=== PATIENT | female | born 1985 | race African-American/Black ===

== ENCOUNTER 2016-05-25 08:52 | Inpatient (IN) ==
[2016-05-21 12:58] LABS: Basophils % 0.5 % (0.0-0.8); Eosinophils # 0.3 10*3/uL (0.0-0.87); Eosinophils % 3.4 % (0.00-10.9); Hematocrit 39.1 VOL% (35.7-47.0); Hemoglobin 13.1 GM/DL (12.0-16.0); Immature Granulocytes % 0.3 %; Immature Granulocytes Absolute 0.02 #; Lymphocytes # 2.7 10*3/uL (1.4-4.0); Lymphocytes % 36.1 % (21.3-54.2); Mean Corpuscular HGB Conc 33.5 GM/DL (32-36); Mean Corpuscular Hemoglobin 32 PG (27-34); Mean Corpuscular Volume 96.3 FL (87-102); Mean Platelet Volume 11.5 FL (9.6-12.0); Monocytes # 0.6 10*3/uL (0.11-0.8); Monocytes % 7.6 % (1.7-12.7); Neutrophils % 52.1 % (38.7-73.9); Platelet Count 169 T/CUMM (130-400); Red Blood Count 4.06 MC/CUMM (3.8-5.5); Red Cell Distribution Width 17.3 % (9.3-17.3); White Blood Count 7.6 T/CUMM (4-12)
[2016-05-21 13:29] LABS: Calcium 8.6 MG/DL (8.5-10.1); Osmolality,Calculated 287.4 MOS/KG (273-304); Potassium 5.2 MMOL/L (3.5-5.1)
[2016-05-25 09:18] LABS: Hemoglobin 12.1 GM/DL (12.0-16.0)
[2016-05-25] MEDS ORDERED: ceFAZolin 1,000 MG VIAL ONE (09:36)
[2016-05-25] MEDS ORDERED: SODIUM CHLORIDE 0.9% 100 ML IV ONE ×2 (09:37→15:07)
[2016-05-25] MEDS ORDERED: BUPIVACAINE MPF 0.25% /EPI 30 ML VIAL ONE (10:34)
[2016-05-25] MEDS ORDERED: LORazepam 1 MG TABLET PO ONE (11:01)
[2016-05-25] MEDS ORDERED: FAMOTIDINE 20 MG TABLET PO ONE (11:26)
[2016-05-25] MEDS ORDERED: LORazepam 1 MG TABLET ONE (11:29)
[2016-05-25] MEDS ORDERED: FAMOTIDINE 20 MG TABLET ONE (11:29)
[2016-05-25] MEDS ORDERED: SODIUM CHLORIDE 0.9% 1,000 ML IV SCH (11:30)
--- NOTE | 2016-05-25 11:45 | History and Physical Update ---
History and Physical Update - History and Physical H&P was reviewed, the patient examined and there: are no changes in the patients condition since last H&P was completed.
[2016-05-25] MEDS: SODIUM CHLORIDE 0.9% 250 ML IV SCH (11:57)
[2016-05-25] MEDS ORDERED: TISSUE ADHESIVE 1 EACH APPLICATOR TOP ONE (14:24)
[2016-05-25] MEDS ORDERED: ACETAMINOPHEN 325 MG TABLET PO PRN (14:35)
[2016-05-25] MEDS ORDERED: ONDANSETRON 4 MG/2 ML VIAL IV PRN (14:35)
--- NOTE | 2016-05-25 14:55 | Operative Note ---
Date of procedure: 05/25/16 Pre-op diagnosis: hyper parathyroidism Post-op diagnosis: same Procedure: Procedure performed: 3-04/20 gland parathyroidectomy with autotransplantation of half of the fourth gland into the left sternocleidomastoid Procedure in detail: After informed consent was obtained, the patient was taken to the operating suite and laid supine on the operating table. After general anesthesia was induced the neck was extended and supported and then prepped and draped in usual sterile fashion. After procedural pause an incision was made transversely across the neck in a skin line and dissection carried down through the skin and soft tissue. The platysma was divided and superior and inferior flaps were created just below the platysma muscle. The midline was opened and the strap muscles retracted laterally. I then identified the thyroid and using blunt and sharp dissection freed it from the sternocleidomastoid. As it was rotated medially and the inferior location I could identify some bulging tissue and dissected bluntly in this area and identified the left inferior parathyroid gland. It appeared normal in color and mildly enlarged. I bluntly dissected it free from its tissue there was a small vascular pedicle that was clipped and the gland was removed and divided. Pathology confirmed that this was parathyroid tissue. I then checked in the right inferior location and approximately the same area on the right and identified the right inferior and bluntly dissected it away from the fatty adipose tissue. It too appeared normal color and minimally enlarged. It vascular pedicle was clipped and the gland removed divided and confirmed to be parathyroid tissue. I then mobilized the right thyroid gland medially and divided the middle meatal vein. Just behind the thyroid identified the superior parathyroid gland close to the thyroid. It was bluntly dissected down to its vascular pedicle and I dissected close to the wall of the parathyroid gland. Vascular pedicle was clipped next to the parathyroid gland and away from the recurrent laryngeal nerve. This gland removed and sent to pathology and confirmed to be parathyroid tissue. Next the left superior parathyroid gland identified and approximately the same location on the left after mobilizing the thyroid medially. Again dissection carried out along the parathyroid gland staying close to the parathyroid gland and freeing it from the surrounding tissue. It was then held bowel its vascular pedicle which was clipped high along the parathyroid gland and again away from the area of the recurrent laryngeal nerve. It was removed and divided. As with all the other glands it appeared normal in color and only minimally enlarged. Half was sent to pathology and confirmed as parathyroid tissue the other half was dissected into small pieces and placed within the cyst left sternocleidomastoid muscle. The pocket was closed and oversewed with a 5-0 Prolene suture and the tail left long for further identification if needed. The wound was irrigated and suction there was excellent hemostasis. I did not see any other parathyroid tissue or any nodular areas needing further dissection. There was excellent hemostasis and a 7 Mj drain was placed in the wound bed and the strap muscles were reapproximated using 3-0 Vicryl. Platysma was closed with 3-0 Vicryl. 4-0 Monocryl used to close the incision. Drain secured with 2-0 nylon. Sterile dressings applied and the patient was extubated and taken recovery room in stable condition. All lap and needle counts were correct at the end of the case. Anesthesia: EDINSON Surgeon / Physician: Estevan Land Auto Body Detailer: Nik Bravo Estimated blood loss: other (25 mL) Specimens: other (parathyroid glands) Condition: stable Disposition: PACU Results - Labs CBC & BMP: 05/25/16 09:08 05/25/16 09:08 Discharge Plan - Discharge Medications No Action Insulin Glargine [Lantus] 30 unit SUBCUT BEDTIME Lisinopril 40 mg PO BID Insulin Aspart Prot/Asp 70/30 [NovoLOG Mix 70/30] See Protocol SUBCUT DIRECTED PRN PRN Reason: Glucose Management Ondansetron Tab [Zofran Tab] 4 mg PO BID Calcium Acetate 667 mg PO TID W/MEALS Pregabalin [Lyrica] 100 mg PO DAILY Hydralazine HCl 100 mg PO TID diphenhydrAMINE CAP [Benadryl Cap] 25 mg PO Q6H PRN PRN Reason: Sleep Promethazine Tab [Phenergan Tab] 25 mg PO Q8H #20 tablet - Follow Up or Referral - Forms/Instructions
[2016-05-25] MEDS ORDERED: PROPOFOL 200 MG/20 ML VIAL IV ONE (15:05)
[2016-05-25] MEDS ORDERED: MIDAZOLAM 2 MG/2 ML VIAL ONE (15:06)
[2016-05-25] MEDS ORDERED: MINERAL OIL/PETROLATUM OPH OINT 3.5 GM TUBE ONE (15:06)
[2016-05-25] MEDS ORDERED: PHENYLEPHRINE DRIP 20 MG/250 ML PREMIX IV ONE (15:06)
[2016-05-25] MEDS ORDERED: NEOSTIGMINE 10 MG/10 ML VIAL ONE (15:07)
[2016-05-25] MEDS ORDERED: ROCURONIUM 100 MG/10 ML VIAL IV ONE (15:07)
[2016-05-25] MEDS ORDERED: GLYCOPYRROLATE 0.4 MG/2 ML VIAL ONE (15:07)
[2016-05-25] MEDS ORDERED: ONDANSETRON 4 MG/2 ML VIAL ONE ×2 (15:07→15:10)
[2016-05-25] MEDS ORDERED: SODIUM CHLORIDE 0.9% 250 ML IV ONE (15:07)
[2016-05-25] MEDS: HYDROmorphone 2 MG/1 ML VIAL IV PRN ×2 (15:12→15:25)
--- NOTE | 2016-05-25 15:24 | Anesthesia ---
Anesthesia Post OP - Post Ansesthetic Evaluation Patient seen in post op: Yes Resp: within normal limits CV: within normal limits Mental: within normal limits Temp: within normal limits [id number]: within normal limits Nausea and Vomiting: within normal limits Pain: within normal limits
[2016-05-25] MEDS ORDERED: SEVOFLURANE 1 UNIT/15 MINUTE INH ONE (15:34)
--- NOTE | 2016-05-25 15:46 | Nephrology Consult Note ---
History of Present Illness Chief complaint: ESRD, Parathyroidectom History of present illness: Ms. Alfonso is a 31 year old female with end-stage renal disease and secondary hyperparathyroidism. She underwent a 3-1/2 gland parathyroidectomy today. Preop calcium was 8.6. She is seen in the recovery room and is still sedate following her uneventful operation. Her chest is clear and her heart without rub or gallop, no peripheral edema is noted. She [place] sign is negative Impression end-stage renal disease on hemodialysis. 2 status post parathyroidectomy for secondary hyperparathyroidism Plan hemodialysis tomorrow #2 when necessary calcium gluconate IV. Home Medications Medication Instructions Recorded Confirmed Type Insulin Glargine [Lantus] 30 unit SUBCUT BEDTIME 01/07/15 05/25/16 History Insulin Aspart Prot/Asp 70/30 See Protocol SUBCUT DIRECTED PRN 05/04/1505/25 History [NovoLOG Mix 70/30] Lisinopril 40 mg PO BID 05/04/15 05/25/16 History Calcium Acetate 667 mg PO TID W/MEALS 07/16/15 05/25/16 History Ondansetron Tab [Zofran Tab] 4 mg PO BID 07/16/15 05/25/16 History Hydralazine HCl 100 mg PO TID 05/15/16 05/25/16 History Pregabalin [Lyrica] 100 mg PO DAILY 05/15/16 05/25/16 History Promethazine Tab [Phenergan Tab] 25 mg PO Q8H #20 tablet 05/15/16 05/25/16 Rx diphenhydrAMINE CAP [Benadryl Cap] 25 mg PO Q6H PRN 05/15/16 05/25/16 History Allergies Allergy/AdvReac Type Severity Reaction Status Date / Time No Known Allergies Allergy Verified 05/25/16 09:06 Medical,Surgical,& Family Hx - Medical History Cardio: History of: CHF, Hypertension Psychological: History of: Depression Neurology: History of: Peripheral Neuropathy No history of: Seizures HEENT: History of: Eye Problem (GLASSES) Endocrine: History of: Diabetes Mellitus (IDDM), Dyslipidemia, Thyroid Disorder Respiratory: History of: Bronchitis, Respiratory Problems (FLU VAC- YES; PNEU VAC- YES) Renal: History of: Dialysis, Renal Failure Genitourinary: History of: Recurring Urinary Tract Infections (LAST WEDNESDAY) Gastrointestinal: History of: GERD Musculoskeletal: History of: Amputation Hematology: History of: Anemia, Clotting Problems (LOWER EXT, AND ARM 2012) Other: History of: MRSA - Surgical History Cardiac Surgeries: Sugical HX of: Cardiac Surgery Patient Denies: Cardiac Catheterization Abdominal Surgeries: Surgical HX of: Cholecystectomy Reproductive Surgeries: Surgical HX of;: Breast Surgery (R BREAST FOR LUMP), Section (X1), Hysterectomy Orthopedic Surgeries: Surgical HX of;: Orthopedic Surgery (AMPUTEE R LOWER LEG) - Family History Family History: Reports;: Family Hypertension (MOTHER, FATHER) - Social History Smoking Status: Current every day smoker Frequency of Alcohol Use: None Type of Drug Use: None Review of Systems 12 point system: reviewed and no additional remarkable complaints except as stated Exam - Vital Signs Vital signs: Period Temp Pulse Resp BP Sys/Pineda Pulse Ox Last 24 Hr 97.0 F-97.5 F 82-92 16-20 121-164/80-103 97-100 - General Appearance General appearance: well-developed, well-nourished, appears started age EENT: ATNC Neck: no JVD, no thyromegaly, no carotid bruit, supple Respiratory: no kyphosis, no scoliosis Cardiology: no murmurs, no rub, no gallops, no edema, regular rate, regular rhythm, normal S1, normal S2 Gastrointestinal: normoactive bowel sounds, no tenderness Integumentary: no rash, warm and dry Neurologic: no focal deficit, no asterixis, alert and oriented x3, reflexes 2+ and symmetric, gait normal, strength 5/5 Musculoskeletal: no deformities, no erythema, no cyanosis, no clubbing Psychiatric: mood/affect appropriate, cooperative Results - Labs CBC & BMP: 05/25/16 09:08 05/25/16 09:08 Assessment and Plan (1) End stage renal disease on dialysis Status: Chronic Assessment and plan: Dialysis tomorrow and q TTS Current Visit: No (2) Status post subtotal parathyroidectomy Status: Acute Assessment and plan: Ffollow Calcium and supplement as needed Current Visit: Yes Specialty Discharge - Follow Up or Referrals - Speciality Discharge Instructions Nephrology Instructions: Hemodialysis tomorrow.
[2016-05-25] MEDS ORDERED: CALCIUM CARBONATE CHEW 500 MG TABLET PO SCH (21:00)
[2016-05-25] MEDS ORDERED: CALCIUM GLUCONATE 1,000 MG in SODIUM CHLORIDE 0.9% 100 ML IV ONE (21:36)
[2016-05-26] MEDS: SODIUM CHLORIDE 0.9% 250 ML IV SCH (00:21)
[2016-05-26] MEDS: CALCITRIOL 0.5 MCG CAPSULE PO SCH (08:17)
[2016-05-26] MEDS: CALCIUM CARBONATE CHEW 500 MG TABLET PO SCH ×5 (08:18→21:54)
[2016-05-26] MEDS: PANTOPRAZOLE 40 MG TABLET PO SCH (08:19)
[2016-05-26 08:59] LABS: Osmolality,Calculated 291.7 MOS/KG (273-304); Potassium 5.6 MMOL/L (3.5-5.1)
[2016-05-26] MEDS ORDERED: CALCITRIOL 0.5 MCG CAPSULE PO SCH (09:00)
[2016-05-26 09:01] LABS: Calcium 5.7 MG/DL (8.5-10.1)
[2016-05-26] MEDS ORDERED: diphenhydrAMINE CAP 25 MG CAPSULE PO PRN (10:09)
[2016-05-26] MEDS ORDERED: PROMETHAZINE 25 MG TABLET PO SCH (10:30)
[2016-05-26] MEDS ORDERED: ONDANSETRON 4 MG TABLET PO SCH (10:30)
--- NOTE | 2016-05-26 10:47 | Event Note ---
31AAF w history of DM and ESRD on HD admitted by dr lyons w secondary hyperparathyroidism. she underwent 3-1/2 gland parathyroidectomy w autotransplantation of half of the 4th gland into the left sternocleidomastoid on 05/25/[address] Lyons[address] dr ho is following for renal and calcium. Patient with productive cough. Seen in HD. Pain controlled. Afebrile. AVSS. Neck ok. No signs of infection. No edema. SUGEY with 25mL serosanginous output last shift. Calcium down to 5.7 A/P: Dr. Ho managing calcium. Add I/S and Duonebs for cough. Home when calcium stable. Discuss with Dr. Lyons
[2016-05-26] MEDS ORDERED: ALBUTEROL/IPRATROPIUM 3 ML NEB RESP TX PRN (10:50)
[2016-05-26] MEDS: ALBUTEROL/IPRATROPIUM 3 ML NEB RESP TX SCH ×3 (11:19→19:49)
--- NOTE | 2016-05-26 11:47 | Pathology Report from [facility] ---
ACCESSION # : [id number] PATIENT NAME : Bernardo Alfonso ORDERING DR : Estevan Land MD CLINICAL HX: Hyperparathyroidism POST-OP DX: Same SPECIMEN INFO: #1 Parathyroid #2 Parathyroid #3 Parathyroid #4 Parathyroid ? LT superior #5 LT inferior parathyroid #6 RT inferior parathyroid GROSS DESCRIPTION: "#1 BERNARDO ALFONSO" received fresh is a 0.8 x 0.7 cm 100 mg red flores tissue fragment bisected and submitted in cassette #1."#2 RT INFERIOR BERNARDO ALFONSO" received fresh is a 0.6 x 0.5 cm <100 mg red flores tissue submitted in cassette #2."#3 RT UPPER BERNARDO ALFONSO" received fresh is a 1.5 x 0.7 cm 500 mg flores soft tissue fragment submitted in cassette #3."#4 BERNARDO ALFONSO" received fresh is a 1 x 0.2 cm 300 mg flores red tissue fragmentsubmitted entirely in cassette #4."#5 LT INFERIOR BERNARDO ALFONSO" received in formalin is a 0.8 x 0.6 cm fragment of red flores tissue submitted in cassette #5."#6 RT INFERIOR BERNARDO ALFONSO" received in formalin is a 0.5 x 0.5 cm 150 mg fragment of red flores tissue submitted in cassette #6. DIAGNOSIS FOR BERNARDO ALFONSO: #1 LEFT INFERIOR PARATHYROID GLAND, BIOPSY: Hypercellular parathyroid tissue.#2 RIGHT INFERIOR PARATHYROID GLAND, BIOPSY: Hypercellular parathyroid tissue.#3 RIGHT SUPERIOR PARATHYROID GLAND, PARATHYROIDECTOMY: Hypercellular parathyroid tissue.#4 LEFT SUPERIOR PARATHYROID GLAND, PARTIAL PARATHYROIDECTOMY: Hypercellular parathyroid tissue.# 5 LEFT INFERIOR PARATHYROID GLAND, PARATHYROIDECTOMY: Hypercellular parathyroid tissue.#6 RIGHT INFERIOR PARATHYROID GLAND, PARATHYROIDECTOMY: Hypercellular parathyroid tissue. SERVICE DATE: 05/26/2016 REPORT DATE: 05/26/2016 PATHOLOGIST: Agustín Le M.D. [facility]
--- NOTE | 2016-05-26 12:01 | Dialysis Note ---
Dialysis Note - Dialysis Note Patient seen on hemodialysis, she is tolerating this well we'll continue her treatment unchanged.
[2016-05-26] MEDS: CALCIUM ACETATE 667 MG CAPSULE PO SCH ×2 (13:21→17:10)
[2016-05-26] MEDS: PREGABALIN 50 MG CAPSULE PO SCH (13:22)
[2016-05-26] MEDS: FAMOTIDINE 20 MG TABLET PO SCH ×2 (13:22→21:54)
[2016-05-26] MEDS: LISINOPRIL 20 MG TABLET PO SCH ×2 (13:22→21:55)
[2016-05-26] MEDS: CALCIUM GLUCONATE IV SCH (16:33)
[2016-05-26] MEDS: SODIUM CHLORIDE 0.45% IV SCH (16:33)
--- NOTE | 2016-05-26 16:43 | Nephrology Progress Note ---
Nephrology - PN: Subj Interval history: Ms. clements is seen 1 day post parathyroidectomy and she had dialysis earlier today with a high calcium bath. She is sleepy but that's from Phenergan I think. She is able answer questions and seems appropriate. We'll try to decrease some of her sedating medicines. A calcium infusion has been ordered and will follow calcium daily. She is also getting a good bit of oral calcium along with vitamin D as Rocaltrol. We'll continue dialysis with the high calcium bath Exam (PN)-Nephrology - Vital Signs Vital signs: Period Temp Pulse Resp BP Sys/Pineda Pulse Ox Last 24 Hr 96.9 F-97.8 F 90-104 16-20 132-187/66-105 94-100 - Lab 05/25/16 09:08 05/26/16 07:57 Most recent lab results Calcium 5.7 MG/DL (8.5-10.1) L* 05/26/16 07:57 Phosphorus 5.3 MG/DL (2.5-4.9) H 05/26/16 05:41 Assessment and Plan (1) End stage renal disease on dialysis Status: Chronic Assessment and plan: Dialysis tomorrow and q TTS Current Visit: No (2) Status post subtotal parathyroidectomy Status: Acute Assessment and plan: Ffollow Calcium and supplement as needed Current Visit: Yes
[2016-05-26] MEDS ORDERED: PROMETHAZINE 25 MG TABLET PO PRN (16:45)
[2016-05-26] MEDS ORDERED: ONDANSETRON 4 MG TABLET PO PRN (16:46)
[2016-05-26] MEDS: INSULIN ASPART PROTAMINE/ASPART 70/30 100 UNIT/ML SUBCUT PRN (18:03)
[2016-05-26] MEDS: INSULIN GLARGINE 100 UNIT/ML SUBCUT SCH (21:55)
[2016-05-26] MEDS: MORPHINE 2 MG/1 ML SYRINGE IV PRN (22:04)
[2016-05-27] MEDS: ALBUTEROL/IPRATROPIUM 3 ML NEB RESP TX SCH ×7 (00:10→23:43)
[2016-05-27] MEDS: MORPHINE 2 MG/1 ML SYRINGE IV PRN ×3 (04:07→21:47)
[2016-05-27] MEDS: PREGABALIN 50 MG CAPSULE PO SCH (09:11)
[2016-05-27] MEDS: LISINOPRIL 20 MG TABLET PO SCH ×2 (09:12→21:00)
[2016-05-27] MEDS: FAMOTIDINE 20 MG TABLET PO SCH ×2 (09:12→21:00)
[2016-05-27] MEDS: CALCITRIOL 0.5 MCG CAPSULE PO SCH (09:13)
[2016-05-27] MEDS: PANTOPRAZOLE 40 MG TABLET PO SCH (09:13)
[2016-05-27] MEDS: CALCIUM CARBONATE CHEW 500 MG TABLET PO SCH ×4 (09:14→21:00)
[2016-05-27] MEDS: CALCIUM ACETATE 667 MG CAPSULE PO SCH ×3 (09:15→16:26)
--- NOTE | 2016-05-27 09:52 | Event Note ---
31AAF w history of DM and ESRD on HD admitted by dr lyons w secondary hyperparathyroidism. she underwent 3-1/2 gland parathyroidectomy w autotransplantation of half of the 4th gland into the left sternocleidomastoid on 05/25/[address] Lyons[address] ho is following for renal and calcium. pt lying in bed sleeping. easily arousable and appropriate. no complaints of cough today. still some soreness and voice a little hoarse. getting continuous infusion of IV calcium Afebrile. AVSS. Neck ok. No signs of infection. No edema. SUGEY with 10mL serosanginous output last shift. Calcium up to 7.2. AP--cont calcium supplementation per dr georgia mitchell jp when goes home discussed w dr lyons
[2016-05-27] MEDS: CHLORHEXIDINE 4% TOP SCH ×2 (10:00→19:36)
[2016-05-27] MEDS: [UNRECOGNIZED DRUG - OTHER] TOP SCH ×2 (10:00→19:36)
--- NOTE | 2016-05-27 15:26 | Nephrology Progress Note ---
Nephrology - PN: Subj Interval history: Ms. clements is seen in follow-up of her end-stage renal disease and post parathyroidectomy state. This morning was 7.2 and she is having no symptomatic hypocalcemia. We'll check calcium again morning and continue with IV and by mouth supplements along with by mouth Rocaltrol. Overall she is doing well post surgery and has no more than the expected amount of soreness. Dialysis is planned for tomorrow with a high calcium bath. Exam (PN)-Nephrology - Vital Signs Vital signs: Period Temp Pulse Resp BP Sys/Pineda Pulse Ox Last 24 Hr 97.1 F-98.8 F 83-114 16-20 122-139/58-79 94-100 - Lab 05/25/16 09:08 05/26/16 07:57 Most recent lab results Calcium 7.2 MG/DL (8.5-10.1) L 05/27/16 04:56 Phosphorus 5.3 MG/DL (2.5-4.9) H 05/26/16 05:41 Assessment and Plan (1) End stage renal disease on dialysis Status: Chronic Assessment and plan: Dialysis tomorrow and q TTS Current Visit: No (2) Status post subtotal parathyroidectomy Status: Acute Assessment and plan: Ffollow Calcium and supplement as needed Current Visit: Yes
[2016-05-27] MEDS: CALCIUM GLUCONATE IV SCH ×2 (16:24→19:35)
[2016-05-27] MEDS: SODIUM CHLORIDE 0.45% IV SCH ×2 (16:24→19:35)
[2016-05-27] MEDS: INSULIN ASPART PROTAMINE/ASPART 70/30 100 UNIT/ML SUBCUT PRN (17:54)
[2016-05-27] MEDS: INSULIN GLARGINE 100 UNIT/ML SUBCUT SCH (21:45)
[2016-05-28] MEDS: MORPHINE 2 MG/1 ML SYRINGE IV PRN ×4 (02:45→21:19)
[2016-05-28] MEDS: ALBUTEROL/IPRATROPIUM 3 ML NEB RESP TX SCH ×6 (03:39→23:36)
[2016-05-28] MEDS: CHLORHEXIDINE 4% TOP SCH (09:00)
[2016-05-28] MEDS: [UNRECOGNIZED DRUG - OTHER] TOP SCH (09:00)
[2016-05-28] MEDS: LISINOPRIL 20 MG TABLET PO SCH ×2 (09:00→21:19)
--- NOTE | 2016-05-28 09:54 | Dialysis Note ---
Dialysis Note - Dialysis Note Ms. clements is seen during her hemodialysis. She is tolerating dialysis well with a high calcium bath. 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 Overall she's doing well and is recovering from her parathyroidectomy nicely. The hungry bone syndrome is expected.
--- NOTE | 2016-05-28 11:01 | Event Note ---
31AAF w history of DM and ESRD on HD admitted by dr lyons w secondary hyperparathyroidism. she underwent 3-1/2 gland parathyroidectomy w autotransplantation of half of the 4th gland into the left sternocleidomastoid on 05/25/[address] ho is following for renal and calcium. POD3. pt doing ok. still some soreness in neck requiring pain pills. eating and drinking fine. Afebrile. AVSS. Neck ok. No signs of infection. No edema. LOIS with 7mL serosanginous output last shift. Calcium down to 6.6. AP--cont calcium supplementation per dr georgia mitchell lois when goes home home when ok w dr ho discussed w dr hurt covering for dr lyons
[2016-05-28] MEDS: CALCIUM GLUCONATE IV SCH (14:41)
[2016-05-28] MEDS: SODIUM CHLORIDE 0.45% IV SCH (14:41)
[2016-05-28] MEDS: CALCITRIOL 0.5 MCG CAPSULE PO SCH (14:46)
[2016-05-28] MEDS: PANTOPRAZOLE 40 MG TABLET PO SCH (14:46)
[2016-05-28] MEDS: PREGABALIN 50 MG CAPSULE PO SCH (14:46)
[2016-05-28] MEDS: CALCIUM CARBONATE CHEW 500 MG TABLET PO SCH ×4 (14:51→21:18)
[2016-05-28] MEDS: CALCIUM ACETATE 667 MG CAPSULE PO SCH ×3 (16:31→17:26)
[2016-05-28] MEDS: FAMOTIDINE 20 MG TABLET PO SCH ×2 (16:34→21:19)
[2016-05-28] MEDS: INSULIN GLARGINE 100 UNIT/ML SUBCUT SCH (21:19)
[2016-05-29] MEDS: ALBUTEROL/IPRATROPIUM 3 ML NEB RESP TX SCH ×2 (03:30→07:31)
[2016-05-29] MEDS: MORPHINE 2 MG/1 ML SYRINGE IV PRN ×2 (03:44→09:15)
[2016-05-29] MEDS: SODIUM CHLORIDE 0.45% IV SCH (06:10)
[2016-05-29] MEDS: CALCIUM GLUCONATE IV SCH (06:10)
--- NOTE | 2016-05-29 08:25 | Discharge Summary ---
Hospital Course - Hospital Course Hospital Course: This patient was admitted after parathyroidectomy. Her calcium levels normalized and she was cleared for discharge by nephrology. Her SUGEY drain had minimal output and was removed prior to discharge. She was scheduled for follow -up with Dr. Land is an outpatient and sent home on a calcium regimen and pain medications. Discharge Plan - Discharge Data Disposition: Disch To Home/Self Care Discharge Diet: advance to your usual diet Activity: resume usual activities as tolerated Hygiene: may shower Weight Bearing at Discharge: full weight bearing Driving: not until seen by doctor Contact your physician if you experience:: fever over 101, Redness or swelling, Nausea/Vomiting, Shortness of breath, Bleeding, pain uncontrolled by pain medications - Discharge Medications New Calcium Acetate [Phoslo] 667 mg PO TID W/MEALS #90 capsule Calcitriol [Rocaltrol] 1 mcg PO DAILY #30 capsule Calcium Carbonate Chew [Tums] 4 tablet PO QID #120 tablet HYDROcodone/ACETAMIN 7.5-325 [[place] 7.5-325] 1 tablet PO Q4H PRN #45 tablet PRN Reason: Pain Moderate (4-7) Continue Insulin Glargine [Lantus] 35 unit SUBCUT BEDTIME Lisinopril 40 mg PO BID Insulin Aspart Prot/Asp 70/30 [NovoLOG Mix 70/30] See Protocol SUBCUT DIRECTED PRN PRN Reason: Glucose Management Ondansetron Tab [Zofran Tab] 4 mg PO BID Pregabalin [Lyrica] 50 mg PO DAILY Hydralazine HCl 100 mg PO BID Ranitidine Tab [Zantac Tab] 150 mg PO BID diphenhydrAMINE CAP [Benadryl Cap] 25 mg PO Q6H PRN PRN Reason: Sleep Promethazine Tab [Phenergan Tab] 25 mg PO Q8H #20 tablet Discontinued Calcium Acetate 667 mg PO TID W/MEALS - Follow Up or Referral Follow Up: Estevan Land MD [Physician] - 1 Week - Forms/Instructions Exam - Constitutional Vitals: Period Temp Pulse Resp BP Sys/Pineda Pulse Ox Last 24 Hr 96.4 F-97.3 F 101-113 18-20 116-139/57-78 97-100 General appearance: no acute distress, over weight - Head Head exam: Present: normal inspection, normocephalic - Eye Eye exam: Present: EOMI Pupils: Present: GARIMA - ENT ENT exam: Present: normal exam - Neck Neck exam: Present: normal inspection, other (incision is healing well with no hematoma. SUGEY drain is serosanguineous with minimal output.) - Respiratory Respiratory exam: Present: clear to auscultation bilaterally. Absent: accessory muscle use, chest wall tenderness - Cardiovascular Cardiovascular exam: Present: regular rate and rhythm. Absent: systolic murmur , tachycardia - GI/Abdominal GI/Abdominal exam: Present: normal bowel sounds, soft. Absent: tenderness, rebound - Extremities Exam Extremities exam: Present: normal inspection, normal capillary refill - Back Exam Back exam: Present: normal inspection - Neurological Exam Neurological exam: Present: alert, oriented X3 - Psychiatric Psychiatric exam: Present: normal affect, normal mood - Skin Skin exam: Present: normal color, warm Discharge Results Procedures and tests throughout hospitalization: Pending Orders 05/30/16 04:00 Calcium IN AM 05/31/16 04:00 Calcium IN AM Labs on day of discharge: Labs from last 24 hours 05/29/16 05/29/16 05/28/16 08:15 04:02 19:07 POC Glucose 70 L 244 H Calcium 7.8 L 05/28/16 15:59 POC Glucose 90 Calcium DS: Provider Date of admission: 05/25/16 14:35 Primary care physician: Virginia Tobias Attending physician on admission: Estevan Land MD Consults: 05/25/16 14:38 Consult to Physician [CONS] Routine Comment: Consulting Provider: Gary Stratton Consulting Provider Notified: Yes When should Consulting Provider be notified: Now Consult to Specialist Group: Nephrology When should Consulting Provider be notified: Now Person Notified: OFFICE NOTIFIED Date Notified: 05/25/16 Time Notified: 16:04 05/25/16 16:25 Consult to Pastoral Services [CONS] Routine Comment: Pastoral Screen: Request Stem Crusher Visit Pastoral Screen Source of Request: Patient Discharging clinician: Maurice Nazario MD Expected date of discharge: 05/29/16
--- NOTE | 2016-05-29 08:35 | Nephrology Progress Note ---
Nephrology - PN: Subj Interval history: Ms. clements is seen in follow-up for end-stage renal disease and post parathyroidectomy state. Her calcium is up today to 7.8. She is going to go home. We've discussed to discharge with Dr. Nazario and we will keep her on her vitamin D and calcium. This with Ms. clements so she will go home on a higher calcium bath higher dose of oral calcium that is 3 pounds extra strength tablets 4 times a day and Rocaltrol 1 g daily. She'll follow for dialysis tomorrow at the outpatient dialysis unit. Exam (PN)-Nephrology - Vital Signs Vital signs: Period Temp Pulse Resp BP Sys/Pineda Pulse Ox Last 24 Hr 96.4 F-97.3 F 101-113 18-20 116-139/57-78 97-100 - Lab 05/25/16 09:08 05/26/16 07:57 Most recent lab results Calcium 7.8 MG/DL (8.5-10.1) L 05/29/16 04:02 Phosphorus 5.3 MG/DL (2.5-4.9) H 05/26/16 05:41 Assessment and Plan (1) End stage renal disease on dialysis Status: Chronic Assessment and plan: Dialysis tomorrow and q TTS Current Visit: No (2) Status post subtotal parathyroidectomy Status: Acute Assessment and plan: Ffollow Calcium and supplement as needed Current Visit: Yes Specialty Discharge - Follow Up or Referrals Follow up with: Estevan Land MD [Physician] - 1 Week
[2016-05-29] MEDS: CALCITRIOL 0.5 MCG CAPSULE PO SCH (09:11)
[2016-05-29] MEDS: LISINOPRIL 20 MG TABLET PO SCH (09:11)
[2016-05-29] MEDS: CALCIUM ACETATE 667 MG CAPSULE PO SCH (09:12)
[2016-05-29] MEDS: PANTOPRAZOLE 40 MG TABLET PO SCH (09:12)
[2016-05-29] MEDS: FAMOTIDINE 20 MG TABLET PO SCH (09:12)
[2016-05-29] MEDS: PREGABALIN 50 MG CAPSULE PO SCH (09:12)
[2016-05-29] MEDS: CALCIUM CARBONATE CHEW 500 MG TABLET PO SCH (09:13)
[2016-05-29 13:10] VITALS: BP 121/60
== END 2016-05-29 12:25 | disposition home or self-care (01) | DRG 674 ==
LOC: N.OR 08:52 → N.SDSINP 08:53 → N.4E 15:56
PROVIDERS: ADMIT Surgery; ATTEND Surgery

== ENCOUNTER 2016-08-12 18:31 | Inpatient (IN) ==
[2016-08-12] MEDS ORDERED: NITROGLYCERIN 2% OINT 1 INCH/GM PACK TOP STA (20:21)
[2016-08-12] MEDS ORDERED: ASPIRIN 325 MG TABLET PO STA (20:21)
[2016-08-12] MEDS ORDERED: MORPHINE 2 MG/1 ML SYRINGE IV STA (20:21)
[2016-08-12] MEDS ORDERED: METOPROLOL TARTRATE 25 MG TABLET PO STA (20:21)
[2016-08-12] MEDS ORDERED: ONDANSETRON 4 MG/2 ML VIAL IV STA (20:21)
[2016-08-12] MEDS ORDERED: PANTOPRAZOLE 40 MG VIAL IV STA (20:21)
[2016-08-12] MEDS ORDERED: ALUM/MAG/SIMETH/LIDO VISC 1:1 30 ML BOTTLE PO STA (20:21)
--- NOTE | 2016-08-12 20:25 | EKG Report ---
Stationary ECG Study [facility] ER Test Date: 08/12/2016 6:56:50 PM Pat Name: JANES DAMON Department: Room: Gender: F Spanish Medical Interpreter: : 1985 Requested by: Raghu العلي Order Number: [id number] Steve MD: MAULIK BERRIOS Intervals [place] Rate: 105 P: 999 WV: 0 QRS: 81 QRSD: 111 T: 58 QT: 371 QTc: 432 Interpretive Statements SINUS TACHYCARDIA Electronically Signed On 08-16-16 17:28:38 CDT by MAULIK BERRIOS [email or web address]
[2016-08-12] MEDS ORDERED: METOPROLOL TARTRATE 25 MG TABLET ONE (20:33)
[2016-08-12] MEDS ORDERED: PANTOPRAZOLE 40 MG VIAL IV ONE (20:33)
[2016-08-12] MEDS ORDERED: NITROGLYCERIN 2% OINT 1 INCH/GM PACK TOP ONE (20:33)
[2016-08-12] MEDS ORDERED: ASPIRIN 325 MG TABLET ONE (20:34)
[2016-08-12] MEDS ORDERED: ALUM/MAG/SIMETH/LIDO VISC 1:1 30 ML BOTTLE PO ONE (20:34)
[2016-08-12] MEDS ORDERED: ONDANSETRON 4 MG/2 ML VIAL ONE (20:34)
[2016-08-12] MEDS ORDERED: MORPHINE 2 MG/1 ML SYRINGE ONE (20:34)
[2016-08-12 20:38] LABS: Basophils # 0.1 10*3/uL (0.0-0.2); Basophils % 0.2 % (0.0-0.8); Hematocrit 33.7 VOL% (35.7-47.0); Hemoglobin 11.3 GM/DL (12.0-16.0); Immature Granulocytes % 0.8 %; Immature Granulocytes Absolute 0.18 #; Lymphocytes # 2.7 10*3/uL (1.4-4.0); Lymphocytes % 12.5 % (21.3-54.2); Mean Corpuscular HGB Conc 33.5 GM/DL (32-36); Mean Corpuscular Hemoglobin 34 PG (27-34); Mean Corpuscular Volume 101.5 FL (87-102); Mean Platelet Volume 13.3 FL (9.6-12.0); Monocytes # 2.6 10*3/uL (0.11-0.8); Monocytes % 12.1 % (1.7-12.7); NRBC # 0.02 10*3/uL; Neutrophils # 15.7 10*3/uL (1.4-7.4); Neutrophils % 74.4 % (38.7-73.9); Platelet Count 124 T/CUMM (130-400); Red Blood Count 3.32 MC/CUMM (3.8-5.5); Red Cell Distribution Width 18.7 % (9.3-17.3); White Blood Count 21.2 T/CUMM (4-12)
[2016-08-12 20:43] LABS: INR 1.1; PT Patient Result 12.1 SECS
[2016-08-12 20:59] LABS: Albumin 3.1 G/DL (3.4-5.0); Calcium 6.1 MG/DL (8.5-10.1); Magnesium 2.1 MG/DL (1.8-2.4); Osmolality,Calculated 285.6 MOS/KG (273-304); Potassium 5.8 MMOL/L (3.5-5.1); Total Protein 8.2 G/DL (6.4-8.3)
--- NOTE | 2016-08-12 21:00 | XRay Report ---
History: Chest pain Date: 08/12/2016 Study: Chest x-ray PA lateral Comparison exam: June 09, 2016 chest x-ray The cardiac silhouette is upper normal in size. The mediastinal contours are stable. The pulmonary vasculature is not engorged. There is no pleural effusion. There is a focal patchy parenchymal consolidation in the right upper lung which was not present on the comparison chest x-ray. The osseous structures are unchanged. Impression: Focal right upper lung infiltrate compatible with pneumonia. Radiographic follow-up to resolution is recommended PROCEDURE INTERPRETED AT [facility] DEPARTMENT OF RADIOLOGY Final Report Signed by: Dr. Sherie Matos
--- NOTE | 2016-08-12 21:05 | XRay Report ---
History: Epigastric pain Date: 08/12/2016 Study: Flat and erect abdomen Comparison exam: Abdominal x-ray June 10, 2016 There is no evidence of pneumoperitoneum. The bowel gas pattern is nonobstructive without gross mass lesion. There is an infrarenal level IVC filter at the approximate L3 location as before. The osseous structures are unchanged. Surgical clips overlie the right upper abdomen from previous cholecystectomy. Impression: No acute process. IVC filter as before PROCEDURE INTERPRETED AT [facility] DEPARTMENT OF RADIOLOGY Final Report Signed by: Dr. Sherie Matos
[2016-08-12 21:15] LABS: Band Neutrophils 4 % (0-10); Lymphocytes 14 % (20-55); Platelet Estimate Adequate; Segmented Neutrophils 77 % (50-85); Total Cells Counted 100
--- NOTE | 2016-08-12 21:20 | Emergency Department Note ---
Josemanuel Lee Manpreet, am scribing for, and in the presence of, Raghu Mejia MD 20:40. Roberto Lee Charles R, MD, personally performed the services described in this documentation, ascribed by Matthew Abernathy in my presence, and it is both accurate and complete . Arrival - Arrival Chief Complaint: Chest Pain Stated Complaint: chest pain/throwing up blood/body aching all over ED Nursing Triage Note: patient to triage with c/o CP and throwing up blood. patient states her "whole body hurts" CP is right sided and hurts more with deep breaths. radiates to her left arm and back. Mode of Arrival: Wheelchair Limitations: No Limitations Source: Patient, Old Records Reviewed, RN Notes Reviewed Time Seen by Provider: 08/12/16 19:40 - History of Present Illness HPI Narrative: Pt is a 31 y/o female with Hx of CHF, HTN, IDDM, NIDDM, Renal failure, and FMHx of HTN, who present to the ED with CC of epigastric and central CP accompanied by body aches since earlier today. Pt is SOB, and reports hematemesis with dark red coloration, and diarrhea. Pt states she has hemodialysis on Tuesdays, , and Saturdays, but missed her appointment because she did not feel well. No other complaints/pains reported to ED. Consistency: constant Severity: moderate Severity scale (1-10): 3 Date of Last Menstrual Period: hyst Allergies/Adverse Reactions: Allergies Allergy/AdvReac Type Severity Reaction Status Date / Time No Known Allergies Allergy Verified 08/12/16 18:53 Home Medications: Home Medications Medication Instructions Recorded Confirmed Type Insulin Glargine [Lantus] 30 unit SUBCUT BEDTIME 01/07/15 08/12/16 History Lisinopril 40 mg PO BID 05/04/15 08/12/16 History Pregabalin [Lyrica] 50 mg PO DAILY 05/15/16 08/12/16 History Ranitidine Tab [Zantac Tab] 150 mg PO TID 05/25/16 08/12/16 History Calcitriol [Rocaltrol] 1 mcg PO DAILY #30 capsule 05/29/16 08/12/16 Rx Calcium Acetate [Phoslo] 667 mg PO TID W/MEALS #90 capsule 05/29/16 08/12/16 Rx Cinacalcet [Sensipar] 30 mg PO DAILY 06/09/16 08/12/16 History Fluoxetine HCl 40 mg PO DAILY 06/09/16 08/12/16 History Montelukast Sodium 10 mg PO BEDTIME 06/09/16 08/12/16 History Pantoprazole Tab [Protonix Tab] 40 mg PO BID #40 tablet 06/10/16 08/12/16 Rx Calcium Acetate [Phoslo] 667 mg PO BID 08/12/16 08/12/16 History Cyproheptadine Tab [Periactin Tab] 4 mg PO BID 08/12/16 08/12/16 History HYDROcodone/ACETAMIN 10-325 [[place] 1 tablet PO Q4H PRN 08/12/16 08/12/16 History 10-325] Insulin Aspart [NovoLOG] See Protocol SUBCUT DAILY PRN 08/12/16 08/12/16 History Mupirocin 2% Oint [Bactroban 2% 1 applic TOP BID 08/12/16 08/12/16 History Oint] Promethazine Tab [Phenergan Tab] 25 mg PO Q6H PRN 08/12/16 08/12/16 History cephALEXin [Cephalexin] 500 mg PO BID 08/12/16 08/12/16 History Review of System - Review of System 12 point system: reviewed and no additional remarkable complaints except as stated - Review of System Constitutional: Present: weakness (Body aches). Absent: chills, fever Respiratory: Present: respiratory distress Cardiovascular: Present: chest pain Gastrointestinal: Present: abdominal pain, diarrhea, hematemesis. Absent: melena Musculoskeletal: Absent: arm pain, back pain, lower back pain, leg pain, neck pain Neurological: Absent: headache Medical,Surgical,& Family Hx - Medical History Cardio: History of: CHF, Hypertension Psychological: History of: Depression Neurology: History of: Peripheral Neuropathy No history of: Seizures Endocrine: History of: Diabetes Mellitus (IDDM), Diabetes Mellitus (NIDDM), Thyroid Disorder, Endocrine Problems (parathyroidectomy) Renal: History of: Dialysis (, , Wed), Renal Failure Gastrointestinal: History of: Gastrointestinal Bleed Musculoskeletal: History of: Amputation (right BKA), Musculoskeletal Problems ( right BKA) Hematology: History of: Anemia Other: History of: MRSA - Surgical History Cardiac Surgeries: Patient Denies: Cardiac Catheterization, Cardiac Surgery Abdominal Surgeries: Surgical HX of: Abdominal Surgery Reproductive Surgeries: Surgical HX of;: Breast Surgery (R BREAST FOR LUMP), Section (X1), Hysterectomy Orthopedic Surgeries: Surgical HX of;: Orthopedic Surgery (AMPUTEE R LOWER LEG) - Family History Family History: Reports;: Family Hypertension (MOTHER, FATHER) - Social History Smoking Status: Current some day smoker Frequency of Alcohol Use: None Type of Drug Use: None Exam Vital Signs: Vital Signs Temperature 98.6 F 08/12/16 18:48 Pulse Rate 105 H 08/12/16 18:48 Respiratory Rate 22 08/12/16 18:48 Blood Pressure 112/76 08/12/16 18:48 O2 Sat by Pulse Oximetry 100 08/12/16 18:48 - General General appearance: alert, in no apparent distress - Head Head exam: Present: atraumatic, normocephalic, normal inspection - Eye Eye exam: Present: normal appearance, PERRL, EOMI - ENT ENT exam: Present: normal exam, normal oropharynx, mucous membranes moist, TM's normal bilaterally - Neck Neck exam: Present: normal inspection, full ROM, trachea midline. Absent: tenderness - Chest Chest inspection: Present: normal inspection, symmetric chest wall rise - Respiratory Respiratory exam: Present: rales (Bilateral rales). Absent: normal lung sounds bilaterally - Cardiovascular Cardiovascular exam: Present: normal rhythm, tachycardia, normal heart sounds - Abdominal Exam Abdominal exam: Present: soft, diminished bowel sounds, other (Bloated stomach.) . Absent: tenderness - Rectal Exam Rectal exam: Present: deferred, heme (+) stool - Extremities Exam Extremities exam: Present: full ROM, other (Amputation of RLE below the knee.). Absent: normal inspection - Back Exam Back exam: Present: normal inspection, full ROM. Absent: tenderness - Neurological Exam Neurological exam: Present: alert, oriented X3, CN II-XII intact, normal gait, reflexes normal - Psychiatric Psychiatric exam: Present: normal affect - Skin Skin exam: Present: warm, dry, intact, normal color. Absent: pallor Course - Consultations Consultation #1: Hospitalist will admit patient Time: 21:29 Results - Labs CBC & BMP: 08/12/16 19:47 08/12/16 19:47 Lab Results: I have reviewed the patients labs Labs: Laboratory Tests Laboratory Tests 08/12/16 08/12/16 19:47 19:47 WBC 21.2 H RBC 3.32 L Hgb 11.3 L Hct 33.7 L MCV 101.5 MCH 34 MCHC 33.5 RDW 18.7 H Plt Count 124 L MPV 13.3 H Neut % (Auto) 74.4 H Lymph % (Auto) 12.5 L [place] % (Auto) 12.1 Eos % (Auto) 0.0 Baso % (Auto) 0.2 Neut # (Auto) 15.7 H Lymph # (Auto) 2.7 [place] # (Auto) 2.6 H Eos # (Auto) 0.0 Baso # (Auto) 0.1 Immature Gran % 0.8 Nucleated RBC % 0.1 Immature Gran # 0.18 Nucleated RBCs # 0.02 INR 1.1 PT Patient/Control Mix 12.1 Laboratory Tests 08/12/16 19:47 Sodium 124 L Potassium 5.8 H Chloride 85 L Carbon Dioxide 23 Anion Gap 21.8 H BUN 71 H Creatinine 14.70 H GFR Calculation 4 BUN/Creatinine Ratio 4.00 L Glucose 380 H Calculated Osmolality 285.6 Calcium 6.1 L Magnesium 2.1 AST 78 H Alkaline Phosphatase 237 H Albumin 3.1 L Globulin 5.1 H Albumin/Globulin Ratio 0.6 L - Diagnostic Findings Procedure: Chest x-ray: report reviewed by me (Chest XR PA Lateral: Focal right upper lung infiltrate compatible with pneumonia. Radiographic follow-up to resoluton is recommended.), CT Abdomen and Pelvis: report reviewed by me (CT Abd : No acute process. IVC filter as before.) Critical Care Time Critical Care Time: Yes Total Critical Care Time: 60 Disposition Clinical Impression: Chest pain, Atypical chest pain, Gastroenteritis, Leukocytosis, Coffee ground emesis, End stage renal disease on dialysis, Right upper lobe pneumonia, GI bleed, Hyponatremia, Hyperkalemia Case discussed with: patient, patient's family Disposition: Still a Patient Condition: Guarded Time of Disposition: 21:29
[2016-08-12] MEDS ORDERED: cefTRIAXone 1,000 MG in SODIUM CHLORIDE 0.9% 100 ML IV STA (21:21)
[2016-08-12] MEDS ORDERED: cefTRIAXone 1,000 MG VIAL ONE (21:29)
[2016-08-12] MEDS ORDERED: ALBUTEROL/IPRATROPIUM 3 ML NEB RESP TX STA (21:35)
--- NOTE | 2016-08-12 22:02 | Hospitalist History & Physical ---
Assessment and Plan (1) Atypical chest pain Status: Acute Current Visit: Yes (2) GI bleed Status: Acute Current Visit: Yes (3) Gastroenteritis Status: Acute Current Visit: Yes (4) Hyperkalemia Status: Acute Current Visit: Yes (5) Hyponatremia Status: Acute Current Visit: Yes (6) Leukocytosis Status: Acute Current Visit: Yes (7) Right upper lobe pneumonia Status: Acute Current Visit: Yes (8) Hypertension Status: Acute Current Visit: No (9) Intractable nausea and vomiting Status: Acute Current Visit: No (10) Ulcerative esophagitis Status: Acute Current Visit: No (11) End stage renal disease on dialysis Status: Chronic Assessment and plan: Our plan for this patient. Patient at this time seems to be in ICU admission. She needs to be admitted and placed on IV antibiotics for her pneumonia. We will need to watch her hemoglobin and hematocrit while she is here to see if it did not drop significantly. Currently she is 11.3 and 33.7. We will need to consult GI for her hematocrit emesis. This might be her erosive esophagitis acting up. Need to make sure that she is on PPI twice daily. Will consult renal for her dialysis. Draw serial troponins. Due to the lack of ICU beds patient might need have to be kept in the emergency room overnight. If she stable after overnight she might be able to be a floor patient Current Visit: No History of Present Illness Chief complaint: Multiple complaints History of present illness: Ms. Alfonso is a 31 year old female with past medical history significant for end- stage renal disease diabetes hypertension and erosive esophagitis who is her normal state of health till yesterday. Patient reports that time she had nausea and vomiting. She reports that she was too sick to go to hemodialysis and she stayed at home. She has been throwing up blood. She reports to me that she has a hiatal hernia. Looked at last EGD that she had and she was noted as having erosive esophagitis. She is also having a cough and feels short of breath. She also is complaining about chest pain that starts in the center of her chest radiates to the right side of her chest and around her back and down her left arm. I was consulted to admit the patient to the emergency room. Home Medications Medication Instructions Recorded Confirmed Type Insulin Glargine [Lantus] 30 unit SUBCUT BEDTIME 01/07/15 08/12/16 History Lisinopril 40 mg PO BID 05/04/15 08/12/16 History Pregabalin [Lyrica] 50 mg PO DAILY 05/15/16 08/12/16 History Ranitidine Tab [Zantac Tab] 150 mg PO TID 05/25/16 08/12/16 History Calcitriol [Rocaltrol] 1 mcg PO DAILY #30 capsule 05/29/16 08/12/16 Rx Calcium Acetate [Phoslo] 667 mg PO TID W/MEALS #90 capsule 05/29/16 08/12/16 Rx Cinacalcet [Sensipar] 30 mg PO DAILY 06/09/16 08/12/16 History Fluoxetine HCl 40 mg PO DAILY 06/09/16 08/12/16 History Montelukast Sodium 10 mg PO BEDTIME 06/09/16 08/12/16 History Pantoprazole Tab [Protonix Tab] 40 mg PO BID #40 tablet 06/10/16 08/12/16 Rx Calcium Acetate [Phoslo] 667 mg PO BID 08/12/16 08/12/16 History Cyproheptadine Tab [Periactin Tab] 4 mg PO BID 08/12/16 08/12/16 History HYDROcodone/ACETAMIN 10-325 [[place] 1 tablet PO Q4H PRN 08/12/16 08/12/16 History 10-325] Insulin Aspart [NovoLOG] See Protocol SUBCUT DAILY PRN 08/12/16 08/12/16 History Mupirocin 2% Oint [Bactroban 2% 1 applic TOP BID 08/12/16 08/12/16 History Oint] Promethazine Tab [Phenergan Tab] 25 mg PO Q6H PRN 08/12/16 08/12/16 History cephALEXin [Cephalexin] 500 mg PO BID 08/12/16 08/12/16 History Allergies Allergy/AdvReac Type Severity Reaction Status Date / Time No Known Allergies Allergy Verified 08/12/16 18:53 Medical,Surgical,& Family Hx - Medical History Cardio: History of: CHF, Hypertension Psychological: History of: Depression Neurology: History of: Peripheral Neuropathy No history of: Seizures Endocrine: History of: Diabetes Mellitus (IDDM), Diabetes Mellitus (NIDDM), Thyroid Disorder, Endocrine Problems (parathyroidectomy) Renal: History of: Dialysis (, , Wed), Renal Failure Gastrointestinal: History of: Gastrointestinal Bleed Musculoskeletal: History of: Amputation (right BKA), Musculoskeletal Problems ( right BKA) Hematology: History of: Anemia Other: History of: MRSA - Surgical History Cardiac Surgeries: Patient Denies: Cardiac Catheterization, Cardiac Surgery Abdominal Surgeries: Surgical HX of: Abdominal Surgery Reproductive Surgeries: Surgical HX of;: Breast Surgery (R BREAST FOR LUMP), Section (X1), Hysterectomy Orthopedic Surgeries: Surgical HX of;: Orthopedic Surgery (AMPUTEE R LOWER LEG) - Family History Family History: Reports;: Family Hypertension (MOTHER, FATHER) - Social History Smoking Status: Current some day smoker Frequency of Alcohol Use: None Type of Drug Use: None 12 point system: reviewed and no additional remarkable complaints except as stated Exam - Constitutional Vitals: Period Temp Pulse Resp BP Sys/Pineda Pulse Ox Last 24 Hr 98.6 F-98.6 F 101-105 22-22 112-112/76-76 95-100 General appearance: over weight - Head Head exam: Present: normal inspection - Eye Eye exam: Present: EOMI Pupils: Present: GARIMA - ENT ENT exam: Present: normal exam - Neck Neck exam: Present: normal inspection - Respiratory Respiratory exam: Present: rales - Cardiovascular Cardiovascular exam: Present: tachycardia - GI/Abdominal GI/Abdominal exam: Present: normal bowel sounds - Extremities Exam Extremities exam: Present: other (Patient has a right BKA secondary to osteo-) - Back Exam Back exam: Present: normal inspection - Neurological Exam Neurological exam: Present: alert - Psychiatric Psychiatric exam: Present: normal affect - Skin Skin exam: Present: normal color Results - Labs CBC & BMP: 08/12/16 19:47 08/12/16 19:47
[2016-08-12] MEDS ORDERED: DEXTROSE 50% 25 GM/50 ML VIAL IV PRN (22:05)
[2016-08-12] MEDS ORDERED: GLUCAGON 1 MG VIAL IM PRN (22:05)
[2016-08-12] MEDS ORDERED: ALBUTEROL 2.5 MG/3 ML NEB RESP TX PRN ×2 (22:05→22:10)
[2016-08-12] MEDS ORDERED: AZITHROMYCIN 500 MG VIAL IV ONE (22:50)
[2016-08-12] MEDS: AZITHROMYCIN INJ 500 MG in SODIUM CHLORIDE 0.9% 250 ML IV SCH (23:52)
[2016-08-13] MEDS ORDERED: INSULIN REGULAR 100 UNIT/ML ONE ×2 (00:15→12:22)
[2016-08-13] MEDS: INSULIN REGULAR 100 UNIT/ML SUBCUT SCH ×5 (00:23→21:01)
--- NOTE | 2016-08-13 00:39 | EKG Report ---
Stationary ECG Study [facility] ER Test Date: 08/13/2016 12:38:17 AM Pat Name: JANES DAMON Department: Room: Gender: F Vp Of Product: : 1985 Requested by: Raghu العلي Order Number: [id number] Steve MD: MAULIK BERRIOS Intervals [place] Rate: 92 P: 58 MN: 163 QRS: 112 QRSD: 106 T: 44 QT: 387 QTc: 437 Interpretive Statements SINUS RHYTHM Electronically Signed On 08-16-16 17:30:51 CDT by MAULIK BERRIOS [email or web address]
[2016-08-13] MEDS: ALBUTEROL/IPRATROPIUM 3 ML NEB RESP TX SCH ×4 (01:03→20:13)
[2016-08-13 04:41] LABS: Basophils % 0.1 % (0.0-0.8); Eosinophils % 0.1 % (0.00-10.9); Hematocrit 31.8 VOL% (35.7-47.0); Hemoglobin 10.8 GM/DL (12.0-16.0); Immature Granulocytes % 0.5 %; Immature Granulocytes Absolute 0.11 #; Lymphocytes % 9.9 % (21.3-54.2); Mean Corpuscular Hemoglobin 34 PG (27-34); Mean Platelet Volume 12.6 FL (9.6-12.0); Monocytes # 2.7 10*3/uL (0.11-0.8); NRBC # 0.02 10*3/uL; Neutrophils # 15.7 10*3/uL (1.4-7.4); Neutrophils % 76.4 % (38.7-73.9); Platelet Count 105 T/CUMM (130-400); Red Blood Count 3.15 MC/CUMM (3.8-5.5); Red Cell Distribution Width 18.9 % (9.3-17.3); White Blood Count 20.5 T/CUMM (4-12)
[2016-08-13 05:08] LABS: Lymphocytes 18 % (20-55); Segmented Neutrophils 73 % (50-85); Total Cells Counted 100
[2016-08-13 05:10] LABS: Platelet Estimate Normal; Tear Drop Cells Few
[2016-08-13 06:03] LABS: Osmolality,Calculated 286.8 MOS/KG (273-304); Potassium 5.4 MMOL/L (3.5-5.1)
[2016-08-13 06:06] LABS: Calcium 5.4 MG/DL (8.5-10.1)
--- NOTE | 2016-08-13 06:35 | EKG Report ---
Stationary ECG Study [facility] ER Test Date: 08/13/2016 3:23:01 AM Pat Name: JANES DAMON Department: Room: Gender: F Cook Pressure: : 1985 Requested by: Raghu العلي Order Number: [id number] Steve MD: MAULIK BERRIOS Intervals [place] Rate: 105 P: 41 NJ: 224 QRS: 95 QRSD: 110 T: 32 QT: 362 QTc: 423 Interpretive Statements SINUS TACHYCARDIA Electronically Signed On 08-16-16 17:31:32 CDT by MAULIK BERRIOS [email or web address]
[2016-08-13] MEDS ORDERED: ONDANSETRON 4 MG/2 ML VIAL ONE (08:30)
[2016-08-13] MEDS ORDERED: FAMOTIDINE 20 MG TABLET PO SCH (09:00)
[2016-08-13] MEDS: PANTOPRAZOLE 40 MG VIAL IV SCH ×2 (09:31→21:00)
[2016-08-13] MEDS ORDERED: PANTOPRAZOLE 40 MG VIAL IV ONE (09:31)
[2016-08-13] MEDS ORDERED: MUPIROCIN 2% OINT 22 GM TUBE TOP ONE (09:31)
[2016-08-13] MEDS ORDERED: FAMOTIDINE 20 MG TABLET ONE (09:31)
[2016-08-13] MEDS: FAMOTIDINE 20 MG TABLET PO SCH (09:33)
[2016-08-13] MEDS: MUPIROCIN 2% OINT 22 GM TUBE TOP SCH ×2 (09:33→21:01)
[2016-08-13] MEDS: CALCIUM ACETATE 667 MG CAPSULE PO SCH ×5 (09:34→21:00)
[2016-08-13] MEDS: CYPROHEPTADINE 4 MG TABLET PO SCH ×2 (09:35→20:59)
[2016-08-13] MEDS: FLUoxetine 20 MG CAPSULE PO SCH (09:35)
[2016-08-13] MEDS: CINACALCET 30 MG TABLET PO SCH (09:36)
[2016-08-13] MEDS: CALCITRIOL 0.5 MCG CAPSULE PO SCH (09:36)
[2016-08-13] MEDS: PREGABALIN 50 MG CAPSULE PO SCH (10:19)
--- NOTE | 2016-08-13 10:19 | CT Report ---
CT chest PE study Indication: Right-sided chest pain. Comparison: None. Technique: CT of the chest was performed following the administration of intravenous contrast. In addition to multiple contiguous axial source images obtained from the thoracic inlet through the upper abdomen, coronal and sagittal MPR series were performed as were thin slab MIP reconstructions in the coronal and sagittal plane. The CT examination was performed using one or more of the following dose reduction techniques: Automatic exposure control, adjustment of the mA and kV according to patient size, or iterative reconstruction techniques. Findings: Nongated study was performed. There appears to be mild to moderate cardiomegaly. There is an ill-defined round hypoattenuating lesion in the region of the right atrial wall which measures 2.4 x 2.1 cm. This lies adjacent the tricuspid valve. Further evaluation is limited secondary to motion. Peripherally located confluent air space attenuation located within the right upper lobe has surrounding more centrally located groundglass attenuation and borderline to minimally enlarged subcarinal and right peritracheal lymph nodes demonstrated. Prevascular lymph nodes are enlarged measuring up to 10 mm short axis dimension. The lung parenchyma otherwise demonstrates significant blurring secondary to motion. This motion additionally blurs the branches of the pulmonary artery which cannot be completely evaluated for presence of pulmonary artery embolus. The central pulmonary arteries as well as lobar pulmonary arteries appear normal. No pleural effusions are present. No endobronchial lesions present. Surgical absence of the gallbladder is demonstrated. Bony structures demonstrate no significant abnormalities. Soft tissues and muscular structure of the body wall demonstrate no significant abnormalities. Multiple breast calcifications are noted throughout the right breast. Impression: 1. Confluent airspace opacities within the right upper lobe most likely due to infection. Follow-up is recommended to ensure complete resolution. 2. No distinct pulmonary artery embolus is demonstrated within the central or lobar pulmonary arteries. Significant motion artifact is present which blurs the smaller vessels and segmental as well as subsegmental pulmonary arteries particularly within the lower lobes cannot be completely evaluated. 3. Right atrial mass measuring 2.4 x 2.1 cm is suggested. Motion precludes further evaluation and correlation with echocardiogram is recommended. Differential considerations, if substantiated, include thrombus, myxoma, melanoma, lymphoma. 4. Adenopathy within the mediastinum as detailed. 08/13/2016 9:23 AM PROCEDURE INTERPRETED AT [facility] DEPARTMENT OF RADIOLOGY Final Report Signed by: Dr. Jermaine Hoffmann
--- NOTE | 2016-08-13 10:47 | Hospitalist Progress Note ---
Assessment and Plan (1) Chest pain Status: Acute Assessment and plan: Evaluations demonstrated no evidence of myocardial infarction or pulmonary emboli. Her chest pain is most probably due to her previously demonstrated ulcerative esophagitis. Current Visit: Yes (2) Gastroenteritis Status: Acute Assessment and plan: Her nausea and vomiting appears to have subsided. She has been treated as necessary with intravenous Zofran. Current Visit: Yes (3) Hyperkalemia Status: Acute Current Visit: Yes (4) Right upper lobe pneumonia Status: Acute Assessment and plan: She is bed presently being treated with intravenous azithromycin and ceftriaxone. Current Visit: Yes Qualifiers: Pneumonia type: due to unspecified organism Qualified Code(s): J18.1 - Lobar pneumonia, unspecified organism (5) End stage renal disease on dialysis Status: Chronic Assessment and plan: She will continue her regularly scheduled hemodialysis. Current Visit: Yes (6) Ulcerative esophagitis Status: Acute Assessment and plan: She has been begun on intravenous pantoprazole. Gastroenterology has been consulted. Current Visit: No Hospitalist: Subjective Interval history: is a 31-year-old -[place] female with end-stage renal disease on hemodialysis, peripheral vascular disease status post below-knee amputation, type 1 diabetes mellitus, essential hypertension, congestive heart failure, and parathyroidectomy. She was hospitalized here yesterday with nausea and vomiting , chest pain, and hematemesis. CT angiogram of her chest did not demonstrate pulmonary emboli, but did demonstrate a right upper lobe infiltrate compatible with pneumonia. Cardiac enzymes have not demonstrated evidence of a myocardial infarction. At the present time she is more comfortable. Her nausea and vomiting has stopped. Her chest pain has resolved. Exam - Constitutional Vitals: Period Temp Pulse Resp BP Sys/Pineda Pulse Ox Last 24 Hr 98.6 F-98.9 F 94-118 16-25 80-181/52-118 91-100 General appearance: no acute distress - Head Head exam: Present: normal inspection, normocephalic - Eye Eye exam: Present: EOMI, conjunctival injection Pupils: Present: GARIMA - ENT ENT exam: Present: normal exam - Neck Neck exam: Present: normal inspection - Respiratory Respiratory exam: Present: clear to auscultation bilaterally - Cardiovascular Cardiovascular exam: Present: regular rate and rhythm - GI/Abdominal GI/Abdominal exam: Present: normal bowel sounds, soft, other (Nontender with no palpable masses or hepatosplenomegaly.) - Extremities Exam Extremities exam: Present: other (Left below-knee amputation.) - Neurological Exam Neurological exam: Present: alert, oriented X3 - Psychiatric Psychiatric exam: Present: normal affect, normal mood - Skin Skin exam: Present: normal color, warm, dry Results - Labs CBC & BMP: 08/13/16 03:16 08/13/16 03:16 Quality Measures - VTE Contraindication to Pharmacological VTE Prophylaxis: Active Bleeding
[2016-08-13 12:01] LABS: Basophils % 0.2 % (0.0-0.8); Eosinophils % 0.1 % (0.00-10.9); Hematocrit 30.3 VOL% (35.7-47.0); Hemoglobin 10.1 GM/DL (12.0-16.0); Immature Granulocytes % 0.8 %; Immature Granulocytes Absolute 0.14 #; Lymphocytes # 1.8 10*3/uL (1.4-4.0); Lymphocytes % 9.7 % (21.3-54.2); Mean Corpuscular HGB Conc 33.3 GM/DL (32-36); Mean Corpuscular Hemoglobin 34 PG (27-34); Mean Platelet Volume 12.5 FL (9.6-12.0); Monocytes # 2.5 10*3/uL (0.11-0.8); Monocytes % 13.6 % (1.7-12.7); NRBC # 0.03 10*3/uL; Neutrophils % 75.6 % (38.7-73.9); Platelet Count 100 T/CUMM (130-400); Red Blood Count 2.97 MC/CUMM (3.8-5.5); Red Cell Distribution Width 18.7 % (9.3-17.3); White Blood Count 18.5 T/CUMM (4-12)
[2016-08-13 12:20] LABS: Band Neutrophils 4 % (0-10); Lymphocytes 10 % (20-55); Macrocytosis 1+; Platelet Estimate Decreased; Segmented Neutrophils 79 % (50-85); Total Cells Counted 100
[2016-08-13 12:26] LABS: Osmolality,Calculated 283.4 MOS/KG (273-304)
[2016-08-13 12:29] LABS: Calcium 5.5 MG/DL (8.5-10.1); Potassium 6.3 MMOL/L (3.5-5.1)
--- NOTE | 2016-08-13 12:52 | Gastrointestinal Consult Note ---
Assessment and Plan (1) Hematemesis Status: Acute Assessment and plan: 08/13-sudden onset of hematemesis with epigastric pain. Prior history of erosive esophagits in May of this year. History of end-stage renal disease on dialysis. Hemoglobin stable at 10.1 down slightly from admission at 11.3. Monitor serial H&H, check stool for occult blood. Will consider upper endoscopy once electrolytes have normalized. Plan an addendum to followed by Dr. Matos. Current Visit: Yes History of Present Illness Chief complaint: Hemetemesis History of present illness: Ms. Alfonso is a 31 year old female who presented to the hospital with onset of hematemesis and epigastric pain. Patient is a poor historian at this time due to she is very somnolent during our visit. Information is obtained from chart review at present time. Patient has a prior history of end-stage renal disease , diabetes, hypertension, and erosive esophagitis in the past. She has hemodialyzed 3 days a week however on yesterday she was not feeling very well and stayed home from her dialysis treatment. She states that she has some epigastric pain shortly after that she began throwing up when she reports to be bright red blood per she does not recall seeing any melena or hematochezia however she also states that she does not check this when she has a bowel movement. She states the pain seemed of started suddenly and did not seem to be precipitated by meals or other factors. The pain initially started in her chest area and radiated to her right upper quadrant around to her back. She takes Protonix twice a day and denies taking any NSAIDs her last EGD was done in May of this year with findings at that time of erosive esophagitis. Her discharge hemoglobin during that time was 11.6. She has a history of parathyroidectomy in the past several months as well. She had a chest CT done this morning for complaints of right-sided chest pain with mild to moderate cardiomegaly an ill-defined lesion to the right atrial wall, no findings of PE. Abdominal x-ray shows no acute processes. Noted to have positive blood cultures for gram-positive cocci with final report pending. Potassium 6.3, sodium 126. Home Medications Medication Instructions Recorded Confirmed Type Insulin Glargine [Lantus] 30 unit SUBCUT BEDTIME 01/07/15 08/12/16 History Lisinopril 40 mg PO BID 05/04/15 08/12/16 History Pregabalin [Lyrica] 50 mg PO DAILY 05/15/16 08/12/16 History Ranitidine Tab [Zantac Tab] 150 mg PO TID 05/25/16 08/12/16 History Calcitriol [Rocaltrol] 1 mcg PO DAILY #30 capsule 05/29/16 08/12/16 Rx Calcium Acetate [Phoslo] 667 mg PO TID W/MEALS #90 capsule 05/29/16 08/12/16 Rx Cinacalcet [Sensipar] 30 mg PO DAILY 06/09/16 08/12/16 History Fluoxetine HCl 40 mg PO DAILY 06/09/16 08/12/16 History Montelukast Sodium 10 mg PO BEDTIME 06/09/16 08/12/16 History Pantoprazole Tab [Protonix Tab] 40 mg PO BID #40 tablet 06/10/16 08/12/16 Rx Calcium Acetate [Phoslo] 667 mg PO BID 08/12/16 08/12/16 History Cyproheptadine Tab [Periactin Tab] 4 mg PO BID 08/12/16 08/12/16 History HYDROcodone/ACETAMIN 10-325 [[place] 1 tablet PO Q4H PRN 08/12/16 08/12/16 History 10-325] Insulin Aspart [NovoLOG] See Protocol SUBCUT DAILY PRN 08/12/16 08/12/16 History Mupirocin 2% Oint [Bactroban 2% 1 applic TOP BID 08/12/16 08/12/16 History Oint] Promethazine Tab [Phenergan Tab] 25 mg PO Q6H PRN 08/12/16 08/12/16 History cephALEXin [Cephalexin] 500 mg PO BID 08/12/16 08/12/16 History Allergies Allergy/AdvReac Type Severity Reaction Status Date / Time No Known Allergies Allergy Verified 08/12/16 18:53 Medical,Surgical,& Family Hx - Medical History Cardio: History of: CHF, Hypertension Psychological: History of: Depression Neurology: History of: Peripheral Neuropathy No history of: Seizures Endocrine: History of: Diabetes Mellitus (IDDM), Diabetes Mellitus (NIDDM), Thyroid Disorder, Endocrine Problems (parathyroidectomy) Renal: History of: Dialysis (, , Wed), Renal Failure Gastrointestinal: History of: Gastrointestinal Bleed Musculoskeletal: History of: Amputation (right BKA), Musculoskeletal Problems ( right BKA) Hematology: History of: Anemia Other: History of: MRSA - Surgical History Cardiac Surgeries: Patient Denies: Cardiac Catheterization, Cardiac Surgery Abdominal Surgeries: Surgical HX of: Abdominal Surgery Reproductive Surgeries: Surgical HX of;: Breast Surgery (R BREAST FOR LUMP), Section (X1), Hysterectomy Orthopedic Surgeries: Surgical HX of;: Orthopedic Surgery (AMPUTEE R LOWER LEG) - Family History Family History: Reports;: Family Hypertension (MOTHER, FATHER) - Social History Smoking Status: Current some day smoker Frequency of Alcohol Use: None Type of Drug Use: None 12 point system: reviewed and no additional remarkable complaints except as stated - Constitutional Constitutional: Present: as per HPI - EENT Eyes: Present: as per HPI Ears: Present: as per HPI Nose, mouth and throat: Present: as per HPI - Cardiovascular Cardiovascular: Present: as per HPI - Respiratory Respiratory: Present: as per HPI - Gastrointestinal Gastrointestinal: Present: as per HPI, abdominal pain, hematemesis, nausea, vomiting - Genitourinary Genitourinary: Present: as per HPI - Musculoskeletal Musculoskeletal: Present: as per HPI - Neurological Neurological: Present: as per HPI - Psychiatric Psychiatric: Present: as per HPI - Endocrine Endocrine: Present: as per HPI - Hematologic/Lymphatic Hematologic/Lymphatic: Present: as per HPI Exam - Constitutional Vitals: Period Temp Pulse Resp BP Sys/Pineda Pulse Ox Last 24 Hr 98.6 F-98.9 F 94-118 16-25 80-181/52-118 91-100 General appearance: normal weight, no acute distress - Head Head exam: Present: normal inspection, normocephalic - Eye Eye exam: Present: other (lids and conjunctiva unremarkable). Absent: scleral icterus - ENT ENT exam: Present: normal exam, normal oropharynx - Neck Neck exam: Present: normal inspection - Respiratory Respiratory exam: Present: clear to auscultation bilaterally. Absent: rales, rhonchi, wheezes - Cardiovascular Cardiovascular exam: Present: regular rate and rhythm. Absent: diastolic murmur , JVD, systolic murmur - GI/Abdominal GI/Abdominal exam: Present: normal bowel sounds, soft. Absent: ascites, distended, mass, organomegaly, tenderness - Extremities Exam Extremities exam: Present: normal inspection, full ROM - Back Exam Back exam: Present: normal inspection - Neurological Exam Neurological exam: Present: alert, oriented X3 - Psychiatric Psychiatric exam: Present: other (somnolent) - Skin Skin exam: Present: normal color, warm, dry Results - Labs CBC & BMP: 08/13/16 11:45 08/13/16 03:16 Lab Results: I have reviewed the past 24 hour labs Quality Measures - VTE Contraindication to Pharmacological VTE Prophylaxis: Active Bleeding
[2016-08-13] MEDS ORDERED: SODIUM CHLORIDE 0.9% 500 ML IV ONE (16:49)
[2016-08-13] MEDS: PHENYLEPHRINE DRIP 40 MG/250 ML PREMIX IV SCH (18:00)
--- NOTE | 2016-08-13 18:38 | Nephrology Consult Note ---
History of Present Illness Chief complaint: ESRD History of present illness: Ms. Alfonso is a 31 year old female with history of ESRD, DM, h/o erosive esophagitis was in her normal state of health until yesterday when she presented with hypotension and hemetemesis. The patient dialyzes at the [facility] on TTS schedule. She was not able to go to dialysis due to fatigue and throwing up blood. Blood cultures were positive for gram positive cocci. She has received 2 grams of vancomycin. Serum potassium was noted to be 6.3. She is undergoing dialysis. Home Medications Medication Instructions Recorded Confirmed Type Insulin Glargine [Lantus] 30 unit SUBCUT BEDTIME 01/07/15 08/13/16 History Lisinopril 40 mg PO BID 05/04/15 08/13/16 History Pregabalin [Lyrica] 50 mg PO DAILY 05/15/16 08/13/16 History Ranitidine Tab [Zantac Tab] 150 mg PO TID 05/25/16 08/13/16 History Calcitriol [Rocaltrol] 1 mcg PO DAILY #30 capsule 05/29/16 08/13/16 Rx Calcium Acetate [Phoslo] 667 mg PO TID W/MEALS #90 capsule 05/29/16 08/13/16 Rx Cinacalcet [Sensipar] 30 mg PO DAILY 06/09/16 08/13/16 History Fluoxetine HCl 40 mg PO DAILY 06/09/16 08/13/16 History Montelukast Sodium 10 mg PO BEDTIME 06/09/16 08/13/16 History Calcium Acetate [Phoslo] 667 mg PO WITH SNACKS 08/12/16 08/13/16 History Cyproheptadine Tab [Periactin Tab] 4 mg PO BID W/MEALS 08/12/16 08/13/16 History HYDROcodone/ACETAMIN 10-325 [[place] 1 tablet PO BID 08/12/16 08/13/16 History 10-325] Insulin Aspart [NovoLOG] See Protocol SUBCUT DAILY PRN 08/12/16 08/13/16 History Mupirocin 2% Oint [Bactroban 2% 1 applic TOP BID 08/12/16 08/13/16 History Oint] Promethazine Tab [Phenergan Tab] 25 mg PO Q6H PRN 08/12/16 08/13/16 History cephALEXin [Cephalexin] 500 mg PO BID 08/12/16 08/13/16 History Pantoprazole Tab [Protonix Tab] 40 mg PO DAILY 08/13/16 08/13/16 History Allergies Allergy/AdvReac Type Severity Reaction Status Date / Time No Known Allergies Allergy Verified 08/12/16 18:53 Medical,Surgical,& Family Hx - Medical History Cardio: History of: CHF, Hypertension Psychological: History of: Depression Neurology: History of: Peripheral Neuropathy No history of: Seizures Endocrine: History of: Diabetes Mellitus (IDDM), Diabetes Mellitus (NIDDM), Dyslipidemia, Thyroid Disorder, Endocrine Problems (parathyroidectomy) Respiratory: History of: Asthma, Bronchitis, Pneumonia Renal: History of: Dialysis (, , Wed), Renal Failure Gastrointestinal: History of: GERD, Gastrointestinal Bleed Musculoskeletal: History of: Amputation (right BKA), Musculoskeletal Problems ( right BKA) Hematology: History of: Anemia Other: History of: MRSA - Surgical History Cardiac Surgeries: Patient Denies: Cardiac Catheterization, Cardiac Surgery Abdominal Surgeries: Surgical HX of: Abdominal Surgery, Cholecystectomy Reproductive Surgeries: Surgical HX of;: Breast Surgery (R BREAST FOR LUMP), Section (X1), Hysterectomy Orthopedic Surgeries: Surgical HX of;: Orthopedic Surgery (AMPUTEE R LOWER LEG) - Family History Family History: Reports;: Family Hypertension (MOTHER, FATHER) - Social History Smoking Status: Current some day smoker Frequency of Alcohol Use: None Type of Drug Use: None Review of Systems ROS unobtainable: due to mental status Exam - Vital Signs Vital signs: Period Temp Pulse Resp BP Sys/Pineda Pulse Ox Last 24 Hr 98.9 F 64-130 12-25 80-130/34-103 95-100 - General Appearance General appearance: well-developed, well-nourished EENT: ATNC Neck: supple Cardiology: regular rate, regular rhythm Gastrointestinal: normoactive bowel sounds, no tenderness Integumentary: no rash Musculoskeletal: no clubbing Results - Labs CBC & BMP: 08/13/16 11:45 08/13/16 11:45 Assessment and Plan (1) End stage renal disease on dialysis Status: Chronic Current Visit: No (2) Diabetes 1.5, managed as type 2 Status: Chronic Current Visit: No (3) Insulin dependent diabetes mellitus Status: Chronic Current Visit: No (4) Coffee ground emesis Status: Acute Current Visit: Yes (5) Hyponatremia Status: Acute Current Visit: Yes (6) Hyperkalemia Status: Acute Assessment and plan: Undergoing hemodialysis. Current Visit: Yes
--- NOTE | 2016-08-13 18:45 | Dialysis Note ---
Dialysis Note - Dialysis Note The patient is seen on dialysis. She is tolerating the procedure.BP 110/60.
[2016-08-13] MEDS: MONTELUKAST 10 MG TABLET PO SCH (21:00)
[2016-08-13] MEDS: cefTRIAXone 1,000 MG in SODIUM CHLORIDE 0.9% 100 ML IV SCH (21:00)
[2016-08-13] MEDS ORDERED: VANCOMYCIN INJ 2,000 MG in SODIUM CHLORIDE 0.9% 500 ML IV ONE (22:00)
[2016-08-13] MEDS: MORPHINE 2 MG/1 ML SYRINGE IV PRN (22:38)
[2016-08-14] MEDS: ALBUTEROL/IPRATROPIUM 3 ML NEB RESP TX SCH ×4 (00:17→19:10)
[2016-08-14] MEDS: AZITHROMYCIN INJ 500 MG in SODIUM CHLORIDE 0.9% 250 ML IV SCH (01:08)
[2016-08-14 05:01] LABS: Basophils % 0.1 % (0.0-0.8); Eosinophils # 0.1 10*3/uL (0.0-0.87); Eosinophils % 0.5 % (0.00-10.9); Hematocrit 29.4 VOL% (35.7-47.0); Hemoglobin 9.9 GM/DL (12.0-16.0); Immature Granulocytes % 3.5 %; Immature Granulocytes Absolute 0.48 #; Lymphocytes # 0.8 10*3/uL (1.4-4.0); Lymphocytes % 5.5 % (21.3-54.2); Mean Corpuscular HGB Conc 33.7 GM/DL (32-36); Mean Corpuscular Hemoglobin 34 PG (27-34); Mean Corpuscular Volume 100.7 FL (87-102); Mean Platelet Volume 13.4 FL (9.6-12.0); Monocytes # 1.9 10*3/uL (0.11-0.8); Monocytes % 14.2 % (1.7-12.7); NRBC # 0.05 10*3/uL; Neutrophils # 10.4 10*3/uL (1.4-7.4); Neutrophils % 76.2 % (38.7-73.9); Platelet Count 101 T/CUMM (130-400); Red Blood Count 2.92 MC/CUMM (3.8-5.5); Red Cell Distribution Width 18.8 % (9.3-17.3); White Blood Count 13.6 T/CUMM (4-12)
[2016-08-14 05:31] LABS: Band Neutrophils 4 % (0-10); Eosinophils 1 % (0-10); Hypochromasia 1+; Lymphocytes 3 % (20-55); Nucleated Red Blood Cells 1 (0-5); Segmented Neutrophils 81 % (50-85); Total Cells Counted 100
[2016-08-14 05:32] LABS: Anisocytosis 1+; Macrocytosis 1+; Platelet Estimate Decreased
[2016-08-14 05:59] LABS: Calcium 6.6 MG/DL (8.5-10.1); Osmolality,Calculated 275.8 MOS/KG (273-304)
[2016-08-14] MEDS: INSULIN REGULAR 100 UNIT/ML SUBCUT SCH ×4 (07:55→20:47)
[2016-08-14] MEDS ORDERED: PHENYLEPHRINE DRIP 40 MG/250 ML PREMIX IV ONE (08:02)
[2016-08-14] MEDS: PHENYLEPHRINE DRIP 40 MG/250 ML PREMIX IV SCH (08:05)
--- NOTE | 2016-08-14 08:44 | Physician Query Form ---
CLICK EDIT DOCUMENT TO SELECT QUERY ANSWER --> OK --> SIGN Sandra Hoffmann RN, CCDS Certified Clinical [employer] W) [phone] (f) [phone] [email or web address]: Make your selection(s) from the choices in EACH section by typing an "x" and enter comments in the comment section. Please use your independent medical judgment in providing your response. This request does not imply that any particular answer is desired or expected. CLINICAL INDICATORS: (Providers should not edit this section) The medical record indicates that the patient was admitted with pneumonia, Pulse 105, RR of 22#, 2 positive Blood Cultures, body aches, WBC of 21.2# and the patient is on Azithromycin/ Ceftriaxone. Please clarify which, if any, of the following is the etiology of the above symptoms and treatment rendered: ( x) Septic Shock (severe sepsis with hypotension) ( ) Severe Sepsis (sepsis with acute organ failure) - Please specify type acute organ failure: ( ) Sepsis due to a localized infection, please specify site: ( ) Sepsis due to a device, implant or graft, please specify: ( ) Localized infection only, without systemic illness, please specify site: ( ) Bacteremia (abnormal lab finding only, does not indicate systemic illness) ( ) Other condition, please specify: ( ) Clinically unable to determine Criteria for Sepsis (SIRS due to an infection) should be based on 2 or more of the following being present: Temperature > 101F or < 96.8F WBC > 12,000 or < 4,000, or > 10% bands Tachycardia HR > 90 beats/minute Tachypnea RR > 20 breaths/minute or PaCO2 > 32mmHg Lactate level > 2.0 mmol/L (>4 is equivalent to severe sepsis) Altered Mental Status Mottling of skin or prolonged capillary refill Non-diabetic hyperglycemia (blood sugar >120 mg/dl) Other evidence of acute organ failure associated with sepsis ( severe sepsis) COMMENTS: Use of terms such as suspected, likely, or probable (associated with a specific diagnosis that is being evaluated, monitored, or treated as if it exists) are acceptable and can be restated in the discharge summary if not ruled out. MTDD
[2016-08-14] MEDS: CINACALCET 30 MG TABLET PO SCH (09:46)
[2016-08-14] MEDS: FLUoxetine 20 MG CAPSULE PO SCH (09:47)
[2016-08-14] MEDS: CALCITRIOL 0.5 MCG CAPSULE PO SCH (09:47)
[2016-08-14] MEDS: CYPROHEPTADINE 4 MG TABLET PO SCH ×2 (09:47→20:06)
[2016-08-14] MEDS: CALCIUM ACETATE 667 MG CAPSULE PO SCH ×5 (09:47→20:06)
[2016-08-14] MEDS: FAMOTIDINE 20 MG TABLET PO SCH (09:48)
[2016-08-14] MEDS: PREGABALIN 50 MG CAPSULE PO SCH (09:48)
[2016-08-14] MEDS: PANTOPRAZOLE 40 MG VIAL IV SCH ×2 (09:48→20:06)
[2016-08-14] MEDS: MUPIROCIN 2% OINT 22 GM TUBE TOP SCH ×2 (09:48→20:06)
--- NOTE | 2016-08-14 09:49 | Gastrointestinal Progress Note ---
Assessment and Plan (1) Hematemesis Status: Acute Assessment and plan: 08/14-No further reports of hematemesis. Hgb holding at 9.9. Noted positive blood cultures for MRSA. Plan and addendum to follow by Dr Matos. 08/13-sudden onset of hematemesis with epigastric pain. Prior history of erosive esophagits in May of this year. History of end-stage renal disease on dialysis. Hemoglobin stable at 10.1 down slightly from admission at 11.3. Monitor serial H&H, check stool for occult blood. Will consider upper endoscopy once electrolytes have normalized. Plan an addendum to followed by Dr. Matos. Current Visit: Yes Gastroenterology - PN: Subj Interval history: CC: Hematemesis Pt is seen, in ICU, somewhat somnolent this morning. She states she isnt feeling well at present time. Is having some generalized abdominal discomfort/ pain. Denies any nausea or vomiting at present and has had no further hemetemesis that is reported. She is noted to be on pressor support at present time. Abdomen is soft, mild tenderness with palpation. Hgb is holding at 9.9. She is also noted to have blood cultures positive for MRSA. WBC are trending down at 13. Potassium is improved at 5.0. ROS: Denies SOB or chest pain Exam (Progress Note) - Constitutional Vitals: Period Temp Pulse Resp BP Sys/Pineda Pulse Ox Last 24 Hr 97.6 F-100.3 F 98-135 12-29 77-132/34-103 90-100 General appearance: normal weight, no acute distress - Head Head exam: Present: normal inspection, normocephalic - Eye Eye exam: Present: other (lids and conjunctiva unremarkable). Absent: scleral icterus - ENT ENT exam: Present: normal exam, normal oropharynx - Neck Neck exam: Present: normal inspection - Respiratory Respiratory exam: Present: clear to auscultation bilaterally. Absent: rales, rhonchi, wheezes - Cardiovascular Cardiovascular exam: Present: regular rate and rhythm. Absent: diastolic murmur , JVD, systolic murmur - GI/Abdominal GI/Abdominal exam: Present: normal bowel sounds, soft. Absent: ascites, distended, mass, organomegaly, tenderness - Extremities Exam Extremities exam: Present: normal inspection, full ROM - Back Exam Back exam: Present: normal inspection - Neurological Exam Neurological exam: Present: alert, oriented X3 - Psychiatric Psychiatric exam: Present: normal affect, normal mood - Skin Skin exam: Present: normal color, warm, dry Results - Labs CBC & BMP: 08/14/16 04:45 08/14/16 04:45 Lab Results: I have reviewed the past 24 hour labs
[2016-08-14] MEDS: ONDANSETRON 4 MG/2 ML VIAL IV PRN (10:28)
--- NOTE | 2016-08-14 11:01 | Hospitalist Progress Note ---
Assessment and Plan (1) Chest pain Status: Acute Assessment and plan: Evaluations demonstrated no evidence of myocardial infarction or pulmonary emboli. Her chest pain is most probably due to her previously demonstrated ulcerative esophagitis. Current Visit: Yes (2) Gastroenteritis Status: Acute Assessment and plan: Her nausea and vomiting appears to have subsided. She has been treated as necessary with intravenous Zofran. Current Visit: Yes (3) Hyperkalemia Status: Acute Current Visit: Yes (4) Right upper lobe pneumonia Status: Acute Assessment and plan: She is bed presently being treated with intravenous azithromycin and ceftriaxone. Current Visit: Yes Qualifiers: Pneumonia type: due to unspecified organism Qualified Code(s): J18.1 - Lobar pneumonia, unspecified organism (5) End stage renal disease on dialysis Status: Chronic Assessment and plan: She will continue her regularly scheduled hemodialysis. Current Visit: Yes (6) Ulcerative esophagitis Status: Acute Assessment and plan: She has been begun on intravenous pantoprazole. Gastroenterology is following. Current Visit: No (7) Bacteremia due to Gram-positive bacteria Status: Acute Assessment and plan: She is being treated with intravenous vancomycin, ceftriaxone, and azithromycin. Current Visit: Yes (8) Hypotension Status: Acute Assessment and plan: She is being treated with intravenous normal saline and Eliezer-Synephrine. Current Visit: Yes Qualifiers: Hypotension type: unspecified hypotension type Qualified Code(s): I95.9 - Hypotension, unspecified Hospitalist: Subjective Interval history: Ms. clements was hospitalized here yesterday with nausea vomiting and hematemesis. She has a previous history of End-stage renal disease on hemodialysis, type 1 diabetes mellitus, hypertension, and erosive esophagitis. Chest x-ray on admission demonstrated evidence of pneumonia. Subsequent blood cultures demonstrated gram-positive cocci. She has been seen in consultation by gastroenterology and nephrology. Her main problem today is been hypotension for which she is required boluses of intravenous normal saline and Eliezer- Synephrine. She is on intravenous azithromycin, vancomycin and ceftriaxone. Exam - Constitutional Vitals: Period Temp Pulse Resp BP Sys/Pineda Pulse Ox Last 24 Hr 97.6 F-100.3 F 98-135 12-29 77-132/34-103 90-100 General appearance: no acute distress, other (Obese) - Head Head exam: Present: normal inspection, normocephalic - Eye Eye exam: Present: EOMI Pupils: Present: GARIMA - Neck Neck exam: Present: normal inspection - Respiratory Respiratory exam: Present: rhonchi - Cardiovascular Cardiovascular exam: Present: regular rate and rhythm - GI/Abdominal GI/Abdominal exam: Present: normal bowel sounds, soft, other (Nontender with no palpable masses or hepatosplenomegaly.) - Extremities Exam Extremities exam: Present: normal inspection - Neurological Exam Neurological exam: Present: alert, oriented X3 - Psychiatric Psychiatric exam: Present: normal affect, normal mood - Skin Skin exam: Present: normal color, warm, dry Results - Labs CBC & BMP: 08/14/16 04:45 08/14/16 04:45 Quality Measures - VTE Contraindication to Pharmacological VTE Prophylaxis: Active Bleeding
[2016-08-14] MEDS ORDERED: SODIUM CHLORIDE 0.9% 500 ML IV ONE (11:06)
--- NOTE | 2016-08-14 13:22 | Nephrology Progress Note ---
Nephrology - PN: Subj Interval history: The patient mentions that she cannot hear as well today. Her serum potassium is better today at 5. She still requires pressor medications. Exam (PN)-Nephrology - Vital Signs Vital signs: Period Temp Pulse Resp BP Sys/Pineda Pulse Ox Last 24 Hr 97.6 F-100.3 F 98-135 12-29 77-132/34-103 90-100 - General Appearance General appearance: well-developed, well-nourished EENT: ATNC Neck: supple Respiratory: clear Cardiology: regular rate, regular rhythm Gastrointestinal: normoactive bowel sounds Neurologic: no asterixis Musculoskeletal: no deformities Psychiatric: mood/affect appropriate - Lab 08/14/16 04:45 08/14/16 04:45 Most recent lab results Calcium 6.6 MG/DL (8.5-10.1) L 08/14/16 04:45 Magnesium 2.1 MG/DL (1.8-2.4) 08/12/16 19:47 Assessment and Plan (1) End stage renal disease on dialysis Status: Chronic Assessment and plan: Schedule for hemodialysis on Wednesday Current Visit: No (2) Diabetes 1.5, managed as type 2 Status: Chronic Current Visit: No (3) Insulin dependent diabetes mellitus Status: Chronic Current Visit: No (4) Coffee ground emesis Status: Acute Current Visit: Yes (5) Hyponatremia Status: Resolved Current Visit: Yes (6) Hyperkalemia Status: Resolved Assessment and plan: Undergoing hemodialysis. Current Visit: Yes
[2016-08-14] MEDS: SODIUM CHLORIDE 0.9% 1,000 ML IV SCH ×2 (13:30→18:35)
[2016-08-14] MEDS: cefTRIAXone 1,000 MG in SODIUM CHLORIDE 0.9% 100 ML IV SCH (20:05)
[2016-08-14] MEDS: AZITHROMYCIN 250 MG TABLET PO SCH (20:06)
[2016-08-14] MEDS: MONTELUKAST 10 MG TABLET PO SCH (20:06)
[2016-08-15] MEDS: MORPHINE 2 MG/1 ML SYRINGE IV PRN ×2 (00:10→07:20)
[2016-08-15] MEDS: ALBUTEROL/IPRATROPIUM 3 ML NEB RESP TX SCH ×4 (01:25→19:36)
[2016-08-15] MEDS: SODIUM CHLORIDE 0.9% 1,000 ML IV SCH ×3 (02:57→22:31)
[2016-08-15 04:43] LABS: Basophils % 0.1 % (0.0-0.8); Eosinophils # 0.5 10*3/uL (0.0-0.87); Eosinophils % 2.9 % (0.00-10.9); Hematocrit 26.2 VOL% (35.7-47.0); Hemoglobin 8.4 GM/DL (12.0-16.0); Immature Granulocytes % 4.1 %; Immature Granulocytes Absolute 0.68 #; Lymphocytes # 1.4 10*3/uL (1.4-4.0); Lymphocytes % 8.5 % (21.3-54.2); Mean Corpuscular HGB Conc 32.1 GM/DL (32-36); Mean Corpuscular Hemoglobin 33 PG (27-34); Mean Corpuscular Volume 102.7 FL (87-102); Mean Platelet Volume 13.2 FL (9.6-12.0); Monocytes # 2.5 10*3/uL (0.11-0.8); Monocytes % 15.3 % (1.7-12.7); Neutrophils # 11.3 10*3/uL (1.4-7.4); Neutrophils % 69.1 % (38.7-73.9); Platelet Count 117 T/CUMM (130-400); Red Blood Count 2.55 MC/CUMM (3.8-5.5); Red Cell Distribution Width 18.8 % (9.3-17.3); White Blood Count 16.4 T/CUMM (4-12)
[2016-08-15 05:10] LABS: Osmolality,Calculated 280.4 MOS/KG (273-304); Potassium 4.7 MMOL/L (3.5-5.1)
[2016-08-15 05:36] LABS: Eosinophils 7 % (0-10); Hypochromasia 1+; Lymphocytes 4 % (20-55); Macrocytosis Slight; Platelet Estimate Decreased; Segmented Neutrophils 76 % (50-85); Total Cells Counted 100
[2016-08-15] MEDS: PANTOPRAZOLE 40 MG VIAL IV SCH ×2 (08:23→20:36)
[2016-08-15] MEDS: CYPROHEPTADINE 4 MG TABLET PO SCH ×2 (08:23→20:36)
[2016-08-15] MEDS: INSULIN REGULAR 100 UNIT/ML SUBCUT SCH ×4 (08:23→20:37)
[2016-08-15] MEDS: CALCITRIOL 0.5 MCG CAPSULE PO SCH (08:24)
[2016-08-15] MEDS: PREGABALIN 50 MG CAPSULE PO SCH (08:24)
[2016-08-15] MEDS: FLUoxetine 20 MG CAPSULE PO SCH (08:24)
[2016-08-15] MEDS: FAMOTIDINE 20 MG TABLET PO SCH (08:24)
[2016-08-15] MEDS: CALCIUM ACETATE 667 MG CAPSULE PO SCH ×5 (08:24→20:37)
[2016-08-15] MEDS: CINACALCET 30 MG TABLET PO SCH (08:24)
[2016-08-15] MEDS: MUPIROCIN 2% OINT 22 GM TUBE TOP SCH ×2 (08:25→20:39)
[2016-08-15] MEDS: ONDANSETRON 4 MG/2 ML VIAL IV PRN (09:30)
--- NOTE | 2016-08-15 11:30 | Hospitalist Progress Note ---
Assessment and Plan (1) Chest pain Status: Acute Assessment and plan: Evaluations demonstrated no evidence of myocardial infarction or pulmonary emboli. Her chest pain is most probably due to her previously demonstrated ulcerative esophagitis or is musculoskeletal. Current Visit: Yes (2) Gastroenteritis Status: Acute Assessment and plan: Her nausea and vomiting appears to have subsided. She has been treated as necessary with intravenous Zofran. Current Visit: Yes (3) Hyperkalemia Status: Resolved Current Visit: Yes (4) Right upper lobe pneumonia Status: Acute Assessment and plan: She is bed presently being treated with intravenous azithromycin and ceftriaxone. Current Visit: Yes Qualifiers: Pneumonia type: due to unspecified organism Qualified Code(s): J18.1 - Lobar pneumonia, unspecified organism (5) End stage renal disease on dialysis Status: Chronic Assessment and plan: She will continue her regularly scheduled hemodialysis. Current Visit: Yes (6) Ulcerative esophagitis Status: Acute Assessment and plan: She has been begun on intravenous pantoprazole. Gastroenterology is following. Current Visit: No (7) Bacteremia due to Gram-positive bacteria Status: Acute Assessment and plan: She is being treated with intravenous vancomycin, ceftriaxone, and azithromycin. Current Visit: Yes (8) Hypotension Status: Acute Assessment and plan: She is being treated with intravenous normal saline and Eliezer-Synephrine. Current Visit: Yes Qualifiers: Hypotension type: unspecified hypotension type Qualified Code(s): I95.9 - Hypotension, unspecified Hospitalist: Subjective Interval history: Ms. Alfonso was hospitalized here 2 days ago with nausea, vomiting, and hematemesis. She has a previous history of end-stage renal disease on hemodialysis, type 1 diabetes mellitus, hypertension, and erosive esophagitis. Chest x-ray to admission demonstrated evidence of pneumonia. Subsequent blood cultures demonstrated gram-positive cocci she has been treated with intravenous azithromycin, vancomycin, and ceftriaxone. She has been persistently hypotensive in the ICU requiring intravenous Eliezer-Synephrine. She has been seen in consultation by nephrology and gastroenterology. Exam - Constitutional Vitals: Period Temp Pulse Resp BP Sys/Pineda Pulse Ox Last 24 Hr 97.2 F-100.3 F 96-134 12-33 62-144/28-87 81-100 General appearance: no acute distress - Head Head exam: Present: normal inspection, normocephalic - Neck Neck exam: Present: normal inspection - Respiratory Respiratory exam: Present: clear to auscultation bilaterally - Cardiovascular Cardiovascular exam: Present: regular rate and rhythm - GI/Abdominal GI/Abdominal exam: Present: normal bowel sounds, soft - Extremities Exam Extremities exam: Present: normal inspection - Skin Skin exam: Present: normal color, warm, dry Results - Labs CBC & BMP: 08/15/16 04:02 08/15/16 04:02 Quality Measures - VTE Contraindication to Pharmacological VTE Prophylaxis: Active Bleeding
--- NOTE | 2016-08-15 13:52 | Dialysis Note ---
Dialysis Note - Dialysis Note S: Pt seen on dialysis. No c/o. O: VSS A: ESRD on CHD. Tolerating well without complications. P: Continue routine CHD as prescribed.
[2016-08-15] MEDS: CYCLOBENZAPRINE 10 MG TABLET PO SCH ×2 (16:07→20:37)
[2016-08-15] MEDS: PHENYLEPHRINE DRIP 40 MG/250 ML PREMIX IV SCH (17:07)
[2016-08-15] MEDS ORDERED: ACETAMINOPHEN 325 MG TABLET PO PRN (17:14)
--- NOTE | 2016-08-15 17:32 | Gastrointestinal Progress Note ---
Assessment and Plan (1) Coffee ground emesis Status: Acute Assessment and plan: Appears stable with no sign of active bleeding. Continue PPI therapy. Follow hemoglobin for now. Do not plan EGD unless she has evident recurrent bleeding. Current Visit: Yes Gastroenterology - PN: Subj Interval history: No gross GI bleeding noted but hemoglobin has trended down to 8.5. She has not had a bowel movement in over 48 hours. She denies abdominal pain. Still having some nausea. Exam (Progress Note) - Constitutional Vitals: Period Temp Pulse Resp BP Sys/Pineda Pulse Ox Last 24 Hr 98.1 F-101.6 F 100-134 12-33 82-144/39-91 81-100 General appearance: no acute distress - Head Head exam: Present: normocephalic, atraumatic - Eye Eye exam: Absent: scleral icterus - Respiratory Respiratory exam: Present: rhonchi (Right lung). Absent: wheezes - Cardiovascular Cardiovascular exam: Present: tachycardia. Absent: gallop - GI/Abdominal GI/Abdominal exam: Present: normal bowel sounds, soft. Absent: distended, tenderness - Extremities Exam Extremities exam: Absent: calf tenderness, edema - Neurological Exam Neurological exam: Present: alert, oriented X3, CN II-XII intact - Skin Skin exam: Present: warm, dry Results - Labs CBC & BMP: 08/15/16 04:02 08/15/16 04:02 Lab Results: I have reviewed the past 24 hour labs
[2016-08-15] MEDS ORDERED: VANCOMYCIN INJ 750 MG in SODIUM CHLORIDE 0.9% 250 ML IV ONE (18:00)
--- NOTE | 2016-08-15 19:05 | ECHO Report ---
Bernardo Alfonso Exam Date: 08/15/2016 11:04 Referring Physician: Technologist: Donna Ramsey Age: 31 Ht (in): 63 Wt (lb): 218 Gender: F Exam Location: [facility] Echo Indications: hypotension, end stage renal disease, chest pain, hyperkalelemia BP: / HR: 100 Rhythm: sinus tachycardia Technical Quality: Good IMPRESSIONS Right atrial mass, 2.26 x 2.78 cm--it does not appear to be obstructing the TV [ddx is thrombus, myxoma or other tumor] . Moderate concentric left ventricular hypertrophy with diastolic dysfunction. Left ventricular ejection fraction is estimated at >65 %. Normal right atrial size. Mild mitral valve sclerosis. Mild mitral valve regurgitation. Mild aortic valve sclerosis. Moderate tricuspid valve regurgitation. Tricuspid regurgitation velocities suggest a PAP of 28.3 mmHg + RAP. MEASUREMENTS (Male / Female) Normal Values 2D ECHO LV Diastolic Diameter PLAX 4.3 cm 4.2 - 5.9 / 3.9 - 5.3 cm LV Systolic Diameter PLAX 2.7 cm LV Fractional Shortening PLAX 36.5 % IVS Diastolic Thickness 1.3 cm 0.6 - 1.0 / 0.6 - 0.9 cm LVPW Diastolic Thickness 1.2 cm 0.6 - 1.0 / 0.6 - 0.9 cm RV Internal Dim ED PLAX 2.7 cm Aortic Root Diameter 2.5 cm LA Systolic Diameter LX 2.9 cm 3.0 - 4.0 / 2.7 - 3.8 cm DOPPLER TR Peak Velocity 266.0 cm/s TR Peak Gradient 28.3 mmHg FINDINGS Left Ventricle Moderately increased septal wall thickness. Mildly increased posterior wall thickness. Moderate concentric left ventricular hypertrophy with diastolic dysfunction. Left ventricular ejection fraction is estimated at >65 %. Right Ventricle Normal right ventricular size. Right Atrium Normal right atrial size. Right atrial mass, 2.26 x 2.78 cm . Left Atrium Normal left atrial size. Mitral Valve Mild mitral valve sclerosis. Mild mitral valve regurgitation. Aortic Valve Mild aortic valve sclerosis. Tricuspid Valve Morphologically normal tricuspid valve.moderate tricuspid valve regurgitation. Tricuspid regurgitation velocities suggest a PAP of 28.3 mmHg + RAP. Pulmonic Valve Morphologically normal pulmonic valve. Pericardium No pericardial effusion. Aorta Normal size aortic root and proximal ascending aorta. Ramon Vasquez MD (Electronically Signed) Final Date: 15 August 2016 19:03
[2016-08-15] MEDS: cefTRIAXone 1,000 MG in SODIUM CHLORIDE 0.9% 100 ML IV SCH (20:36)
[2016-08-15] MEDS: MONTELUKAST 10 MG TABLET PO SCH (20:36)
[2016-08-15] MEDS: AZITHROMYCIN 250 MG TABLET PO SCH (20:36)
[2016-08-15] MEDS ORDERED: VANCOMYCIN INJ 750 MG in SODIUM CHLORIDE 0.9% 250 ML IV PRN (22:00)
[2016-08-16] MEDS: ALBUTEROL/IPRATROPIUM 3 ML NEB RESP TX SCH ×4 (01:41→19:27)
[2016-08-16 06:24] LABS: Basophils % 0.1 % (0.0-0.8); Eosinophils # 0.5 10*3/uL (0.0-0.87); Eosinophils % 2.8 % (0.00-10.9); Hematocrit 23.6 VOL% (35.7-47.0); Hemoglobin 7.6 GM/DL (12.0-16.0); Immature Granulocytes % 1.1 %; Immature Granulocytes Absolute 0.19 #; Lymphocytes # 1.6 10*3/uL (1.4-4.0); Lymphocytes % 8.8 % (21.3-54.2); Mean Corpuscular HGB Conc 32.2 GM/DL (32-36); Mean Corpuscular Hemoglobin 33 PG (27-34); Mean Corpuscular Volume 102.2 FL (87-102); Mean Platelet Volume 12.9 FL (9.6-12.0); Monocytes % 11.2 % (1.7-12.7); Neutrophils # 13.5 10*3/uL (1.4-7.4); Platelet Count 120 T/CUMM (130-400); Red Blood Count 2.31 MC/CUMM (3.8-5.5); Red Cell Distribution Width 19.1 % (9.3-17.3); White Blood Count 17.8 T/CUMM (4-12)
[2016-08-16 07:07] LABS: Calcium 6.7 MG/DL (8.5-10.1); Potassium 4.4 MMOL/L (3.5-5.1)
[2016-08-16 07:22] LABS: Band Neutrophils 4 % (0-10); Eosinophils 4 % (0-10); Hypochromasia 1+; Lymphocytes 7 % (20-55); Nucleated Red Blood Cells 1 (0-5); Ovalocytes Slight; Platelet Estimate Normal; Segmented Neutrophils 80 % (50-85); Total Cells Counted 100
[2016-08-16] MEDS: SODIUM CHLORIDE 0.9% 1,000 ML IV SCH ×3 (07:30→16:31)
[2016-08-16] MEDS: CALCIUM ACETATE 667 MG CAPSULE PO SCH ×5 (08:05→20:19)
[2016-08-16] MEDS: PANTOPRAZOLE 40 MG VIAL IV SCH ×2 (08:05→20:21)
[2016-08-16] MEDS: INSULIN REGULAR 100 UNIT/ML SUBCUT SCH ×4 (08:05→20:24)
[2016-08-16] MEDS: PREGABALIN 50 MG CAPSULE PO SCH (08:05)
[2016-08-16] MEDS: FLUoxetine 20 MG CAPSULE PO SCH (08:05)
[2016-08-16] MEDS: CALCITRIOL 0.5 MCG CAPSULE PO SCH (08:06)
[2016-08-16] MEDS: CINACALCET 30 MG TABLET PO SCH (08:06)
[2016-08-16] MEDS: FAMOTIDINE 20 MG TABLET PO SCH (08:06)
[2016-08-16] MEDS: CYPROHEPTADINE 4 MG TABLET PO SCH ×2 (08:06→20:20)
[2016-08-16] MEDS: MUPIROCIN 2% OINT 22 GM TUBE TOP SCH ×2 (08:06→20:20)
[2016-08-16] MEDS: CYCLOBENZAPRINE 10 MG TABLET PO SCH ×3 (08:06→20:19)
--- NOTE | 2016-08-16 11:55 | Nephrology Progress Note ---
Nephrology - PN: Subj Interval history: Tolerated routine CHD yesterday s complications. Denies worsening SOB/pain. Exam (PN)-Nephrology - Vital Signs Vital signs: Period Temp Pulse Resp BP Sys/Pineda Pulse Ox Last 24 Hr 97.2 F-101.6 F 88-118 12-32 79-138/46-91 89-100 - General Appearance General appearance: well-developed, obese EENT: ATNC, PERRL, mucous membranes dry, hearing intact, vision intact Neck: no JVD, no thyromegaly Respiratory: no kyphosis, clear Cardiology: no murmurs, no rub Gastrointestinal: normoactive bowel sounds, no masses Integumentary: no rash, warm and dry Neurologic: no focal deficit, no asterixis Musculoskeletal: no erythema, no cyanosis Psychiatric: mood/affect appropriate, cooperative - Lab 08/16/16 04:40 08/16/16 04:40 Most recent lab results Calcium 6.7 MG/DL (8.5-10.1) L 08/16/16 04:40 Magnesium 2.1 MG/DL (1.8-2.4) 08/12/16 19:47 Assessment and Plan (1) End stage renal disease on dialysis Problem details: No acute indication for CHD at this time. Status: Chronic Assessment and plan: Next scheduled routine CHD Wednesday. UF as tolerated to EDW. Current Visit: No
--- NOTE | 2016-08-16 13:45 | Hospitalist Progress Note ---
Assessment and Plan (1) Chest pain Status: Acute Assessment and plan: Evaluations demonstrated no evidence of myocardial infarction or pulmonary emboli. Her chest pain is most probably due to her previously demonstrated ulcerative esophagitis or is musculoskeletal. Current Visit: Yes (2) Gastroenteritis Status: Acute Assessment and plan: Her nausea and vomiting appears to have subsided. She has been treated as necessary with intravenous Zofran. Current Visit: Yes (3) Hyperkalemia Status: Resolved Current Visit: Yes (4) Right upper lobe pneumonia Status: Acute Assessment and plan: She is presently being treated with intravenous azithromycin, vancomycin, and ceftriaxone. Current Visit: Yes Qualifiers: Pneumonia type: due to unspecified organism Qualified Code(s): J18.1 - Lobar pneumonia, unspecified organism (5) End stage renal disease on dialysis Status: Chronic Assessment and plan: She continues her regularly scheduled hemodialysis. Current Visit: Yes (6) Ulcerative esophagitis Status: Acute Assessment and plan: She has been begun on intravenous pantoprazole. Gastroenterology is following. Current Visit: No (7) Bacteremia due to Gram-positive bacteria Status: Acute Assessment and plan: She is being treated with intravenous vancomycin, ceftriaxone, and azithromycin. Current Visit: Yes (8) Hypotension Status: Acute Assessment and plan: She is stable off of Neosynephrine. Current Visit: Yes Qualifiers: Hypotension type: unspecified hypotension type Qualified Code(s): I95.9 - Hypotension, unspecified Hospitalist: Subjective Interval history: Ms. clements was hospitalized here 3 days ago with nausea, vomiting, and hematemesis. She has a previous history of end-stage renal disease on hemodialysis, type 1 diabetes mellitus, essential hypertension, and erosive esophagitis. Admission chest x-ray demonstrated evidence of pneumonia. Subsequent blood cultures demonstrated gram-positive cocci. She has been treated with intravenous azithromycin vancomycin and ceftriaxone. She is being followed by nephrology for continuation of her hemodialysis. She has been seen in consultation by gastroenterology who was elected not to perform I will continue her antibiotics for her pneumonia and continue sliding scale insulin coverage for her diabetes mellitus. Endoscopy at this time. Exam - Constitutional Vitals: Period Temp Pulse Resp BP Sys/Pineda Pulse Ox Last 24 Hr 97.2 F-101.6 F 88-118 12-32 79-138/46-91 89-100 General appearance: no acute distress - Head Head exam: Present: normal inspection, normocephalic - Eye Eye exam: Present: EOMI Pupils: Present: GARIMA - Neck Neck exam: Present: normal inspection - Respiratory Respiratory exam: Present: clear to auscultation bilaterally - Cardiovascular Cardiovascular exam: Present: regular rate and rhythm - GI/Abdominal GI/Abdominal exam: Present: normal bowel sounds, soft, other (Nontender with no palpable masses or hepatosplenomegaly.) - Extremities Exam Extremities exam: Present: normal inspection - Neurological Exam Neurological exam: Present: other (Somnolent) - Skin Skin exam: Present: normal color, warm, dry Results - Labs CBC & BMP: 08/16/16 04:40 08/16/16 04:40 Quality Measures - VTE Contraindication to Pharmacological VTE Prophylaxis: Active Bleeding
--- NOTE | 2016-08-16 15:09 | Gastrointestinal Progress Note ---
Assessment and Plan (1) Coffee ground emesis Status: Acute Assessment and plan: Appears stable with no sign of active bleeding. Continue PPI therapy. Follow hemoglobin for now. Do not plan EGD unless she has evident recurrent bleeding. 08/16 hemoglobin trending down but with no gross GI bleeding. Check stools for occult blood. Follow with serial hemoglobins and may need transfusion support if continues to trend down. Empiric PPI therapy. Echo findings noted with left atrial mass. Defer to hospitalist for further evaluation of this. Current Visit: Yes Gastroenterology - PN: Subj Interval history: No subjective change. No gross GI bleeding noted. Hemoglobin trending down from 11-7.6 over past 4 days. Exam (Progress Note) - Constitutional Vitals: Period Temp Pulse Resp BP Sys/Pineda Pulse Ox Last 24 Hr 97.2 F-101.6 F 88-117 13-32 79-138/46-79 90-100 General appearance: no acute distress - Head Head exam: Present: normocephalic, atraumatic - Eye Eye exam: Present: EOMI. Absent: scleral icterus - Respiratory Respiratory exam: Present: clear to auscultation bilaterally - Cardiovascular Cardiovascular exam: Present: regular rate and rhythm. Absent: gallop, rubs - GI/Abdominal GI/Abdominal exam: Present: normal bowel sounds, soft. Absent: distended, tenderness - Neurological Exam Neurological exam: Present: alert, oriented X3, CN II-XII intact - Psychiatric Psychiatric exam: Present: flat affect - Skin Skin exam: Present: warm, dry Results - Labs CBC & BMP: 08/16/16 04:40 08/16/16 04:40 Lab Results: I have reviewed the past 24 hour labs
[2016-08-16] MEDS ORDERED: PROMETHAZINE 25 MG TABLET PO PRN (17:37)
[2016-08-16] MEDS: MONTELUKAST 10 MG TABLET PO SCH (20:19)
[2016-08-16] MEDS: AZITHROMYCIN 250 MG TABLET PO SCH (20:19)
[2016-08-16] MEDS: INSULIN GLARGINE 100 UNIT/ML SUBCUT SCH (20:20)
[2016-08-16] MEDS: LISINOPRIL 20 MG TABLET PO SCH (20:20)
[2016-08-16] MEDS: cefTRIAXone 1,000 MG in SODIUM CHLORIDE 0.9% 100 ML IV SCH (20:23)
[2016-08-17] MEDS: ALBUTEROL/IPRATROPIUM 3 ML NEB RESP TX SCH ×4 (00:13→20:22)
[2016-08-17] MEDS: SODIUM CHLORIDE 0.9% 1,000 ML IV SCH ×2 (02:03→09:51)
[2016-08-17 07:06] LABS: Basophils % 0.1 % (0.0-0.8); Eosinophils # 0.6 10*3/uL (0.0-0.87); Eosinophils % 3.4 % (0.00-10.9); Hematocrit 24.9 VOL% (35.7-47.0); Hemoglobin 7.9 GM/DL (12.0-16.0); Immature Granulocytes % 3.4 %; Immature Granulocytes Absolute 0.62 #; Lymphocytes # 1.6 10*3/uL (1.4-4.0); Mean Corpuscular HGB Conc 31.7 GM/DL (32-36); Mean Corpuscular Hemoglobin 33 PG (27-34); Mean Corpuscular Volume 103.8 FL (87-102); Mean Platelet Volume 12.6 FL (9.6-12.0); Monocytes # 2.2 10*3/uL (0.11-0.8); Monocytes % 12.1 % (1.7-12.7); NRBC # 0.02 10*3/uL; Platelet Count 150 T/CUMM (130-400); Red Cell Distribution Width 19.1 % (9.3-17.3)
[2016-08-17 07:38] LABS: Calcium 6.5 MG/DL (8.5-10.1); Osmolality,Calculated 285.7 MOS/KG (273-304); Potassium 4.4 MMOL/L (3.5-5.1)
[2016-08-17 07:49] LABS: Band Neutrophils 2 % (0-10); Eosinophils 1 % (0-10); Lymphocytes 9 % (20-55); Segmented Neutrophils 80 % (50-85); Total Cells Counted 100
[2016-08-17 07:50] LABS: Hypochromasia 1+; Macrocytosis 1+; Platelet Estimate Adequate; Polychromasia Slight; Target Cells Slight
--- NOTE | 2016-08-17 08:46 | Gastrointestinal Progress Note ---
Assessment and Plan (1) Hematemesis Status: Acute Assessment and plan: 08/17-No further vomiting episodes. Hgb up slighlty at 7.9, no overt bleeding. STools pending for occult blood. Will order venous doppler studies to BUE today d/t swelling, erythema, pain. Plan and addendum to follow by Dr Matos. 08/14-No further reports of hematemesis. Hgb holding at 9.9. Noted positive blood cultures for MRSA. Plan and addendum to follow by Dr Matos. 08/13-sudden onset of hematemesis with epigastric pain. Prior history of erosive esophagits in May of this year. History of end-stage renal disease on dialysis. Hemoglobin stable at 10.1 down slightly from admission at 11.3. Monitor serial H&H, check stool for occult blood. Will consider upper endoscopy once electrolytes have normalized. Plan an addendum to followed by Dr. Matos. Current Visit: Yes Gastroenterology - PN: Subj Interval history: CC: Anemia Pt is seen, awake and alert. States she feels fair today. She is complaining of pain to her right shoulder at IV site and left arm. She is having some difficulty with moving her LUE as well and noted to have swelling, erythema to the forearm, and warm to touch. Also noted to have some redness at IV site. Pt is receiving antibiotic therapy at this time for RLL pneumonia and MRSA blood cultures. She ran a low grade fever overnight. Her hemoglobin is down at 7.9 without overt bleeding. Stools are pending however she has not had a bowel movement in several days. Abdomen is soft, nontender. Tolerating a regular diet at this time. ROS: Denies SOB or chest pain Exam (Progress Note) - Constitutional Vitals: Period Temp Pulse Resp BP Sys/Pineda Pulse Ox Last 24 Hr 97.2 F-99.9 F 72-106 13-27 100-133/52-93 86-100 General appearance: normal weight, no acute distress - Head Head exam: Present: normal inspection, normocephalic - Eye Eye exam: Present: other (lids and conjunctiva unremarakble). Absent: scleral icterus - ENT ENT exam: Present: normal exam, normal oropharynx - Neck Neck exam: Present: normal inspection - Respiratory Respiratory exam: Present: clear to auscultation bilaterally. Absent: rales, rhonchi, wheezes - Cardiovascular Cardiovascular exam: Present: regular rate and rhythm. Absent: diastolic murmur , JVD, systolic murmur - GI/Abdominal GI/Abdominal exam: Present: normal bowel sounds, soft. Absent: ascites, distended, mass, organomegaly, tenderness - Extremities Exam Extremities exam: Present: normal inspection, full ROM, other (warmth, erythema , swelling to LUE) - Back Exam Back exam: Present: normal inspection - Neurological Exam Neurological exam: Present: alert, oriented X3 - Psychiatric Psychiatric exam: Present: normal affect, normal mood - Skin Skin exam: Present: normal color, warm, dry, erythema (LUE) Results - Labs CBC & BMP: 08/17/16 05:37 08/17/16 05:37 Lab Results: I have reviewed the past 24 hour labs
[2016-08-17] MEDS: INSULIN REGULAR 100 UNIT/ML SUBCUT SCH ×3 (09:47→17:23)
[2016-08-17] MEDS: FLUoxetine 20 MG CAPSULE PO SCH (09:47)
[2016-08-17] MEDS: CINACALCET 30 MG TABLET PO SCH (09:48)
[2016-08-17] MEDS: PREGABALIN 50 MG CAPSULE PO SCH (09:48)
[2016-08-17] MEDS: FAMOTIDINE 20 MG TABLET PO SCH (09:48)
[2016-08-17] MEDS: CALCITRIOL 0.5 MCG CAPSULE PO SCH (09:49)
[2016-08-17] MEDS: CYPROHEPTADINE 4 MG TABLET PO SCH ×2 (09:50→21:34)
[2016-08-17] MEDS: CYCLOBENZAPRINE 10 MG TABLET PO SCH ×3 (09:50→21:36)
[2016-08-17] MEDS: CALCIUM ACETATE 667 MG CAPSULE PO SCH ×5 (09:50→21:36)
[2016-08-17] MEDS: PANTOPRAZOLE 40 MG VIAL IV SCH (09:51)
[2016-08-17] MEDS: MUPIROCIN 2% OINT 22 GM TUBE TOP SCH (09:51)
[2016-08-17] MEDS: LISINOPRIL 20 MG TABLET PO SCH ×2 (09:51→21:34)
--- NOTE | 2016-08-17 10:09 | Cardiology Consult Note ---
Assessment and Plan - Time spent with patient Time spent with patient: Greater than 30 minutes (1) Atrial mass Status: Acute Assessment and plan: Patient needs a transesophageal echo I discussed with Dr. Matos via phone once he performs EGD tomorrow we will arrange for PRAVIN. Given her recent coughing up blood or throwing up blood and erosive or ulcerative esophagitis in the past I recommended that she have an EGD to assess best pathology before proceeding with proposed PRAVIN. Current Visit: Yes (2) End stage renal disease on dialysis Problem details: No acute indication for CHD at this time. Status: Chronic Current Visit: No (3) Ulcerative esophagitis Status: Chronic Current Visit: No (4) History of DVT (deep vein thrombosis) Status: Acute Current Visit: Yes (5) History of pulmonary embolism Status: Acute Current Visit: Yes (6) Tobacco abuse Status: Chronic Current Visit: No History of Present Illness - Data of Consult Patient: new to practice Consult date: 08/17/16 Requesting Physician: Juan Pablo Harrison - Consult Narrative Reason for consult: Atrial Mass History of present illness: Ms. Alfonso is a 31 year old female who is in overall extremely poor health. She is a type I diabetic who is end-stage renal disease and history of erosive esophagitis. She came in with complaints of "throwing up brown stuff." She had erosive esophagitis in May of this year diagnosed at EGD by Dr. Matos with a hiatus hernia. The patient also was found to have what appears to be a pneumonia. In evaluating her pneumonitis CT scan was performed that showed what appeared to be a right atrial mass followed by transthoracic echocardiogram that shows a right atrial mass that appears to be just over 2 cm in his spherical in shape. It is not clear but it appears to be attached to the free wall of the atrium by transthoracic echo. No true stalk was seen. 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 She had a transthoracic echocardiogram in April 2013 there is no mass in the right atrium seen at that time. I have reviewed her 2014 film as well as her current echocardiogram. There is a round echodense structure approximately 2 cm seen both on the CT scan and in the transthoracic echocardiogram in the right atrium no clear stalk is seen but appears to be coming from a place of the interatrial septum. The patient has not experienced syncope. CC: Juan Pablo Harrison MD - Home Medications and Allergies Home Medications: Home Medications Medication Instructions Recorded Confirmed Type Insulin Glargine [Lantus] 30 unit SUBCUT BEDTIME 01/07/15 08/13/16 History Lisinopril 40 mg PO BID 05/04/15 08/13/16 History Pregabalin [Lyrica] 50 mg PO DAILY 05/15/16 08/13/16 History Ranitidine Tab [Zantac Tab] 150 mg PO TID 05/25/16 08/13/16 History Calcitriol [Rocaltrol] 1 mcg PO DAILY #30 capsule 05/29/16 08/13/16 Rx Calcium Acetate [Phoslo] 667 mg PO TID W/MEALS #90 capsule 05/29/16 08/13/16 Rx Cinacalcet [Sensipar] 30 mg PO DAILY 06/09/16 08/13/16 History Fluoxetine HCl 40 mg PO DAILY 06/09/16 08/13/16 History Montelukast Sodium 10 mg PO BEDTIME 06/09/16 08/13/16 History Calcium Acetate [Phoslo] 667 mg PO WITH SNACKS 08/12/16 08/13/16 History Cyproheptadine Tab [Periactin Tab] 4 mg PO BID W/MEALS 08/12/16 08/13/16 History HYDROcodone/ACETAMIN 10-325 [[place] 1 tablet PO BID 08/12/16 08/13/16 History 10-325] Insulin Aspart [NovoLOG] See Protocol SUBCUT DAILY PRN 08/12/16 08/13/16 History Mupirocin 2% Oint [Bactroban 2% 1 applic TOP BID 08/12/16 08/13/16 History Oint] Promethazine Tab [Phenergan Tab] 25 mg PO Q6H PRN 08/12/16 08/13/16 History cephALEXin [Cephalexin] 500 mg PO BID 08/12/16 08/13/16 History Pantoprazole Tab [Protonix Tab] 40 mg PO DAILY 08/13/16 08/13/16 History Allergies/Adverse Reactions: Allergies Allergy/AdvReac Type Severity Reaction Status Date / Time No Known Allergies Allergy Verified 08/12/16 18:53 - Constitutional Constitutional: Present: stops breathing during sleep. Absent: anorexia, chills , night sweats - EENT Eyes: Absent: blurry vision, diplopia Ears: Absent: decreased hearing, ear discharge Nose, mouth and throat: Present: headache(s). Absent: dysphagia, sore throat, throat swelling, tongue swelling - Cardiovascular Cardiovascular: Present: dyspnea, dyspnea on exertion. Absent: chest pain at rest - Respiratory Respiratory: Present: cough, dyspnea on exertion. Absent: wheezing, snoring - Gastrointestinal Gastrointestinal: Present: dysphagia, heartburn, hematemesis, vomiting. Absent : dyspepsia, early satiety, fecal incontinence - Genitourinary Genitourinary: Absent: abnormal vaginal bleeding, menorrhagia - Musculoskeletal Musculoskeletal: Present: arthralgias, back pain, muscle cramps. Absent: joint swelling - Neurological Neurological: Absent: behavioral changes, confusion, convulsions - Psychiatric Psychiatric: Present: depression. Absent: anxiety - Endocrine Endocrine: Present: heat intolerance. Absent: cold intolerance - Hematologic/Lymphatic Hematologic/Lymphatic: Absent: easy bleeding, easy bruising Medical,Surgical,& Family Hx - Medical History Cardio: History of: Hypertension Psychological: History of: Depression Neurology: History of: Peripheral Neuropathy No history of: Seizures Endocrine: History of: Diabetes Mellitus (IDDM), Diabetes Mellitus (NIDDM), Dyslipidemia, Thyroid Disorder, Endocrine Problems (parathyroidectomy) Respiratory: History of: Asthma, Bronchitis, Pneumonia Renal: History of: Dialysis (, , Wed), Renal Failure (Dialysis right femoral fistula) Gastrointestinal: History of: GERD, Gastrointestinal Bleed (Erosive esophagitis 2 months ago) Musculoskeletal: History of: Amputation (right BKA), Musculoskeletal Problems ( right BKA) Hematology: History of: Anemia Other: History of: MRSA, Miscellaneous Medical Problems (DVT with pulmonary embolism) - Surgical History Cardiac Surgeries: Patient Denies: Cardiac Catheterization, Cardiac Surgery Abdominal Surgeries: Surgical HX of: Abdominal Surgery, Cholecystectomy Reproductive Surgeries: Surgical HX of;: Breast Surgery (R BREAST FOR LUMP), Section (X1), Hysterectomy Orthopedic Surgeries: Surgical HX of;: Orthopedic Surgery (AMPUTEE R LOWER LEG) - Family History Family History: Reports;: Family Hypertension (MOTHER, FATHER) - Social History Smoking Status: Current some day smoker Frequency of Alcohol Use: None Type of Drug Use: None Marital Status: Unknown Lives With:: Children (17 yoa child and mother) Functional capacity: wheelchair bound Physical Examination Vital Signs Temp Pulse Resp BP Pulse Ox 98.6 F 105 H 22 112/76 100 08/12/16 18:48 08/12/16 18:48 08/12/16 18:48 08/12/16 18:48 08/12/16 18:48 General: Present: Appears Well (Morbidly obese) HEENT: Present: EOMI. Absent: Oral Lesions Neck: Present: Supple Neck, Midline Trachea, No Masses Cardiac: Present: Reg Rate and Rhythm, Regular Rate, Regular Rhythm, S1/S2, S4 Lungs: Present: Normal Exam Neuro: Present: Cranial Nerve 2-12 Intact, Motor Function Intact Abdomen: Present: Soft, Active Bowel Sounds Skin: Present: Clear Extremities: Present: Other (Thrill in AV fistula on right mid thigh status post BKA) Result/EKG - Labs CBC & BMP: 08/17/16 05:37 08/17/16 05:37 Labs: Laboratory Results - last 24 hr 08/16/16 08/16/16 08/16/16 11:03 16:19 20:03 WBC RBC Hgb Hct MCV MCH MCHC RDW Plt Count MPV Neut % (Auto) Lymph % (Auto) Josephine % (Auto) Eos % (Auto) Baso % (Auto) Neut # (Auto) Lymph # (Auto) Josephine # (Auto) Eos # (Auto) Baso # (Auto) Total Counted Immature Gran % Nucleated RBC % Immature Gran # Segmented Neutrophils Band Neutrophils Lymphocytes Monocytes Eosinophils Nucleated RBCs # Platelet Estimate Polychromasia Hypochromasia Macrocytosis Target Cells Sodium Potassium Chloride Carbon Dioxide Anion Gap BUN Creatinine GFR Calculation BUN/Creatinine Ratio Glucose POC Glucose 174 H 157 H 217 H Calculated Osmolality Calcium 08/17/16 08/17/16 08/17/16 05:37 05:37 06:55 WBC 18.0 H RBC 2.40 L Hgb 7.9 L Hct 24.9 L MCV 103.8 H MCH 33 MCHC 31.7 L RDW 19.1 H Plt Count 150 D MPV 12.6 H Neut % (Auto) 72.0 Lymph % (Auto) 9.0 L Josephine % (Auto) 12.1 Eos % (Auto) 3.4 Baso % (Auto) 0.1 Neut # (Auto) 13.0 H Lymph # (Auto) 1.6 Josephine # (Auto) 2.2 H Eos # (Auto) 0.6 Baso # (Auto) 0.0 Total Counted 100 Immature Gran % 3.4 Nucleated RBC % 0.1 Immature Gran # 0.62 Segmented Neutrophils 80 Band Neutrophils 2 Lymphocytes 9 L Monocytes 8 Eosinophils 1 Nucleated RBCs # 0.02 Platelet Estimate Adequate Polychromasia Slight Hypochromasia 1+ Macrocytosis 1+ Target Cells Slight Sodium 138 Potassium 4.4 Chloride 107 Carbon Dioxide 21 Anion Gap 14.4 BUN 34 H Creatinine 8.70 H GFR Calculation 7 BUN/Creatinine Ratio 3.00 L Glucose 154 H POC Glucose 161 H Calculated Osmolality 285.7 Calcium 6.5 L - Impressions Impressions: I reviewed the transthoracic echocardiogram and CT as above in the HPI Quality Measures - VTE Contraindication to Pharmacological VTE Prophylaxis: Active Bleeding
--- NOTE | 2016-08-17 11:43 | Ultrasound Report ---
History: Swelling and erythema of the arms Date: 08/17/2016 Study: Bilateral upper extremity color flow venous Doppler study Comparison exam: December 21, 2012 Color Doppler, wave form analysis, and compression analysis of the deep veins of both upper extremities from the internal jugular and subclavian vein level through the elbow level shows that the veins are readily compressible. There is no abnormal intraluminal material to suggest thrombus. There is an old occluded dialysis access site on the right just superior to the elbow level. Waveform analysis is unremarkable. Ultrasound images were captured and archived Impression: No evidence of acute DVT PROCEDURE INTERPRETED AT [facility] DEPARTMENT OF RADIOLOGY Final Report Signed by: Dr. Sherie Matos
[2016-08-17] MEDS: PANTOPRAZOLE 40 MG TABLET PO SCH (13:36)
[2016-08-17] MEDS: cephALEXin 500 MG CAPSULE PO SCH ×2 (13:37→21:35)
[2016-08-17] MEDS ORDERED: CALCIUM GLUCONATE 2,000 MG in SODIUM CHLORIDE 0.9% 100 ML IV ONE ×2 (14:34→20:00)
--- NOTE | 2016-08-17 14:51 | Nephrology Progress Note ---
Nephrology - PN: Subj Interval history: The patient is resting she reports that she feels weak. Serum calcium is noted to be 6.5. She has a history of parathyroidectomy will go ahead and supplement calcium today. Repeat calcium in a.m. Exam (PN)-Nephrology - Vital Signs Vital signs: Period Temp Pulse Resp BP Sys/Pineda Pulse Ox Last 24 Hr 98.2 F-99.9 F 72-103 13-27 100-123/54-93 86-100 - General Appearance General appearance: well-developed, well-nourished EENT: ATNC Neck: supple Respiratory: clear Cardiology: regular rate, regular rhythm Gastrointestinal: normoactive bowel sounds, no tenderness Neurologic: alert and oriented x3, CN 3-12 intact (No evidence of tetany) Musculoskeletal: no clubbing Psychiatric: mood/affect appropriate - Lab 08/17/16 05:37 08/17/16 05:37 Most recent lab results Calcium 6.5 MG/DL (8.5-10.1) L 08/17/16 05:37 Magnesium 2.1 MG/DL (1.8-2.4) 08/12/16 19:47 Assessment and Plan (1) End stage renal disease on dialysis Problem details: No acute indication for CHD at this time. Status: Chronic Assessment and plan: Schedule for hemodialysis on Wednesday schedule. Current Visit: No (2) Diabetes 1.5, managed as type 2 Status: Chronic Current Visit: No (3) Insulin dependent diabetes mellitus Status: Chronic Current Visit: No (4) Coffee ground emesis Status: Acute Current Visit: Yes (5) Hyponatremia Status: Resolved Current Visit: Yes (6) Hyperkalemia Status: Resolved Assessment and plan: BMP in a.m. Current Visit: Yes (7) Hypocalcemia Status: Chronic Assessment and plan: Supplement calcium with 2 g of calcium gluconate today as well as another 2 g this evening. Will repeat BMP in a.m. Current Visit: Yes
--- NOTE | 2016-08-17 16:11 | Hospitalist Progress Note ---
Assessment and Plan (1) End stage renal disease on dialysis Problem details: No acute indication for CHD at this time. Status: Chronic Current Visit: No (2) Gastroenteritis Status: Acute Current Visit: Yes (3) Insulin dependent diabetes mellitus Status: Chronic Current Visit: No (4) Coffee ground emesis Status: Acute Current Visit: Yes (5) Chest pain Status: Acute Current Visit: Yes (6) Right upper lobe pneumonia Status: Acute Current Visit: Yes Qualifiers: Pneumonia type: due to unspecified organism Qualified Code(s): J18.1 - Lobar pneumonia, unspecified organism (7) Bacteremia due to Gram-positive bacteria Status: Acute Assessment and plan: On vancomycin. Repeating blood cultures today. Will need an ID consult. Current Visit: Yes Hospitalist: Subjective Interval history: No acute events overnight. She reports that she feels ok. Noted to have atrial mass on echo, cardiology consulted. Plan for EGD tomorrow by GI first before further evaluation with PRVAIN. Also noted to have UE swelling, dopplers negative for clot. Nephrology replacing calcium. Exam - Constitutional Vitals: Period Temp Pulse Resp BP Sys/Pineda Pulse Ox Last 24 Hr 98.2 F-99.9 F 72-101 16-23 100-123/54-62 91-100 General appearance: over weight - Head Head exam: Present: normocephalic, atraumatic - Eye Eye exam: Present: EOMI Pupils: Present: GARIMA - ENT ENT exam: Present: normal exam - Neck Neck exam: Present: normal inspection - Respiratory Respiratory exam: Present: clear to auscultation bilaterally. Absent: rhonchi, wheezes - Cardiovascular Cardiovascular exam: Present: regular rate and rhythm - GI/Abdominal GI/Abdominal exam: Present: normal bowel sounds, soft. Absent: tenderness, rebound - Back Exam Back exam: Present: normal inspection - Neurological Exam Neurological exam: Present: alert, oriented X3 - Psychiatric Psychiatric exam: Present: normal affect, normal mood - Skin Skin exam: Present: warm Results - Labs CBC & BMP: 08/17/16 05:37 08/17/16 05:37 Quality Measures - VTE Contraindication to Pharmacological VTE Prophylaxis: Active Bleeding
[2016-08-17] MEDS: NYSTATIN 500,000 UNIT/5 ML UDCUP SWISH/SWAL SCH ×2 (17:26→21:35)
[2016-08-17] MEDS: ONDANSETRON 4 MG/2 ML VIAL IV PRN (19:30)
[2016-08-17] MEDS: AZITHROMYCIN 250 MG TABLET PO SCH (21:35)
[2016-08-17] MEDS: INSULIN GLARGINE 100 UNIT/ML SUBCUT SCH (21:35)
[2016-08-17] MEDS: MONTELUKAST 10 MG TABLET PO SCH (21:35)
[2016-08-18] MEDS: ALBUTEROL/IPRATROPIUM 3 ML NEB RESP TX SCH ×4 (00:03→20:02)
[2016-08-18] MEDS: MUPIROCIN 2% OINT 22 GM TUBE TOP SCH ×3 (01:41→23:06)
[2016-08-18] MEDS: INSULIN REGULAR 100 UNIT/ML SUBCUT SCH ×5 (01:41→23:06)
[2016-08-18] MEDS: ONDANSETRON 4 MG/2 ML VIAL IV PRN ×2 (02:13→17:49)
[2016-08-18 06:59] LABS: Calcium 7.2 MG/DL (8.5-10.1); Magnesium 2.5 MG/DL (1.8-2.4); Osmolality,Calculated 284.8 MOS/KG (273-304); Potassium 4.8 MMOL/L (3.5-5.1)
[2016-08-18 07:21] LABS: Calcium 7.1 MG/DL (8.5-10.1); Osmolality,Calculated 283.8 MOS/KG (273-304); Potassium 4.8 MMOL/L (3.5-5.1)
[2016-08-18 07:40] LABS: Basophils % 0.1 % (0.0-0.8); Eosinophils # 0.7 10*3/uL (0.0-0.87); Eosinophils % 3.4 % (0.00-10.9); Hematocrit 22.4 VOL% (35.7-47.0); Hemoglobin 7.4 GM/DL (12.0-16.0); Immature Granulocytes Absolute 1.42 #; Lymphocytes # 1.9 10*3/uL (1.4-4.0); Lymphocytes % 9.3 % (21.3-54.2); Mean Corpuscular Hemoglobin 34 PG (27-34); Mean Corpuscular Volume 103.2 FL (87-102); Mean Platelet Volume 12.3 FL (9.6-12.0); Monocytes # 2.5 10*3/uL (0.11-0.8); Monocytes % 12.1 % (1.7-12.7); NRBC # 0.04 10*3/uL; Neutrophils # 13.8 10*3/uL (1.4-7.4); Neutrophils % 68.1 % (38.7-73.9); Platelet Count 199 T/CUMM (130-400); Red Blood Count 2.17 MC/CUMM (3.8-5.5); White Blood Count 20.3 T/CUMM (4-12)
[2016-08-18 08:25] LABS: Band Neutrophils 5 % (0-10); Eosinophils 3 % (0-10); Hypochromasia 1+; Lymphocytes 4 % (20-55); Macrocytosis 1+; Platelet Estimate Adequate; Polychromasia Slight; Segmented Neutrophils 79 % (50-85); Total Cells Counted 100
--- NOTE | 2016-08-18 08:41 | Hospitalist Progress Note ---
<Ofe Lowery - Last Filed: 08/18/16 08:56> Assessment and Plan (1) Anemia Status: Acute Assessment and plan: H/H 7.4/22.4 today; may need to be transfused; will check with Dr. Douglass. Most likely will be done during HD today. Spoke with Evonne, will transfuse during HD Current Visit: Yes Qualifiers: Anemia type: unspecified type Qualified Code(s): D64.9 - Anemia, unspecified (2) Atrial mass Status: Acute Assessment and plan: Awaiting PRAVIN after EGD. Maybe tomorrow? Cardiology to manage. Current Visit: Yes (3) Hematemesis Status: Acute Assessment and plan: EGD scheduled this AM. Current Visit: Yes (4) End stage renal disease on dialysis Problem details: No acute indication for CHD at this time. Status: Chronic Assessment and plan: Nephrology to manage; HD today. Current Visit: No Hospitalist: Subjective Interval history: Patient seen and examined. No significant overnight events reported. NPO for EGD scheduled this AM. Exam - Constitutional Vitals: Period Temp Pulse Resp BP Sys/Pineda Pulse Ox Last 24 Hr 97.2 F-99.0 F 85-96 16-18 104-129/55-77 92-99 General appearance: normal weight, no acute distress - Head Head exam: Present: normal inspection, normocephalic, atraumatic - Eye Eye exam: Present: EOMI. Absent: conjunctival injection, nystagmus Pupils: Present: GARIMA, normal accommodation - ENT ENT exam: Present: normal exam, normal external ear exam, normal oropharynx - Neck Neck exam: Present: normal inspection. Absent: lymphadenopathy, meningismus, tenderness, thyromegaly - Respiratory Respiratory exam: Present: clear to auscultation bilaterally. Absent: rales, rhonchi, stridor, wheezes - Cardiovascular Cardiovascular exam: Present: regular rate and rhythm. Absent: carotid bruit, diastolic murmur, gallop, JVD, rubs, systolic murmur - GI/Abdominal GI/Abdominal exam: Present: normal bowel sounds, soft. Absent: tenderness - Extremities Exam Extremities exam: Present: other - Back Exam Back exam: Present: normal inspection - Neurological Exam Neurological exam: Present: alert, oriented X3, CN II-XII intact (Right BKA) - Psychiatric Psychiatric exam: Present: normal affect - Skin Skin exam: Present: normal color, warm, dry Results - Labs CBC & BMP: 08/18/16 07:22 08/18/16 05:45 Lab Results: I have reviewed the past 24 hour labs Quality Measures - VTE Contraindication to Pharmacological VTE Prophylaxis: Active Bleeding <Juan Pablo Harrison - Last Filed: 08/18/16 11:56> Assessment and Plan (1) End stage renal disease on dialysis Problem details: No acute indication for CHD at this time. Status: Chronic Current Visit: No (2) Gastroenteritis Status: Acute Current Visit: Yes (3) Insulin dependent diabetes mellitus Status: Chronic Current Visit: No (4) Coffee ground emesis Status: Acute Current Visit: Yes (5) Chest pain Status: Acute Current Visit: Yes (6) Right upper lobe pneumonia Status: Acute Current Visit: Yes Qualifiers: Pneumonia type: due to unspecified organism Qualified Code(s): J18.1 - Lobar pneumonia, unspecified organism (7) Bacteremia due to Gram-positive bacteria Status: Acute Current Visit: Yes Hospitalist: Subjective Interval history: Patient seen and examined along with SHOOTING GALLERY OPERATOR Sebastián, agree with history, assessment and plan as documented. Patient with right arm pain and back pain. Evaluated by surgery, no signs of infection. Her wbc count does continue to rise. Treating for pneumonia now. She did grow MRSA in blood cultures collected 08/12/16. Repeated yesterday. Plan is for EGD and HD today. Exam - Constitutional Vitals: Period Temp Pulse Resp BP Sys/Pineda Pulse Ox Last 24 Hr 97.2 F-99.4 F 85-96 16-18 104-129/54-77 92-99 Results - Labs CBC & BMP: 08/18/16 07:22 08/18/16 05:45
--- NOTE | 2016-08-18 08:54 | Nephrology Progress Note ---
Nephrology - PN: Subj Interval history: Patient is resting comfortably. Complains of tenderness in her left arm and elbow white count noted to be trending up today. Hematocrit continues to trend down to 22. Will transfuse 2 units packed red blood cells today. Last surgery to evaluate the left arm as it has a graft in the area. She is scheduled for an EGD today. Exam (PN)-Nephrology - Vital Signs Vital signs: Period Temp Pulse Resp BP Sys/Pineda Pulse Ox Last 24 Hr 97.2 F-99.0 F 85-96 16-18 104-129/55-77 92-99 - General Appearance General appearance: well-developed, well-nourished EENT: ATNC Respiratory: clear Cardiology: regular rate, regular rhythm Gastrointestinal: normoactive bowel sounds Neurologic: alert and oriented x3, CN 3-12 intact Musculoskeletal: no clubbing Psychiatric: mood/affect appropriate - Lab 08/18/16 07:22 08/18/16 05:45 Most recent lab results Calcium 7.1 MG/DL (8.5-10.1) L 08/18/16 05:45 Magnesium 2.5 MG/DL (1.8-2.4) H 08/18/16 05:45 Assessment and Plan (1) End stage renal disease on dialysis Problem details: No acute indication for CHD at this time. Status: Chronic Assessment and plan: Schedule for hemodialysis on Wednesday schedule. Hemodialysis today will transfuse 2 units packed red blood cells today. Current Visit: No (2) Diabetes 1.5, managed as type 2 Status: Chronic Current Visit: No (3) Insulin dependent diabetes mellitus Status: Chronic Current Visit: No (4) Coffee ground emesis Status: Acute Current Visit: Yes (5) Hyponatremia Status: Resolved Current Visit: Yes (6) Hyperkalemia Status: Resolved Current Visit: Yes (7) Hypocalcemia Status: Chronic Assessment and plan: Supplement calcium with 2 g of calcium gluconate today as well as another 2 g this evening. Will repeat BMP in a.m. Current Visit: Yes
[2016-08-18] MEDS ORDERED: SODIUM CHLORIDE 0.9% 250 ML IV PRN (08:57)
--- NOTE | 2016-08-18 11:29 | General Surgery Consult Note ---
History of Present Illness Chief complaint: Consult for left arm redness and swelling History of present illness: Ms. Alfonso is a 31 year old female is admitted with bacteremia and undergoing antibiotic therapy. I have been consulted for the left arm pain redness and swelling in this patient with a history of permanent access. The pain swelling and redness is on the backside of the left lower arm. She states it is tender in that area. She has not had any dialysis procedures in this arm in several years. 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 She is also had a right arm AV graft that is failed. Currently she is dialyzing through a right leg graft. She denies any problems with dialysis. Her other issues are noted including this hard mass which may represent endocarditis. Home Medications Medication Instructions Recorded Confirmed Type Insulin Glargine [Lantus] 30 unit SUBCUT BEDTIME 01/07/15 08/13/16 History Lisinopril 40 mg PO BID 05/04/15 08/13/16 History Pregabalin [Lyrica] 50 mg PO DAILY 05/15/16 08/13/16 History Ranitidine Tab [Zantac Tab] 150 mg PO TID 05/25/16 08/13/16 History Calcitriol [Rocaltrol] 1 mcg PO DAILY #30 capsule 05/29/16 08/13/16 Rx Calcium Acetate [Phoslo] 667 mg PO TID W/MEALS #90 capsule 05/29/16 08/13/16 Rx Cinacalcet [Sensipar] 30 mg PO DAILY 06/09/16 08/13/16 History Fluoxetine HCl 40 mg PO DAILY 06/09/16 08/13/16 History Montelukast Sodium 10 mg PO BEDTIME 06/09/16 08/13/16 History Calcium Acetate [Phoslo] 667 mg PO WITH SNACKS 08/12/16 08/13/16 History Cyproheptadine Tab [Periactin Tab] 4 mg PO BID W/MEALS 08/12/16 08/13/16 History HYDROcodone/ACETAMIN 10-325 [Langston 1 tablet PO BID 08/12/16 08/13/16 History 10-325] Insulin Aspart [NovoLOG] See Protocol SUBCUT DAILY PRN 08/12/16 08/13/16 History Mupirocin 2% Oint [Bactroban 2% 1 applic TOP BID 08/12/16 08/13/16 History Oint] Promethazine Tab [Phenergan Tab] 25 mg PO Q6H PRN 08/12/16 08/13/16 History cephALEXin [Cephalexin] 500 mg PO BID 08/12/16 08/13/16 History Pantoprazole Tab [Protonix Tab] 40 mg PO DAILY 08/13/16 08/13/16 History Allergies Allergy/AdvReac Type Severity Reaction Status Date / Time No Known Allergies Allergy Verified 08/12/16 18:53 Medical,Surgical,& Family Hx - Medical History Cardio: History of: CHF, Hypertension Psychological: History of: Depression Neurology: History of: Peripheral Neuropathy No history of: Seizures Endocrine: History of: Diabetes Mellitus (IDDM), Diabetes Mellitus (NIDDM), Dyslipidemia, Thyroid Disorder, Endocrine Problems (parathyroidectomy) Respiratory: History of: Asthma, Bronchitis, Pneumonia Renal: History of: Dialysis (, , Wed), Renal Failure (Dialysis right femoral fistula) Gastrointestinal: History of: GERD, Gastrointestinal Bleed (Erosive esophagitis 2 months ago) Musculoskeletal: History of: Amputation (right BKA), Musculoskeletal Problems ( right BKA) Hematology: History of: Anemia Other: History of: MRSA, Miscellaneous Medical Problems (DVT with pulmonary embolism) - Surgical History Cardiac Surgeries: Patient Denies: Cardiac Catheterization, Cardiac Surgery Abdominal Surgeries: Surgical HX of: Abdominal Surgery, Cholecystectomy Reproductive Surgeries: Surgical HX of;: Breast Surgery (R BREAST FOR LUMP), Section (X1), Hysterectomy Orthopedic Surgeries: Surgical HX of;: Orthopedic Surgery (AMPUTEE R LOWER LEG) - Family History Family History: Reports;: Family Hypertension (MOTHER, FATHER) - Social History Smoking Status: Current some day smoker Frequency of Alcohol Use: None Type of Drug Use: None 12 point system: reviewed and no additional remarkable complaints except as stated Exam - Constitutional Vitals: Period Temp Pulse Resp BP Sys/Pineda Pulse Ox Last 24 Hr 97.2 F-99.0 F 85-96 16-18 104-129/54-77 92-99 General appearance: no acute distress - Head Head exam: Present: normocephalic - Neck Neck exam: Present: normal inspection - GI/Abdominal GI/Abdominal exam: Present: soft (Nontender nondistended) - Extremities Exam Extremities exam: Present: other (In the left upper extremity there is no graft. She has previous incisions that are well-healed near the antecubital fossa. On the backside of the lower arm between the wrist and elbow there is pain warmth and tenderness and mild swelling present. There is no fluid collections appreciated.) Quality Measures - VTE Contraindication to Pharmacological VTE Prophylaxis: Active Bleeding Results - Labs CBC & BMP: 08/18/16 07:22 08/18/16 05:45
[2016-08-18] MEDS ORDERED: LIDOCAINE 2% 5 ML VIAL ONE (12:27)
[2016-08-18] MEDS ORDERED: PROPOFOL 200 MG/20 ML VIAL IV ONE (12:27)
--- NOTE | 2016-08-18 12:29 | History and Physical Update ---
History and Physical Update - History and Physical H&P was reviewed, the patient examined and there: are no changes in the patients condition since last H&P was completed. - Physical Exam Mental Status: alert and oriented Heart: regular rate and rhythm Lung: clear to auscultation Abdomen: within normal limits Vitals: within normal limits
--- NOTE | 2016-08-18 12:37 | Operative Note ---
Date of procedure: 08/18/16 Pre-op diagnosis: Hematemesis Procedure: Procedure: Esophagogastroduodenoscopy Brief clinical abstract: Patient is a 31-year-old female with end-stage renal disease on peritoneal dialysis. She was admitted with hematemesis with several episodes week before last. She has had no evident further bleeding. Patient has MRSA bacteremia and is being evaluated with a left atrial mass. Indication for procedure: Recent hematemesis Endoscopic findings:[After informed consent was obtained, the patient was placed in the left lateral decubitus position. The gastroscope was inserted in the upper esophagus under direct vision with no resistance encountered. Esophageal mucosa appeared normal down to the distal third of the esophagus. There was near circumferential healing ulceration extending to the squamocolumnar junction consistent with reflux etiology. No stricture was seen. Patient has an approximately 2 cm long hiatal hernia. The endoscope was advanced in the stomach which was carefully examined including retroflexed view of the cardia and fundus with no abnormality seen. The pyloric channel, duodenal bulb, second and third portion of the duodenum were normal. The endoscope was removed and patient appeared to tolerate the procedure well. Impression: #1 partially healed LA classification grade D esophagitis secondary to GERD #2 Small hiatal hernia Recommendations: Continue twice daily PPI therapy for now. I will sign off. Please call if needed. Anesthesia: MAC Surgeon / Physician: Simba Matos Estimated blood loss: none Specimens: none sent Condition: stable Disposition: post procedure unit Results - Labs CBC & BMP: 08/18/16 07:22 08/18/16 05:45 Discharge Plan - Discharge Medications No Action Insulin Glargine [Lantus] 30 unit SUBCUT BEDTIME Lisinopril 40 mg PO BID Pregabalin [Lyrica] 50 mg PO DAILY Ranitidine Tab [Zantac Tab] 150 mg PO TID Calcium Acetate [Phoslo] 667 mg PO TID W/MEALS #90 capsule Cinacalcet [Sensipar] 30 mg PO DAILY Montelukast Sodium 10 mg PO BEDTIME HYDROcodone/ACETAMIN 10-325 [[place]hers 10-325] 1 tablet PO BID Insulin Aspart [NovoLOG] See Protocol SUBCUT DAILY PRN PRN Reason: Glucose Management Promethazine Tab [Phenergan Tab] 25 mg PO Q6H PRN PRN Reason: Nausea Calcium Acetate [Phoslo] 667 mg PO WITH SNACKS Mupirocin 2% Oint [Bactroban 2% Oint] 1 applic TOP BID Calcitriol [Rocaltrol] 1 mcg PO DAILY #30 capsule Fluoxetine HCl 40 mg PO DAILY Cyproheptadine Tab [Periactin Tab] 4 mg PO BID W/MEALS cephALEXin [Cephalexin] 500 mg PO BID Pantoprazole Tab [Protonix Tab] 40 mg PO DAILY - Follow Up or Referral - Forms/Instructions
--- NOTE | 2016-08-18 12:43 | Anesthesia Post-Op ---
Anesthesia Post OP - Post Ansesthetic Evaluation Patient seen in post op: Yes Resp: within normal limits CV: within normal limits Mental: within normal limits Temp: within normal limits [id number]: within normal limits Nausea and Vomiting: within normal limits Pain: within normal limits
--- NOTE | 2016-08-18 13:36 | Cardiology Progress Note ---
Charanjit Lee April, RN, am scribing for, and in the presence of, Leigh Thibodeaux DO 13 :35. Assessment and Plan (1) Atrial mass Status: Acute Assessment and plan: Repeat H&H in the morning if stable anticipate PRAVIN if the patient consents Current Visit: Yes (2) History of DVT (deep vein thrombosis) Status: Chronic Current Visit: No (3) History of pulmonary embolism Status: Chronic Current Visit: No (4) End stage renal disease on dialysis Status: Chronic Current Visit: Yes (5) Tobacco abuse Status: Chronic Current Visit: Yes (6) Ulcerative esophagitis Status: Chronic Current Visit: No (7) Anemia Status: Chronic Current Visit: Yes Qualifiers: Anemia type: unspecified type Qualified Code(s): D64.9 - Anemia, unspecified Cardiology - PN: Subj Interval history: Ms. clements is seen resting in bed in no acute distress. She denies chest pain, shortness of breath, palpitations, or dizziness. She does report she had another episode of nausea and vomiting, stating her vomitus was dark brown and green. She complains of leg pain which she states is chronic. She is scheduled for EGD this morning. Vitals have been stable with blood pressure this morning 129/77. H&H this morning is 7. 4/22.4. I saw and examined the patient with Ms. Hagen on the endoscopy suite. Also discussed with Dr. Matos. She has partially healed esophagitis and heat. Dr. Matos feels will be safe to proceed with proposed PRAVIN. The patient is still sedated post EGD I will wait and consent her in the morning. We scheduled for PRAVIN tomorrow. Exam (Progress Note) - Constitutional Vitals: Period Temp Pulse Resp BP Sys/Pineda Pulse Ox Last 24 Hr 97.2 F-99.0 F 85-96 16-18 104-129/55-77 92-99 General appearance: no acute distress, morbidly obese - Head Head exam: Absent: abrasion, hematoma - Eye Eye exam: Absent: periorbital swelling, laceration to eyelids - Respiratory Respiratory exam: Present: clear to auscultation bilaterally. Absent: accessory muscle use, chest wall tenderness - Cardiovascular Cardiovascular exam: Present: regular rate and rhythm - GI/Abdominal GI/Abdominal exam: Present: normal bowel sounds, soft. Absent: distended, tenderness - Extremities Exam Extremities exam: Present: other (Right BKA). Absent: edema - Neurological Exam Neurological exam: Present: alert, oriented X3 - Psychiatric Psychiatric exam: Present: normal affect, normal mood - Skin Skin exam: Present: warm, dry Result/EKG - Labs CBC & BMP: 08/18/16 07:22 08/18/16 05:45 Lab Results: I have reviewed the past 24 hour labs Labs: Laboratory Results - last 24 hr 08/17/16 08/17/16 08/17/16 12:03 16:07 20:55 WBC RBC Hgb Hct MCV MCH MCHC RDW Plt Count MPV Neut % (Auto) Lymph % (Auto) Dawson % (Auto) Eos % (Auto) Baso % (Auto) Neut # (Auto) Lymph # (Auto) Dawson # (Auto) Eos # (Auto) Baso # (Auto) Immature Gran % Nucleated RBC % Immature Gran # Nucleated RBCs # Sodium Potassium Chloride Carbon Dioxide Anion Gap BUN Creatinine GFR Calculation BUN/Creatinine Ratio Glucose POC Glucose 132 H 100 93 Calculated Osmolality Calcium Magnesium 08/18/16 08/18/16 08/18/16 05:45 05:45 07:22 WBC 20.3 H RBC 2.17 L Hgb 7.4 L Hct 22.4 L MCV 103.2 H MCH 34 MCHC 33.0 RDW 19.0 H Plt Count 199 D MPV 12.3 H Neut % (Auto) 68.1 Lymph % (Auto) 9.3 L Dawson % (Auto) 12.1 Eos % (Auto) 3.4 Baso % (Auto) 0.1 Neut # (Auto) 13.8 H Lymph # (Auto) 1.9 Dawson # (Auto) 2.5 H Eos # (Auto) 0.7 Baso # (Auto) 0.0 Immature Gran % 7.0 Nucleated RBC % 0.2 Immature Gran # 1.42 Nucleated RBCs # 0.04 Sodium 137 137 Potassium 4.8 4.8 Chloride 104 103 Carbon Dioxide 18 L 19 L Anion Gap 19.8 H 19.8 H BUN 39 H 40 H Creatinine 9.70 H 9.70 H GFR Calculation 7 7 BUN/Creatinine Ratio 4.00 L 4.00 L Glucose 127 H 127 H POC Glucose Calculated Osmolality 283.8 284.8 Calcium 7.1 L 7.2 L Magnesium 2.5 H Quality Measures - VTE Contraindication to Pharmacological VTE Prophylaxis: Active Bleeding IMorelia Shea, , personally performed the services described in this documentation, ascribed by Yaquelin Donohue RN in my presence, and it is both accurate and complete 335 .
[2016-08-18] MEDS: CALCIUM ACETATE 667 MG CAPSULE PO SCH ×6 (14:20→23:08)
[2016-08-18] MEDS: CYCLOBENZAPRINE 10 MG TABLET PO SCH ×3 (14:20→23:06)
[2016-08-18] MEDS: NYSTATIN 500,000 UNIT/5 ML UDCUP SWISH/SWAL SCH ×5 (14:20→23:08)
[2016-08-18] MEDS: LISINOPRIL 20 MG TABLET PO SCH ×2 (15:27→23:06)
[2016-08-18] MEDS: CYPROHEPTADINE 4 MG TABLET PO SCH ×2 (15:27→23:07)
[2016-08-18] MEDS: cephALEXin 500 MG CAPSULE PO SCH ×2 (15:27→23:07)
[2016-08-18] MEDS: MORPHINE 2 MG/1 ML SYRINGE IV PRN ×2 (17:32→21:25)
[2016-08-18] MEDS: FLUoxetine 20 MG CAPSULE PO SCH (17:34)
[2016-08-18] MEDS: PREGABALIN 50 MG CAPSULE PO SCH (17:34)
[2016-08-18] MEDS: FAMOTIDINE 20 MG TABLET PO SCH (17:34)
[2016-08-18] MEDS: CALCITRIOL 0.5 MCG CAPSULE PO SCH (17:36)
[2016-08-18] MEDS: CINACALCET 30 MG TABLET PO SCH (17:36)
[2016-08-18] MEDS: PANTOPRAZOLE 40 MG TABLET PO SCH ×2 (17:41→23:07)
[2016-08-18] MEDS ORDERED: SODIUM CHLORIDE 0.9% 1,000 ML IV SCH (18:30)
--- NOTE | 2016-08-18 18:46 | Cardiothoracic Consult ---
Assessment and Plan - Time spent with patient Time spent with patient: Greater than 30 minutes (1) Atrial mass Status: Acute Assessment and plan: 31-year-old lady unfortunate with very complex medical history and surgical history was found to have a right atrial mass versus thrombus. I evaluate the patient and discussed the urgency of the situation with her as this could be a thrombus in transit in the right atrium that can develop into PE or it could be a tumor that either embolize or enlarge. I discussed the case extensively with Dr. Mcfarland as well. We will offer her to do an urgent/emergent intraoperative transesophageal echo followed by atrial mass resection versus thrombectomy. I discussed the risks involved with this high-risk procedure however I also explained that the option of not proceeding with the procedure would put her in a high risk for morbidity and mortality. The patient understood and she is willing to proceed. We will proceed with the surgery hay chopper. 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 Alfonso is a 31 year old female with very complex medical history and surgical history was recently admitted for shortness of breath and was found to have bacteremia with MRSA. During her workup the patient had an echo transthoracic which showed that she has a right atrial mass versus thrombus that is attached to the free wall of the right atrium. The patient has been asymptomatic from that standpoint. She does not have any valvular disease. CC: Juan Pablo Harrison MD - Home Medications and Allergies Home Medications: Home Medications Medication Instructions Recorded Confirmed Type Insulin Glargine [Lantus] 30 unit SUBCUT BEDTIME 01/07/15 08/13/16 History Lisinopril 40 mg PO BID 05/04/15 08/13/16 History Pregabalin [Lyrica] 50 mg PO DAILY 05/15/16 08/13/16 History Ranitidine Tab [Zantac Tab] 150 mg PO TID 05/25/16 08/13/16 History Calcitriol [Rocaltrol] 1 mcg PO DAILY #30 capsule 05/29/16 08/13/16 Rx Calcium Acetate [Phoslo] 667 mg PO TID W/MEALS #90 capsule 05/29/16 08/13/16 Rx Cinacalcet [Sensipar] 30 mg PO DAILY 06/09/16 08/13/16 History Fluoxetine HCl 40 mg PO DAILY 06/09/16 08/13/16 History Montelukast Sodium 10 mg PO BEDTIME 06/09/16 08/13/16 History Calcium Acetate [Phoslo] 667 mg PO WITH SNACKS 08/12/16 08/13/16 History Cyproheptadine Tab [Periactin Tab] 4 mg PO BID W/MEALS 08/12/16 08/13/16 History HYDROcodone/ACETAMIN 10-325 [[place] 1 tablet PO BID 08/12/16 08/13/16 History 10-325] Insulin Aspart [NovoLOG] See Protocol SUBCUT DAILY PRN 08/12/16 08/13/16 History Mupirocin 2% Oint [Bactroban 2% 1 applic TOP BID 08/12/16 08/13/16 History Oint] Promethazine Tab [Phenergan Tab] 25 mg PO Q6H PRN 08/12/16 08/13/16 History cephALEXin [Cephalexin] 500 mg PO BID 08/12/16 08/13/16 History Pantoprazole Tab [Protonix Tab] 40 mg PO DAILY 08/13/16 08/13/16 History Allergies/Adverse Reactions: Allergies Allergy/AdvReac Type Severity Reaction Status Date / Time No Known Allergies Allergy Verified 08/12/16 18:53 Medical,Surgical,& Family Hx - Medical History Cardio: History of: CHF, Hypertension, PVD, Cardiovascular Problems Psychological: History of: Depression Neurology: History of: Peripheral Neuropathy No history of: Seizures Endocrine: History of: Diabetes Mellitus (IDDM), Diabetes Mellitus (NIDDM), Dyslipidemia, Thyroid Disorder, Endocrine Problems (parathyroidectomy) Respiratory: History of: Asthma, Bronchitis, Pneumonia Renal: History of: Dialysis (, , Wed), Renal Failure (Dialysis right femoral fistula) Gastrointestinal: History of: GERD, Gastrointestinal Bleed (Erosive esophagitis 2 months ago) Musculoskeletal: History of: Amputation (right BKA), Musculoskeletal Problems ( right BKA) Hematology: History of: Anemia Other: History of: MRSA, Miscellaneous Medical Problems (DVT with pulmonary embolism) - Surgical History Cardiac Surgeries: Patient Denies: Cardiac Catheterization, Cardiac Surgery Abdominal Surgeries: Surgical HX of: Abdominal Surgery, Cholecystectomy Reproductive Surgeries: Surgical HX of;: Breast Surgery (R BREAST FOR LUMP), Section (X1), Hysterectomy Orthopedic Surgeries: Surgical HX of;: Orthopedic Surgery (AMPUTEE R LOWER LEG) - Family History Family History: Reports;: Family Hypertension (MOTHER, FATHER) - Social History Smoking Status: Current some day smoker Frequency of Alcohol Use: None Type of Drug Use: None Physical Examination Vital Signs Temp Pulse Resp BP Pulse Ox 98.6 F 105 H 22 112/76 100 08/12/16 18:48 08/12/16 18:48 08/12/16 18:48 08/12/16 18:48 08/12/16 18:48 General: Present: Other (Obese with a right BKA) HEENT: Present: PERRL Neck: Present: Supple Neck Cardiac: Present: Reg Rate and Rhythm Lungs: Present: Bibasilar Rales, Wheezes, Scattered Rhonchi Neuro: Present: Cranial Nerve 2-12 Intact Abdomen: Present: Soft, Active Bowel Sounds Result/EKG - Labs CBC & BMP: 08/18/16 07:22 08/18/16 05:45 Labs: Laboratory Results - last 24 hr 08/17/16 08/18/16 08/18/16 20:55 05:45 05:45 WBC RBC Hgb Hct MCV MCH MCHC RDW Plt Count MPV Neut % (Auto) Lymph % (Auto) [place] % (Auto) Eos % (Auto) Baso % (Auto) Neut # (Auto) Lymph # (Auto) [place] # (Auto) Eos # (Auto) Baso # (Auto) Total Counted Immature Gran % Nucleated RBC % Immature Gran # Segmented Neutrophils Band Neutrophils Lymphocytes Monocytes Eosinophils Nucleated RBCs # Platelet Estimate Polychromasia Hypochromasia Macrocytosis Oval Macrocytes Sodium 137 137 Potassium 4.8 4.8 Chloride 104 103 Carbon Dioxide 18 L 19 L Anion Gap 19.8 H 19.8 H BUN 39 H 40 H Creatinine 9.70 H 9.70 H GFR Calculation 7 7 BUN/Creatinine Ratio 4.00 L 4.00 L Glucose 127 H 127 H POC Glucose 93 Calculated Osmolality 283.8 284.8 Calcium 7.1 L 7.2 L Magnesium 2.5 H Random Vancomycin Blood Type Antibody Screen Crossmatch 08/18/16 08/18/16 08/18/16 07:14 07:22 07:22 WBC 20.3 H RBC 2.17 L Hgb 7.4 L Hct 22.4 L MCV 103.2 H MCH 34 MCHC 33.0 RDW 19.0 H Plt Count 199 D MPV 12.3 H Neut % (Auto) 68.1 Lymph % (Auto) 9.3 L [place] % (Auto) 12.1 Eos % (Auto) 3.4 Baso % (Auto) 0.1 Neut # (Auto) 13.8 H Lymph # (Auto) 1.9 [place] # (Auto) 2.5 H Eos # (Auto) 0.7 Baso # (Auto) 0.0 Total Counted 100 Immature Gran % 7.0 Nucleated RBC % 0.2 Immature Gran # 1.42 Segmented Neutrophils 79 Band Neutrophils 5 Lymphocytes 4 L Monocytes 9 Eosinophils 3 Nucleated RBCs # 0.04 Platelet Estimate Adequate Polychromasia Slight Hypochromasia 1+ Macrocytosis 1+ Oval Macrocytes Few Sodium Potassium Chloride Carbon Dioxide Anion Gap BUN Creatinine GFR Calculation BUN/Creatinine Ratio Glucose POC Glucose 140 H Calculated Osmolality Calcium Magnesium Random Vancomycin 20.6 Blood Type Antibody Screen Crossmatch 08/18/16 08/18/16 08/18/16 07:22 10:57 16:08 WBC RBC Hgb Hct MCV MCH MCHC RDW Plt Count MPV Neut % (Auto) Lymph % (Auto) [place] % (Auto) Eos % (Auto) Baso % (Auto) Neut # (Auto) Lymph # (Auto) [place] # (Auto) Eos # (Auto) Baso # (Auto) Total Counted Immature Gran % Nucleated RBC % Immature Gran # Segmented Neutrophils Band Neutrophils Lymphocytes Monocytes Eosinophils Nucleated RBCs # Platelet Estimate Polychromasia Hypochromasia Macrocytosis Oval Macrocytes Sodium Potassium Chloride Carbon Dioxide Anion Gap BUN Creatinine GFR Calculation BUN/Creatinine Ratio Glucose POC Glucose 153 H 124 H Calculated Osmolality Calcium Magnesium Random Vancomycin Blood Type O POSITIVE Antibody Screen Negative Crossmatch See Detail Quality Measures - VTE Contraindication to Pharmacological VTE Prophylaxis: Active Bleeding
[2016-08-18] MEDS ORDERED: VANCOMYCIN INJ 750 MG in SODIUM CHLORIDE 0.9% 250 ML IV ONE (21:00)
[2016-08-18] MEDS: INSULIN GLARGINE 100 UNIT/ML SUBCUT SCH (23:05)
[2016-08-18] MEDS: MONTELUKAST 10 MG TABLET PO SCH (23:06)
[2016-08-18] MEDS: AZITHROMYCIN 250 MG TABLET PO SCH (23:07)
[2016-08-18] MEDS: CHLORHEXIDINE 4% SOLN 118 ML BOTTLE TOP SCH (23:08)
[2016-08-19] MEDS ORDERED: NITROGLYCERIN SL 0.4 MG TABLET SL ONE ×3 (01:07→01:19)
[2016-08-19] MEDS: NITROGLYCERIN SL 0.4 MG TABLET SL PRN ×3 (01:08→01:32)
[2016-08-19] MEDS: MORPHINE 2 MG/1 ML SYRINGE IV PRN ×2 (01:13→05:10)
[2016-08-19 01:51] LABS: Basophils # 0.1 10*3/uL (0.0-0.2); Basophils % 0.2 % (0.0-0.8); Eosinophils # 0.5 10*3/uL (0.0-0.87); Eosinophils % 2.3 % (0.00-10.9); Hematocrit 30.6 VOL% (35.7-47.0); Hemoglobin 10.3 GM/DL (12.0-16.0); Immature Granulocytes % 10.6 %; Lymphocytes # 2.5 10*3/uL (1.4-4.0); Mean Corpuscular HGB Conc 33.7 GM/DL (32-36); Mean Corpuscular Hemoglobin 32 PG (27-34); Mean Corpuscular Volume 95.3 FL (87-102); Mean Platelet Volume 12.1 FL (9.6-12.0); Monocytes # 2.1 10*3/uL (0.11-0.8); NRBC # 0.04 10*3/uL; Neutrophils # 13.5 10*3/uL (1.4-7.4); Neutrophils % 64.9 % (38.7-73.9); Platelet Count 238 T/CUMM (130-400); Red Blood Count 3.21 MC/CUMM (3.8-5.5); Red Cell Distribution Width 19.9 % (9.3-17.3); White Blood Count 20.8 T/CUMM (4-12)
[2016-08-19] MEDS: CHLORHEXIDINE 0.12% ORAL RINSE 60 ML BOTTLE SWISH/SPIT SCH ×3 (02:12→21:18)
[2016-08-19 02:17] LABS: INR 1.2; PT Patient Result 12.4 SECS; Partial Thromboplastin Time 28.4 SECS (0-40)
[2016-08-19 02:19] LABS: Alanine Aminotransferase 41 U/L (13-56); Albumin 2.1 G/DL (3.4-5.0); Alkaline Phosphatase 264 U/L (45-117); Aspartate Amino Transferase 55 U/L (0-37); Blood Urea Nitrogen 23 MG/DL (7-18); Calcium 7.2 MG/DL (8.5-10.1); Glucose 153 MG/DL (74-106); Osmolality,Calculated 274.2 MOS/KG (273-304); Potassium 4.6 MMOL/L (3.5-5.1); Sodium 134 MMOL/L (136-145); Total Protein 6.6 G/DL (6.4-8.3); Troponin I Only < 0.015 NG/ML (0.00-0.045)
[2016-08-19 02:27] LABS: Band Neutrophils 6 % (0-10); Eosinophils 1 % (0-10); Lymphocytes 7 % (20-55); Segmented Neutrophils 84 % (50-85); Total Cells Counted 100
[2016-08-19 02:28] LABS: Anisocytosis 1+; Target Cells Few
[2016-08-19 02:29] LABS: Hypochromasia 1+; Platelet Estimate Normal
[2016-08-19] MEDS ORDERED: VANCOMYCIN 1,000 MG VIAL ONE (04:40)
[2016-08-19] MEDS ORDERED: PAPAVERINE 60 MG/2 ML VIAL ONE (04:40)
[2016-08-19] MEDS ORDERED: TISSUE ADHESIVE 1 EACH APPLICATOR TOP ONE (04:40)
[2016-08-19] MEDS: CHLORHEXIDINE 4% SOLN 118 ML BOTTLE TOP SCH ×2 (05:35→10:02)
[2016-08-19] MEDS: ALBUTEROL/IPRATROPIUM 3 ML NEB RESP TX SCH ×2 (05:51→07:24)
[2016-08-19] MEDS: FAMOTIDINE 20 MG TABLET PO SCH ×2 (06:04→10:03)
[2016-08-19] MEDS: PANTOPRAZOLE 40 MG TABLET PO SCH ×2 (06:04→10:04)
[2016-08-19] MEDS: LISINOPRIL 20 MG TABLET PO SCH ×2 (06:05→10:04)
[2016-08-19] MEDS ORDERED: AMINOCAPROIC ACID 5,000 MG/20 ML VIAL IV ONE (07:00)
[2016-08-19] MEDS ORDERED: MINERAL OIL/PETROLATUM OPH OINT 3.5 GM TUBE ONE (07:00)
[2016-08-19] MEDS ORDERED: VECURONIUM 10 MG VIAL IV ONE (07:00)
[2016-08-19] MEDS ORDERED: CEFUROXIME INJ 1,500 MG in SODIUM CHLORIDE 0.9% 100 ML IV ONE (07:00)
[2016-08-19] MEDS ORDERED: PHENYLEPHRINE 1 MG/10 ML SYRINGE IV ONE (07:00)
[2016-08-19] MEDS ORDERED: CALCIUM CHLORIDE 1,000 MG/10 ML SYRINGE IV ONE ×2 (07:00→07:43)
[2016-08-19] MEDS ORDERED: LIDOCAINE 2% 5 ML VIAL ONE (07:00)
[2016-08-19] MEDS ORDERED: ETOMIDATE 20 MG/10 ML VIAL IV ONE (07:00)
--- NOTE | 2016-08-19 07:22 | XRay Report ---
Referring Physician: Donald Santillan MD Exam: XR chest 1V Date: August 19, 2016 at 1:04 AM Reason: Chest pain Comparison: Chest 2 views August 13, 2015 Findings: The cardiac silhouette is again borderline enlarged. There are scattered opacities within both lungs, most prominent within the right upper lung zone. This is concerning for pneumonia, atelectasis and possibly pulmonary edema. No pneumothorax is identified, but there is mild right pleural fluid. The osseous structures appear stable. Impression: There are scattered opacities within both lungs and mild right pleural fluid. These findings have overall slightly increased. PROCEDURE INTERPRETED AT [facility] DEPARTMENT OF RADIOLOGY Final Report Signed by: Dr. Ruslan Alicia
[2016-08-19] MEDS ORDERED: ALBUMIN 5% 12.5 GM/250 ML VIAL IV ONE (07:43)
[2016-08-19] MEDS ORDERED: SODIUM BICARBONATE 50 MEQ/50 ML SYRINGE IV ONE ×2 (07:43→10:22)
--- NOTE | 2016-08-19 07:43 | EKG Report ---
Stationary ECG Study [facility] Test Date: 08/19/2016 1:14:14 AM Pat Name: JANES DAMON Department: Room: 292 Gender: F Box Puller: FIONA : 1985 Requested by: Donald Santillan Order Number: [id number] Reading MD: MAULIK BERRIOS Intervals [place] Rate: 97 P: 999 UT: 0 QRS: 60 QRSD: 106 T: 49 QT: 385 QTc: 440 Interpretive Statements NORMAL SINUS RHYTHM LEFT ATRIAL ABNORMALITY Electronically Signed On 08-19-16 13:51:08 CDT by MAULIK BERRIOS [email or web address]
[2016-08-19] MEDS ORDERED: HEPARIN/NACL 0.9% 2 UNITS/ML 500 ML IV ONE (07:45)
[2016-08-19 08:02] LABS: ABG Base Excess -2.2 MMOL/L (-2.5-2.5); ABG HCO3 22.6 MMOL/L (20-26); ABG Oxygen Saturation 99.4 % (95-100); ABG PCO2 36.2 MM HG (35-48); ABG PH 7.395 (7.35-7.45); ABG TCO2 19.9 MMOL/L (23-27); Glucose Heart Surgery 167 MG/DL (74-106); Hematocrit Heart Surgery 33.8 PERCENT (37-47); Hemoglobin Heart Surgery 10.9 G/DL (12.0-16.0); Ionized Calcium Arterial 0.94 MMOL/L (1.21-1.46); PCO2 Patient Temp Arterial 36.2 MMHG; PH Patient Temp Arterial 7.395; Patient Temperature 37 CELCIUS; Potassium Heart/CVR 4.2 MMOL/L (3.5-5.1); Sodium Heart/CVR 134 MMOL/L (135-145)
[2016-08-19] MEDS: CALCIUM ACETATE 667 MG CAPSULE PO SCH ×2 (08:28→10:04)
[2016-08-19] MEDS: INSULIN REGULAR 100 UNIT/ML SUBCUT SCH (08:28)
--- NOTE | 2016-08-19 08:42 | Event Note ---
I have been consulted for left arm cellulitis. This is an end-stage renal disease patient with multiple comorbidities. She has no graft in the left arm. She has been treated with antibiotics. She is currently in the operating room with Dr. Devin Castano for urgent surgery on her atrial mass. I will be out the rest of the day and this week. Leigh Lyons's will check on the patient later today. I have not seen anything to drain in the left arm. Will have on- call surgery see the patient through the weekend and I will be back next week.
[2016-08-19 08:59] LABS: Hematocrit Heart Surgery 20.6 PERCENT (37-47); Hemoglobin Heart Surgery 6.6 G/DL (12.0-16.0); PCO2 Patient Temp Venous 33.3 MM HG; PH Patient Temp Venous 7.412; PO2 Patient Temp Venous 34.3 MM HG; Potassium Heart/CVR 4.2 MMOL/L (3.5-5.1); VBG Base Excess -2.9 MEQ/L (0-4); VBG HCO3 21.7 MEQ/L (24-28); VBG Oxygen Saturation 70.7 %; VBG PH 7.398; VBG PO2 36.7 MMHG (17-40)
[2016-08-19 09:39] LABS: ABG Base Excess -4.1 MMOL/L (-2.5-2.5); ABG Oxygen Saturation 99.9 % (95-100); ABG PCO2 30.3 MM HG (35-48); ABG PH 7.413 (7.35-7.45); ABG TCO2 16.9 MMOL/L (23-27); Glucose Heart Surgery 235 MG/DL (74-106); Hematocrit Heart Surgery 39.4 PERCENT (37-47); Hemoglobin Heart Surgery 12.8 G/DL (12.0-16.0); Ionized Calcium Arterial 0.98 MMOL/L (1.21-1.46); PCO2 Patient Temp Arterial 30.3 MMHG; PH Patient Temp Arterial 7.413; Patient Temperature 37 CELCIUS; Potassium Heart/CVR 4.4 MMOL/L (3.5-5.1); Sodium Heart/CVR 131 MMOL/L (135-145)
[2016-08-19] MEDS ORDERED: PHENYLEPHRINE DRIP 40 MG/250 ML PREMIX IV ONE (09:51)
[2016-08-19] MEDS: CYCLOBENZAPRINE 10 MG TABLET PO SCH (10:02)
[2016-08-19] MEDS: NYSTATIN 500,000 UNIT/5 ML UDCUP SWISH/SWAL SCH (10:03)
[2016-08-19] MEDS: cephALEXin 500 MG CAPSULE PO SCH (10:03)
[2016-08-19] MEDS: PREGABALIN 50 MG CAPSULE PO SCH (10:03)
[2016-08-19] MEDS: CYPROHEPTADINE 4 MG TABLET PO SCH (10:04)
[2016-08-19] MEDS: FLUoxetine 20 MG CAPSULE PO SCH (10:04)
[2016-08-19] MEDS: CALCITRIOL 0.5 MCG CAPSULE PO SCH (10:05)
[2016-08-19] MEDS: MUPIROCIN 2% OINT 22 GM TUBE TOP SCH (10:05)
[2016-08-19] MEDS: CINACALCET 30 MG TABLET PO SCH (10:05)
[2016-08-19] MEDS ORDERED: DEXTROSE 5% KCL 20 MEQ 20 MEQ/1,000 ML BAG IV ONE (10:22)
[2016-08-19] MEDS ORDERED: PROTAMINE SULFATE 250 MG/25 ML VIAL IV ONE (10:22)
[2016-08-19] MEDS ORDERED: MAGNESIUM SULFATE 1 GM/2 ML VIAL ONE (10:22)
[2016-08-19] MEDS ORDERED: ALBUMIN 25% 25 GM/100 ML VIAL IV ONE (10:22)
[2016-08-19] MEDS ORDERED: FUROSEMIDE 20 MG/2 ML VIAL ONE (10:23)
[2016-08-19] MEDS ORDERED: PROTAMINE SULFATE 50 MG/5 ML VIAL IV ONE (10:23)
[2016-08-19] MEDS ORDERED: MANNITOL 12.5 GM/50 ML VIAL IV ONE (10:23)
[2016-08-19] MEDS ORDERED: HEPARIN 10,000 UNIT/10 ML VIAL ONE (10:23)
[2016-08-19] MEDS ORDERED: methylPREDNISolone SOD SUC 1,000 MG/8 ML VIAL ONE (10:23)
[2016-08-19] MEDS ORDERED: MAGNESIUM SULF RIDER 2 GM in PREMIX 1 EACH IV PRN (10:24)
[2016-08-19] MEDS ORDERED: POTASSIUM CHLORIDE RIDER 20 MEQ in PREMIX 1 EACH IV PRN (10:24)
[2016-08-19] MEDS ORDERED: MAGNESIUM SULF RIDER 4 GM in PREMIX 1 EACH IV PRN (10:24)
[2016-08-19] MEDS ORDERED: INSULIN REGULAR 100 UNIT/ML IV ONE (10:24)
[2016-08-19] MEDS ORDERED: POTASSIUM CHLORIDE RIDER 10 MEQ in PREMIX 1 EACH IV PRN (10:24)
[2016-08-19] MEDS ORDERED: CHLORHEXIDINE 4% SOLN 118 ML BOTTLE TOP PRN (10:24)
[2016-08-19] MEDS ORDERED: CALCIUM CHLORIDE 1,000 MG/10 ML SYRINGE IV PRN (10:24)
[2016-08-19] MEDS ORDERED: DEXTROSE 50% 25 GM/50 ML VIAL IV PRN ×2 (10:24)
[2016-08-19] MEDS ORDERED: SODIUM CHLORIDE 0.9% 250 ML IV PRN (10:24)
[2016-08-19] MEDS ORDERED: ALBUMIN 5% 12.5 GM in PREMIX 1 EACH IV PRN (10:24)
[2016-08-19] MEDS ORDERED: INSULIN REGULAR 100 UNIT/ML IV PRN (10:24)
[2016-08-19] MEDS ORDERED: ACETAMINOPHEN 650 MG SUPP RECTAL PRN (10:24)
[2016-08-19] MEDS ORDERED: MIDAZOLAM 2 MG/2 ML VIAL IV PRN (10:24)
[2016-08-19] MEDS ORDERED: SODIUM CHLORIDE 0.9% 2,000 ML IV ONE (10:25)
[2016-08-19] MEDS ORDERED: MIDAZOLAM 10 MG/2 ML VIAL ONE (10:25)
[2016-08-19] MEDS ORDERED: SODIUM CHLORIDE 0.9% 250 ML IV ONE (10:25)
--- NOTE | 2016-08-19 10:47 | Event Note ---
I discussed with Dr. Velez multiple times yesterday via phone. Anticipated initially to perform a PRAVIN to assess this mass in her right atrium. After discussing with Dr. Velez ask him to go see the patient. He felt that she would best be served by proceeding directly to the operating room and performing PRAVIN before extraction and removal of this mass. The patient received informed consent for the procedures I was present in the operating room after she was intubated and general anesthesia and had central venous access with the assistance of anesthesiology the transesophageal probe was advanced to the mid esophageal region and a quick view of the large right atrial mass previously described was seen and appeared to be attached to the free wall of the atrium with a very broad base stalk. It had a mushroomlike morphology. Probe was removed and there was no apparent complication.
--- NOTE | 2016-08-19 10:53 | ECHO Report ---
Bernardo Alfonso Exam Date: 08/19/2016 08:13 Referring Physician: Technologist: Alice Ramachandran RDCS Age: 31 Ht (in): 63 Wt (lb): 228 Gender: F Exam Location: [facility] Echo Pre-op Dx: Intraoperative PRAVIN, Right atrial mass Post-op Dx: Right atrial mass BP: / HR: Rhythm: Sinus Technical Quality: Acceptable Specimens Taken None Devices Implanted none Medications see anethesia operative flow sheet Complications none Estimated Blood Loss none Proc. Components Under direct visualization of the esophagus with laryngoscope and ET tube in place esophagus was intubated with the PRAVIN probe advanced mid esophageal region for four-chamber view of visualization of the right atrium particular IMPRESSIONS Large broad-based right atrial mass as previously described on the anterior basilar portion of the right atrium MEASUREMENTS (Male / Female) Normal Values FINDINGS Left Ventricle Right Ventricle Right Atrium Left Atrium LA [place] IA Septum Mitral Valve Aortic Valve Tricuspid Valve Pulmonic Valve Pericardium Aorta Leigh Thibodeaux (Electronically Signed) Final Date: 19 Aug 2016 10:52
[2016-08-19 11:16] LABS: Basophils % 0.1 % (0.0-0.8); Eosinophils # 0.3 10*3/uL (0.0-0.87); Hematocrit 24.2 VOL% (35.7-47.0); Immature Granulocytes % 8.5 %; Immature Granulocytes Absolute 1.33 #; Lymphocytes # 1.7 10*3/uL (1.4-4.0); Mean Corpuscular HGB Conc 33.1 GM/DL (32-36); Mean Corpuscular Hemoglobin 32 PG (27-34); Mean Corpuscular Volume 97.6 FL (87-102); Mean Platelet Volume 11.9 FL (9.6-12.0); Monocytes # 1.5 10*3/uL (0.11-0.8); Monocytes % 9.6 % (1.7-12.7); Neutrophils # 10.8 10*3/uL (1.4-7.4); Neutrophils % 68.8 % (38.7-73.9); Platelet Count 204 T/CUMM (130-400); Red Cell Distribution Width 19.7 % (9.3-17.3); White Blood Count 15.7 T/CUMM (4-12)
[2016-08-19 11:17] LABS: Red Blood Count 2.48 MC/CUMM (3.8-5.5)
[2016-08-19 11:21] LABS: INR 1.3; PT Patient Result 13.6 SECS
[2016-08-19 11:33] LABS: Band Neutrophils 6 % (0-10); Eosinophils 2 % (0-10); Hypochromasia 1+; Lymphocytes 14 % (20-55); Macrocytosis 1+; Segmented Neutrophils 67 % (50-85); Total Cells Counted 100
[2016-08-19 11:36] LABS: Lactic Acid 0.6 MMOL/L (0.4-2.0)
[2016-08-19 11:42] LABS: Calcium 6.6 MG/DL (8.5-10.1); Magnesium 2.4 MG/DL (1.8-2.4); Osmolality,Calculated 276.5 MOS/KG (273-304); Potassium 4.9 MMOL/L (3.5-5.1)
[2016-08-19 11:43] LABS: ABG Base Excess -6.8 MMOL/L (-2.5-2.5); ABG HCO3 18.8 MMOL/L (20-26); ABG Oxygen Saturation 99.2 % (95-100); ABG PCO2 32.9 MM HG (35-48); ABG PH 7.348 (7.35-7.45); ABG TCO2 16.9 MMOL/L (23-27); Glucose Heart Surgery 257 MG/DL (74-106); Hematocrit Heart Surgery 25.2 PERCENT (37-47); Hemoglobin Heart Surgery 8.1 G/DL (12.0-16.0)
--- NOTE | 2016-08-19 11:43 | Hospitalist Progress Note ---
Assessment and Plan (1) Atrial mass Status: Acute Assessment and plan: post op course per Dr Devin Hernandez. monitor H&H- transfused yesterday ESRD path pending on resescted mass ID-she has MRSA bacteremia, on zithromax, cefuroxime, keflex, and Vanc Current Visit: Yes (2) Bacteremia due to Gram-positive bacteria Status: Acute Current Visit: Yes (3) Morbid (severe) obesity due to excess calories Status: Acute Current Visit: Yes (4) End stage renal disease on dialysis Status: Chronic Current Visit: Yes (5) Anemia Status: Chronic Current Visit: Yes Qualifiers: Anemia type: unspecified type Qualified Code(s): D64.9 - Anemia, unspecified Hospitalist: Subjective Interval history: Mrs Alfonso is post op in CVICU this morning. Dr Lopez removed either tumor or infected thrombus. She is doing well on post op protocol- intubated. Exam - Constitutional Vitals: Period Temp Pulse Resp BP Sys/Pineda Pulse Ox Last 24 Hr 96.9 F-98.6 F 76-98 10-27 101-155/51-90 91-100 General appearance: morbidly obese - Cardiovascular Cardiovascular exam: Present: regular rate and rhythm - GI/Abdominal GI/Abdominal exam: Present: soft - Extremities Exam Extremities exam: Absent: edema Results - Labs CBC & BMP: 08/19/16 11:00 08/19/16 01:25 Quality Measures - VTE Contraindication to Pharmacological VTE Prophylaxis: Active Bleeding
[2016-08-19] MEDS: INSULIN REGULAR DRIP 100 ML IV SCH ×2 (11:57→22:08)
--- NOTE | 2016-08-19 12:55 | XRay Report ---
XR chest 1V portable Indication: Intubated. Chest one view: Comparison earlier today. Endotracheal tube is now present terminating 3 cm cephalad of annel. NG tube courses off lower edge of the image. Mediastinal drain and new median sternotomy wires are present. Patchy opacity in the right midlung is unchanged. Lung bases are better aerated. Cardiomegaly is stable. Impression: Lines and tubes as described. Improved aeration of the lung bases following intubation. PROCEDURE INTERPRETED AT [facility] DEPARTMENT OF RADIOLOGY Final Report Signed by: Bang Moctezuma M.D.
--- NOTE | 2016-08-19 13:11 | Operative Note ---
Date of procedure: 08/19/16 Pre-op diagnosis: Intra-atrial mass Post-op diagnosis: same Procedure: 1. Transesophageal echo 2. Institution of cardiopulmonary bypass 3. Exploration of the right atrium 4. En bloc resection of right atrial free wall mass from its stalk Details of the procedure: The patient was brought into the OR table placed supine and general endotracheal anesthesia was induced without any problems. Timeout was performed and antibiotics were given. We started with transesophageal echo which the four-chamber view confirmed the presence of mobile right atrial mass. After that the chest was prepped and draped in the usual sterile fashion. A midline incision was made over the sternum and a sternotomy was performed. Heparin was given. The pericardial cradle was created. I cannulated the proximal arch of the aorta. I then performed bicaval cannulation of the superior and inferior vena cava. Umbilical tapes were applied. Cardiopulmonary bypass was initiated. After that I inserted the cardioplegia needle on the proximal ascending aorta. I then proceeded with crossclamping the aorta. Cardioplegia was given. Heart arrested successfully. I then proceeded with atriotomy. The lesion was identified on the free wall of the right atrium with a wide base stalk and partially friable necrotic and calcified surface. Most of the mass was resected en bloc. The rest of the friable port and the calcified part were cleared with Bulgarian forceps. I then sent the medial edge of the lesion out of the atrial wall for frozen section which was benign. At this point I irrigated the right atrium thoroughly. I then used running 4-0 Prolene stitch with over and over technique for atrial closure. The cross-clamp was removed. Heart regained sinus rhythm successfully. I released the umbilical tapes. I then started weaning the patient off bypass. The patient was weaned off bypass successfully without any problems. The patient was decannulated successfully. Protamine was given and heparin was reversed. Ventricular pacing wires were inserted. The aortic cannula was then removed. Hemostasis was achieved. Chest tube was inserted. The sternum was then approximated using wires. Subcutaneous was approximated using PDS. I then closed the skin with Monocryl. All counts were correct at the end of the procedure. The patient recovered well without any problems. Anesthesia: GETA Surgeon / Physician: Elton Velez Estimated blood loss: other (CPB) Tourniquet Time (Minutes): 31 Specimens: other (Right atrial lesion) Condition: stable Disposition: ICU Results - Labs CBC & BMP: 08/19/16 11:00 08/19/16 11:00 Discharge Plan - Discharge Medications No Action Insulin Glargine [Lantus] 30 unit SUBCUT BEDTIME Lisinopril 40 mg PO BID Pregabalin [Lyrica] 50 mg PO DAILY Ranitidine Tab [Zantac Tab] 150 mg PO TID Calcium Acetate [Phoslo] 667 mg PO TID W/MEALS #90 capsule Cinacalcet [Sensipar] 30 mg PO DAILY Montelukast Sodium 10 mg PO BEDTIME HYDROcodone/ACETAMIN 10-325 [[place] 10-325] 1 tablet PO BID Insulin Aspart [NovoLOG] See Protocol SUBCUT DAILY PRN PRN Reason: Glucose Management Promethazine Tab [Phenergan Tab] 25 mg PO Q6H PRN PRN Reason: Nausea Calcium Acetate [Phoslo] 667 mg PO WITH SNACKS Mupirocin 2% Oint [Bactroban 2% Oint] 1 applic TOP BID Calcitriol [Rocaltrol] 1 mcg PO DAILY #30 capsule Fluoxetine HCl 40 mg PO DAILY Cyproheptadine Tab [Periactin Tab] 4 mg PO BID W/MEALS cephALEXin [Cephalexin] 500 mg PO BID Pantoprazole Tab [Protonix Tab] 40 mg PO DAILY - Follow Up or Referral - Forms/Instructions
[2016-08-19] MEDS ORDERED: PHENYLEPHRINE DRIP 40 MG/250 ML PREMIX IV PRN (15:27)
[2016-08-19] MEDS: CEFUROXIME INJ 1,500 MG in SODIUM CHLORIDE 0.9% 100 ML IV SCH (17:37)
--- NOTE | 2016-08-19 19:24 | Nephrology Progress Note ---
Nephrology - PN: Subj Interval history: The patient is now status post removal of a right atrial mass. She is doing acceptable. Exam (PN)-Nephrology - Vital Signs Vital signs: Period Temp Pulse Resp BP Sys/Pineda Pulse Ox Last 24 Hr 97.3 F-98.6 F 73-97 10-20 91-155/51-86 94-100 - General Appearance General appearance: well-developed, intubated EENT: ATNC Neck: supple Respiratory: clear Cardiology: regular rate, regular rhythm Gastrointestinal: normoactive bowel sounds, no tenderness - Lab 08/19/16 11:00 08/19/16 11:00 Most recent lab results ABG pH 7.348 (7.35-7.45) L 08/19/16 11:40 ABG pCO2 32.9 MM HG (35-48) L 08/19/16 11:40 ABG pO2 147.0 MM HG (80-95) H 08/19/16 11:40 ABG HCO3 18.8 MMOL/L (20-26) L 08/19/16 11:40 ABG O2 Saturation 99.2 % (95-100) 08/19/16 11:40 Calcium 6.6 MG/DL (8.5-10.1) L 08/19/16 11:00 Magnesium 2.4 MG/DL (1.8-2.4) 08/19/16 11:00 Assessment and Plan (1) End stage renal disease on dialysis Problem details: No acute indication for CHD at this time. Status: Chronic Assessment and plan: Schedule for hemodialysis on Wednesday schedule. Current Visit: No (2) Diabetes 1.5, managed as type 2 Status: Chronic Current Visit: No (3) Insulin dependent diabetes mellitus Status: Chronic Current Visit: No (4) Coffee ground emesis Status: Acute Current Visit: Yes (5) Hyponatremia Status: Resolved Current Visit: Yes (6) Hyperkalemia Status: Resolved Assessment and plan: BMP in a.m. Current Visit: Yes (7) Hypocalcemia Status: Chronic Assessment and plan: Supplement calcium with 2 g of calcium gluconate today as well as another 2 g this evening. Will repeat BMP in a.m. Current Visit: Yes
--- NOTE | 2016-08-19 19:36 | Event Note ---
The patient is currently intubated. RUE: ecchymotic area over ant right shoulder; otherwise, unremarkable throughout. No deformity, open wounds, edema or ecchymosis. LUE: small ecchymotic area over medial aspect of distal, upper arm without erythema, hyperemia, or fluid collection palpable. Medially of lower arm slightly edematous compared to contralateral extremity with 1+ pitting, but no convincing residual fluid collection, erythema or hyperemia; compartments are soft. Full PROM of LUE AP At this time, cellulitis appears to be resolving. With pitting of LUE - will order venous doppler r/o DVT. There are currently no surgical indications of the LUE. We will f/u in am.
[2016-08-19] MEDS: CALCIUM GLUCONATE 2,000 MG in SODIUM CHLORIDE 0.9% 100 ML IV PRN (21:17)
[2016-08-20] MEDS: ONDANSETRON 4 MG/2 ML VIAL IV PRN ×2 (03:42→21:33)
[2016-08-20 04:14] LABS: ABG Base Excess -6.9 MMOL/L (-2.5-2.5); ABG HCO3 18.8 MMOL/L (20-26); ABG Oxygen Saturation 92.9 % (95-100); ABG PCO2 30.6 MM HG (35-48); ABG PH 7.364 (7.35-7.45); ABG PO2 68.1 MM HG (80-95); ABG TCO2 15.6 MMOL/L (23-27); Glucose Heart Surgery 120 MG/DL (74-106); Hematocrit Heart Surgery 36.5 PERCENT (37-47); Hemoglobin Heart Surgery 11.9 G/DL (12.0-16.0)
[2016-08-20 04:21] LABS: Basophils # 0.1 10*3/uL (0.0-0.2); Basophils % 0.2 % (0.0-0.8); Eosinophils % 0.1 % (0.00-10.9); Hematocrit 30.8 VOL% (35.7-47.0); Hemoglobin 10.2 GM/DL (12.0-16.0); Immature Granulocytes Absolute 1.92 #; Lymphocytes # 2.3 10*3/uL (1.4-4.0); Lymphocytes % 8.4 % (21.3-54.2); Mean Corpuscular HGB Conc 33.1 GM/DL (32-36); Mean Corpuscular Hemoglobin 31 PG (27-34); Mean Corpuscular Volume 94.8 FL (87-102); Mean Platelet Volume 11.7 FL (9.6-12.0); Monocytes # 1.8 10*3/uL (0.11-0.8); Monocytes % 6.4 % (1.7-12.7); Neutrophils # 21.3 10*3/uL (1.4-7.4); Neutrophils % 77.9 % (38.7-73.9); Platelet Count 260 T/CUMM (130-400); Red Blood Count 3.25 MC/CUMM (3.8-5.5); Red Cell Distribution Width 19.1 % (9.3-17.3); White Blood Count 27.3 T/CUMM (4-12)
[2016-08-20] MEDS: MORPHINE 2 MG/1 ML SYRINGE IV PRN ×3 (04:21→22:04)
[2016-08-20 04:48] LABS: Calcium 6.6 MG/DL (8.5-10.1); Magnesium 2.7 MG/DL (1.8-2.4); Potassium 5.1 MMOL/L (3.5-5.1)
[2016-08-20 05:21] LABS: Band Neutrophils 4 % (0-10); Lymphocytes 6 % (20-55); Metamyelocytes 3 %; Myelocytes 3 %; Segmented Neutrophils 78 % (50-85); Total Cells Counted 100
[2016-08-20 05:25] LABS: Burr Cells 1+; Platelet Estimate Normal
[2016-08-20 05:26] LABS: Target Cells Few
[2016-08-20] MEDS: CEFUROXIME INJ 1,500 MG in SODIUM CHLORIDE 0.9% 100 ML IV SCH ×2 (05:28→19:18)
--- NOTE | 2016-08-20 07:55 | XRay Report ---
Referring Physician: Elton Velez MD Exam: XR chest 1V portable Date: August 20, 2016 at 2:52 AM Reason: Evaluate for pneumothorax, ventilation/endotracheal tube Comparison: Chest one view portable August 19, 2016 Findings: An endotracheal tube and mediastinal drain are again in place. A feeding tube is also present with its distal tip just within the stomach at the gastric fundus. The cardiac silhouette is again enlarged, and the patient is status post sternotomy. There are patchy scattered opacities within both lungs, most prominent within the right upper lung zone. This could represent pulmonary edema and/or pneumonia with atelectasis. No pneumothorax or pleural effusion is identified. The osseous structures appear stable. Impression: There has been no significant change. PROCEDURE INTERPRETED AT [facility] DEPARTMENT OF RADIOLOGY Final Report Signed by: Dr. Ruslan Alicia
[2016-08-20] MEDS: MORPHINE 10 MG/1 ML VIAL IV PRN ×3 (08:54→15:16)
[2016-08-20] MEDS: CHLORHEXIDINE 0.12% ORAL RINSE 60 ML BOTTLE SWISH/SPIT SCH ×2 (08:56→21:34)
[2016-08-20] MEDS: ASPIRIN EC 325 MG TABLET PO SCH (08:56)
--- NOTE | 2016-08-20 09:45 | Cardiology Progress Note ---
Charanjit Lee April, RN, am scribing for, and in the presence of, Leigh Thibodeaux DO 09 :45. Assessment and Plan (1) Atrial mass Status: Acute Assessment and plan: Path is pending Current Visit: Yes (2) History of DVT (deep vein thrombosis) Status: Chronic Current Visit: No (3) History of pulmonary embolism Status: Chronic Current Visit: No (4) End stage renal disease on dialysis Status: Chronic Current Visit: Yes (5) Tobacco abuse Status: Chronic Current Visit: Yes (6) Ulcerative esophagitis Status: Chronic Current Visit: No Cardiology - PN: Subj Interval history: Ms. 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 Devin Hernandez. She is currently intubated and on mechanical ventilation with oxygen 40 %, O2 sat 100%. She will open eyes in response to voice. 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 Chest tube noted. EGD done 2 days ago showed partially healed esophagitis and small hiatal hernia. H&H is improved today to 10.2 and 30.8. She is scheduled for dialysis today. Plans are to extubate her after dialysis. I saw Ms. alfonso with Ms. Donohue today. She is intubated. I discussed with Dr. Velez. She is on dialysis, saw her she is doing quite well plan is to extubate once she is off dialysis. Exam (Progress Note) - Constitutional Vitals: Period Temp Pulse Resp BP Sys/Pineda Pulse Ox Last 24 Hr 97.2 F-98.1 F 70-84 10-16 91-125/51-66 100-100 General appearance: no acute distress, morbidly obese - Head Head exam: Absent: abrasion, hematoma - Eye Eye exam: Absent: periorbital swelling, laceration to eyelids - ENT ENT exam: Present: other (ET tube) - Respiratory Respiratory exam: Present: clear to auscultation bilaterally, other (Intubated on mechanical ventilation). Absent: accessory muscle use, chest wall tenderness - Cardiovascular Cardiovascular exam: Present: regular rate and rhythm - GI/Abdominal GI/Abdominal exam: Present: hypoactive bowel sounds, soft. Absent: distended - Extremities Exam Extremities exam: Present: other (Right BKA). Absent: edema - Neurological Exam Neurological exam: Present: other (Will open eyes in response to voice) - Skin Skin exam: Present: warm, dry Result/EKG - Labs CBC & BMP: 08/20/16 04:10 08/20/16 04:10 Lab Results: I have reviewed the past 24 hour labs Labs: Laboratory Results - last 24 hr 08/19/16 08/19/16 08/19/16 01:25 07:58 08:55 WBC RBC Hgb Hct MCV MCH MCHC RDW Plt Count 190 D MPV Neut % (Auto) Lymph % (Auto) [place] % (Auto) Eos % (Auto) Baso % (Auto) Neut # (Auto) Lymph # (Auto) [place] # (Auto) Eos # (Auto) Baso # (Auto) Total Counted Immature Gran % Nucleated RBC % Immature Gran # Segmented Neutrophils Band Neutrophils Lymphocytes Monocytes Eosinophils Basophils Metamyelocytes Myelocytes Nucleated RBCs # Platelet Estimate Hypochromasia Macrocytosis Target Cells Hamlin Cells Morphology Comment INR PT Patient/Control Mix Circ Anticoag PTT Patient Temperature 36 ABG pH ABG pH at Pt Temp 7.412 ABG pCO2 ABG pCO2 at Pt Temp 33.3 ABG pO2 ABG pO2 at Pt Temp 34.3 ABG HCO3 ABG Total CO2 ABG O2 Saturation ABG Base Excess ABG Sodium 133 L VBG pH 7.398 VBG pCO2 35.0 L VBG pO2 36.7 VBG HCO3 21.7 L VBG Total CO2 20.6 VBG O2 Saturation 70.7 VBG Base Excess -2.9 L Hemoglobin 6.6 L Hematocrit 20.6 L Potassium 4.2 Glucose 206 H Ionized Calcium FiO2 80.00 Sodium Chloride Carbon Dioxide Anion Gap BUN Creatinine GFR Calculation BUN/Creatinine Ratio POC Glucose Calculated Osmolality Lactic Acid Calcium Venous Ioniz Calcium 0.82 L Magnesium Blood Type Cancelled Antibody Screen Cancelled Crossmatch See Detail Blood Bank Comment Cancelled 08/19/16 08/19/16 08/19/16 09:29 09:29 11:00 WBC 15.7 H RBC 2.48 L D Hgb 8.0 L D Hct 24.2 L MCV 97.6 MCH 32 MCHC 33.1 RDW 19.7 H Plt Count 82 L D 204 D MPV 11.9 Neut % (Auto) 68.8 Lymph % (Auto) 11.0 L [place] % (Auto) 9.6 Eos % (Auto) 2.0 Baso % (Auto) 0.1 Neut # (Auto) 10.8 H Lymph # (Auto) 1.7 [place] # (Auto) 1.5 H Eos # (Auto) 0.3 Baso # (Auto) 0.0 Total Counted 100 Immature Gran % 8.5 Nucleated RBC % 0.0 Immature Gran # 1.33 Segmented Neutrophils 67 Band Neutrophils 6 Lymphocytes 14 L Monocytes 11 Eosinophils 2 Basophils Metamyelocytes Myelocytes Nucleated RBCs # 0.00 Platelet Estimate Hypochromasia 1+ Macrocytosis 1+ Target Cells Hamlin Cells Morphology Comment INR PT Patient/Control Mix Circ Anticoag PTT Patient Temperature 37 ABG pH 7.413 ABG pH at Pt Temp 7.413 ABG pCO2 30.3 L ABG pCO2 at Pt Temp 30.3 ABG pO2 377.0 H ABG pO2 at Pt Temp 377.0 ABG HCO3 21.0 ABG Total CO2 16.9 L ABG O2 Saturation 99.9 ABG Base Excess -4.1 L ABG Sodium 131 L VBG pH VBG pCO2 VBG pO2 VBG HCO3 VBG Total CO2 VBG O2 Saturation VBG Base Excess Hemoglobin 12.8 Hematocrit 39.4 Potassium 4.4 Glucose 235 H Ionized Calcium 0.98 L FiO2 Sodium Chloride Carbon Dioxide Anion Gap BUN Creatinine GFR Calculation BUN/Creatinine Ratio POC Glucose Calculated Osmolality Lactic Acid Calcium Venous Ioniz Calcium Magnesium Blood Type Antibody Screen Crossmatch Blood Bank Comment 08/19/16 08/19/16 08/19/16 11:00 11:00 11:40 WBC RBC Hgb Hct MCV MCH MCHC RDW Plt Count MPV Neut % (Auto) Lymph % (Auto) [place] % (Auto) Eos % (Auto) Baso % (Auto) Neut # (Auto) Lymph # (Auto) [place] # (Auto) Eos # (Auto) Baso # (Auto) Total Counted Immature Gran % Nucleated RBC % Immature Gran # Segmented Neutrophils Band Neutrophils Lymphocytes Monocytes Eosinophils Basophils Metamyelocytes Myelocytes Nucleated RBCs # Platelet Estimate Hypochromasia Macrocytosis Target Cells Stephanie Cells Morphology Comment INR 1.3 PT Patient/Control Mix 13.6 Circ Anticoag PTT 31.0 Patient Temperature ABG pH 7.348 L ABG pH at Pt Temp ABG pCO2 32.9 L ABG pCO2 at Pt Temp ABG pO2 147.0 H ABG pO2 at Pt Temp ABG HCO3 18.8 L ABG Total CO2 16.9 L ABG O2 Saturation 99.2 ABG Base Excess -6.8 L ABG Sodium VBG pH VBG pCO2 VBG pO2 VBG HCO3 VBG Total CO2 VBG O2 Saturation VBG Base Excess Hemoglobin 8.1 L Hematocrit 25.2 L Potassium 4.9 5.0 Glucose 241 H 257 H Ionized Calcium FiO2 Sodium 132 L Chloride 98 Carbon Dioxide 19 L Anion Gap 19.9 H BUN 26 H Creatinine 5.80 H GFR Calculation 12 BUN/Creatinine Ratio 4.00 L POC Glucose Calculated Osmolality 276.5 Lactic Acid 0.6 Calcium 6.6 L Venous Ioniz Calcium Magnesium 2.4 Blood Type Antibody Screen Crossmatch Blood Bank Comment 08/19/16 08/19/16 08/19/16 13:09 14:04 15:11 WBC RBC Hgb Hct MCV MCH MCHC RDW Plt Count MPV Neut % (Auto) Lymph % (Auto) [place] % (Auto) Eos % (Auto) Baso % (Auto) Neut # (Auto) Lymph # (Auto) [place] # (Auto) Eos # (Auto) Baso # (Auto) Total Counted Immature Gran % Nucleated RBC % Immature Gran # Segmented Neutrophils Band Neutrophils Lymphocytes Monocytes Eosinophils Basophils Metamyelocytes Myelocytes Nucleated RBCs # Platelet Estimate Hypochromasia Macrocytosis Target Cells Stephanie Cells Morphology Comment INR PT Patient/Control Mix Circ Anticoag PTT Patient Temperature ABG pH ABG pH at Pt Temp ABG pCO2 ABG pCO2 at Pt Temp ABG pO2 ABG pO2 at Pt Temp ABG HCO3 ABG Total CO2 ABG O2 Saturation ABG Base Excess ABG Sodium VBG pH VBG pCO2 VBG pO2 VBG HCO3 VBG Total CO2 VBG O2 Saturation VBG Base Excess Hemoglobin Hematocrit Potassium Glucose Ionized Calcium FiO2 Sodium Chloride Carbon Dioxide Anion Gap BUN Creatinine GFR Calculation BUN/Creatinine Ratio POC Glucose 275 H 269 H 247 H Calculated Osmolality Lactic Acid Calcium Venous Ioniz Calcium Magnesium Blood Type Antibody Screen Crossmatch Blood Bank Comment 08/19/16 08/19/16 08/19/16 15:57 17:03 18:02 WBC RBC Hgb Hct MCV MCH MCHC RDW Plt Count MPV Neut % (Auto) Lymph % (Auto) [place] % (Auto) Eos % (Auto) Baso % (Auto) Neut # (Auto) Lymph # (Auto) [place] # (Auto) Eos # (Auto) Baso # (Auto) Total Counted Immature Gran % Nucleated RBC % Immature Gran # Segmented Neutrophils Band Neutrophils Lymphocytes Monocytes Eosinophils Basophils Metamyelocytes Myelocytes Nucleated RBCs # Platelet Estimate Hypochromasia Macrocytosis Target Cells Hamlin Cells Morphology Comment INR PT Patient/Control Mix Circ Anticoag PTT Patient Temperature ABG pH ABG pH at Pt Temp ABG pCO2 ABG pCO2 at Pt Temp ABG pO2 ABG pO2 at Pt Temp ABG HCO3 ABG Total CO2 ABG O2 Saturation ABG Base Excess ABG Sodium VBG pH VBG pCO2 VBG pO2 VBG HCO3 VBG Total CO2 VBG O2 Saturation VBG Base Excess Hemoglobin Hematocrit Potassium Glucose Ionized Calcium FiO2 Sodium Chloride Carbon Dioxide Anion Gap BUN Creatinine GFR Calculation BUN/Creatinine Ratio POC Glucose 204 H 153 H 146 H Calculated Osmolality Lactic Acid Calcium Venous Ioniz Calcium Magnesium Blood Type Antibody Screen Crossmatch Blood Bank Comment 08/19/16 08/19/16 08/19/16 19:07 20:04 21:13 WBC RBC Hgb Hct MCV MCH MCHC RDW Plt Count MPV Neut % (Auto) Lymph % (Auto) [place] % (Auto) Eos % (Auto) Baso % (Auto) Neut # (Auto) Lymph # (Auto) [place] # (Auto) Eos # (Auto) Baso # (Auto) Total Counted Immature Gran % Nucleated RBC % Immature Gran # Segmented Neutrophils Band Neutrophils Lymphocytes Monocytes Eosinophils Basophils Metamyelocytes Myelocytes Nucleated RBCs # Platelet Estimate Hypochromasia Macrocytosis Target Cells Hamlin Cells Morphology Comment INR PT Patient/Control Mix Circ Anticoag PTT Patient Temperature ABG pH ABG pH at Pt Temp ABG pCO2 ABG pCO2 at Pt Temp ABG pO2 ABG pO2 at Pt Temp ABG HCO3 ABG Total CO2 ABG O2 Saturation ABG Base Excess ABG Sodium VBG pH VBG pCO2 VBG pO2 VBG HCO3 VBG Total CO2 VBG O2 Saturation VBG Base Excess Hemoglobin Hematocrit Potassium Glucose Ionized Calcium FiO2 Sodium Chloride Carbon Dioxide Anion Gap BUN Creatinine GFR Calculation BUN/Creatinine Ratio POC Glucose 139 H 132 H 112 H Calculated Osmolality Lactic Acid Calcium Venous Ioniz Calcium Magnesium Blood Type Antibody Screen Crossmatch Blood Bank Comment 08/19/16 08/19/16 08/19/16 21:59 22:57 23:59 WBC RBC Hgb Hct MCV MCH MCHC RDW Plt Count MPV Neut % (Auto) Lymph % (Auto) [place] % (Auto) Eos % (Auto) Baso % (Auto) Neut # (Auto) Lymph # (Auto) [place] # (Auto) Eos # (Auto) Baso # (Auto) Total Counted Immature Gran % Nucleated RBC % Immature Gran # Segmented Neutrophils Band Neutrophils Lymphocytes Monocytes Eosinophils Basophils Metamyelocytes Myelocytes Nucleated RBCs # Platelet Estimate Hypochromasia Macrocytosis Target Cells Stephanie Cells Morphology Comment INR PT Patient/Control Mix Circ Anticoag PTT Patient Temperature ABG pH ABG pH at Pt Temp ABG pCO2 ABG pCO2 at Pt Temp ABG pO2 ABG pO2 at Pt Temp ABG HCO3 ABG Total CO2 ABG O2 Saturation ABG Base Excess ABG Sodium VBG pH VBG pCO2 VBG pO2 VBG HCO3 VBG Total CO2 VBG O2 Saturation VBG Base Excess Hemoglobin Hematocrit Potassium Glucose Ionized Calcium FiO2 Sodium Chloride Carbon Dioxide Anion Gap BUN Creatinine GFR Calculation BUN/Creatinine Ratio POC Glucose 99 92 70 L Calculated Osmolality Lactic Acid Calcium Venous Ioniz Calcium Magnesium Blood Type Antibody Screen Crossmatch Blood Bank Comment 08/20/16 08/20/16 08/20/16 01:04 02:03 02:56 WBC RBC Hgb Hct MCV MCH MCHC RDW Plt Count MPV Neut % (Auto) Lymph % (Auto) [place] % (Auto) Eos % (Auto) Baso % (Auto) Neut # (Auto) Lymph # (Auto) [place] # (Auto) Eos # (Auto) Baso # (Auto) Total Counted Immature Gran % Nucleated RBC % Immature Gran # Segmented Neutrophils Band Neutrophils Lymphocytes Monocytes Eosinophils Basophils Metamyelocytes Myelocytes Nucleated RBCs # Platelet Estimate Hypochromasia Macrocytosis Target Cells Stephanie Cells Morphology Comment INR PT Patient/Control Mix Circ Anticoag PTT Patient Temperature ABG pH ABG pH at Pt Temp ABG pCO2 ABG pCO2 at Pt Temp ABG pO2 ABG pO2 at Pt Temp ABG HCO3 ABG Total CO2 ABG O2 Saturation ABG Base Excess ABG Sodium VBG pH VBG pCO2 VBG pO2 VBG HCO3 VBG Total CO2 VBG O2 Saturation VBG Base Excess Hemoglobin Hematocrit Potassium Glucose Ionized Calcium FiO2 Sodium Chloride Carbon Dioxide Anion Gap BUN Creatinine GFR Calculation BUN/Creatinine Ratio POC Glucose 101 118 H 108 H Calculated Osmolality Lactic Acid Calcium Venous Ioniz Calcium Magnesium Blood Type Antibody Screen Crossmatch Blood Bank Comment 08/20/16 08/20/16 08/20/16 04:04 04:10 04:10 WBC 27.3 H D RBC 3.25 L D Hgb 10.2 L D Hct 30.8 L MCV 94.8 MCH 31 MCHC 33.1 RDW 19.1 H Plt Count 260 D MPV 11.7 Neut % (Auto) 77.9 H Lymph % (Auto) 8.4 L [place] % (Auto) 6.4 Eos % (Auto) 0.1 Baso % (Auto) 0.2 Neut # (Auto) 21.3 H Lymph # (Auto) 2.3 [place] # (Auto) 1.8 H Eos # (Auto) 0.0 Baso # (Auto) 0.1 Total Counted 100 Immature Gran % 7.0 Nucleated RBC % 0.0 Immature Gran # 1.92 Segmented Neutrophils 78 Band Neutrophils 4 Lymphocytes 6 L Monocytes 5 Eosinophils Basophils 1.0 H Metamyelocytes 3 Myelocytes 3 Nucleated RBCs # 0.00 Platelet Estimate Normal Hypochromasia Macrocytosis Target Cells Few Stephanie Cells 1+ Morphology Comment INR PT Patient/Control Mix Circ Anticoag PTT Patient Temperature ABG pH ABG pH at Pt Temp ABG pCO2 ABG pCO2 at Pt Temp ABG pO2 ABG pO2 at Pt Temp ABG HCO3 ABG Total CO2 ABG O2 Saturation ABG Base Excess ABG Sodium VBG pH VBG pCO2 VBG pO2 VBG HCO3 VBG Total CO2 VBG O2 Saturation VBG Base Excess Hemoglobin Hematocrit Potassium 5.1 Glucose 110 H Ionized Calcium FiO2 Sodium 136 Chloride 102 Carbon Dioxide 18 L Anion Gap 21.1 H BUN 38 H D Creatinine 7.00 H GFR Calculation 10 BUN/Creatinine Ratio 5.00 L POC Glucose 106 Calculated Osmolality 281.0 Lactic Acid Calcium 6.6 L Venous Ioniz Calcium Magnesium 2.7 H Blood Type Antibody Screen Crossmatch Blood Bank Comment 08/20/16 08/20/16 08/20/16 04:10 05:06 06:02 WBC RBC Hgb Hct MCV MCH MCHC RDW Plt Count MPV Neut % (Auto) Lymph % (Auto) [place] % (Auto) Eos % (Auto) Baso % (Auto) Neut # (Auto) Lymph # (Auto) [place] # (Auto) Eos # (Auto) Baso # (Auto) Total Counted Immature Gran % Nucleated RBC % Immature Gran # Segmented Neutrophils Band Neutrophils Lymphocytes Monocytes Eosinophils Basophils Metamyelocytes Myelocytes Nucleated RBCs # Platelet Estimate Hypochromasia Macrocytosis Target Cells Hamlin Cells Morphology Comment INR PT Patient/Control Mix Circ Anticoag PTT Patient Temperature ABG pH 7.364 ABG pH at Pt Temp ABG pCO2 30.6 L ABG pCO2 at Pt Temp ABG pO2 68.1 L ABG pO2 at Pt Temp ABG HCO3 18.8 L ABG Total CO2 15.6 L ABG O2 Saturation 92.9 L ABG Base Excess -6.9 L ABG Sodium VBG pH VBG pCO2 VBG pO2 VBG HCO3 VBG Total CO2 VBG O2 Saturation VBG Base Excess Hemoglobin 11.9 L Hematocrit 36.5 L Potassium 5.0 Glucose 120 H Ionized Calcium FiO2 Sodium Chloride Carbon Dioxide Anion Gap BUN Creatinine GFR Calculation BUN/Creatinine Ratio POC Glucose 100 98 Calculated Osmolality Lactic Acid Calcium Venous Ioniz Calcium Magnesium Blood Type Antibody Screen Crossmatch Blood Bank Comment 08/20/16 08/20/16 06:50 08:01 WBC RBC Hgb Hct MCV MCH MCHC RDW Plt Count MPV Neut % (Auto) Lymph % (Auto) [place] % (Auto) Eos % (Auto) Baso % (Auto) Neut # (Auto) Lymph # (Auto) [place] # (Auto) Eos # (Auto) Baso # (Auto) Total Counted Immature Gran % Nucleated RBC % Immature Gran # Segmented Neutrophils Band Neutrophils Lymphocytes Monocytes Eosinophils Basophils Metamyelocytes Myelocytes Nucleated RBCs # Platelet Estimate Hypochromasia Macrocytosis Target Cells [place] Cells Morphology Comment INR PT Patient/Control Mix Circ Anticoag PTT Patient Temperature ABG pH ABG pH at Pt Temp ABG pCO2 ABG pCO2 at Pt Temp ABG pO2 ABG pO2 at Pt Temp ABG HCO3 ABG Total CO2 ABG O2 Saturation ABG Base Excess ABG Sodium VBG pH VBG pCO2 VBG pO2 VBG HCO3 VBG Total CO2 VBG O2 Saturation VBG Base Excess Hemoglobin Hematocrit Potassium Glucose Ionized Calcium FiO2 Sodium Chloride Carbon Dioxide Anion Gap BUN Creatinine GFR Calculation BUN/Creatinine Ratio POC Glucose 103 111 H Calculated Osmolality Lactic Acid Calcium Venous Ioniz Calcium Magnesium Blood Type Antibody Screen Crossmatch Blood Bank Comment - EKG EKG results: interpreted by me EKG shows: sinus rhythm Quality Measures - VTE Contraindication to Pharmacological VTE Prophylaxis: Active Bleeding Specialty Discharge - Follow Up or Referrals Morelia Lee Shea, DO, personally performed the services described in this documentation, ascribed by Donohue,Yaquelin, RN in my presence, and it is both accurate and complete 945 .
[2016-08-20 09:51] LABS: ABG Base Excess -2.8 MMOL/L (-2.5-2.5); ABG HCO3 20.7 MMOL/L (20-26); ABG Oxygen Saturation 95.7 % (95-100); ABG PCO2 31.8 MM HG (35-48); ABG PH 7.432 (7.35-7.45); ABG PO2 79.5 MM HG (80-95); ABG TCO2 21.7 MMOL/L (23-27); Glucose Heart Surgery 121 MG/DL (74-106); Hemoglobin Heart Surgery 11.2 G/DL (12.0-16.0)
[2016-08-20] MEDS ORDERED: INSULIN REGULAR 100 UNIT/ML SUBCUT SCH (12:00)
[2016-08-20] MEDS: INSULIN REGULAR 100 UNIT/ML SUBCUT SCH ×3 (12:22→20:57)
[2016-08-20] MEDS: ALBUTEROL/IPRATROPIUM 3 ML NEB RESP TX SCH ×2 (12:28→19:04)
--- NOTE | 2016-08-20 15:42 | Hospitalist Progress Note ---
Assessment and Plan (1) Atrial mass Status: Acute Assessment and plan: post op course per Dr Devin Hernandez. monitor H&H- transfused yesterday ESRD path pending on resescted mass ID-she has MRSA bacteremia, on zithromax, cefuroxime, keflex, and Vanc DM- q4h accuchecks, SSI for now. reassess when eating. Current Visit: Yes (2) Bacteremia due to Gram-positive bacteria Status: Acute Current Visit: Yes (3) Morbid (severe) obesity due to excess calories Status: Acute Current Visit: Yes (4) End stage renal disease on dialysis Status: Chronic Current Visit: Yes (5) Anemia Status: Chronic Current Visit: Yes Qualifiers: Anemia type: unspecified type Qualified Code(s): D64.9 - Anemia, unspecified Hospitalist: Subjective Interval history: Mrs Alfonso was stable on the vent when I saw her this morning. She was to be extubated after dialysis. 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 Exam - Constitutional Vitals: Period Temp Pulse Resp BP Sys/Pineda Pulse Ox Last 24 Hr 97.2 F-98.0 F 70-83 10-20 91-134/47-70 99-100 General appearance: no acute distress, morbidly obese - Respiratory Respiratory exam: Present: clear to auscultation bilaterally - Cardiovascular Cardiovascular exam: Present: regular rate and rhythm - GI/Abdominal GI/Abdominal exam: Present: normal bowel sounds, soft Results - Labs CBC & BMP: 08/20/16 04:10 08/20/16 04:10 Quality Measures - VTE Contraindication to Pharmacological VTE Prophylaxis: Active Bleeding Specialty Discharge - Follow Up or Referrals
--- NOTE | 2016-08-20 15:46 | Pathology Report from [facility] ---
ACCESSION # : [id number] PATIENT NAME : Bernardo Alfonso ORDERING DR : Elton Velez MD CLINICAL HX: Right atrial mass POST-OP DX: Same SPECIMEN INFO: #1 Right atrial wall FS #2 Right atrial mass GROSS DESCRIPTION: #1 Received fresh for frozen section labeled with the patient 's name "BERNARDO ALFONSO" and is an aggregate of flores tissue measuring 1.4 x 0.6 cm. Change Coordinator sections are submitted for frozen section in cassettes FS1A for frozen section and 1B.#2 Received fresh labeled with the patient's name "BERNARDO ALFONSO and #2" consists of fragments of [id number] tissue with scattered chalky white areas present measuring 3.2 x 3.4 cm. Sectioned and submitted entirely in cassettes 2A and 2B. DIAGNOSIS FOR BERNARDO ALFONSO: #1 RIGHT ATRIAL WALL, FROZEN SECTION: Fibrosis, chronic inflammation, fibrin and dystrophic calcification.#2 RIGHT ATRIAL MASS: Fibrosis, acute and chronic inflamamtion, fibrin, dystrophic calcification. Consistent with organizing thrombus. SERVICE DATE: 08/19/2016 REPORT DATE: 08/20/2016 PATHOLOGIST: Val Alcala M.D. [facility]
--- NOTE | 2016-08-20 15:59 | General Surgery Progress Note ---
Assessment and Plan (1) Arm edema Status: Acute Assessment and plan: This patient came in with some swelling of her left arm was thought to have cellulitis at one point. This does not appear to be present today. We will follow peripherally from here. Please call back with any further questions. Current Visit: Yes Subjective Patient reports: Present: afebrile Exam - Constitutional Vitals: Period Temp Pulse Resp BP Sys/Pineda Pulse Ox Last 24 Hr 97.2 F-98.0 F 70-83 10-20 91-134/47-70 99-100 General appearance: no acute distress, morbidly obese - Head Head exam: Present: normal inspection - Eye Eye exam: Present: EOMI - ENT ENT exam: Present: normal exam Mouth exam: Present: normal external inspection - Neck Neck exam: Present: normal inspection, trachea midline - Respiratory Respiratory exam: Present: accessory muscle use, decreased breath sounds - Cardiovascular Cardiovascular exam: Present: RRR - Extremities Exam Extremities exam: Present: other (There is minimal edema of the left forearm. There is no erythema. Per the nurses this is improving.) - Neurological Exam Neurological exam: Present: alert - Skin Skin exam: Present: normal color, warm Results - Labs CBC & BMP: 08/20/16 04:10 08/20/16 04:10 Quality Measures - VTE Contraindication to Pharmacological VTE Prophylaxis: Active Bleeding Specialty Discharge - Follow Up or Referrals
--- NOTE | 2016-08-20 16:48 | Nephrology Progress Note ---
Nephrology - PN: Subj Interval history: Patient is resting comfortably she is now extubated tolerated dialysis today. Hemodynamics have been stable. Exam (PN)-Nephrology - Vital Signs Vital signs: Period Temp Pulse Resp BP Sys/Pineda Pulse Ox Last 24 Hr 97.2 F-98.0 F 70-83 10-20 95-134/47-70 99-100 - General Appearance General appearance: well-developed EENT: ATNC Neck: supple Respiratory: clear Cardiology: regular rate, regular rhythm Gastrointestinal: normoactive bowel sounds, no tenderness Neurologic: alert and oriented x3 Musculoskeletal: no clubbing Psychiatric: mood/affect appropriate - Lab 08/20/16 04:10 08/20/16 04:10 Most recent lab results ABG pH 7.432 (7.35-7.45) 08/20/16 09:42 ABG pCO2 31.8 MM HG (35-48) L 08/20/16 09:42 ABG pO2 79.5 MM HG (80-95) L 08/20/16 09:42 ABG HCO3 20.7 MMOL/L (20-26) 08/20/16 09:42 ABG O2 Saturation 95.7 % (95-100) 08/20/16 09:42 Calcium 6.6 MG/DL (8.5-10.1) L 08/20/16 04:10 Magnesium 2.7 MG/DL (1.8-2.4) H 08/20/16 04:10 Assessment and Plan (1) End stage renal disease on dialysis Problem details: No acute indication for CHD at this time. Status: Chronic Assessment and plan: Schedule for hemodialysis on Wednesday schedule. Current Visit: No (2) Diabetes 1.5, managed as type 2 Status: Chronic Current Visit: No (3) Insulin dependent diabetes mellitus Status: Chronic Current Visit: No (4) Coffee ground emesis Status: Acute Current Visit: Yes (5) Hyponatremia Status: Resolved Current Visit: Yes (6) Hyperkalemia Status: Resolved Assessment and plan: BMP in a.m. Current Visit: Yes (7) Hypocalcemia Status: Chronic Assessment and plan: Supplement calcium with 2 g of calcium gluconate today as well as another 2 g this evening. Will repeat BMP in a.m. Current Visit: Yes Specialty Discharge - Follow Up or Referrals
[2016-08-20] MEDS: CALCIUM ACETATE 667 MG CAPSULE PO SCH ×2 (17:43→20:59)
[2016-08-20] MEDS ORDERED: VANCOMYCIN INJ 750 MG in SODIUM CHLORIDE 0.9% 250 ML IV ONE (18:00)
[2016-08-20] MEDS: MUPIROCIN 2% OINT 22 GM TUBE TOP SCH (20:58)
[2016-08-20] MEDS: CYCLOBENZAPRINE 10 MG TABLET PO SCH (20:58)
[2016-08-20] MEDS: NYSTATIN 500,000 UNIT/5 ML UDCUP SWISH/SWAL SCH (20:59)
[2016-08-20] MEDS: MONTELUKAST 10 MG TABLET PO SCH (20:59)
[2016-08-20] MEDS: CYPROHEPTADINE 4 MG TABLET PO SCH (20:59)
[2016-08-20] MEDS: cephALEXin 500 MG CAPSULE PO SCH (20:59)
[2016-08-20] MEDS ORDERED: ATORVASTATIN 40 MG TABLET PO SCH (21:00)
[2016-08-20] MEDS: PANTOPRAZOLE 40 MG VIAL IV SCH (21:32)
[2016-08-20] MEDS: CALCIUM GLUCONATE 2,000 MG in SODIUM CHLORIDE 0.9% 100 ML IV PRN (21:33)
[2016-08-21] MEDS: ALBUTEROL/IPRATROPIUM 3 ML NEB RESP TX SCH ×3 (00:08→14:25)
[2016-08-21] MEDS: MORPHINE 10 MG/1 ML VIAL IV PRN ×3 (00:45→07:32)
[2016-08-21] MEDS: INSULIN REGULAR 100 UNIT/ML SUBCUT SCH ×2 (01:45→04:35)
[2016-08-21 04:57] LABS: Basophils # 0.1 10*3/uL (0.0-0.2); Basophils % 0.2 % (0.0-0.8); Hematocrit 30.2 VOL% (35.7-47.0); Hemoglobin 9.8 GM/DL (12.0-16.0); Immature Granulocytes % 3.7 %; Immature Granulocytes Absolute 0.91 #; Lymphocytes # 1.9 10*3/uL (1.4-4.0); Lymphocytes % 7.6 % (21.3-54.2); Mean Corpuscular HGB Conc 32.5 GM/DL (32-36); Mean Corpuscular Hemoglobin 32 PG (27-34); Mean Corpuscular Volume 98.7 FL (87-102); Mean Platelet Volume 11.1 FL (9.6-12.0); Monocytes # 2.2 10*3/uL (0.11-0.8); Monocytes % 8.8 % (1.7-12.7); Neutrophils # 19.7 10*3/uL (1.4-7.4); Neutrophils % 79.7 % (38.7-73.9); Platelet Count 253 T/CUMM (130-400); Red Blood Count 3.06 MC/CUMM (3.8-5.5); Red Cell Distribution Width 19.9 % (9.3-17.3); White Blood Count 24.7 T/CUMM (4-12)
[2016-08-21] MEDS: MORPHINE 2 MG/1 ML SYRINGE IV PRN (04:59)
[2016-08-21 05:25] LABS: Calcium 6.4 MG/DL (8.5-10.1); Magnesium 2.6 MG/DL (1.8-2.4); Osmolality,Calculated 286.8 MOS/KG (273-304); Potassium 4.4 MMOL/L (3.5-5.1)
[2016-08-21 05:35] LABS: Band Neutrophils 3 % (0-10); Lymphocytes 7 % (20-55); Segmented Neutrophils 83 % (50-85); Total Cells Counted 100
[2016-08-21 05:36] LABS: Anisocytosis 2+; Hypochromasia Slight; Macrocytosis 1+; Microcytosis 1+; Platelet Estimate Normal; Polychromasia Few
[2016-08-21] MEDS: CALCIUM GLUCONATE 2,000 MG in SODIUM CHLORIDE 0.9% 100 ML IV PRN (07:37)
[2016-08-21] MEDS ORDERED: DEXTROSE 50% 25 GM/50 ML VIAL IV PRN (08:21)
[2016-08-21] MEDS ORDERED: GLUCAGON 1 MG VIAL IM PRN (08:21)
--- NOTE | 2016-08-21 08:31 | Nephrology Progress Note ---
Nephrology - PN: Subj Interval history: Patient is resting comfortably continues to get stronger. No other acute changes. No fevers or chills. Exam (PN)-Nephrology - Vital Signs Vital signs: Period Temp Pulse Resp BP Sys/Pineda Pulse Ox Last 24 Hr 97.4 F-97.8 F 68-83 12-20 92-134/47-70 99-100 - General Appearance General appearance: well-developed, well-nourished EENT: ATNC Neck: supple Respiratory: clear Cardiology: no edema, regular rate, regular rhythm Gastrointestinal: normoactive bowel sounds, no tenderness Neurologic: CN 3-12 intact Musculoskeletal: no clubbing - Lab 08/21/16 04:45 08/21/16 04:45 Most recent lab results ABG pH 7.432 (7.35-7.45) 08/20/16 09:42 ABG pCO2 31.8 MM HG (35-48) L 08/20/16 09:42 ABG pO2 79.5 MM HG (80-95) L 08/20/16 09:42 ABG HCO3 20.7 MMOL/L (20-26) 08/20/16 09:42 ABG O2 Saturation 95.7 % (95-100) 08/20/16 09:42 Calcium 6.4 MG/DL (8.5-10.1) L 08/21/16 04:45 Magnesium 2.6 MG/DL (1.8-2.4) H 08/21/16 04:45 Assessment and Plan (1) End stage renal disease on dialysis Problem details: No acute indication for CHD at this time. Status: Chronic Assessment and plan: Schedule for hemodialysis on Wednesday schedule. Current Visit: No (2) Diabetes 1.5, managed as type 2 Status: Chronic Current Visit: No (3) Insulin dependent diabetes mellitus Status: Chronic Current Visit: No (4) Coffee ground emesis Status: Acute Current Visit: Yes (5) Hyponatremia Status: Resolved Current Visit: Yes (6) Hyperkalemia Status: Resolved Assessment and plan: BMP in a.m. Current Visit: Yes (7) Hypocalcemia Status: Chronic Assessment and plan: Supplement calcium with 2 g of calcium gluconate today as well as another 2 g this evening. Will repeat BMP in a.m. Current Visit: Yes Specialty Discharge - Follow Up or Referrals
[2016-08-21] MEDS ORDERED: LISINOPRIL 20 MG TABLET PO SCH (09:00)
[2016-08-21] MEDS ORDERED: INSULIN GLARGINE 100 UNIT/ML SUBCUT SCH (09:00)
[2016-08-21] MEDS ORDERED: INSULIN LISPRO 100 UNIT/ML SUBCUT ONE (09:13)
[2016-08-21] MEDS: CALCIUM ACETATE 667 MG CAPSULE PO SCH ×3 (09:20→13:42)
[2016-08-21] MEDS: ASPIRIN EC 325 MG TABLET PO SCH (09:20)
[2016-08-21] MEDS: CYCLOBENZAPRINE 10 MG TABLET PO SCH ×2 (09:21→15:04)
[2016-08-21] MEDS: NYSTATIN 500,000 UNIT/5 ML UDCUP SWISH/SWAL SCH ×2 (09:22→13:42)
[2016-08-21] MEDS: PREGABALIN 50 MG CAPSULE PO SCH (09:22)
[2016-08-21] MEDS: CYPROHEPTADINE 4 MG TABLET PO SCH (09:22)
[2016-08-21] MEDS: CHLORHEXIDINE 0.12% ORAL RINSE 60 ML BOTTLE SWISH/SPIT SCH (09:23)
[2016-08-21] MEDS: CALCITRIOL 0.5 MCG CAPSULE PO SCH (09:24)
[2016-08-21] MEDS: FLUoxetine 20 MG CAPSULE PO SCH (09:24)
[2016-08-21] MEDS: PANTOPRAZOLE 40 MG VIAL IV SCH (09:24)
[2016-08-21] MEDS: INSULIN LISPRO 100 UNIT/ML SUBCUT SCH ×2 (09:25→13:41)
[2016-08-21] MEDS: MUPIROCIN 2% OINT 22 GM TUBE TOP SCH (09:31)
--- NOTE | 2016-08-21 09:34 | XRay Report ---
XR chest 1V portable Indication: Pneumothorax Comparison: 20 Aug 2016 Findings: The heart and mediastinum are stable in size and configuration. Endotracheal tube is been removed. The pulmonary vascularity is increased and there are right lung densities, slightly increased in the right lower lung. No other lung infiltrates, effusions, pneumothorax or other abnormality is demonstrated. Impression: Interval extubation. Slight increased right lower lung density could indicate atelectasis. PROCEDURE INTERPRETED AT [facility] DEPARTMENT OF RADIOLOGY Final Report Signed by: Dr. Angel Puente
[2016-08-21] MEDS ORDERED: HYDROmorphone 2 MG/1 ML VIAL IV PRN ×2 (09:39→11:17)
--- NOTE | 2016-08-21 09:42 | Cardiology Progress Note ---
Charanjit Lee April, RN, am scribing for, and in the presence of, Leigh Thibodeaux DO 09 :42. Assessment and Plan (1) Atrial mass Status: Acute Assessment and plan: Organized thrombus Current Visit: Yes (2) History of DVT (deep vein thrombosis) Status: Chronic Current Visit: No (3) History of pulmonary embolism Status: Chronic Current Visit: No (4) End stage renal disease on dialysis Status: Chronic Current Visit: Yes (5) Tobacco abuse Status: Chronic Current Visit: Yes (6) Ulcerative esophagitis Status: Chronic Current Visit: No Cardiology - PN: Subj Interval history: Ms. Alfonso is seen in the intensive care unit in no acute distress. She is day 2 status post resection of right atrial free wall mass for Dr. Velez. Pathology report showed mass to be consistent with organizing thrombus. She was extubated yesterday and is tolerating that well. Oxygen is in use via nasal cannula, O2 sat 100%. Sternal dressing noted to be dry and intact. Chest tube was removed yesterday. She denies any chest pain, shortness of breath, palpitations, or dizziness. 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 Current blood pressure 102/54. I saw and examined with Ms. Donohue. I agree with the above. I discussed with Dr. Velez the fact that this is an organizing thrombus recommended anticoagulation. She has had a DVT with what sounds like a pulmonary embolism in the remote past. She very well may have a hypercoagulable state. I discussed with the patient and encouraged her to use her incentive spirometer today she looks excellent postop day 2. I will sign off. Please call if needed. Exam (Progress Note) - Constitutional Vitals: Period Temp Pulse Resp BP Sys/Pineda Pulse Ox Last 24 Hr 97.2 F-97.8 F 68-83 12-20 92-134/47-70 99-100 General appearance: no acute distress, morbidly obese - Head Head exam: Absent: abrasion, hematoma - Eye Eye exam: Absent: periorbital swelling, laceration to eyelids - Neck Neck exam: Absent: tenderness - Respiratory Respiratory exam: Present: clear to auscultation bilaterally, other (Oxygen via nasal cannula). Absent: accessory muscle use, chest wall tenderness - Cardiovascular Cardiovascular exam: Present: regular rate and rhythm - GI/Abdominal GI/Abdominal exam: Present: normal bowel sounds, tenderness, soft. Absent: distended - Extremities Exam Extremities exam: Present: other (Right BKA). Absent: edema - Neurological Exam Neurological exam: Present: alert, oriented X3 - Psychiatric Psychiatric exam: Present: normal affect, normal mood - Skin Skin exam: Present: warm, dry, other (Dressing to sternal incision dry and intact) Result/EKG - Labs CBC & BMP: 08/21/16 04:45 08/21/16 04:45 Lab Results: I have reviewed the past 24 hour labs Labs: Laboratory Results - last 24 hr 08/19/16 08/19/16 08/19/16 13:09 14:04 15:11 WBC RBC Hgb Hct MCV MCH MCHC RDW Plt Count MPV Neut % (Auto) Lymph % (Auto) Hendry % (Auto) Eos % (Auto) Baso % (Auto) Neut # (Auto) Lymph # (Auto) Hendry # (Auto) Eos # (Auto) Baso # (Auto) Total Counted Immature Gran % Nucleated RBC % Immature Gran # Segmented Neutrophils Band Neutrophils Lymphocytes Monocytes Nucleated RBCs # Platelet Estimate Polychromasia Hypochromasia Anisocytosis Microcytosis Macrocytosis ABG pH ABG pCO2 ABG pO2 ABG HCO3 ABG Total CO2 ABG O2 Saturation ABG Base Excess Hemoglobin Hematocrit Potassium Glucose Sodium Chloride Carbon Dioxide Anion Gap BUN Creatinine GFR Calculation BUN/Creatinine Ratio POC Glucose 275 H 269 H 247 H Calculated Osmolality Calcium Magnesium 08/19/16 08/19/16 08/19/16 15:57 17:03 18:02 WBC RBC Hgb Hct MCV MCH MCHC RDW Plt Count MPV Neut % (Auto) Lymph % (Auto) Hendry % (Auto) Eos % (Auto) Baso % (Auto) Neut # (Auto) Lymph # (Auto) Hendry # (Auto) Eos # (Auto) Baso # (Auto) Total Counted Immature Gran % Nucleated RBC % Immature Gran # Segmented Neutrophils Band Neutrophils Lymphocytes Monocytes Nucleated RBCs # Platelet Estimate Polychromasia Hypochromasia Anisocytosis Microcytosis Macrocytosis ABG pH ABG pCO2 ABG pO2 ABG HCO3 ABG Total CO2 ABG O2 Saturation ABG Base Excess Hemoglobin Hematocrit Potassium Glucose Sodium Chloride Carbon Dioxide Anion Gap BUN Creatinine GFR Calculation BUN/Creatinine Ratio POC Glucose 204 H 153 H 146 H Calculated Osmolality Calcium Magnesium 08/19/16 08/19/16 08/19/16 19:07 20:04 21:13 WBC RBC Hgb Hct MCV MCH MCHC RDW Plt Count MPV Neut % (Auto) Lymph % (Auto) Hendry % (Auto) Eos % (Auto) Baso % (Auto) Neut # (Auto) Lymph # (Auto) Hendry # (Auto) Eos # (Auto) Baso # (Auto) Total Counted Immature Gran % Nucleated RBC % Immature Gran # Segmented Neutrophils Band Neutrophils Lymphocytes Monocytes Nucleated RBCs # Platelet Estimate Polychromasia Hypochromasia Anisocytosis Microcytosis Macrocytosis ABG pH ABG pCO2 ABG pO2 ABG HCO3 ABG Total CO2 ABG O2 Saturation ABG Base Excess Hemoglobin Hematocrit Potassium Glucose Sodium Chloride Carbon Dioxide Anion Gap BUN Creatinine GFR Calculation BUN/Creatinine Ratio POC Glucose 139 H 132 H 112 H Calculated Osmolality Calcium Magnesium 08/19/16 08/19/16 08/19/16 21:59 22:57 23:59 WBC RBC Hgb Hct MCV MCH MCHC RDW Plt Count MPV Neut % (Auto) Lymph % (Auto) Hendry % (Auto) Eos % (Auto) Baso % (Auto) Neut # (Auto) Lymph # (Auto) Hendry # (Auto) Eos # (Auto) Baso # (Auto) Total Counted Immature Gran % Nucleated RBC % Immature Gran # Segmented Neutrophils Band Neutrophils Lymphocytes Monocytes Nucleated RBCs # Platelet Estimate Polychromasia Hypochromasia Anisocytosis Microcytosis Macrocytosis ABG pH ABG pCO2 ABG pO2 ABG HCO3 ABG Total CO2 ABG O2 Saturation ABG Base Excess Hemoglobin Hematocrit Potassium Glucose Sodium Chloride Carbon Dioxide Anion Gap BUN Creatinine GFR Calculation BUN/Creatinine Ratio POC Glucose 99 92 70 L Calculated Osmolality Calcium Magnesium 08/20/16 08/20/16 08/20/16 01:04 02:03 02:56 WBC RBC Hgb Hct MCV MCH MCHC RDW Plt Count MPV Neut % (Auto) Lymph % (Auto) Hendry % (Auto) Eos % (Auto) Baso % (Auto) Neut # (Auto) Lymph # (Auto) Hendry # (Auto) Eos # (Auto) Baso # (Auto) Total Counted Immature Gran % Nucleated RBC % Immature Gran # Segmented Neutrophils Band Neutrophils Lymphocytes Monocytes Nucleated RBCs # Platelet Estimate Polychromasia Hypochromasia Anisocytosis Microcytosis Macrocytosis ABG pH ABG pCO2 ABG pO2 ABG HCO3 ABG Total CO2 ABG O2 Saturation ABG Base Excess Hemoglobin Hematocrit Potassium Glucose Sodium Chloride Carbon Dioxide Anion Gap BUN Creatinine GFR Calculation BUN/Creatinine Ratio POC Glucose 101 118 H 108 H Calculated Osmolality Calcium Magnesium 08/20/16 08/20/16 08/20/16 04:04 05:06 06:02 WBC RBC Hgb Hct MCV MCH MCHC RDW Plt Count MPV Neut % (Auto) Lymph % (Auto) Hendry % (Auto) Eos % (Auto) Baso % (Auto) Neut # (Auto) Lymph # (Auto) Hendry # (Auto) Eos # (Auto) Baso # (Auto) Total Counted Immature Gran % Nucleated RBC % Immature Gran # Segmented Neutrophils Band Neutrophils Lymphocytes Monocytes Nucleated RBCs # Platelet Estimate Polychromasia Hypochromasia Anisocytosis Microcytosis Macrocytosis ABG pH ABG pCO2 ABG pO2 ABG HCO3 ABG Total CO2 ABG O2 Saturation ABG Base Excess Hemoglobin Hematocrit Potassium Glucose Sodium Chloride Carbon Dioxide Anion Gap BUN Creatinine GFR Calculation BUN/Creatinine Ratio POC Glucose 106 100 98 Calculated Osmolality Calcium Magnesium 08/20/16 08/20/16 08/20/16 06:50 08:01 09:42 WBC RBC Hgb Hct MCV MCH MCHC RDW Plt Count MPV Neut % (Auto) Lymph % (Auto) Hendry % (Auto) Eos % (Auto) Baso % (Auto) Neut # (Auto) Lymph # (Auto) Hendry # (Auto) Eos # (Auto) Baso # (Auto) Total Counted Immature Gran % Nucleated RBC % Immature Gran # Segmented Neutrophils Band Neutrophils Lymphocytes Monocytes Nucleated RBCs # Platelet Estimate Polychromasia Hypochromasia Anisocytosis Microcytosis Macrocytosis ABG pH 7.432 ABG pCO2 31.8 L ABG pO2 79.5 L ABG HCO3 20.7 ABG Total CO2 21.7 L ABG O2 Saturation 95.7 ABG Base Excess -2.8 L Hemoglobin 11.2 L Hematocrit 33.0 L Potassium 4.0 Glucose 121 H Sodium Chloride Carbon Dioxide Anion Gap BUN Creatinine GFR Calculation BUN/Creatinine Ratio POC Glucose 103 111 H Calculated Osmolality Calcium Magnesium 08/20/16 08/20/16 08/20/16 12:10 16:06 20:18 WBC RBC Hgb Hct MCV MCH MCHC RDW Plt Count MPV Neut % (Auto) Lymph % (Auto) Hendry % (Auto) Eos % (Auto) Baso % (Auto) Neut # (Auto) Lymph # (Auto) Hendry # (Auto) Eos # (Auto) Baso # (Auto) Total Counted Immature Gran % Nucleated RBC % Immature Gran # Segmented Neutrophils Band Neutrophils Lymphocytes Monocytes Nucleated RBCs # Platelet Estimate Polychromasia Hypochromasia Anisocytosis Microcytosis Macrocytosis ABG pH ABG pCO2 ABG pO2 ABG HCO3 ABG Total CO2 ABG O2 Saturation ABG Base Excess Hemoglobin Hematocrit Potassium Glucose Sodium Chloride Carbon Dioxide Anion Gap BUN Creatinine GFR Calculation BUN/Creatinine Ratio POC Glucose 154 H 167 H 142 H Calculated Osmolality Calcium Magnesium 08/20/16 08/21/16 08/21/16 23:48 04:23 04:45 WBC RBC Hgb Hct MCV MCH MCHC RDW Plt Count MPV Neut % (Auto) Lymph % (Auto) Hendry % (Auto) Eos % (Auto) Baso % (Auto) Neut # (Auto) Lymph # (Auto) Hendry # (Auto) Eos # (Auto) Baso # (Auto) Total Counted Immature Gran % Nucleated RBC % Immature Gran # Segmented Neutrophils Band Neutrophils Lymphocytes Monocytes Nucleated RBCs # Platelet Estimate Polychromasia Hypochromasia Anisocytosis Microcytosis Macrocytosis ABG pH ABG pCO2 ABG pO2 ABG HCO3 ABG Total CO2 ABG O2 Saturation ABG Base Excess Hemoglobin Hematocrit Potassium 4.4 Glucose 185 H Sodium 137 Chloride 100 Carbon Dioxide 19 L Anion Gap 22.4 H BUN 39 H Creatinine 5.90 H GFR Calculation 12 BUN/Creatinine Ratio 6.00 POC Glucose 167 H 177 H Calculated Osmolality 286.8 Calcium 6.4 L Magnesium 2.6 H 08/21/16 04:45 WBC 24.7 H RBC 3.06 L Hgb 9.8 L Hct 30.2 L MCV 98.7 MCH 32 MCHC 32.5 RDW 19.9 H Plt Count 253 MPV 11.1 Neut % (Auto) 79.7 H Lymph % (Auto) 7.6 L Hendry % (Auto) 8.8 Eos % (Auto) 0.0 Baso % (Auto) 0.2 Neut # (Auto) 19.7 H Lymph # (Auto) 1.9 Hendry # (Auto) 2.2 H Eos # (Auto) 0.0 Baso # (Auto) 0.1 Total Counted 100 Immature Gran % 3.7 Nucleated RBC % 0.0 Immature Gran # 0.91 Segmented Neutrophils 83 Band Neutrophils 3 Lymphocytes 7 L Monocytes 7 Nucleated RBCs # 0.00 Platelet Estimate Normal Polychromasia Few Hypochromasia Slight Anisocytosis 2+ Microcytosis 1+ Macrocytosis 1+ ABG pH ABG pCO2 ABG pO2 ABG HCO3 ABG Total CO2 ABG O2 Saturation ABG Base Excess Hemoglobin Hematocrit Potassium Glucose Sodium Chloride Carbon Dioxide Anion Gap BUN Creatinine GFR Calculation BUN/Creatinine Ratio POC Glucose Calculated Osmolality Calcium Magnesium - EKG EKG results: interpreted by me EKG shows: sinus rhythm Quality Measures - VTE Contraindication to Pharmacological VTE Prophylaxis: Active Bleeding Specialty Discharge - Follow Up or Referrals Morelia Lee Shea, , personally performed the services described in this documentation, ascribed by Yaquelin Donohue RN in my presence, and it is both accurate and complete 942 .
--- NOTE | 2016-08-21 09:50 | Cardiothoracic Progress Note ---
Assessment and Plan (1) Atrial mass Status: Acute Assessment and plan: Postoperative day #2 status post right atrial lesion resection. Pathology on the lesion is still pending. Most likely it was organized thrombus in transit. The patient has been doing very well without any problems. She is doing well on nasal cannula. She has been back to baseline activity. I took out the mediastinal chest tube this morning. The patient can be transferred to telemetry. Defer further medical management to the medical team and the consultants on record. Current Visit: Yes Cardiothoracic Subjective Interval history: Patient has been doing very well. Hemodynamically stable. She has no complaints. Exam (Progress Note) - Constitutional Vitals: Period Temp Pulse Resp BP Sys/Pineda Pulse Ox Last 24 Hr 97.4 F-97.8 F 61-83 12-20 92-134/47-69 94-100 Result/EKG - Labs CBC & BMP: 08/21/16 04:45 08/21/16 04:45 Labs: Laboratory Results - last 24 hr 08/20/16 08/20/16 08/20/16 09:42 12:10 16:06 WBC RBC Hgb Hct MCV MCH MCHC RDW Plt Count MPV Neut % (Auto) Lymph % (Auto) Kimble % (Auto) Eos % (Auto) Baso % (Auto) Neut # (Auto) Lymph # (Auto) Kimble # (Auto) Eos # (Auto) Baso # (Auto) Total Counted Immature Gran % Nucleated RBC % Immature Gran # Segmented Neutrophils Band Neutrophils Lymphocytes Monocytes Nucleated RBCs # Platelet Estimate Polychromasia Hypochromasia Anisocytosis Microcytosis Macrocytosis ABG pH 7.432 ABG pCO2 31.8 L ABG pO2 79.5 L ABG HCO3 20.7 ABG Total CO2 21.7 L ABG O2 Saturation 95.7 ABG Base Excess -2.8 L Hemoglobin 11.2 L Hematocrit 33.0 L Potassium 4.0 Glucose 121 H Sodium Chloride Carbon Dioxide Anion Gap BUN Creatinine GFR Calculation BUN/Creatinine Ratio POC Glucose 154 H 167 H Calculated Osmolality Calcium Magnesium 08/20/16 08/20/16 08/21/16 20:18 23:48 04:23 WBC RBC Hgb Hct MCV MCH MCHC RDW Plt Count MPV Neut % (Auto) Lymph % (Auto) Kimble % (Auto) Eos % (Auto) Baso % (Auto) Neut # (Auto) Lymph # (Auto) Kimble # (Auto) Eos # (Auto) Baso # (Auto) Total Counted Immature Gran % Nucleated RBC % Immature Gran # Segmented Neutrophils Band Neutrophils Lymphocytes Monocytes Nucleated RBCs # Platelet Estimate Polychromasia Hypochromasia Anisocytosis Microcytosis Macrocytosis ABG pH ABG pCO2 ABG pO2 ABG HCO3 ABG Total CO2 ABG O2 Saturation ABG Base Excess Hemoglobin Hematocrit Potassium Glucose Sodium Chloride Carbon Dioxide Anion Gap BUN Creatinine GFR Calculation BUN/Creatinine Ratio POC Glucose 142 H 167 H 177 H Calculated Osmolality Calcium Magnesium 08/21/16 08/21/16 04:45 04:45 WBC 24.7 H RBC 3.06 L Hgb 9.8 L Hct 30.2 L MCV 98.7 MCH 32 MCHC 32.5 RDW 19.9 H Plt Count 253 MPV 11.1 Neut % (Auto) 79.7 H Lymph % (Auto) 7.6 L Kimble % (Auto) 8.8 Eos % (Auto) 0.0 Baso % (Auto) 0.2 Neut # (Auto) 19.7 H Lymph # (Auto) 1.9 Kimble # (Auto) 2.2 H Eos # (Auto) 0.0 Baso # (Auto) 0.1 Total Counted 100 Immature Gran % 3.7 Nucleated RBC % 0.0 Immature Gran # 0.91 Segmented Neutrophils 83 Band Neutrophils 3 Lymphocytes 7 L Monocytes 7 Nucleated RBCs # 0.00 Platelet Estimate Normal Polychromasia Few Hypochromasia Slight Anisocytosis 2+ Microcytosis 1+ Macrocytosis 1+ ABG pH ABG pCO2 ABG pO2 ABG HCO3 ABG Total CO2 ABG O2 Saturation ABG Base Excess Hemoglobin Hematocrit Potassium 4.4 Glucose 185 H Sodium 137 Chloride 100 Carbon Dioxide 19 L Anion Gap 22.4 H BUN 39 H Creatinine 5.90 H GFR Calculation 12 BUN/Creatinine Ratio 6.00 POC Glucose Calculated Osmolality 286.8 Calcium 6.4 L Magnesium 2.6 H Quality Measures - VTE Contraindication to Pharmacological VTE Prophylaxis: Active Bleeding Specialty Discharge - Follow Up or Referrals
--- NOTE | 2016-08-21 09:57 | Hospitalist Progress Note ---
Assessment and Plan (1) Atrial mass Status: Acute Assessment and plan: 1)atrial mass- organizing thormbus on path. needs anticoagulation ultimately. post op course per Dr Devin Hernandez. He is transferring her to tele today. 2)ESRD- HD on . she has a graft and surgery is involved. 3)MRSA bacteremia- on Vanc. can stop the keflex and azithro 4)morbid obesity 5)DM- change to accuchecks qac and hs, use moderate intensity SSI and resume her Lantus at 15 U. path pending on resescted mass 6)dispo- might be a good candidate for LTAC on IV antibiotics and recovery from surgery. consult CM. Current Visit: Yes (2) Bacteremia due to Gram-positive bacteria Status: Acute Current Visit: Yes (3) Morbid (severe) obesity due to excess calories Status: Acute Current Visit: Yes (4) End stage renal disease on dialysis Status: Chronic Current Visit: Yes (5) Anemia Status: Chronic Current Visit: Yes Qualifiers: Anemia type: unspecified type Qualified Code(s): D64.9 - Anemia, unspecified Hospitalist: Subjective Interval history: Ms Alfonso feels ok today. She is eating a little. She denies nausea. No shortness of breath. Pathology on the atrial mass was organizing thrombus. cardiology recommends anticoagulation and we will defer to Dr Lopez as to when to start. Her diabetes is well controlled. She is afebrile and needs to continue Vanc for her bacteremia. She is getting HD on her usual schedule. Exam - Constitutional Vitals: Period Temp Pulse Resp BP Sys/Pineda Pulse Ox Last 24 Hr 97.4 F-97.8 F 61-83 12-20 92-134/47-69 94-100 General appearance: no acute distress, morbidly obese - Head Head exam: Present: normocephalic, atraumatic - Eye Eye exam: Present: EOMI. Absent: scleral icterus - Respiratory Respiratory exam: Present: clear to auscultation bilaterally - Cardiovascular Cardiovascular exam: Present: regular rate and rhythm - GI/Abdominal GI/Abdominal exam: Present: normal bowel sounds, soft. Absent: tenderness - Extremities Exam Extremities exam: Present: edema - Neurological Exam Neurological exam: Present: alert, oriented X3 - Skin Skin exam: Present: warm, dry Results - Labs CBC & BMP: 08/21/16 04:45 08/21/16 04:45 Lab Results: I have reviewed the past 24 hour labs Quality Measures - VTE Contraindication to Pharmacological VTE Prophylaxis: Active Bleeding Specialty Discharge - Follow Up or Referrals
--- NOTE | 2016-08-21 10:10 | General Surgery Progress Note ---
Assessment and Plan (1) Arm edema Status: Acute Assessment and plan: The patient has no evidence of cellulitis remaining on her left forearm. Her graft in her right groin appears clean. She is being treated for bacteremia with skin jc bacteria. Please call back with any further questions but we will sign off for now. Current Visit: Yes Subjective Patient reports: Present: no new complaints, feels better, afebrile Narrative: The patient is no longer having any pain in her left forearm. Exam - Constitutional Vitals: Period Temp Pulse Resp BP Sys/Pineda Pulse Ox Last 24 Hr 97.4 F-97.8 F 61-83 12-20 92-134/47-69 94-100 General appearance: no acute distress, morbidly obese - Head Head exam: Present: normal inspection - Eye Eye exam: Present: EOMI Pupils: Present: GARIMA - ENT ENT exam: Present: normal exam Mouth exam: Present: normal external inspection, normal voice - Neck Neck exam: Present: normal inspection, trachea midline - Respiratory Respiratory exam: Present: clear to auscultation bilaterally. Absent: accessory muscle use, chest wall tenderness - Cardiovascular Cardiovascular exam: Present: RRR. Absent: systolic murmur, tachycardia - GI/Abdominal GI/Abdominal exam: Present: soft. Absent: tenderness, rebound - Extremities Exam Extremities exam: Present: other (There is really no significant edema, swelling , or induration or cellulitis on the left forearm. It is nontender.) - Neurological Exam Neurological exam: Present: alert, oriented X3 Speech: Present: normal - Skin Skin exam: Present: normal color, warm Results - Labs CBC & BMP: 08/21/16 04:45 08/21/16 04:45 Quality Measures - VTE Contraindication to Pharmacological VTE Prophylaxis: Active Bleeding Specialty Discharge - Follow Up or Referrals
[2016-08-21 13:45] VITALS: BP 111/52
--- NOTE | 2016-08-21 14:13 | Discharge Summary ---
Hospital Course - Hospital Course Hospital Course: Mrs Alfonso presented last week with hematemesis and N/V. She was found to have MRSA bacteremia and her echo showed atrial mass. It was resected [address] Lopez and the path showed an organizing thrombus. She will be treated as if this was endocarditis with continued IV antibiotics. She was also treated for cellulitis and Dr Nazario says her wound looks good. She has continued to have HD on usual schedule. She had EGD that showed grade D esophagitis due to GERD and should continue her PPI BID for now. Her consultants- Dr Douglass, Dr Morelia Matos, Dr Nazario and Dr Lopez -will be available to see her at [facility]. She will go there today for completion of her IV antibiotics, and recovery from her surgery. - Time spent with patient Time with patient DS: Greater than 30 minutes (coordination of care, discharge planning, medicine reconciliation, documentation required 45 minutes.) Diagnosis - Discharge Diagnosis (1) Atrial mass Status: Acute (2) Bacteremia due to Gram-positive bacteria Status: Acute (3) Morbid (severe) obesity due to excess calories Status: Chronic (4) End stage renal disease on dialysis Status: Chronic (5) Anemia Status: Chronic Specialty Discharge - Follow Up or Referrals Discharge Plan - Discharge Data Disposition: Disch/Xfer to [facility] Comp[facility] Super[facility] Condition at Discharge: Stable Discharge Diet: diabetic diet, heart healthy Activity: as per the cardiac rehab, as per physical therapy - Discharge Medications New Acetaminophen Supp [Tylenol Supp] 650 mg RECTAL Q4H PRN #0 supp PRN Reason: Temp greater than 101F Albuterol Neb [Proventil Neb] 2.5 mg RESP TX RT Q4H PRN #0 PRN Reason: Shortness Of Breath/Wheezing Albuterol/Ipratropium Neb [Duoneb] 3 ml RESP TX RT Q6H Aspirin EC Tab 325 mg PO DAILY tablet Atorvastatin [Lipitor] 40 mg PO BEDTIME tablet Cefuroxime Inj [Zinacef] 1,500 mg IV Q12H vial Dextrose 50% [D50] 25 gm IV Q15M PRN #0 vial PRN Reason: BG less than/equal to 70 mg/dL Dextrose 50% [D50] 12.5 gm IV Q15M PRN #0 vial PRN Reason: BG 71 - 80 mg/dL Insulin Glargine [Lantus] 15 unit SUBCUT DAILY unit Insulin Lispro [HumaLOG] See Protocol SUBCUT ACHS unit Morphine Inj 2 mg IV Q2H PRN #0 syringe PRN Reason: Pain Mild (1-3) Morphine Inj 5 mg IV Q2H PRN #0 vial PRN Reason: Moderate or Severe Pain Ondansetron Inj [Zofran Inj] 4 mg IV Q6H PRN #0 vial PRN Reason: Nausea/Vomiting Pantoprazole Inj [Protonix Inj] 40 mg IV BID vial Vancomycin Inj 750 mg IV PRN PRN #0 vial PRN Reason: PHARMACY TO DOSE VANCOMYCIN Cyclobenzaprine [Flexeril] 5 mg PO TID tablet Lisinopril [Prinivil] 40 mg PO DAILY tablet Continue Pregabalin [Lyrica] 50 mg PO DAILY Calcium Acetate [Phoslo] 667 mg PO TID W/MEALS #90 capsule Cinacalcet [Sensipar] 30 mg PO DAILY Montelukast Sodium 10 mg PO BEDTIME Insulin Aspart [NovoLOG] See Protocol SUBCUT DAILY PRN PRN Reason: Glucose Management Promethazine Tab [Phenergan Tab] 25 mg PO Q6H PRN PRN Reason: Nausea Calcium Acetate [Phoslo] 667 mg PO WITH SNACKS Mupirocin 2% Oint [Bactroban 2% Oint] 1 applic TOP BID Calcitriol [Rocaltrol] 1 mcg PO DAILY #30 capsule Fluoxetine HCl 40 mg PO DAILY Cyproheptadine Tab [Periactin Tab] 4 mg PO BID W/MEALS Discontinued Insulin Glargine [Lantus] 30 unit SUBCUT BEDTIME Lisinopril 40 mg PO BID Ranitidine Tab [Zantac Tab] 150 mg PO TID HYDROcodone/ACETAMIN 10-325 [[place] 10-325] 1 tablet PO BID cephALEXin [Cephalexin] 500 mg PO BID Pantoprazole Tab [Protonix Tab] 40 mg PO DAILY - Follow Up or Referral - Forms/Instructions Instructions: How to Stop Smoking (GEN), Heart Healthy Diet (GEN), Cigarette Smoking and Your Health (GEN), Sternal Precautions (GEN) Additional Discharge Instructions: 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 Absent: scleral icterus - Respiratory Respiratory exam: Present: clear to auscultation bilaterally - Cardiovascular Cardiovascular exam: Present: regular rate and rhythm, other (chest incision clean, dressed.) - GI/Abdominal GI/Abdominal exam: Present: normal bowel sounds, soft. Absent: tenderness - Extremities Exam Extremities exam: Absent: edema - Neurological Exam Neurological exam: Present: alert, oriented X3 - Skin Skin exam: Present: warm, dry Discharge Results Procedures and tests throughout hospitalization: Pending Orders 08/13/16 13:01 Occult Blood, Stool Routine 08/17/16 16:42 Blood Culture Routine 08/19/16 01:25 Fresh Frozen Plasma IN AM Red Blood Cells Leuko Red IN AM Single Donor Platelets IN AM 08/22/16 04:00 XR chest 1V portable IN AM Basic Metabolic Panel IN AM Comp Blood Count Auto Diff IN AM Magnesium IN AM Labs on day of discharge: Labs from last 24 hours 08/21/16 08/21/16 08/21/16 04:45 04:45 04:23 WBC 24.7 H RBC 3.06 L Hgb 9.8 L Hct 30.2 L MCV 98.7 MCH 32 MCHC 32.5 RDW 19.9 H Plt Count 253 MPV 11.1 Neut % (Auto) 79.7 H Lymph % (Auto) 7.6 L [place] % (Auto) 8.8 Eos % (Auto) 0.0 Baso % (Auto) 0.2 Neut # (Auto) 19.7 H Lymph # (Auto) 1.9 [place] # (Auto) 2.2 H Eos # (Auto) 0.0 Baso # (Auto) 0.1 Total Counted 100 Immature Gran % 3.7 Nucleated RBC % 0.0 Immature Gran # 0.91 Segmented Neutrophils 83 Band Neutrophils 3 Lymphocytes 7 L Monocytes 7 Nucleated RBCs # 0.00 Platelet Estimate Normal Polychromasia Few Hypochromasia Slight Anisocytosis 2+ Microcytosis 1+ Macrocytosis 1+ Sodium 137 Potassium 4.4 Chloride 100 Carbon Dioxide 19 L Anion Gap 22.4 H BUN 39 H Creatinine 5.90 H GFR Calculation 12 BUN/Creatinine Ratio 6.00 Glucose 185 H POC Glucose 177 H Calculated Osmolality 286.8 Calcium 6.4 L Magnesium 2.6 H 08/20/16 08/20/16 08/20/16 23:48 20:18 16:06 WBC RBC Hgb Hct MCV MCH MCHC RDW Plt Count MPV Neut % (Auto) Lymph % (Auto) [place] % (Auto) Eos % (Auto) Baso % (Auto) Neut # (Auto) Lymph # (Auto) [place] # (Auto) Eos # (Auto) Baso # (Auto) Total Counted Immature Gran % Nucleated RBC % Immature Gran # Segmented Neutrophils Band Neutrophils Lymphocytes Monocytes Nucleated RBCs # Platelet Estimate Polychromasia Hypochromasia Anisocytosis Microcytosis Macrocytosis Sodium Potassium Chloride Carbon Dioxide Anion Gap BUN Creatinine GFR Calculation BUN/Creatinine Ratio Glucose POC Glucose 167 H 142 H 167 H Calculated Osmolality Calcium Magnesium Preliminary micro results at discharge 08/17/16 16:42 Blood Culture - Preliminary Blood No growth at 3 days 08/17/16 16:42 Blood Culture - Preliminary Blood No growth at 3 days DS: Provider Date of admission: 08/12/16 21:36 Primary care physician: Virginia Tobias Attending physician on admission: Sergio Matias Consults: 08/19/16 10:24 Consult to Occupational Therapy [CONS] Routine Reason for Occupational Therapy: Evaluate and Treat Start Therapy: Tomorrow 08/21/16 11:16 Consult to Case Mgmt/Social Srvs [CONS] Routine Reason for Case Mgmt/Social Srvs: LTAC Discharging clinician: Rossana Alves MD
== END 2016-08-21 16:20 | DRG 853 ==
LOC: N.ED 18:31 → SUATTDRO 21:36 → N.CVR 21:36 → N.CC 08-13 17:44 → N.5E 08-16 17:37 → N.TELEN 08-19 01:53 → N.CVR 08-19 10:17 → N.ICU 08-20 11:58
PROVIDERS: ATTEND Internal Medicine

== ENCOUNTER 2016-09-29 11:17 | Inpatient (IN) ==
[2016-09-29] MEDS ORDERED: ASPIRIN 325 MG TABLET PO STA (11:51)
--- NOTE | 2016-09-29 11:55 | EKG Report ---
Stationary ECG Study 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
--- NOTE | 2016-09-29 12:07 | XRay Report ---
Portable chest Date: 09/29/2016 Clinical history: Chest pain Comparison: 08/21/2016 Technique: Portable AP sitting chest Findings: Stable cardiomegaly with prior median sternotomy. Diffuse parenchymal findings are noted especially in the lower lung zones. Decreased parenchymal findings when compared to the previous exam. Stable mediastinum and osseous structures. Impression: Status post median sternotomy with persistent cardiomegaly. Reduced infiltration/edema/atelectasis in the lungs. Persistent findings which can be seen with residual mild CHF/pneumonitis with underlying chronic scarring. PROCEDURE INTERPRETED AT [facility] DEPARTMENT OF RADIOLOGY Final Report Signed by: Dr. Deb Bowers
[2016-09-29 12:25] LABS: Basophils # 0.1 10*3/uL (0.0-0.2); Basophils % 0.3 % (0.0-0.8); Eosinophils # 0.3 10*3/uL (0.0-0.87); Eosinophils % 1.1 % (0.00-10.9); Hematocrit 28.2 VOL% (35.7-47.0); Hemoglobin 9.2 GM/DL (12.0-16.0); Immature Granulocytes Absolute 0.22 #; Lymphocytes % 8.7 % (21.3-54.2); Mean Corpuscular HGB Conc 32.6 GM/DL (32-36); Mean Corpuscular Hemoglobin 30 PG (27-34); Mean Corpuscular Volume 91.6 FL (87-102); Mean Platelet Volume 10.2 FL (9.6-12.0); Monocytes # 2.2 10*3/uL (0.11-0.8); Monocytes % 9.4 % (1.7-12.7); Neutrophils # 18.4 10*3/uL (1.4-7.4); Neutrophils % 79.5 % (38.7-73.9); Platelet Count 247 T/CUMM (130-400); Red Blood Count 3.08 MC/CUMM (3.8-5.5); Red Cell Distribution Width 16.9 % (9.3-17.3)
[2016-09-29] MEDS ORDERED: ONDANSETRON 4 MG/2 ML VIAL IV STA (12:28)
[2016-09-29] MEDS ORDERED: ASPIRIN 325 MG TABLET ONE (12:30)
[2016-09-29] MEDS ORDERED: ONDANSETRON 4 MG/2 ML VIAL ONE (12:30)
[2016-09-29 12:51] LABS: Lymphocytes 4 % (20-55); Platelet Estimate Adequate; Segmented Neutrophils 89 % (50-85); Total Cells Counted 100
[2016-09-29 12:52] LABS: Hypersegmented Neutrophil 1+
[2016-09-29 12:53] LABS: Polychromasia Slight
[2016-09-29] MEDS ORDERED: VANCOMYCIN INJ 1,000 MG in SODIUM CHLORIDE 0.9% 250 ML IV STA (12:56)
[2016-09-29 13:03] LABS: Bilirubin,Total 1.8 MG/DL (0.2-1.0); Calcium 10.3 MG/DL (8.5-10.1); Osmolality,Calculated 269.1 MOS/KG (273-304); Potassium 3.5 MMOL/L (3.5-5.1)
--- NOTE | 2016-09-29 13:38 | CT Report ---
Exam: CT chest w con Date: 09/29/2016 12:57 PM Comparison: 08/13/2016 Indication: Recent chest surgery for infected thrombus Technique:[Sequential axial scans of the chest were obtained following the injection of 80 cc of Omnipaque 350. Coronal and sagittal 2-D reconstructions were obtained. Total DLP: 441.00.] Findings: The heart is enlarged with interval median sternotomy. Fluid density noted in the parasternal location. Previous exam demonstrated a 24 x 21 mm right atrial mass which has been resected. There is more diffuse fluid density in this location extending into the right pericardial location. This finding measures 21 mm in depth. No evidence of aortic dissection or definite pulmonary emboli. Limited contrast in the pulmonary arteries. Persistent mediastinal and hilar nodes which are borderline in size to minimally enlarged. The largest node measures 22 mm in length in the AP window location compared to 21 mm on the previous exam. Prior cholecystectomy with small hiatal hernia. Chronic appearing small lymph nodes. Residual diffuse groundglass opacities with reduced atelectasis. Previous exam demonstrated 57 x 34 x 31 mm pleural-based parenchymal finding in the lateral right upper lobe. There is a residual 31 x 21 x 21 mm finding in this location with decreased pleural thickening. 27 x 19 x 20 mm similar new finding laterally in the left upper lobe. Several smaller groundglass opacities are noted in both lungs with mosaic perfusion. Calcified granulomata are noted. Multiple calcific findings persist in the right breast. Impression: Interval median sternotomy with resection of the right atrial mass. Progressive fluid density extending from the skin surface to the right heart location which may be related to postoperative change. It is difficult to totally exclude an infectious process. Minimally progressive lymphadenopathy. Reduced but persistent pleural-based pathology in the right upper lobe with progressive similar findings in the left upper lobe. This finding could be related to pneumonia but it is difficult to exclude other pleural-based pathology. Limited contrast in the pulmonary arteries. Progressive mosaic perfusion which can be associated with obliterative small airway disease, occlusive vascular disease, patchy interstitial disease, etc. Continued follow-up CT may be helpful for further evaluation. This CT exam was performed using one or more the following dose reduction techniques: Automated exposure control, adjustment of the MA and/or KV according to patient size, or use of iterative reconstruction technique. PROCEDURE INTERPRETED AT [facility] DEPARTMENT OF RADIOLOGY Final Report Signed by: Dr. Deb Bowers
[2016-09-29] MEDS ORDERED: MORPHINE 2 MG/1 ML SYRINGE IV STA (13:48)
[2016-09-29] MEDS ORDERED: MORPHINE 2 MG/1 ML SYRINGE ONE (13:49)
[2016-09-29] MEDS ORDERED: VANCOMYCIN 1,000 MG VIAL ONE (13:50)
--- NOTE | 2016-09-29 14:18 | Emergency Department Note ---
Christiano Lee Gwan, am scribing for, and in the presence of, Valentin Pool MD 12:10. Yrn Lee Phillip K, MD, personally performed the services described in this documentation, ascribed by Bharati Alvarado in my presence, and it is both accurate and complete 415 . Arrival - Arrival Chief Complaint: Chest Pain Stated Complaint: chest pain,had open heart surgery Mode of Arrival: Wheelchair Limitations: No Limitations Source: Patient, Family (Mother ), Old Records Reviewed, RN Notes Reviewed Time Seen by Provider: 09/29/16 11:51 - History of Present Illness HPI Narrative: Patient is a 31 y/o black female who presents to the ED with a c/o chest pain with an onset today while at dialysis. Patient has end-stage renal disease due to TN and DM. She reported to [place] ED due to hematemesis and erosive esophagitis reported on scope. After culture was performed, it was resulted that pt had MRSA bacteremia. A further workup showed that pt had an atrial mass on echo and she underwent surgery to have mass resected. It was an organized clot, but was felt to be related to endocarditis. Patient stated that she has had a productive cough with yellow sputum, that her chest discomfort is worsened with movement-that it hurts to breathe, that she has been running a fever for the past 2 days and that she has an onset of N/V today. At time of triage, pt's temperature was 98.9. She confirmed that she was able to finish dialysis today before reporting to ED and that she has an IVC filter in place. She is followed by Dr. Douglass and Dr. Hager in [facility]. Onset (ago): hour(s) Consistency: constant Severity: moderate Date of Last Menstrual Period: HYST Allergies/Adverse Reactions: Allergies Allergy/AdvReac Type Severity Reaction Status Date / Time No Known Allergies Allergy Verified 08/12/16 18:53 Home Medications: Home Medications Medication Instructions Recorded Confirmed Type Acetaminophen Tab [Tylenol Tab] 650 mg PO Q6H PRN 09/15/16 09/29/16 History Albuterol/Ipratropium Neb [Duoneb] 3 ml RESP TX RT Q4H PRN 09/15/16 09/29/16 History Aspirin EC Tab 325 mg PO DAILY 09/15/16 09/29/16 History Atorvastatin Calcium 40 mg PO BEDTIME 09/15/16 09/29/16 History Calcitriol 2 mcg PO DAILY 09/15/16 09/29/16 History Calcium Acetate [Phoslo] 667 mg PO TID W/MEALS 09/15/16 09/29/16 History Cyclobenzaprine HCl 5 mg PO TID 09/15/16 09/29/16 History Fluoxetine HCl [Prozac] 40 mg PO DAILY 09/15/16 09/29/16 History Hydrocodone/Acetaminophen 1 each PO Q4H PRN 09/15/16 09/29/16 History [Hydrocodon-Acetaminophn 10-325] Insulin Glargine [Lantus] 15 unit SUBCUT DAILY 09/15/16 09/29/16 History Montelukast Sodium 10 mg PO BEDTIME 09/15/16 09/29/16 History Mupirocin 2% Oint [Bactroban 2% 1 applic TOP BID 09/15/16 09/29/16 History Oint] Pregabalin [Lyrica] 50 mg PO DAILY 09/15/16 09/29/16 History Lisinopril 20 mg PO DAILY 09/29/16 09/29/16 History Review of System - Review of System 12 point system: reviewed and no additional remarkable complaints except as stated - Review of System Constitutional: Absent: chills, fever Eyes: Absent: discharge Head/Ears/Nose/Throat: Absent: earache Respiratory: Present: as per HPI, other (shortness of breathe ). Absent: cough Cardiovascular: Present: as per HPI, chest pain Gastrointestinal: Present: as per HPI, nausea, vomiting. Absent: abdominal pain Genitourinary female: Absent: abnormal menses, dysuria Musculoskeletal: Absent: arm pain, back pain, leg pain, neck pain Skin: Absent: rash, lesions Neurological: Absent: headache, weakness Medical,Surgical,& Family Hx - Medical History Cardio: History of: CHF, Hypertension, PVD, Cardiovascular Problems (tumor) Psychological: History of: Depression Neurology: History of: Peripheral Neuropathy No history of: Seizures Endocrine: History of: Diabetes Mellitus (IDDM), Diabetes Mellitus (NIDDM), Dyslipidemia, Thyroid Disorder, Endocrine Problems (parathyroidectomy) Respiratory: History of: Asthma, Bronchitis, Pneumonia Renal: History of: Dialysis (M,W,F), Renal Failure (Dialysis right femoral fistula) Gastrointestinal: History of: GERD, Gastrointestinal Bleed (Erosive esophagitis July 2016) Musculoskeletal: History of: Amputation (right BKA), Musculoskeletal Problems ( right BKA) Hematology: History of: Anemia, Clotting Problems (HX of blood clot) Other: History of: MRSA, Miscellaneous Medical Problems (DVT with pulmonary embolism) - Surgical History Cardiac Surgeries: Sugical HX of: Cardiac Surgery (CABG) Patient Denies: Cardiac Catheterization Abdominal Surgeries: Surgical HX of: Abdominal Surgery, Cholecystectomy Reproductive Surgeries: Surgical HX of;: Breast Surgery (R BREAST FOR LUMP), Section (X1), Hysterectomy Orthopedic Surgeries: Surgical HX of;: Orthopedic Surgery (AMPUTEE R LOWER LEG) - Family History Family History: Reports;: Family Hypertension (MOTHER, FATHER) - Social History Smoking Status: Former smoker Frequency of Alcohol Use: None Type of Drug Use: None Exam Vital Signs: Vital Signs Temperature 99.6 F 09/29/16 14:14 Pulse Rate 112 H 09/29/16 14:14 Respiratory Rate 20 09/29/16 14:14 Blood Pressure 160/82 09/29/16 14:14 O2 Sat by Pulse Oximetry 96 09/29/16 14:14 - General General appearance: alert, in no apparent distress - Head Head exam: Present: atraumatic, normocephalic - Eye Eye exam: Present: normal appearance, PERRL, EOMI - ENT ENT exam: Present: normal oropharynx, mucous membranes moist, TM's normal bilaterally, normal external ear exam - Neck Neck exam: Present: full ROM, trachea midline. Absent: tenderness - Chest Chest inspection: Present: symmetric chest wall rise. Absent: tenderness - Respiratory Respiratory exam: Present: normal lung sounds bilaterally. Absent: respiratory distress - Cardiovascular Cardiovascular exam: Present: tachycardia. Absent: murmur - Abdominal Exam Abdominal exam: Present: soft, normal bowel sounds. Absent: distention, tenderness - Extremities Exam Extremities exam: Present: other (previous right BKA) - Back Exam Back exam: Present: full ROM. Absent: tenderness - Neurological Exam Neurological exam: Present: alert, oriented X3, CN II-XII intact. Absent: motor sensory deficit - Psychiatric Psychiatric exam: Present: normal affect, normal mood - Skin Skin exam: Present: warm, dry, intact, normal color Course Course Narrative: Patient discussed with the hospitalist who will admit and consult cardiovascular surgery. We obtain blood cultures in the ED and gave the patient 1 g of vancomycin. Patient did finish dialysis today. Results - Labs CBC & BMP: 09/29/16 12:15 09/29/16 12:15 Lab Results: I have reviewed the patients labs Labs: Laboratory Tests 09/29/16 12:15 WBC 23.0 H RBC 3.08 L Hgb 9.2 L Hct 28.2 L Plt Count 247 Neut % (Auto) 79.5 H Lymph % (Auto) 8.7 L Neut # (Auto) 18.4 H [place] # (Auto) 2.2 H Laboratory Tests 09/29/16 09/29/16 12:15 12:15 Total Counted 100 Segmented Neutrophils 89 H Lymphocytes 4 L Monocytes 7 Hypersegmented Neuts 1+ Platelet Estimate Adequate Polychromasia Slight D-Dimer, Quantitative 6.3 Laboratory Tests 09/29/16 12:15 Sodium 135 L Potassium 3.5 Chloride 94 L Carbon Dioxide 28 Anion Gap 16.5 H BUN 11 Creatinine 3.80 H BUN/Creatinine Ratio 2.00 L Glucose 124 H Calculated Osmolality 269.1 L Calcium 10.3 H Total Bilirubin 1.80 H AST 121 H ALT 130 H Alkaline Phosphatase 495 H Total Protein 9.0 H Albumin 3.0 L Globulin 6.0 H Albumin/Globulin Ratio 0.5 L Laboratory Tests 09/29/16 12:15 B-Natriuretic Peptide 631 H - EKG EKG results: interpreted by ERMD - Diagnostic Findings Procedure: Chest x-ray: report reviewed by me (Status post median sternotomy with persistent cardiomegaly. Reduced infiltration/edema/atelectasis in the lungs. Persistent findings which can be seen with residual mild CHF/pneumonia with underlying chronic scarring. ), CT: report reviewed by me (Chest: Interval median sternotomy with resection of the right atrial mass. Progressive fluid density extending from the skin surface to the right heart location which may be related to postoperative change. It is difficult to taotally exclude an infectious process. Minimally progressive lymphadenopathy. Reduced but persistent pleural-based pathology in the right upper lobe with progressive similar findings in the left upper lobe. This finding could be related to pneumonia but it is difficult to exclude other pleural-based pathology. Limited contrast in the pulmonary arteries. Progressive mosaic perfusion which can be assoicated with obliterative small airway disease, occlusive vascular disease, pathcy interstitial disease, etc. Continued follow-up CT may be helpful for further evaluation. ) Disposition Clinical Impression: Chest pain, Possible infection chest wall, Possible pneumonia, Insulin dependent diabetes mellitus, End stage renal disease on dialysis Case discussed with: patient, patient's family Disposition: Still a Patient Condition: Guarded Additional Instructions: Admit to the hospitalist for IV antibiotics and consultation.
--- NOTE | 2016-09-29 15:28 | Hospitalist History & Physical ---
<Nayla Loweryda - Last Filed: 09/29/16 15:29> Assessment and Plan (1) Chest pain Status: Acute Assessment and plan: Due to the patient's extensive cardiac history, we will obtain serial cardiac enzymes, echocardiogram, carotid Dopplers. We will also consult cardiothoracic surgery to evaluate. CT of the chest make mention of a possible we will could not exclude the presence of an infectious process to the right side of the heart. We will consult cardiothoracic surgery to evaluate for good measures. The patient has an obvious source of infection. Her white blood cells count are grossly elevated at 23. Blood cultures and broad-spectrum antibiotics were started in the ED. We will continue empiric antibiotic coverage. Current Visit: Yes (2) End stage renal disease on dialysis Status: Chronic Assessment and plan: We will consult nephrology, nephrology will manage during the clinical encounter. Current Visit: Yes (3) Insulin dependent diabetes mellitus Status: Chronic Assessment and plan: We will obtain hemoglobin A1c. We will start Accu-Cheks with sliding scale coverage and monitor. Current Visit: Yes History of Present Illness Chief complaint: Chest pain History of present illness: This is a chronically ill 31-year-old female that presented to the ED at [facility] this afternoon for evaluation of chest pain. The patient has a very complex medical history significant for end-stage renal disease, hypertension, congestive heart failure, depression, peripheral neuropathy, insulin-dependent diabetes mellitus, hyperparathyroidism, asthma, bronchitis, GERD, deep vein thrombosis, and pulmonary embolism. Patient has a surgical history significant for cholecystectomy, right breast lumpectomy, section, hysterectomy, and atrial mass resection and thrombectomy, and right lower extremity amputation. The patient reported the onset of symptoms during hemodialysis treatment on this morning. The patient reported a productive cough with yellow sputum and chest discomfort that had actually originated 2 days prior to presentation. In addition she reported onset of nausea and vomiting today and intermittent episodes of fever over the past couple of days. Despite her discomfort, the patient was able to complete her hemodialysis treatment. After completion she presented to the ED for further evaluation. The patient was assessed and evaluated at the time of presentation and labs were obtained. Hematology panel was obtained which reported a white blood cell count at 23.0, hemoglobin at 9.2, hematocrit at 28.2, platelet count at 247. Coagulation panels were obtained which reported d-dimer is 6.3. Chemistry panels were obtained which reported a sodium at 135, potassium at 3.5, chloride at 94, carbon dioxide at 28, anion gap is 16.5, BUN 11, creatinine at 3.80, glucose at 124, calculated osmolality at 269.1, calcium at 10.3, magnesium at 2.0, total bilirubin at 1.80, AST at 121, ALT at 135, alkaline phosphatase at 495, total protein 9.0 and albumin at 3.0. Cardiac enzymes were obtained which were essentially benign, troponin was noted at less than 0.015. BNP was noted at 631. Chest x-ray was obtained which reported status post obedience sternotomy with persistent cardiomegaly, reduced infiltration/edema/atelectasis in the lungs. Persistent findings can be seen with residual mild CHF/pneumonitis with underlying chronic scarring. Chest CT reported interval median sternotomy with resection of the right atrial mass. Progressive fluid density extending from the skin surface to the right heart location which may be related to postoperative change. It is difficult to totally exclude an infectious process. Minimally progressive lymphadenopathy. Reduced but persistent pleural -based pathology in the right upper lobe with progressive similar findings in the left upper lobe. This finding could be related to pneumonia but it is difficult to exclude other pleural-based pathology. Limited contrast in the pulmonary arteries.Progressive mosaic perfusion which can be associated with obliterative small airway disease, occlusive vascular disease, patchy interstitial disease, etc. Continued follow-up CT may be helpful for further evaluation. After further discussion with both Dr. Thacker and Dr. Harrison, the patient will be admitted to the hospitalist services for continuation of care. We will consult nephrology and cardiothoracic surgery to evaluate, treat, and follow during the clinical encounter. Home Medications Medication Instructions Recorded Confirmed Type Acetaminophen Tab [Tylenol Tab] 650 mg PO Q6H PRN 09/15/16 09/29/16 History Albuterol/Ipratropium Neb [Duoneb] 3 ml RESP TX RT Q4H PRN 09/15/16 09/29/16 History Aspirin EC Tab 325 mg PO DAILY 09/15/16 09/29/16 History Atorvastatin Calcium 40 mg PO BEDTIME 09/15/16 09/29/16 History Calcitriol 2 mcg PO DAILY 09/15/16 09/29/16 History Calcium Acetate [Phoslo] 667 mg PO TID W/MEALS 09/15/16 09/29/16 History Cyclobenzaprine HCl 5 mg PO TID 09/15/16 09/29/16 History Fluoxetine HCl [Prozac] 40 mg PO DAILY 09/15/16 09/29/16 History Hydrocodone/Acetaminophen 1 each PO Q4H PRN 09/15/16 09/29/16 History [Hydrocodon-Acetaminophn 10-325] Insulin Glargine [Lantus] 15 unit SUBCUT DAILY 09/15/16 09/29/16 History Montelukast Sodium 10 mg PO BEDTIME 09/15/16 09/29/16 History Mupirocin 2% Oint [Bactroban 2% 1 applic TOP BID 09/15/16 09/29/16 History Oint] Pregabalin [Lyrica] 50 mg PO DAILY 09/15/16 09/29/16 History Cyproheptadine Tab [Periactin Tab] 4 mg PO BID 09/29/16 09/29/16 History Docusate Sodium 100 mg PO BID 09/29/16 09/29/16 History Lisinopril 40 mg PO DAILY 09/29/16 09/29/16 History Ranitidine Tab [Zantac Tab] 150 mg PO BID 09/29/16 09/29/16 History oxyCODONE ER [OxyCONTIN] 10 mg PO BID 09/29/16 09/29/16 History Allergies Allergy/AdvReac Type Severity Reaction Status Date / Time No Known Allergies Allergy Verified 08/12/16 18:53 Medical,Surgical,& Family Hx - Medical History Cardio: History of: CHF, Hypertension, PVD, Cardiovascular Problems (Atrial Mass removed 09/19/2016) Psychological: History of: Depression Neurology: History of: Peripheral Neuropathy No history of: Seizures Endocrine: History of: Diabetes Mellitus (IDDM), Diabetes Mellitus (NIDDM), Dyslipidemia, Thyroid Disorder, Endocrine Problems (parathyroidectomy) Respiratory: History of: Asthma, Bronchitis, Pulmonary Hypertension (2005), Pneumonia Renal: History of: Dialysis (M,W,F), Renal Failure (Dialysis right femoral fistula) Gastrointestinal: History of: GERD, Gastrointestinal Bleed (Erosive esophagitis July 2016), GI Problems (Hiatal Hernia) Musculoskeletal: History of: Amputation (Right BKA), Musculoskeletal Problems ( right BKA) Hematology: History of: Anemia, Clotting Problems (Blood clot in bilateral legs 2005) Other: History of: MRSA, Miscellaneous Medical Problems (DVT with pulmonary embolism) - Surgical History Cardiac Surgeries: Sugical HX of: Cardiac Surgery (CABG) Patient Denies: Cardiac Catheterization Abdominal Surgeries: Surgical HX of: Abdominal Surgery, Cholecystectomy, EGD Reproductive Surgeries: Surgical HX of;: Breast Surgery (R BREAST FOR LUMP), Section (X1), Hysterectomy Orthopedic Surgeries: Surgical HX of;: Orthopedic Surgery (AMPUTEE R LOWER LEG) - Family History Family History: Reports;: Family Hypertension (MOTHER, FATHER) - Social History Smoking Status: Former smoker Frequency of Alcohol Use: None Type of Drug Use: None 12 point system: reviewed and no additional remarkable complaints except as stated Exam - Constitutional Vitals: Period Temp Pulse Resp BP Sys/Pineda Pulse Ox Last 24 Hr 98.7 F-99.6 F 110-120 18-22 146-179/77-98 94-99 General appearance: normal weight, mild distress - Head Head exam: Present: normal inspection, normocephalic - Eye Eye exam: Present: EOMI Pupils: Present: GARIMA, normal accommodation - ENT ENT exam: Present: normal exam, normal external ear exam, normal oropharynx - Neck Neck exam: Present: normal inspection. Absent: lymphadenopathy, meningismus, thyromegaly - Respiratory Respiratory exam: Present: chest wall tenderness (Status post atrial mass resection.) - Cardiovascular Cardiovascular exam: Present: bradycardia, irregular rhythm, regular rate and rhythm. Absent: carotid bruit, diastolic murmur, gallop, JVD, rubs, systolic murmur - GI/Abdominal GI/Abdominal exam: Present: normal bowel sounds, soft - Extremities Exam Extremities exam: Present: other (Right below the knee amputation) - Back Exam Back exam: Present: normal inspection - Neurological Exam Neurological exam: Present: alert, oriented X3, CN II-XII intact - Psychiatric Psychiatric exam: Present: flat affect - Skin Skin exam: Present: normal color, warm, dry Results - Labs CBC & BMP: 09/29/16 12:15 09/29/16 12:15 Lab Results: I have reviewed the past 24 hour labs <Juan Pablo Harrison - Last Filed: 09/29/16 17:07> History of Present Illness History of present illness: Patient seen and examined independently of ZEN Lowery, agree with history, assessment and plan as documented. 31 y/o AAF with multiple medical problems including ESRD, DM and recent atrial mass removal presents with chest discomfort and nausea. She has been experiencing fever, chills, nausea and vomiting for a couple of days. In the ED she was noted to have significant leukocytosis and elevation of lfts. Treating with vancomycin for now. She reports that she only makes urine sporadically. CT chest with fluid density which could be related to post-op change but infection not ruled out. On exam, no erythema or redness to chest. Exam - Constitutional Vitals: Period Temp Pulse Resp BP Sys/Pineda Pulse Ox Last 24 Hr 98.7 F-99.6 F 110-120 18-22 146-179/77-98 94-99 Results - Labs CBC & BMP: 09/29/16 12:15 09/29/16 12:15
--- NOTE | 2016-09-29 15:40 | EKG Report ---
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
--- NOTE | 2016-09-29 16:29 | Nephrology Consult Note ---
History of Present Illness Chief complaint: Pt admitted for "chest pain". Referred for ESRD on CHD. Last HD today. History of present illness: Ms. Alfonso is a 31 year old female who had onset of N/V on dialysis. The chest pain mentioned in chart is not her CC. This she describes as similar to the chest discomfort she feels after doing physical therapy. She states 2 days of feeling hot and chills. Tmax measured at home 99.4. She states they told her she vomited feces on dialysis and that was the reason she was sent to ER. She reports a BM last night but was very hard. Recent history signficant for CT surgery early August for organizing atrial thrombus. She was treated and discharged home last Wednesday. CT scan reviewed. Two pleural based masses, one on right unchanged from previous, new similar finding in left lung. WBC >23k. Tolerated full hemodialysis treatment today. Home Medications Medication Instructions Recorded Confirmed Type Acetaminophen Tab [Tylenol Tab] 650 mg PO Q6H PRN 09/15/16 09/29/16 History Albuterol/Ipratropium Neb [Duoneb] 3 ml RESP TX RT Q4H PRN 09/15/16 09/29/16 History Aspirin EC Tab 325 mg PO DAILY 09/15/16 09/29/16 History Atorvastatin Calcium 40 mg PO BEDTIME 09/15/16 09/29/16 History Calcitriol 2 mcg PO DAILY 09/15/16 09/29/16 History Calcium Acetate [Phoslo] 667 mg PO TID W/MEALS 09/15/16 09/29/16 History Cyclobenzaprine HCl 5 mg PO TID 09/15/16 09/29/16 History Fluoxetine HCl [Prozac] 40 mg PO DAILY 09/15/16 09/29/16 History Hydrocodone/Acetaminophen 1 each PO Q4H PRN 09/15/16 09/29/16 History [Hydrocodon-Acetaminophn 10-325] Insulin Glargine [Lantus] 15 unit SUBCUT DAILY 09/15/16 09/29/16 History Montelukast Sodium 10 mg PO BEDTIME 09/15/16 09/29/16 History Mupirocin 2% Oint [Bactroban 2% 1 applic TOP BID 09/15/16 09/29/16 History Oint] Pregabalin [Lyrica] 50 mg PO DAILY 09/15/16 09/29/16 History Cyproheptadine Tab [Periactin Tab] 4 mg PO BID 09/29/16 09/29/16 History Docusate Sodium 100 mg PO BID 09/29/16 09/29/16 History Lisinopril 40 mg PO DAILY 09/29/16 09/29/16 History Ranitidine Tab [Zantac Tab] 150 mg PO BID 09/29/16 09/29/16 History oxyCODONE ER [OxyCONTIN] 10 mg PO BID 09/29/16 09/29/16 History Allergies Allergy/AdvReac Type Severity Reaction Status Date / Time No Known Allergies Allergy Verified 08/12/16 18:53 Medical,Surgical,& Family Hx - Medical History Cardio: History of: CHF, Hypertension, PVD, Cardiovascular Problems (Atrial Mass removed 09/19/2016) Psychological: History of: Depression Neurology: History of: Peripheral Neuropathy No history of: Seizures Endocrine: History of: Diabetes Mellitus (IDDM), Diabetes Mellitus (NIDDM), Dyslipidemia, Thyroid Disorder, Endocrine Problems (parathyroidectomy) Respiratory: History of: Asthma, Bronchitis, Pulmonary Hypertension (2005), Pneumonia Renal: History of: Dialysis (M,W,F), Renal Failure (Dialysis right femoral fistula) Gastrointestinal: History of: GERD, Gastrointestinal Bleed (Erosive esophagitis July 2016), GI Problems (Hiatal Hernia) Musculoskeletal: History of: Amputation (Right BKA), Musculoskeletal Problems ( right BKA) Hematology: History of: Anemia, Clotting Problems (Blood clot in bilateral legs 2005) Other: History of: MRSA, Miscellaneous Medical Problems (DVT with pulmonary embolism) - Surgical History Cardiac Surgeries: Sugical HX of: Cardiac Surgery (CABG) Patient Denies: Cardiac Catheterization Abdominal Surgeries: Surgical HX of: Abdominal Surgery, Cholecystectomy, EGD Reproductive Surgeries: Surgical HX of;: Breast Surgery (R BREAST FOR LUMP), Section (X1), Hysterectomy Orthopedic Surgeries: Surgical HX of;: Orthopedic Surgery (AMPUTEE R LOWER LEG) - Family History Family History: Reports;: Family Hypertension (MOTHER, FATHER) - Social History Smoking Status: Former smoker Frequency of Alcohol Use: None Type of Drug Use: None Exam - Vital Signs Vital signs: Period Temp Pulse Resp BP Sys/Pineda Pulse Ox Last 24 Hr 98.7 F-99.6 F 110-120 18-22 146-179/77-98 94-99 - General Appearance General appearance: well-developed, obese EENT: ATNC, PERRL, mucous membranes moist, hearing intact, vision intact Neck: no JVD, no thyromegaly Respiratory: no kyphosis, no scoliosis, clear Cardiology: no murmurs, no rub, no edema Gastrointestinal: normoactive bowel sounds, no tenderness, no guarding Integumentary: no rash, warm and dry Neurologic: no focal deficit, no asterixis, alert and oriented x3 Results - Labs CBC & BMP: 09/29/16 12:15 09/29/16 12:15 Assessment and Plan (1) Nausea and vomiting Problem details: Emesis of fecal material per nursing staff. Rule out obstruction. Status: Acute Assessment and plan: GI consult. KUB rule out SBO. Current Visit: Yes (2) Leukocytosis Problem details: Repeat another blood culture. Check radom vanc trough in am. Status: Acute Assessment and plan: Redose 1gm vancomycin IVPB if random level <15 tomorrow. Current Visit: No (3) End stage renal disease on dialysis Problem details: No acute indication for HD at this time. Status: Chronic Assessment and plan: Next scheduled HD on . Current Visit: No (4) History of pulmonary embolism Status: Chronic Current Visit: No (5) Atrial mass Status: Resolved Current Visit: No
[2016-09-29] MEDS ORDERED: ACETAMINOPHEN 325 MG TABLET PO PRN (16:37)
[2016-09-29] MEDS ORDERED: ALBUTEROL/IPRATROPIUM 3 ML NEB RESP TX PRN (16:37)
[2016-09-29] MEDS ORDERED: DEXTROSE 50% 25 GM/50 ML VIAL IV PRN (17:07)
[2016-09-29] MEDS ORDERED: GLUCAGON 1 MG VIAL IM PRN (17:07)
--- NOTE | 2016-09-29 17:19 | XRay Report ---
Referring Physician: Zeb Mabry Exam: XR KUB Date: September 29, 2016 at 5:12 PM Reason: Emesis of fecal material Comparison: Abdomen 2 views August 12, 2016 Findings: There is no evidence of bowel obstruction or free air. However, there is prominent stool within the colon, suggesting constipation. Surgical clips are seen within the right upper abdomen and are likely related to cholecystectomy. An IVC filter is again in place at the L2-L3 level. No acute osseous process is seen. Impression: There is no evidence of bowel obstruction. However, there is prominent stool within the colon, which is concerning for constipation. PROCEDURE INTERPRETED AT [facility] DEPARTMENT OF RADIOLOGY Final Report Signed by: Dr. Ruslan Alicia
[2016-09-29] MEDS: MORPHINE 2 MG/1 ML SYRINGE IV PRN ×2 (17:32→20:33)
[2016-09-29] MEDS: CALCIUM ACETATE 667 MG CAPSULE PO SCH (17:33)
[2016-09-29] MEDS: DOCUSATE SODIUM 100 MG CAPSULE PO SCH (20:36)
[2016-09-29] MEDS: MONTELUKAST 10 MG TABLET PO SCH (20:36)
[2016-09-29] MEDS: INSULIN LISPRO 100 UNIT/ML SUBCUT SCH (21:54)
[2016-09-30] MEDS: MORPHINE 2 MG/1 ML SYRINGE IV PRN ×3 (01:47→11:34)
[2016-09-30 05:00] LABS: Basophils % 0.2 % (0.0-0.8); Eosinophils # 0.1 10*3/uL (0.0-0.87); Eosinophils % 0.7 % (0.00-10.9); Hematocrit 23.2 VOL% (35.7-47.0); Hemoglobin 7.5 GM/DL (12.0-16.0); Immature Granulocytes % 0.9 %; Immature Granulocytes Absolute 0.17 #; Lymphocytes # 1.9 10*3/uL (1.4-4.0); Lymphocytes % 10.3 % (21.3-54.2); Mean Corpuscular HGB Conc 32.3 GM/DL (32-36); Mean Corpuscular Hemoglobin 30 PG (27-34); Mean Corpuscular Volume 91.3 FL (87-102); Mean Platelet Volume 10.5 FL (9.6-12.0); Monocytes # 2.4 10*3/uL (0.11-0.8); Monocytes % 12.8 % (1.7-12.7); Neutrophils # 14.1 10*3/uL (1.4-7.4); Neutrophils % 75.1 % (38.7-73.9); Platelet Count 227 T/CUMM (130-400); Red Blood Count 2.54 MC/CUMM (3.8-5.5); Red Cell Distribution Width 16.8 % (9.3-17.3); White Blood Count 18.8 T/CUMM (4-12)
[2016-09-30 05:33] LABS: Albumin 2.4 G/DL (3.4-5.0); Bilirubin,Direct 0.5 MG/DL (0.0-0.20); Bilirubin,Indirect 1.2 MG/DL (0.0-1.0); Bilirubin,Total 1.7 MG/DL (0.2-1.0); Total Protein 7.6 G/DL (6.4-8.3)
[2016-09-30 06:23] LABS: Albumin 2.5 G/DL (3.4-5.0); Calcium 8.9 MG/DL (8.5-10.1); Osmolality,Calculated 274.2 MOS/KG (273-304); Potassium 3.9 MMOL/L (3.5-5.1)
--- NOTE | 2016-09-30 06:34 | EKG Report ---
Stationary ECG Study 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
--- NOTE | 2016-09-30 09:29 | Cardiothoracic Consult ---
Assessment and Plan - Time spent with patient Time spent with patient: Greater than 30 minutes (1) Chest pain Status: Acute Assessment and plan: 31-year-old female 1 month status post right atrial organized thrombus removal. The patient does not have any signs or symptoms of sternal wound infection. Wound is well-healing and the bone is intact with no fluid collection is noted. There is no drainage noted. I do not expect this lateral chest/shoulder pain is related to her surgery and I do not expect her to have wound infection at this moment. I will continue giving her antibiotics given that she has positive blood cultures. Current Visit: Yes History of Present Illness - Data of Consult Patient: known to practice within the last 3 years Consult date: 09/30/16 - Consult Narrative Reason for consult: chest pain post cardiac surgery History of present illness: Ms. Alfonso is a 31 year old female 1 month status post right atrial organized thrombus evacuation. The patient did well and she was discharged in good condition. She returned to the ER yesterday with some chest pain. The chest pain is mainly on her lateral left side not brought in by any activity. She also received a CT scan which showed good opposition of the sternal bone and good apposition of the wound with no fluid collections noted. CC: Juan Pablo Harrison MD - Home Medications and Allergies Home Medications: Home Medications Medication Instructions Recorded Confirmed Type Acetaminophen Tab [Tylenol Tab] 650 mg PO Q6H PRN 09/15/16 09/29/16 History Albuterol/Ipratropium Neb [Duoneb] 3 ml RESP TX RT Q4H PRN 09/15/16 09/29/16 History Aspirin EC Tab 325 mg PO DAILY 09/15/16 09/29/16 History Atorvastatin Calcium 40 mg PO BEDTIME 09/15/16 09/29/16 History Calcitriol 2 mcg PO DAILY 09/15/16 09/29/16 History Calcium Acetate [Phoslo] 667 mg PO TID W/MEALS 09/15/16 09/29/16 History Cyclobenzaprine HCl 5 mg PO TID 09/15/16 09/29/16 History Fluoxetine HCl [Prozac] 40 mg PO DAILY 09/15/16 09/29/16 History Hydrocodone/Acetaminophen 1 each PO Q4H PRN 09/15/16 09/29/16 History [Hydrocodon-Acetaminophn 10-325] Insulin Glargine [Lantus] 15 unit SUBCUT DAILY 09/15/16 09/29/16 History Montelukast Sodium 10 mg PO BEDTIME 09/15/16 09/29/16 History Mupirocin 2% Oint [Bactroban 2% 1 applic TOP BID 09/15/16 09/29/16 History Oint] Pregabalin [Lyrica] 50 mg PO DAILY 09/15/16 09/29/16 History Cyproheptadine Tab [Periactin Tab] 4 mg PO BID 09/29/16 09/29/16 History Docusate Sodium 100 mg PO BID 09/29/16 09/29/16 History Lisinopril 40 mg PO DAILY 09/29/16 09/29/16 History Ranitidine Tab [Zantac Tab] 150 mg PO BID 09/29/16 09/29/16 History oxyCODONE ER [OxyCONTIN] 10 mg PO BID 09/29/16 09/29/16 History Allergies/Adverse Reactions: Allergies Allergy/AdvReac Type Severity Reaction Status Date / Time No Known Allergies Allergy Verified 08/12/16 18:53 12 point system: reviewed and no additional remarkable complaints except as stated (HPI) Medical,Surgical,& Family Hx - Medical History Cardio: History of: CHF, Hypertension, PVD, Cardiovascular Problems (Atrial Mass removed 09/19/2016) Psychological: History of: Depression Neurology: History of: Peripheral Neuropathy No history of: Seizures Endocrine: History of: Diabetes Mellitus (IDDM), Diabetes Mellitus (NIDDM), Dyslipidemia, Thyroid Disorder, Endocrine Problems (parathyroidectomy) Respiratory: History of: Asthma, Bronchitis, Pulmonary Hypertension (2005), Pneumonia Renal: History of: Dialysis (M,W,F), Renal Failure (Dialysis right femoral fistula) Gastrointestinal: History of: GERD, Gastrointestinal Bleed (Erosive esophagitis July 2016), GI Problems (Hiatal Hernia) Musculoskeletal: History of: Amputation (Right BKA), Musculoskeletal Problems ( right BKA) Hematology: History of: Anemia, Clotting Problems (Blood clot in bilateral legs 2005) Other: History of: MRSA, Miscellaneous Medical Problems (DVT with pulmonary embolism) - Surgical History Cardiac Surgeries: Sugical HX of: Cardiac Surgery (CABG) Patient Denies: Cardiac Catheterization Abdominal Surgeries: Surgical HX of: Abdominal Surgery, Cholecystectomy, EGD Reproductive Surgeries: Surgical HX of;: Breast Surgery (R BREAST FOR LUMP), Section (X1), Hysterectomy Orthopedic Surgeries: Surgical HX of;: Orthopedic Surgery (AMPUTEE R LOWER LEG) - Family History Family History: Reports;: Family Hypertension (MOTHER, FATHER) - Social History Smoking Status: Former smoker Frequency of Alcohol Use: None Type of Drug Use: None Physical Examination Vital Signs Temp Pulse Resp BP Pulse Ox 98.8 F 112 H 18 155/82 94 L 09/29/16 11:21 09/29/16 11:21 09/29/16 11:21 09/29/16 11:21 09/29/16 11:21 General: Present: Appears Well HEENT: Present: PERRL Neck: Present: Supple Neck Cardiac: Present: Reg Rate and Rhythm Lungs: Present: Decreased Breath Sounds Neuro: Present: Cranial Nerve 2-12 Intact Abdomen: Present: Soft, Active Bowel Sounds Result/EKG - Labs CBC & BMP: 09/30/16 04:31 09/30/16 04:31 Labs: Laboratory Results - last 24 hr 09/29/16 09/29/16 09/29/16 12:15 12:15 12:15 WBC RBC Hgb Hct MCV MCH MCHC RDW Plt Count MPV Neut % (Auto) Lymph % (Auto) [place] % (Auto) Eos % (Auto) Baso % (Auto) Neut # (Auto) Lymph # (Auto) [place] # (Auto) Eos # (Auto) Baso # (Auto) Total Counted Immature Gran % Nucleated RBC % Immature Gran # Segmented Neutrophils Lymphocytes Monocytes Nucleated RBCs # Hypersegmented Neuts Platelet Estimate Polychromasia ESR Westergren D-Dimer, Quantitative 6.3 Sodium 135 L Potassium 3.5 Chloride 94 L Carbon Dioxide 28 Anion Gap 16.5 H BUN 11 Creatinine 3.80 H GFR Calculation 20 BUN/Creatinine Ratio 2.00 L Glucose 124 H POC Glucose Calculated Osmolality 269.1 L Calcium 10.3 H Phosphorus Magnesium 2.0 Total Bilirubin 1.80 H Direct Bilirubin Indirect Bilirubin AST 121 H ALT 130 H Alkaline Phosphatase 495 H Troponin I C-Reactive Protein B-Natriuretic Peptide 631 H Total Protein 9.0 H Albumin 3.0 L Globulin 6.0 H Albumin/Globulin Ratio 0.5 L Amylase Lipase Random Vancomycin 09/29/16 09/29/16 09/29/16 12:15 12:15 15:36 WBC 23.0 H RBC 3.08 L Hgb 9.2 L Hct 28.2 L MCV 91.6 MCH 30 MCHC 32.6 RDW 16.9 Plt Count 247 MPV 10.2 Neut % (Auto) 79.5 H Lymph % (Auto) 8.7 L [place] % (Auto) 9.4 Eos % (Auto) 1.1 Baso % (Auto) 0.3 Neut # (Auto) 18.4 H Lymph # (Auto) 2.0 [place] # (Auto) 2.2 H Eos # (Auto) 0.3 Baso # (Auto) 0.1 Total Counted 100 Immature Gran % 1.0 Nucleated RBC % 0.0 Immature Gran # 0.22 Segmented Neutrophils 89 H Lymphocytes 4 L Monocytes 7 Nucleated RBCs # 0.00 Hypersegmented Neuts 1+ Platelet Estimate Adequate Polychromasia Slight ESR Westergren D-Dimer, Quantitative Sodium Potassium Chloride Carbon Dioxide Anion Gap BUN Creatinine GFR Calculation BUN/Creatinine Ratio Glucose POC Glucose 170 H Calculated Osmolality Calcium Phosphorus Magnesium Total Bilirubin Direct Bilirubin Indirect Bilirubin AST ALT Alkaline Phosphatase Troponin I < 0.015 C-Reactive Protein B-Natriuretic Peptide Total Protein Albumin Globulin Albumin/Globulin Ratio Amylase Lipase Random Vancomycin 09/29/16 09/29/16 09/29/16 15:57 15:57 19:01 WBC RBC Hgb Hct MCV MCH MCHC RDW Plt Count MPV Neut % (Auto) Lymph % (Auto) [place] % (Auto) Eos % (Auto) Baso % (Auto) Neut # (Auto) Lymph # (Auto) [place] # (Auto) Eos # (Auto) Baso # (Auto) Total Counted Immature Gran % Nucleated RBC % Immature Gran # Segmented Neutrophils Lymphocytes Monocytes Nucleated RBCs # Hypersegmented Neuts Platelet Estimate Polychromasia ESR Westergren D-Dimer, Quantitative Sodium Potassium Chloride Carbon Dioxide Anion Gap BUN Creatinine GFR Calculation BUN/Creatinine Ratio Glucose POC Glucose Calculated Osmolality Calcium Phosphorus Magnesium Total Bilirubin Direct Bilirubin Indirect Bilirubin AST ALT Alkaline Phosphatase Troponin I < 0.015 < 0.015 C-Reactive Protein B-Natriuretic Peptide Total Protein Albumin Globulin Albumin/Globulin Ratio Amylase 55 Lipase 147.0 Random Vancomycin 09/29/16 09/29/16 09/30/16 20:00 21:53 04:31 WBC RBC Hgb Hct MCV MCH MCHC RDW Plt Count MPV Neut % (Auto) Lymph % (Auto) [place] % (Auto) Eos % (Auto) Baso % (Auto) Neut # (Auto) Lymph # (Auto) [place] # (Auto) Eos # (Auto) Baso # (Auto) Total Counted Immature Gran % Nucleated RBC % Immature Gran # Segmented Neutrophils Lymphocytes Monocytes Nucleated RBCs # Hypersegmented Neuts Platelet Estimate Polychromasia ESR Westergren D-Dimer, Quantitative 3.2 Sodium Potassium Chloride Carbon Dioxide Anion Gap BUN Creatinine GFR Calculation BUN/Creatinine Ratio Glucose POC Glucose 129 H Calculated Osmolality Calcium Phosphorus Magnesium Total Bilirubin Direct Bilirubin Indirect Bilirubin AST ALT Alkaline Phosphatase Troponin I C-Reactive Protein B-Natriuretic Peptide Total Protein Albumin Globulin Albumin/Globulin Ratio Amylase Lipase Random Vancomycin 21.0 09/30/16 09/30/16 09/30/16 04:31 04:31 04:31 WBC 18.8 H RBC 2.54 L Hgb 7.5 L Hct 23.2 L MCV 91.3 MCH 30 MCHC 32.3 RDW 16.8 Plt Count 227 MPV 10.5 Neut % (Auto) 75.1 H Lymph % (Auto) 10.3 L [place] % (Auto) 12.8 H Eos % (Auto) 0.7 Baso % (Auto) 0.2 Neut # (Auto) 14.1 H Lymph # (Auto) 1.9 [place] # (Auto) 2.4 H Eos # (Auto) 0.1 Baso # (Auto) 0.0 Total Counted Immature Gran % 0.9 Nucleated RBC % 0.0 Immature Gran # 0.17 Segmented Neutrophils Lymphocytes Monocytes Nucleated RBCs # 0.00 Hypersegmented Neuts Platelet Estimate Polychromasia ESR Westergren D-Dimer, Quantitative Sodium 134 L Potassium 3.9 Chloride 94 L Carbon Dioxide 30 Anion Gap 13.9 BUN 17 Creatinine 5.50 H GFR Calculation 13 BUN/Creatinine Ratio 3.00 L Glucose 193 H POC Glucose Calculated Osmolality 274.2 Calcium 8.9 Phosphorus 3.0 Magnesium Total Bilirubin 1.70 H Direct Bilirubin 0.50 H Indirect Bilirubin 1.2 H AST 72 H ALT 98 H Alkaline Phosphatase 396 H Troponin I C-Reactive Protein B-Natriuretic Peptide Total Protein 7.6 Albumin 2.4 L 2.5 L Globulin Albumin/Globulin Ratio Amylase Lipase Random Vancomycin 09/30/16 09/30/16 09/30/16 04:31 04:31 07:01 WBC RBC Hgb Hct MCV MCH MCHC RDW Plt Count MPV Neut % (Auto) Lymph % (Auto) [place] % (Auto) Eos % (Auto) Baso % (Auto) Neut # (Auto) Lymph # (Auto) [place] # (Auto) Eos # (Auto) Baso # (Auto) Total Counted Immature Gran % Nucleated RBC % Immature Gran # Segmented Neutrophils Lymphocytes Monocytes Nucleated RBCs # Hypersegmented Neuts Platelet Estimate Polychromasia ESR Westergren 119 H D-Dimer, Quantitative Sodium Potassium Chloride Carbon Dioxide Anion Gap BUN Creatinine GFR Calculation BUN/Creatinine Ratio Glucose POC Glucose 248 H Calculated Osmolality Calcium Phosphorus Magnesium Total Bilirubin Direct Bilirubin Indirect Bilirubin AST ALT Alkaline Phosphatase Troponin I C-Reactive Protein 21.00 H B-Natriuretic Peptide Total Protein Albumin Globulin Albumin/Globulin Ratio Amylase Lipase Random Vancomycin
--- NOTE | 2016-09-30 09:55 | Nephrology Progress Note ---
Nephrology - PN: Subj Interval history: Ms Alfonso states she had a rough night with the chest pain. KUB with large amount of stool. Blood cultures with GPCs in 2/2 bottles. Vancomycin random trough this am therapeutic at 21. WBC improved. Afebrile overnight. Exam (PN)-Nephrology - Vital Signs Vital signs: Period Temp Pulse Resp BP Sys/Pineda Pulse Ox Last 24 Hr 98.7 F-99.7 F 104-120 18-22 141-179/67-98 94-99 - General Appearance General appearance: obese, chronically ill EENT: ATNC, PERRL, mucous membranes moist, hearing intact, vision intact Neck: no JVD, no thyromegaly Respiratory: no kyphosis, clear Cardiology: no murmurs, no rub Gastrointestinal: normoactive bowel sounds, no tenderness Integumentary: no rash, warm and dry Neurologic: no focal deficit, no asterixis, alert and oriented x3 Musculoskeletal: no deformities, no erythema Psychiatric: mood/affect appropriate, cooperative - Lab 09/30/16 04:31 09/30/16 04:31 Most recent lab results Calcium 8.9 MG/DL (8.5-10.1) 09/30/16 04:31 Phosphorus 3.0 MG/DL (2.5-4.9) 09/30/16 04:31 Magnesium 2.0 MG/DL (1.8-2.4) 09/29/16 12:15 Assessment and Plan (1) Nausea and vomiting Problem details: Emesis of fecal material per nursing staff. Rule out obstruction. Status: Acute Assessment and plan: start miralax daily. Current Visit: Yes (2) Leukocytosis Problem details: improved. Status: Acute Assessment and plan: Redose 1gm vancomycin IVPB if random level <15 tomorrow. Consult ID. Echo ordered to rule out endocarditis. Current Visit: No (3) End stage renal disease on dialysis Problem details: No acute indication for HD at this time. Status: Chronic Assessment and plan: Next scheduled HD on . Current Visit: No (4) History of pulmonary embolism Status: Chronic Current Visit: No
--- NOTE | 2016-09-30 11:28 | Gastrointestinal Consult Note ---
Assessment and Plan (1) Atypical chest pain Status: Acute Assessment and plan: 09/30-2 day history of chest pain without precipitating or alleviating factors. Associated with nausea and vomiting 1. Recent EGD findings noted as below. Noted to have drop in hemoglobin from admission. No overt bleeding. Check stools for occult blood. Plan an addendum to followed by Dr. Matos. Current Visit: Yes History of Present Illness Chief complaint: Atypical chest pain, nausea vomiting History of present illness: Ms. Alfonso is a 31 year old female who was admitted to the hospital with onset of chest pain, nausea vomiting. Patient has a prior history of end-stage renal disease with hemodialysis, hypertension, CHF, peripheral neuropathy, diabetes mellitus, and depression. Patient states that 2 days ago she woke up not feeling well with some vague symptoms of weakness and mild chest pain. She says that this continued throughout the afternoon however the pain continued to worsen in severity. States the pain is localized in her left upper chest and reports no radiation from the site. She states while she was in dialysis on yesterday she became nauseated and began vomiting. She states that she vomited up some dark green emesis that staff states they felt was possibly stool. She she denies any coffee-ground or hematemesis associated with this. She denies any odynophagia or dysphagia. Denies any GERD or abdominal bloating or belching. She denies any melena or hematochezia. She says she began came to the ER for further evaluation. She was discharged from our facility approximately 5 weeks ago after inpatient stay for hematemesis and nausea and vomiting which resulted in findings of an atrial mass which resulted in right atrial lesion resection with pathology report returned as benign fibrotic dystrophic calcification consistent with organizing thrombus. During his hospital stay she underwent an EGD due to hematemesis and was found to have partially healed grade D esophagitis secondary to GERD as well as a small hiatal hernia. Patient denies any NSAID use or anticoagulants. Denies any recent weight loss, fever or chills. Her discharge hemoglobin last month was noted 9.8. On admission yesterday hemoglobin was 9.2 and is noted to trend downward at 7.5 today in absence of any overt bleeding. She is also noted to have elevated LFTs at this time with only finding during last hospitalization of a mildly elevated AST. Bilirubin 1.7, AST 72, ALT 98, alkaline phosphatase 396. Creatinine is noted at 5.5. BUN/creatinine ratio is unremarkable. Cardiothoracic has seen patient does not feel this is related to wound infection however patient is noted to have positive MRSA blood cultures at this time. Home Medications Medication Instructions Recorded Confirmed Type Acetaminophen Tab [Tylenol Tab] 650 mg PO Q6H PRN 09/15/16 09/29/16 History Albuterol/Ipratropium Neb [Duoneb] 3 ml RESP TX RT Q4H PRN 09/15/16 09/29/16 History Aspirin EC Tab 325 mg PO DAILY 09/15/16 09/29/16 History Atorvastatin Calcium 40 mg PO BEDTIME 09/15/16 09/29/16 History Calcitriol 2 mcg PO DAILY 09/15/16 09/29/16 History Calcium Acetate [Phoslo] 667 mg PO TID W/MEALS 09/15/16 09/29/16 History Cyclobenzaprine HCl 5 mg PO TID 09/15/16 09/29/16 History Fluoxetine HCl [Prozac] 40 mg PO DAILY 09/15/16 09/29/16 History Hydrocodone/Acetaminophen 1 each PO Q4H PRN 09/15/16 09/29/16 History [Hydrocodon-Acetaminophn 10-325] Insulin Glargine [Lantus] 15 unit SUBCUT DAILY 09/15/16 09/29/16 History Montelukast Sodium 10 mg PO BEDTIME 09/15/16 09/29/16 History Mupirocin 2% Oint [Bactroban 2% 1 applic TOP BID 09/15/16 09/29/16 History Oint] Pregabalin [Lyrica] 50 mg PO DAILY 09/15/16 09/29/16 History Cyproheptadine Tab [Periactin Tab] 4 mg PO BID 09/29/16 09/29/16 History Docusate Sodium 100 mg PO BID 09/29/16 09/29/16 History Lisinopril 40 mg PO DAILY 09/29/16 09/29/16 History Ranitidine Tab [Zantac Tab] 150 mg PO BID 09/29/16 09/29/16 History oxyCODONE ER [OxyCONTIN] 10 mg PO BID 09/29/16 09/29/16 History Allergies Allergy/AdvReac Type Severity Reaction Status Date / Time No Known Allergies Allergy Verified 08/12/16 18:53 Medical,Surgical,& Family Hx - Medical History Cardio: History of: CHF, Hypertension, PVD, Cardiovascular Problems (Atrial Mass removed 09/19/2016) Psychological: History of: Depression Neurology: History of: Peripheral Neuropathy No history of: Seizures Endocrine: History of: Diabetes Mellitus (IDDM), Diabetes Mellitus (NIDDM), Dyslipidemia, Thyroid Disorder, Endocrine Problems (parathyroidectomy) Respiratory: History of: Asthma, Bronchitis, Pulmonary Hypertension (2005), Pneumonia Renal: History of: Dialysis (M,W,F), Renal Failure (Dialysis right femoral fistula) Gastrointestinal: History of: GERD, Gastrointestinal Bleed (Erosive esophagitis July 2016), GI Problems (Hiatal Hernia) Musculoskeletal: History of: Amputation (Right BKA), Musculoskeletal Problems ( right BKA) Hematology: History of: Anemia, Clotting Problems (Blood clot in bilateral legs 2005) Other: History of: MRSA, Miscellaneous Medical Problems (DVT with pulmonary embolism) - Surgical History Cardiac Surgeries: Sugical HX of: Cardiac Surgery (CABG) Patient Denies: Cardiac Catheterization Abdominal Surgeries: Surgical HX of: Abdominal Surgery, Cholecystectomy, EGD Reproductive Surgeries: Surgical HX of;: Breast Surgery (R BREAST FOR LUMP), Section (X1), Hysterectomy Orthopedic Surgeries: Surgical HX of;: Orthopedic Surgery (AMPUTEE R LOWER LEG) - Family History Family History: Reports;: Family Hypertension (MOTHER, FATHER) - Social History Smoking Status: Former smoker Frequency of Alcohol Use: None Type of Drug Use: None 12 point system: reviewed and no additional remarkable complaints except as stated - Constitutional Constitutional: Present: as per HPI - EENT Eyes: Present: as per HPI Ears: Present: as per HPI Nose, mouth and throat: Present: as per HPI - Cardiovascular Cardiovascular: Present: as per HPI, chest pain at rest - Respiratory Respiratory: Present: as per HPI - Gastrointestinal Gastrointestinal: Present: as per HPI, nausea, vomiting - Genitourinary Genitourinary: Present: as per HPI - Musculoskeletal Musculoskeletal: Present: as per HPI - Neurological Neurological: Present: as per HPI - Psychiatric Psychiatric: Present: as per HPI - Endocrine Endocrine: Present: as per HPI - Hematologic/Lymphatic Hematologic/Lymphatic: Present: as per HPI Exam - Constitutional Vitals: Period Temp Pulse Resp BP Sys/Pineda Pulse Ox Last 24 Hr 98.7 F-99.7 F 104-120 18-22 141-179/67-98 94-99 General appearance: normal weight, no acute distress - Head Head exam: Present: normal inspection, normocephalic - Eye Eye exam: Present: other (Lids objective unremarkable). Absent: scleral icterus - ENT ENT exam: Present: normal exam, normal oropharynx - Neck Neck exam: Present: normal inspection - Respiratory Respiratory exam: Present: clear to auscultation bilaterally. Absent: rales, rhonchi, wheezes - Cardiovascular Cardiovascular exam: Present: regular rate and rhythm. Absent: diastolic murmur , JVD, systolic murmur - GI/Abdominal GI/Abdominal exam: Present: normal bowel sounds, soft. Absent: ascites, distended, mass, organomegaly, tenderness - Extremities Exam Extremities exam: Present: normal inspection, full ROM - Back Exam Back exam: Present: normal inspection - Neurological Exam Neurological exam: Present: alert, oriented X3 - Psychiatric Psychiatric exam: Present: normal affect, normal mood - Skin Skin exam: Present: normal color, warm, dry Results - Labs CBC & BMP: 09/30/16 04:31 09/30/16 04:31 Lab Results: I have reviewed the past 24 hour labs
[2016-09-30] MEDS: FLUoxetine 20 MG CAPSULE PO SCH (11:33)
[2016-09-30] MEDS: PREGABALIN 50 MG CAPSULE PO SCH (11:33)
[2016-09-30] MEDS: CALCIUM ACETATE 667 MG CAPSULE PO SCH ×4 (11:33→17:49)
[2016-09-30] MEDS: DOCUSATE SODIUM 100 MG CAPSULE PO SCH ×2 (11:33→20:50)
[2016-09-30] MEDS: ASPIRIN EC 325 MG TABLET PO SCH (11:33)
[2016-09-30] MEDS: LISINOPRIL 20 MG TABLET PO SCH (11:33)
[2016-09-30] MEDS: INSULIN GLARGINE 100 UNIT/ML SUBCUT SCH (11:34)
[2016-09-30] MEDS: INSULIN LISPRO 100 UNIT/ML SUBCUT SCH ×4 (12:42→20:51)
[2016-09-30] MEDS: POLYETHYLENE GLYCOL POWDER 17 GM PACK PO SCH (13:17)
--- NOTE | 2016-09-30 13:28 | Hospitalist Progress Note ---
Assessment and Plan (1) End stage renal disease on dialysis Problem details: No acute indication for HD at this time. Status: Chronic Assessment and plan: Nephrology managing Current Visit: No (2) Leukocytosis Problem details: improved. Status: Acute Assessment and plan: bacteremia Current Visit: No (3) Bacteremia due to Gram-positive bacteria Status: Acute Assessment and plan: Blood cultures repeated Echo ordered Continue vancomycin ID has already been consulted Current Visit: No (4) Anemia Status: Chronic Assessment and plan: drop in H/H today No overt signs of blood loss, patient denies vomiting coffee ground emesis yesterday GI has been consulted Current Visit: No Qualifiers: Anemia type: unspecified type Qualified Code(s): D64.9 - Anemia, unspecified Hospitalist: Subjective Interval history: No acute events overnight. Patient complaining of bilateral leg pain, especially RLE around her stump. Exam - Constitutional Vitals: Period Temp Pulse Resp BP Sys/Pineda Pulse Ox Last 24 Hr 98.7 F-99.7 F 102-120 16-22 141-175/67-98 95-99 General appearance: over weight - Head Head exam: Present: normocephalic, atraumatic - Eye Eye exam: Present: EOMI Pupils: Present: GARIMA - ENT ENT exam: Present: normal exam - Neck Neck exam: Present: normal inspection - Respiratory Respiratory exam: Present: clear to auscultation bilaterally. Absent: rhonchi, wheezes - Cardiovascular Cardiovascular exam: Present: regular rate and rhythm - GI/Abdominal GI/Abdominal exam: Present: normal bowel sounds, soft. Absent: tenderness, rebound - Extremities Exam Extremities exam: Present: normal inspection (right bka), other - Back Exam Back exam: Present: normal inspection - Neurological Exam Neurological exam: Present: alert, oriented X3 - Psychiatric Psychiatric exam: Present: normal affect, normal mood - Skin Skin exam: Present: warm, intact Results - Labs CBC & BMP: 09/30/16 04:31 09/30/16 04:31
--- NOTE | 2016-09-30 13:43 | Infectious Disease Consult ---
Assessment and Plan (1) MRSA (methicillin resistant Staphylococcus aureus) septicemia Status: Acute Assessment and plan: MRSA septicemia relapsed from 2 months ago. There is a high risk of deep- seated focus of infection, including endocarditis. Recommendations: 1. Agree with vancomycin; we need to aggressively treat, with trough levels of 20-25. I will consult pharmacy to assist with dosing and monitoring of vancomycin 2. I would like to do an echocardiogram again to see if any vegetations have formed since last admission 3. We can repeat blood cultures tomorrow 4. Patient will need 4-6 weeks of IV antibiotic therapy Thank you very much for the consult. Will follow. Current Visit: Yes (2) End stage renal disease on dialysis Status: Chronic Current Visit: Yes (3) Insulin dependent diabetes mellitus Status: Chronic Current Visit: Yes History of Present Illness Chief complaint: Positive blood culture History of present illness: History obtained from patient and also from review of her records. Ms. Alfonso is a 31 year old female With multiple comorbid including hypertension diabetes and end-stage renal disease on hemodialysis presented to hospital yesterday with weakness fever and chills on and off for the past 3 days prior to admission. Then on the day of admission she started having nausea and vomiting and the weakness got worse so she came to the hospital. Blood cultures done on admission if come back positive for MRSA. Of note in reviewing her records, she was in hospital towards the end of July at which time she had blood cultures positive for MRSA. 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 After the patient left here she was transferred to [facility]. I am not sure how long her MRSA bacteremia was treated for. With the blood cultures positive again I am asked to assist with management. When the other complaints patient has a severe phantom pain to her right lower extremity. She had right BKA about 4 years ago. Home Medications Medication Instructions Recorded Confirmed Type Acetaminophen Tab [Tylenol Tab] 650 mg PO Q6H PRN 09/15/16 09/29/16 History Albuterol/Ipratropium Neb [Duoneb] 3 ml RESP TX RT Q4H PRN 09/15/16 09/29/16 History Aspirin EC Tab 325 mg PO DAILY 09/15/16 09/29/16 History Atorvastatin Calcium 40 mg PO BEDTIME 09/15/16 09/29/16 History Calcitriol 2 mcg PO DAILY 09/15/16 09/29/16 History Calcium Acetate [Phoslo] 667 mg PO TID W/MEALS 09/15/16 09/29/16 History Cyclobenzaprine HCl 5 mg PO TID 09/15/16 09/29/16 History Fluoxetine HCl [Prozac] 40 mg PO DAILY 09/15/16 09/29/16 History Hydrocodone/Acetaminophen 1 each PO Q4H PRN 09/15/16 09/29/16 History [Hydrocodon-Acetaminophn 10-325] Insulin Glargine [Lantus] 15 unit SUBCUT DAILY 09/15/16 09/29/16 History Montelukast Sodium 10 mg PO BEDTIME 09/15/16 09/29/16 History Mupirocin 2% Oint [Bactroban 2% 1 applic TOP BID 09/15/16 09/29/16 History Oint] Pregabalin [Lyrica] 50 mg PO DAILY 09/15/16 09/29/16 History Cyproheptadine Tab [Periactin Tab] 4 mg PO BID 09/29/16 09/29/16 History Docusate Sodium 100 mg PO BID 09/29/16 09/29/16 History Lisinopril 40 mg PO DAILY 09/29/16 09/29/16 History Ranitidine Tab [Zantac Tab] 150 mg PO BID 09/29/16 09/29/16 History oxyCODONE ER [OxyCONTIN] 10 mg PO BID 09/29/16 09/29/16 History Allergies Allergy/AdvReac Type Severity Reaction Status Date / Time No Known Allergies Allergy Verified 08/12/16 18:53 12 point system: reviewed and no additional remarkable complaints except as stated (Per HPI) Medical,Surgical,& Family Hx - Medical History Cardio: History of: CHF, Hypertension, PVD, Cardiovascular Problems (Atrial Mass removed 09/19/2016) Psychological: History of: Depression Neurology: History of: Peripheral Neuropathy No history of: Seizures Endocrine: History of: Diabetes Mellitus (IDDM), Diabetes Mellitus (NIDDM), Dyslipidemia, Thyroid Disorder, Endocrine Problems (parathyroidectomy) Respiratory: History of: Asthma, Bronchitis, Pulmonary Hypertension (2005), Pneumonia Renal: History of: Dialysis (M,W,F), Renal Failure (Dialysis right femoral fistula) Gastrointestinal: History of: GERD, Gastrointestinal Bleed (Erosive esophagitis July 2016), GI Problems (Hiatal Hernia) Musculoskeletal: History of: Amputation (Right BKA), Musculoskeletal Problems ( right BKA) Hematology: History of: Anemia, Clotting Problems (Blood clot in bilateral legs 2005) Other: History of: MRSA, Miscellaneous Medical Problems (DVT with pulmonary embolism) - Surgical History Cardiac Surgeries: Sugical HX of: Cardiac Surgery (CABG) Patient Denies: Cardiac Catheterization Abdominal Surgeries: Surgical HX of: Abdominal Surgery, Cholecystectomy, EGD Reproductive Surgeries: Surgical HX of;: Breast Surgery (R BREAST FOR LUMP), Section (X1), Hysterectomy Orthopedic Surgeries: Surgical HX of;: Orthopedic Surgery (AMPUTEE R LOWER LEG) - Family History Family History: Reports;: Family Hypertension (MOTHER, FATHER) - Social History Smoking Status: Former smoker Frequency of Alcohol Use: None Type of Drug Use: None Infectious Disease Exam H&P - Constitutional Vitals: Vital Signs Temp Pulse Resp BP Pulse Ox 99.1 F 102 H 16 146/72 95 09/30/16 12:46 09/30/16 12:46 09/30/16 12:46 09/30/16 12:46 09/30/16 12:46 Intake and Output 09/29/16 09/30/16 09/30/16 23:59 07:59 15:59 Intake Total 240 / 240 240 / 240 Output Total 0 / 0 Balance 240 / 240 240 / 240 Intake: Oral 240 / 240 240 / 240 Output: Urine 0 / 0 Other: Emesis 0 0 Voiding Method Dialysis Patient Dialysis Patient # Bowel Movements 0 0 Exam: General: Patient uncomfortable from phantom mid to right leg HEENT: Mucous membranes pale pink and moist, anicteric acyanotic, GARIMA, no oropharyngeal exudates Neck: Supple, no thyroid gland enlargement, no lymphadenopathy Respiratory system: Breath sounds vesicular, no crepitations or wheezes Cardiovascular: Normal S1 and S2, no murmurs appreciated Abdomen: Normal bowel sounds, soft nontender throughout, no organomegaly or mass Genitourinary: No suprapubic pain or bladder distention Extremities: no edema, healed right BKA stump, fistula to right upper thigh for dialysis Skin: No rash Reports - Labs CBC & BMP: 09/30/16 04:31 09/30/16 04:31 Labs: Laboratory Results - last 24 hr 09/29/16 09/29/16 09/29/16 15:36 15:57 15:57 WBC RBC Hgb Hct MCV MCH MCHC RDW Plt Count MPV Neut % (Auto) Lymph % (Auto) [place] % (Auto) Eos % (Auto) Baso % (Auto) Neut # (Auto) Lymph # (Auto) [place] # (Auto) Eos # (Auto) Baso # (Auto) Immature Gran % Nucleated RBC % Immature Gran # Nucleated RBCs # ESR Westergren D-Dimer, Quantitative Sodium Potassium Chloride Carbon Dioxide Anion Gap BUN Creatinine GFR Calculation BUN/Creatinine Ratio Glucose POC Glucose 170 H Calculated Osmolality Calcium Phosphorus Total Bilirubin Direct Bilirubin Indirect Bilirubin AST ALT Alkaline Phosphatase Troponin I < 0.015 C-Reactive Protein Total Protein Albumin Amylase 55 Lipase 147.0 Random Vancomycin 09/29/16 09/29/16 09/29/16 19:01 20:00 21:53 WBC RBC Hgb Hct MCV MCH MCHC RDW Plt Count MPV Neut % (Auto) Lymph % (Auto) [place] % (Auto) Eos % (Auto) Baso % (Auto) Neut # (Auto) Lymph # (Auto) [place] # (Auto) Eos # (Auto) Baso # (Auto) Immature Gran % Nucleated RBC % Immature Gran # Nucleated RBCs # ESR Westergren D-Dimer, Quantitative 3.2 Sodium Potassium Chloride Carbon Dioxide Anion Gap BUN Creatinine GFR Calculation BUN/Creatinine Ratio Glucose POC Glucose 129 H Calculated Osmolality Calcium Phosphorus Total Bilirubin Direct Bilirubin Indirect Bilirubin AST ALT Alkaline Phosphatase Troponin I < 0.015 C-Reactive Protein Total Protein Albumin Amylase Lipase Random Vancomycin 09/30/16 09/30/16 09/30/16 04:31 04:31 04:31 WBC 18.8 H RBC 2.54 L Hgb 7.5 L Hct 23.2 L MCV 91.3 MCH 30 MCHC 32.3 RDW 16.8 Plt Count 227 MPV 10.5 Neut % (Auto) 75.1 H Lymph % (Auto) 10.3 L [place] % (Auto) 12.8 H Eos % (Auto) 0.7 Baso % (Auto) 0.2 Neut # (Auto) 14.1 H Lymph # (Auto) 1.9 [place] # (Auto) 2.4 H Eos # (Auto) 0.1 Baso # (Auto) 0.0 Immature Gran % 0.9 Nucleated RBC % 0.0 Immature Gran # 0.17 Nucleated RBCs # 0.00 ESR Westergren D-Dimer, Quantitative Sodium Potassium Chloride Carbon Dioxide Anion Gap BUN Creatinine GFR Calculation BUN/Creatinine Ratio Glucose POC Glucose Calculated Osmolality Calcium Phosphorus Total Bilirubin 1.70 H Direct Bilirubin 0.50 H Indirect Bilirubin 1.2 H AST 72 H ALT 98 H Alkaline Phosphatase 396 H Troponin I C-Reactive Protein Total Protein 7.6 Albumin 2.4 L Amylase Lipase Random Vancomycin 21.0 09/30/16 09/30/16 09/30/16 04:31 04:31 04:31 WBC RBC Hgb Hct MCV MCH MCHC RDW Plt Count MPV Neut % (Auto) Lymph % (Auto) [place] % (Auto) Eos % (Auto) Baso % (Auto) Neut # (Auto) Lymph # (Auto) [place] # (Auto) Eos # (Auto) Baso # (Auto) Immature Gran % Nucleated RBC % Immature Gran # Nucleated RBCs # ESR Westergren 119 H D-Dimer, Quantitative Sodium 134 L Potassium 3.9 Chloride 94 L Carbon Dioxide 30 Anion Gap 13.9 BUN 17 Creatinine 5.50 H GFR Calculation 13 BUN/Creatinine Ratio 3.00 L Glucose 193 H POC Glucose Calculated Osmolality 274.2 Calcium 8.9 Phosphorus 3.0 Total Bilirubin Direct Bilirubin Indirect Bilirubin AST ALT Alkaline Phosphatase Troponin I C-Reactive Protein 21.00 H Total Protein Albumin 2.5 L Amylase Lipase Random Vancomycin 09/30/16 09/30/16 07:01 11:28 WBC RBC Hgb Hct MCV MCH MCHC RDW Plt Count MPV Neut % (Auto) Lymph % (Auto) [place] % (Auto) Eos % (Auto) Baso % (Auto) Neut # (Auto) Lymph # (Auto) [place] # (Auto) Eos # (Auto) Baso # (Auto) Immature Gran % Nucleated RBC % Immature Gran # Nucleated RBCs # ESR Westergren D-Dimer, Quantitative Sodium Potassium Chloride Carbon Dioxide Anion Gap BUN Creatinine GFR Calculation BUN/Creatinine Ratio Glucose POC Glucose 248 H 210 H Calculated Osmolality Calcium Phosphorus Total Bilirubin Direct Bilirubin Indirect Bilirubin AST ALT Alkaline Phosphatase Troponin I C-Reactive Protein Total Protein Albumin Amylase Lipase Random Vancomycin - Reports Microbiology: Microbiology 09/30/16 Unknown MRSA (PCR) - Final Blood Mrsa Positive Staph aureus Positive 09/30/16 Unknown MRSA (PCR) - Final Blood Mrsa Positive Staph aureus Positive 09/29/16 13:30 Blood Culture - Preliminary Blood Gram Positive Cocci 09/29/16 13:30 Blood Culture - Preliminary Blood Gram Positive Cocci - Diagnostic Findings Procedure: CT - chest: image reviewed by me, report reviewed by me
[2016-09-30] MEDS ORDERED: VANCOMYCIN INJ 1,000 MG in SODIUM CHLORIDE 0.9% 250 ML IV PRN (14:12)
--- NOTE | 2016-09-30 18:02 | ECHO Report ---
Bernardo Alfonso Exam Date: 09/30/2016 09:47 Referring Physician: Technologist: jasmin Hinton ARDMS, RVT Age: 31 Ht (in): 63 Wt (lb): 210 Gender: F Exam Location: [facility] Echo Indications: Chest pain, unspecified, End stage renal disease, Diabetes, Asthma, GERD, Dyslipidemia, Peripheral vascular disease, unspecified, Open heart surgery for right atrial mass 08/19/16 BP: 144 / 80 HR: 107 Rhythm: Sinus Technical Quality: IMPRESSIONS 1. Left ventricle is normal size with mild concentric left ventricular hypertrophy and ejection fraction 60%. 2. Right left atrium are at worse mildly dilated. 3. Right ventricle is normal size and function. 4. There is mild tricuspid valve regurgitation otherwise valve structures are unremarkable. 5. Mild elevated right-sided pressures. MEASUREMENTS (Male / Female) Normal Values 2D ECHO LV Diastolic Diameter PLAX 4.6 cm 4.2 - 5.9 / 3.9 - 5.3 cm LV Systolic Diameter PLAX 2.9 cm LV Fractional Shortening PLAX 35.3 % IVS Diastolic Thickness 1.2 cm 0.6 - 1.0 / 0.6 - 0.9 cm LVPW Diastolic Thickness 1.2 cm 0.6 - 1.0 / 0.6 - 0.9 cm RV Internal Dim ED PLAX 3.1 cm Aortic Root Diameter 3.2 cm LA Systolic Diameter LX 4.6 cm 3.0 - 4.0 / 2.7 - 3.8 cm DOPPLER TR Peak Velocity 322.0 cm/s TR Peak Gradient 41.5 mmHg FINDINGS Left Ventricle Normal left ventricular cavity size. Mild left ventricular hypertrophy. Left ventricular ejection fraction is estimated at 60%. Right Ventricle Right ventricle is probably normal size and systolic function. Right Atrium The right atrium is mildly enlarged. Left Atrium The left atrium is mildly enlarged. Mitral Valve Morphologically normal mitral valve without significant stenosis or prolapse. There is no mitral regurgitation. Aortic Valve Morphologically normal aortic valve without significant sclerosis or stenosis. There is no aortic regurgitation. Tricuspid Valve Morphologically normal tricuspid valve. Mild tricuspid valve regurgitation. Estimated right ventricular peak systolic pressure of 47-52 mmHg. Pulmonic Valve Morphologically normal pulmonic valve. Trace pulmonary valve regurgitation. Pericardium Normal pericardium without effusion. Aorta Normal ascending aorta dimension. Bang Doe MD (Electronically Signed) Final Date: 30 September 2016 18:00
[2016-09-30] MEDS: HYDROmorphone 2 MG/1 ML VIAL IV PRN ×2 (18:22→21:10)
[2016-09-30] MEDS: MONTELUKAST 10 MG TABLET PO SCH (20:51)
[2016-10-01] MEDS: HYDROmorphone 2 MG/1 ML VIAL IV PRN ×5 (00:20→23:45)
[2016-10-01 06:05] LABS: Albumin 2.6 G/DL (3.4-5.0); Bilirubin,Direct 0.4 MG/DL (0.0-0.20); Bilirubin,Indirect 0.3 MG/DL (0.0-1.0); Bilirubin,Total 0.7 MG/DL (0.2-1.0)
[2016-10-01] MEDS ORDERED: VANCOMYCIN INJ 1,250 MG in SODIUM CHLORIDE 0.9% 250 ML IV PRN (08:00)
[2016-10-01] MEDS: CALCIUM ACETATE 667 MG CAPSULE PO SCH ×3 (09:30→18:06)
[2016-10-01] MEDS: INSULIN LISPRO 100 UNIT/ML SUBCUT SCH ×4 (09:30→20:39)
--- NOTE | 2016-10-01 09:44 | Nephrology Progress Note ---
Nephrology - PN: Subj Interval history: Pt states she feels better. Chest pain resolved. Had BM. No N/V. Vanc random this am 18. Goal 20-25 per ID data quality consultant. MRSA bacteremia. Echo on admit does not specifically mention any vegetations c/w endocarditis. Appreciate her assistance and expertise. Exam (PN)-Nephrology - Vital Signs Vital signs: Period Temp Pulse Resp BP Sys/Pineda Pulse Ox Last 24 Hr 96.6 F-99.1 F 92-102 14-20 116-146/47-76 95-98 - General Appearance General appearance: well-developed, obese EENT: ATNC, PERRL Neck: no JVD, no thyromegaly Respiratory: no kyphosis, no scoliosis Cardiology: no murmurs, no rub Gastrointestinal: normoactive bowel sounds, no tenderness Integumentary: no rash, warm and dry Neurologic: no focal deficit, no asterixis, alert and oriented x3 Musculoskeletal: no deformities, no erythema Psychiatric: mood/affect appropriate, cooperative - Lab 09/30/16 04:31 09/30/16 04:31 Most recent lab results Calcium 8.9 MG/DL (8.5-10.1) 09/30/16 04:31 Phosphorus 3.0 MG/DL (2.5-4.9) 09/30/16 04:31 Magnesium 2.0 MG/DL (1.8-2.4) 09/29/16 12:15 Assessment and Plan (1) Leukocytosis Problem details: improved. Status: Acute Assessment and plan: Per ID data quality consultant. Dose 1250mg IVPB over last 30min of dialysis today. Current Visit: No (2) End stage renal disease on dialysis Problem details: No acute indication for HD at this time. Status: Chronic Assessment and plan: Routine CHD today. Epo 8k units IV p HD. UF as tolerated by hemodynamics to EDW. Vanc 1250mg IVPB over last 30min of HD. Current Visit: No (3) History of pulmonary embolism Status: Chronic Current Visit: No (4) Nausea and vomiting Problem details: Emesis of fecal material per nursing staff. Rule out obstruction. Status: Resolved Current Visit: Yes
--- NOTE | 2016-10-01 10:14 | Gastrointestinal Progress Note ---
Assessment and Plan (1) Atypical chest pain Status: Acute Assessment and plan: 10/01-no further nausea vomiting. Denies abdominal pain. LFTs trending downward. Recheck H&H today. Stools for occult blood pending. Plan an addendum to followed by Dr. Matos. 09/30-2 day history of chest pain without precipitating or alleviating factors. Associated with nausea and vomiting 1. Recent EGD findings noted as below. Noted to have drop in hemoglobin from admission. No overt bleeding. Check stools for occult blood. Plan an addendum to followed by Dr. Matos. Current Visit: Yes Gastroenterology - PN: Subj Interval history: CC: Atypical chest pain Patient is seen awake and alert sitting up in bed. States she did not rest well overnight due to pain in her leg and chest. Denies any further nausea vomiting. Denies any abdominal pain at this time. LFTs are noted to be trending downward. Abdomen soft, nontender. Noted to be no recheck on her CBC this morning. She remains afebrile. ROS: Denies shortness of breath or chest pain Exam (Progress Note) - Constitutional Vitals: Period Temp Pulse Resp BP Sys/Pineda Pulse Ox Last 24 Hr 96.6 F-99.1 F 92-102 14-20 116-146/47-76 95-98 - Other Additional findings: General appearance: normal weight, no acute distress - Head Head exam: Present: normal inspection, normocephalic - Eye Eye exam: Present: other (Lids objective unremarkable). Absent: scleral icterus - ENT ENT exam: Present: normal exam, normal oropharynx - Neck Neck exam: Present: normal inspection - Respiratory Respiratory exam: Present: clear to auscultation bilaterally. Absent: rales, rhonchi, wheezes - Cardiovascular Cardiovascular exam: Present: regular rate and rhythm. Absent: diastolic murmur , JVD, systolic murmur - GI/Abdominal GI/Abdominal exam: Present: normal bowel sounds, soft. Absent: ascites, distended, mass, organomegaly, tenderness - Extremities Exam Extremities exam: Present: normal inspection, full ROM - Back Exam Back exam: Present: normal inspection - Neurological Exam Neurological exam: Present: alert, oriented X3 - Psychiatric Psychiatric exam: Present: normal affect, normal mood - Skin Skin exam: Present: normal color, warm, dry Results - Labs CBC & BMP: 09/30/16 04:31 09/30/16 04:31 Lab Results: I have reviewed the past 24 hour labs
[2016-10-01 10:32] LABS: Hematocrit 24.2 VOL% (35.7-47.0); Hemoglobin 7.8 GM/DL (12.0-16.0)
[2016-10-01] MEDS: INSULIN GLARGINE 100 UNIT/ML SUBCUT SCH (11:06)
--- NOTE | 2016-10-01 11:08 | Infectious Disease Progress ---
Assessment and Plan (1) MRSA (methicillin resistant Staphylococcus aureus) septicemia Status: Acute Assessment and plan: MRSA septicemia relapsed from 2 months ago. There is a high risk of deep- seated focus of infection, including endocarditis. Recommendations: 1. Continue vancomycin but dose to be increased for more aggressive trough level (20-25) 2. Consult cardiology for PRAVIN 3. We can repeat blood cultures again tomorrow 4. Patient will need 4-6 weeks of IV antibiotic therapy Current Visit: Yes (2) End stage renal disease on dialysis Status: Chronic Current Visit: Yes (3) Insulin dependent diabetes mellitus Status: Chronic Current Visit: Yes Infectious Disease - PN: Subj Interval history: Pt doing relatively ok today, she has not had fever. No N, V, D. Infectious Disease Exam (PN) - Constitutional Vitals: Temp Pulse Resp BP Pulse Ox 98.7 F 97 H 16 129/76 98 10/01/16 07:15 10/01/16 07:15 10/01/16 07:15 10/01/16 07:15 10/01/16 07:15 General appearance: over weight Exam: General appearance: no acute distress - Eye Eye exam: Present: EOMI. no icterus Pupils: Present: GARIMA - ENT ENT exam: no oral exudates - Respiratory Respiratory exam: vesicular BS, no crepitations or wheezes - Cardiovascular Cardiovascular exam: healing sternotomy wound, regular rate and rhythm, no murmurs - GI/Abdominal GI/Abdominal exam: normal bowel sounds, soft, non-tender, no organomegaly or mass - Extremities Exam Extremities exam: healed Rt BKA stump, no edema - Skin Skin exam: no rash Results - Labs CBC & BMP: 10/01/16 04:13 09/30/16 04:31 Lab Results: I have reviewed the past 24 hour labs (TTE without mention of endocarditis)
--- NOTE | 2016-10-01 11:31 | Hospitalist Progress Note ---
Assessment and Plan (1) End stage renal disease on dialysis Problem details: No acute indication for HD at this time. Status: Chronic Assessment and plan: Nephrology managing Current Visit: No (2) Leukocytosis Problem details: improved. Status: Acute Assessment and plan: bacteremia Current Visit: No (3) Bacteremia due to Gram-positive bacteria Status: Acute Assessment and plan: Repeat blood cultures with same, plan for repeating tomorrow Echo without signs of infection Continue vancomycin ID now managing Cardiology consulted for PRAVIN Current Visit: No (4) Anemia Status: Chronic Assessment and plan: H/H unchanged today No overt signs of blood loss, patient denies vomiting coffee ground emesis GI following Current Visit: No Qualifiers: Anemia type: unspecified type Qualified Code(s): D64.9 - Anemia, unspecified Hospitalist: Subjective Interval history: No acute events overnight. Patient feels better today. BM yesterday. Denies abdominal or chest pain. Exam - Constitutional Vitals: Period Temp Pulse Resp BP Sys/Pineda Pulse Ox Last 24 Hr 96.6 F-99.1 F 92-102 14-20 116-146/47-76 95-98 General appearance: over weight - Head Head exam: Present: normocephalic, atraumatic - Eye Eye exam: Present: EOMI Pupils: Present: GAIRMA - ENT ENT exam: Present: normal exam - Neck Neck exam: Present: normal inspection - Respiratory Respiratory exam: Present: clear to auscultation bilaterally. Absent: wheezes - Cardiovascular Cardiovascular exam: Present: regular rate and rhythm - GI/Abdominal GI/Abdominal exam: Present: normal bowel sounds, soft. Absent: tenderness, rebound - Extremities Exam Extremities exam: Present: normal inspection - Back Exam Back exam: Present: normal inspection - Neurological Exam Neurological exam: Present: alert, oriented X3 - Psychiatric Psychiatric exam: Present: normal affect, normal mood - Skin Skin exam: Present: warm, intact Results - Labs CBC & BMP: 10/01/16 04:13 09/30/16 04:31
[2016-10-01] MEDS ORDERED: EPOETIN ALFA 10,000 UNIT/1 ML VIAL IV PRN (13:32)
--- NOTE | 2016-10-01 13:41 | Dialysis Note ---
Dialysis Note - Dialysis Note Ms. Rock is seen during hemodialysis. She is tolerating dialysis well and is alert with a stable blood pressure. Plan is to continue to support her with dialysis
--- NOTE | 2016-10-01 15:51 | Event Note ---
Cardiology consult for transesophageal echocardiogram. 31-year-old female who previously has had a right atrial mass removed surgically on 08/18/16 and turned out apparently to be a an organized thrombus attached to the atrial wall. The patient has had some issues with positive blood cultures. The patient again this admission with positive blood cultures with MRSA. Patient had a transthoracic echocardiogram carried out 2 days ago and was overall unremarkable. We are asked now to carry out transesophageal echocardiogram because of persistent positive blood cultures for evaluation for endocarditis. I discussed transesophageal echocardiogram procedure with the patient reviewing the indication procedure which is to evaluate for endocarditis which is an infection of her heart valve. Also discussed how the procedure would be carried out in the risks which include but not limited to aspiration pneumonia, esophageal tear with bleeding as well as the possibility of esophageal rupture requiring thoracic surgery and even blood transfusions. She voices understanding agrees to proceed. She denies having any esophageal issues previously or dysphagia. We will plan on carrying this out tomorrow.
[2016-10-01] MEDS: DOCUSATE SODIUM 100 MG CAPSULE PO SCH ×2 (16:47→20:40)
[2016-10-01] MEDS: SODIUM CHLORIDE 0.9% 1,000 ML IV SCH (16:58)
[2016-10-01] MEDS ORDERED: VANCOMYCIN INJ 1,250 MG in SODIUM CHLORIDE 0.9% 250 ML IV ONE (17:00)
[2016-10-01] MEDS: LISINOPRIL 20 MG TABLET PO SCH (17:03)
[2016-10-01] MEDS: FLUoxetine 20 MG CAPSULE PO SCH (17:05)
[2016-10-01] MEDS: ASPIRIN EC 325 MG TABLET PO SCH (17:05)
[2016-10-01] MEDS: PREGABALIN 50 MG CAPSULE PO SCH (17:05)
[2016-10-01] MEDS: POLYETHYLENE GLYCOL POWDER 17 GM PACK PO SCH (17:12)
[2016-10-01] MEDS: MONTELUKAST 10 MG TABLET PO SCH (20:40)
[2016-10-02 06:28] LABS: Basophils % 0.2 % (0.0-0.8); Eosinophils # 0.3 10*3/uL (0.0-0.87); Eosinophils % 1.7 % (0.00-10.9); Hematocrit 23.2 VOL% (35.7-47.0); Hemoglobin 7.3 GM/DL (12.0-16.0); Immature Granulocytes % 2.9 %; Immature Granulocytes Absolute 0.51 #; Lymphocytes # 2.3 10*3/uL (1.4-4.0); Lymphocytes % 13.2 % (21.3-54.2); Mean Corpuscular HGB Conc 31.5 GM/DL (32-36); Mean Corpuscular Hemoglobin 29 PG (27-34); Mean Corpuscular Volume 92.4 FL (87-102); Mean Platelet Volume 10.6 FL (9.6-12.0); Monocytes # 3.3 10*3/uL (0.11-0.8); Monocytes % 18.6 % (1.7-12.7); NRBC # 0.02 10*3/uL; Neutrophils # 11.1 10*3/uL (1.4-7.4); Neutrophils % 63.4 % (38.7-73.9); Platelet Count 234 T/CUMM (130-400); Red Blood Count 2.51 MC/CUMM (3.8-5.5); White Blood Count 17.5 T/CUMM (4-12)
[2016-10-02 06:51] LABS: Band Neutrophils 1 % (0-10); Eosinophils 2 % (0-10); Hypochromasia 1+; Lymphocytes 12 % (20-55); Ovalocytes Slight; Platelet Estimate Adequate; Segmented Neutrophils 64 % (50-85); Total Cells Counted 100
--- NOTE | 2016-10-02 06:53 | Event Note ---
Patient is morning for transesophageal echocardiogram for evaluation of possible endocarditis with her persistent positive blood cultures. Again I discussed this procedure with the patient reviewing medication procedure as well as how would be carried out this risk. As we discussed the risks include but not limited to side aspiration pneumonia as well as esophageal tear or rupture that may require blood transfusion or surgery. She voices understanding and agrees to proceed. We will plan on carrying this out this morning.
--- NOTE | 2016-10-02 06:54 | History and Physical Update ---
History and Physical Update - History and Physical H&P was reviewed, the patient examined and there: are no changes in the patients condition since last H&P was completed. - Dictation Physical: refer to H&P completed by admitting physician - Physical Exam Mental Status: alert and oriented Heart: regular rate and rhythm Lung: clear to auscultation Abdomen: within normal limits Vitals: within normal limits History and Physical Changes: None
[2016-10-02 07:03] LABS: Albumin 2.4 G/DL (3.4-5.0); Bilirubin,Direct 0.2 MG/DL (0.0-0.20); Bilirubin,Indirect 0.8 MG/DL (0.0-1.0); Calcium 8.6 MG/DL (8.5-10.1); Magnesium 2.1 MG/DL (1.8-2.4); Osmolality,Calculated 269.5 MOS/KG (273-304); Potassium 4.1 MMOL/L (3.5-5.1); Total Protein 7.7 G/DL (6.4-8.3)
--- NOTE | 2016-10-02 07:31 | Nephrology Progress Note ---
Nephrology - PN: Subj Interval history: Pt states no problem with dialysis yesterday. No more subjective fevers. C/O tender, hot, swollen right groin graft site. For PRAVIN rule out endocarditis this am. Exam (PN)-Nephrology - Vital Signs Vital signs: Period Temp Pulse Resp BP Sys/Pineda Pulse Ox Last 24 Hr 97.5 F-99.1 F 94-121 16-96 118-161/62-82 82-99 - General Appearance General appearance: well-developed, obese EENT: ATNC, PERRL, mucous membranes moist, hearing intact, vision intact Neck: no JVD, no thyromegaly Respiratory: no kyphosis, no scoliosis Cardiology: no murmurs, no rub Gastrointestinal: normoactive bowel sounds, no tenderness Integumentary: no rash, warm and dry Neurologic: no focal deficit, no asterixis, alert and oriented x3 Musculoskeletal: deformities, warmth (6cm edematous right groin site overlying graft, tender to palpation) Psychiatric: mood/affect appropriate, cooperative - Lab 10/02/16 04:52 10/02/16 04:52 Most recent lab results Calcium 8.6 MG/DL (8.5-10.1) 10/02/16 04:52 Phosphorus 3.0 MG/DL (2.5-4.9) 09/30/16 04:31 Magnesium 2.1 MG/DL (1.8-2.4) 10/02/16 04:52 Assessment and Plan (1) Infection of AV graft for dialysis Problem details: Surgery to assess. Discussed with Dr Cadet. Will likely need a HD catheter until MRSA bacteremia cleared. Status: Acute Current Visit: Yes (2) Leukocytosis Problem details: improved. Status: Acute Assessment and plan: Per ID platform consultant. Dose 1250mg IVPB over last 30min of dialysis today. Current Visit: No (3) End stage renal disease on dialysis Problem details: No acute indication for HD at this time. Status: Chronic Assessment and plan: Routine CHD today. Epo 8k units IV p HD. UF as tolerated by hemodynamics to EDW. Vanc 1250mg IVPB over last 30min of HD. Current Visit: No (4) History of pulmonary embolism Status: Chronic Current Visit: No (5) Nausea and vomiting Problem details: Emesis of fecal material per nursing staff. Rule out obstruction. Status: Resolved Assessment and plan: start miralax daily. Current Visit: Yes
[2016-10-02] MEDS: INSULIN LISPRO 100 UNIT/ML SUBCUT SCH ×4 (07:34→22:36)
[2016-10-02] MEDS ORDERED: BUPIVACAINE MPF 0.25% /EPI 30 ML VIAL ONE (07:34)
[2016-10-02] MEDS: CALCIUM ACETATE 667 MG CAPSULE PO SCH ×3 (07:35→17:27)
--- NOTE | 2016-10-02 08:11 | Event Note ---
She has several days of tenderness over her right femoral arteriovenous graft she has not had redness or drainage. She has had MRSA bacteremia. Concern is for graft infection. It is not entirely clear if it is infected but it is tender. I certainly feel that it is at high risk for infection. We can explore the graft and see if it looks infected and if so we can remove it. Procedure and risks were discussed in detail. We remove her graft will need to placed other dialysis access. Procedure and risks associated with dialysis catheter was discussed as well. This could be very difficult because she has had multiple accesses in the past
[2016-10-02] MEDS ORDERED: HEPARIN 5,000 UNIT/1 ML VIAL ONE (08:13)
--- NOTE | 2016-10-02 08:31 | Event Note ---
The patient's transesophageal echocardiogram was canceled by Dr. Zeb Mabry who feels the patient has an infected dialysis catheter. We will sign off at this time since we were only asked to see the patient in regard to doing the transesophageal echocardiogram. If we can be of any further service please let us know.
[2016-10-02] MEDS: INSULIN GLARGINE 100 UNIT/ML SUBCUT SCH (08:56)
[2016-10-02] MEDS: POLYETHYLENE GLYCOL POWDER 17 GM PACK PO SCH (08:56)
[2016-10-02] MEDS: DOCUSATE SODIUM 100 MG CAPSULE PO SCH ×2 (08:56→22:32)
[2016-10-02] MEDS: ASPIRIN EC 325 MG TABLET PO SCH (08:56)
[2016-10-02] MEDS: PREGABALIN 50 MG CAPSULE PO SCH ×2 (08:56→13:00)
[2016-10-02] MEDS: LISINOPRIL 20 MG TABLET PO SCH (08:57)
[2016-10-02] MEDS: FLUoxetine 20 MG CAPSULE PO SCH ×2 (08:57→13:00)
[2016-10-02] MEDS ORDERED: PROPOFOL 200 MG/20 ML VIAL IV ONE (09:03)
[2016-10-02] MEDS ORDERED: LIDOCAINE 2% 5 ML VIAL ONE (09:03)
--- NOTE | 2016-10-02 09:42 | Operative Note ---
Date of procedure: 10/02/16 Pre-op diagnosis: MRSA bacteremia Post-op diagnosis: same Procedure: Exploration of right femoral arteriovenous graft with suture of bleeding needle hole Findings and technique: After informed consent was obtained patient was brought the operating room and placed in supine position. The question has been raised of infection in her AV graft which is deeply situated in her of these right thigh. She had tenderness along the medial side of the graft and no visible abnormality. There was no redness erythema fluctuance or drainage. Local anesthesia was infiltrated the apex of the graft was where sharp dissection was carried down to the apex of the graft in an area where there had been tenderness. The graft was completely incorporated and normal in appearance at this location. This was irrigated and closed with a deep layer of 3-0 Vicryl suture and the skin with skin clips. Next a area of tenderness had been selected along the medial limb of the graft local anesthesia infiltrated and sharp dissection carried down to the graft. I cannot identify any fluid or on incorporation and the graft had a normal appearance. As I was dissecting right on the surface of the graft to make sure that there was not any fluid alongside the graft I unroofed an old needle hole which bled a few cc and was easily controlled with finger pressure and a single suture of CV 6 [place] suture. The wound was irrigated and I did not feel that this graft was clinically infected and was not likely to be the source of her bacteremia. Wound was closed with a deep layer of interrupted 3-0 Vicryl suture and skin with skin clips. She appeared to tolerate the procedure well. Anesthesia: MAC, local Surgeon / Physician: Abel Cadet III. Estimated blood loss: minimal Specimens: none sent Condition: stable Disposition: PACU Results - Labs CBC & BMP: 10/02/16 04:52 10/02/16 04:52 Discharge Plan - Discharge Medications No Action Lisinopril 40 mg PO DAILY Cyproheptadine Tab [Periactin Tab] 4 mg PO BID Docusate Sodium 100 mg PO BID oxyCODONE ER [OxyCONTIN] 10 mg PO BID Ranitidine Tab [Zantac Tab] 150 mg PO BID Mupirocin 2% Oint [Bactroban 2% Oint] 1 applic TOP BID Cyclobenzaprine HCl 5 mg PO TID Hydrocodone/Acetaminophen [Hydrocodon-Acetaminophn 10-325] 1 each PO Q4H PRN PRN Reason: Pain Moderate To Severe (4-10) Pregabalin [Lyrica] 50 mg PO DAILY Fluoxetine HCl [Prozac] 40 mg PO DAILY Montelukast Sodium 10 mg PO BEDTIME Aspirin EC Tab 325 mg PO DAILY Insulin Glargine [Lantus] 15 unit SUBCUT DAILY Atorvastatin Calcium 40 mg PO BEDTIME Acetaminophen Tab [Tylenol Tab] 650 mg PO Q6H PRN PRN Reason: Pain Mild To Moderate (1-7) Albuterol/Ipratropium Neb [Duoneb] 3 ml RESP TX RT Q4H PRN PRN Reason: Shortness Of Breath/Wheezing Calcitriol 2 mcg PO DAILY Calcium Acetate [Phoslo] 667 mg PO TID W/MEALS - Follow Up or Referral - Forms/Instructions
[2016-10-02] MEDS ORDERED: MIDAZOLAM 2 MG/2 ML VIAL ONE (09:54)
[2016-10-02] MEDS ORDERED: METHYLENE BLUE 10 ML VIAL IV ONE (10:46)
--- NOTE | 2016-10-02 10:59 | Gastrointestinal Progress Note ---
Assessment and Plan (1) Atypical chest pain Status: Acute Assessment and plan: 10/02-LFTs continue to trend downward to near normal. Alkaline phosphatase remains elevated. Hemoglobin is down slightly 7.3 without overt bleeding. Stools still pending for occult blood. Plan an addendum to follow Dr. Matos. 10/01-no further nausea vomiting. Denies abdominal pain. LFTs trending downward. Recheck H&H today. Stools for occult blood pending. Plan an addendum to followed by Dr. Matos. 09/30-2 day history of chest pain without precipitating or alleviating factors. Associated with nausea and vomiting 1. Recent EGD findings noted as below. Noted to have drop in hemoglobin from admission. No overt bleeding. Check stools for occult blood. Plan an addendum to followed by Dr. Matos. Current Visit: Yes Gastroenterology - PN: Subj Interval history: CC: Elevated liver enzymes Patient is seen drowsy, following exploration of her AV graft. She sleeps through visit this morning. However she denies any pain at this time. Her LFTs continue to trend downward with mildly elevated ALT and elevated alkaline phosphatase. Her hemoglobin is noted 7.3 without overt bleeding. She continues with leukocytosis with WBCs at 17,000. She is currently afebrile. Abdomen soft, nontender. ROS: Denies shortness of breath or chest pain Exam (Progress Note) - Constitutional Vitals: Period Temp Pulse Resp BP Sys/Pineda Pulse Ox Last 24 Hr 96.4 F-99.1 F 91-121 16-96 107-161/58-82 82-99 - Other Additional findings: General appearance: normal weight, no acute distress - Head Head exam: Present: normal inspection, normocephalic - Eye Eye exam: Present: other (Lids objective unremarkable). Absent: scleral icterus - ENT ENT exam: Present: normal exam, normal oropharynx - Neck Neck exam: Present: normal inspection - Respiratory Respiratory exam: Present: clear to auscultation bilaterally. Absent: rales, rhonchi, wheezes - Cardiovascular Cardiovascular exam: Present: regular rate and rhythm. Absent: diastolic murmur , JVD, systolic murmur - GI/Abdominal GI/Abdominal exam: Present: normal bowel sounds, soft. Absent: ascites, distended, mass, organomegaly, tenderness - Extremities Exam Extremities exam: Present: normal inspection, full ROM - Back Exam Back exam: Present: normal inspection - Neurological Exam Neurological exam: Present: alert, oriented X3 - Psychiatric Psychiatric exam: Present: normal affect, normal mood - Skin Skin exam: Present: normal color, warm, dry Results - Labs CBC & BMP: 10/02/16 04:52 10/02/16 04:52 Lab Results: I have reviewed the past 24 hour labs
--- NOTE | 2016-10-02 11:45 | Infectious Disease Progress ---
Assessment and Plan (1) MRSA (methicillin resistant Staphylococcus aureus) septicemia Status: Acute Assessment and plan: MRSA septicemia relapsed from 2 months ago. Fortunately her right femoral dialysis graft does not appear to be infected. We are still awaiting a PRAVIN to rule out endocarditis. Recommendations: 1. Continue vancomycin with goal trough level (20-25) 2. Repeat blood cultures today 3. PRAVIN early next week hopefully Current Visit: Yes (2) End stage renal disease on dialysis Status: Chronic Current Visit: Yes (3) Insulin dependent diabetes mellitus Status: Chronic Current Visit: Yes Infectious Disease - PN: Subj Interval history: Patient went over this 1 to explore her right femoral dialysis graft. She had complained of pain and swelling over there. Productive Chichi note the graft did not appear to be infected. Her PRAVIN has been postponed. Infectious Disease Exam (PN) - Constitutional Vitals: Temp Pulse Resp BP Pulse Ox 98.1 F 89 20 113/61 89 L 10/02/16 10:55 10/02/16 10:55 10/02/16 10:55 10/02/16 10:55 10/02/16 10:55 General appearance: over weight Exam: General appearance: Drowsy having just come back from the operating room - Eye Eye exam: Present: EOMI. no icterus Pupils: Present: GARIMA - ENT ENT exam: no oral exudates - Respiratory Respiratory exam: vesicular BS, no crepitations or wheezes - Cardiovascular Cardiovascular exam: healing sternotomy wound, regular rate and rhythm, no murmurs - GI/Abdominal GI/Abdominal exam: normal bowel sounds, soft, non-tender, no organomegaly or mass - Extremities Exam Extremities exam: healed Rt BKA stump, no edema, no significant swelling to the right femoral graft region - Skin Skin exam: no rash Results - Labs CBC & BMP: 10/02/16 04:52 10/02/16 04:52 Lab Results: I have reviewed the past 24 hour labs Quality Measures - VTE Contraindication to Pharmacological VTE Prophylaxis: High Risk of Bleeding
[2016-10-02] MEDS: HYDROmorphone 2 MG/1 ML VIAL IV PRN ×3 (13:13→22:27)
[2016-10-02] MEDS: SODIUM CHLORIDE 0.9% 1,000 ML IV SCH (16:18)
--- NOTE | 2016-10-02 16:23 | Anesthesia Post-Op ---
Anesthesia Post OP - Post Ansesthetic Evaluation Patient seen in post op: Yes Resp: within normal limits CV: within normal limits Mental: within normal limits Temp: within normal limits [id number]: within normal limits Nausea and Vomiting: within normal limits Pain: within normal limits
--- NOTE | 2016-10-02 16:41 | Hospitalist Progress Note ---
Assessment and Plan (1) End stage renal disease on dialysis Problem details: No acute indication for HD at this time. Status: Chronic Assessment and plan: We continue to have difficulties in identifying a source of this persistent bacteremia. Have again ordered a PRAVIN for further evaluation. Continues on Vancomycin currently. Appreciate ID input. Will repeat blood cx daily. Leukocytosis more than likely 2/2 persistent bactermia. Monitor CBC's daily. No evidence of infection on sugical inspection of dialysis graft site. No other obvious sources. Patient remains afebrile and hemodynamically stable. Continue work-up and monitoring Current Visit: Yes (2) Leukocytosis Problem details: improved. Status: Acute Current Visit: Yes (3) Insulin dependent diabetes mellitus Status: Chronic Current Visit: Yes (4) Bacteremia due to Gram-positive bacteria Status: Acute Current Visit: Yes (5) Anemia Status: Chronic Current Visit: Yes Qualifiers: Anemia type: unspecified type Qualified Code(s): D64.9 - Anemia, unspecified (6) MRSA (methicillin resistant Staphylococcus aureus) septicemia Status: Acute Current Visit: Yes Hospitalist: Subjective Interval history: No acute events overnight. Patient underwent exploration of the graft without any evidence of infection/abscess noted. She remains hemodynamically stable but still with persistent bacteremia without a significant source. Will again attempt to obtain PRAVIN given the most recent findings. Ms. Alfonso is clinically stable and reports feeling well. No localization of any additional sources. Exam - Constitutional Vitals: Period Temp Pulse Resp BP Sys/Pineda Pulse Ox Last 24 Hr 96.4 F-99.1 F 89-118 16-96 103-139/57-76 91-99 Exam: General appearance: over weight - Head Head exam: Present: normocephalic, atraumatic - Eye Eye exam: Present: EOMI - Respiratory Respiratory exam: Present: clear to auscultation bilaterally. Absent: wheezes - Cardiovascular Cardiovascular exam: Present: regular rate and rhythm with a soft systolic murmur noted at the LUSB. - GI/Abdominal GI/Abdominal exam: Present: normal bowel sounds, soft. Absent: tenderness, rebound - Extremities Exam Extremities exam: Present: Right BKA. No evidence of infection nor abscess in either extremity - Neurological Exam Neurological exam: Present: alert, oriented X3 - Psychiatric Psychiatric exam: Present: normal affect, normal mood - Skin Skin exam: Present: warm, intact Results - Labs CBC & BMP: 06/16/17 04:52 10/02/16 04:52 Quality Measures - VTE Contraindication to Pharmacological VTE Prophylaxis: High Risk of Bleeding
[2016-10-02] MEDS: MONTELUKAST 10 MG TABLET PO SCH (22:32)
[2016-10-03] MEDS: HYDROmorphone 2 MG/1 ML VIAL IV PRN ×5 (02:19→21:11)
[2016-10-03 04:32] LABS: Basophils % 0.2 % (0.0-0.8); Eosinophils # 0.5 10*3/uL (0.0-0.87); Hematocrit 22.9 VOL% (35.7-47.0); Hemoglobin 7.1 GM/DL (12.0-16.0); Immature Granulocytes % 3.4 %; Immature Granulocytes Absolute 0.55 #; Lymphocytes # 2.6 10*3/uL (1.4-4.0); Lymphocytes % 16.1 % (21.3-54.2); Mean Corpuscular Hemoglobin 30 PG (27-34); Mean Platelet Volume 10.2 FL (9.6-12.0); Monocytes # 3.4 10*3/uL (0.11-0.8); NRBC # 0.03 10*3/uL; Neutrophils % 56.3 % (38.7-73.9); Platelet Count 241 T/CUMM (130-400); Red Blood Count 2.41 MC/CUMM (3.8-5.5); Red Cell Distribution Width 16.9 % (9.3-17.3); White Blood Count 16.1 T/CUMM (4-12)
[2016-10-03 05:09] LABS: Albumin 2.5 G/DL (3.4-5.0); Bilirubin,Total 0.8 MG/DL (0.2-1.0); Calcium 8.6 MG/DL (8.5-10.1); Osmolality,Calculated 272.5 MOS/KG (273-304); Phosphorous 3.2 MG/DL (2.5-4.9); Potassium 4.5 MMOL/L (3.5-5.1); Total Protein 7.9 G/DL (6.4-8.3)
[2016-10-03 05:11] LABS: Band Neutrophils 1 % (0-10); Eosinophils 1 % (0-10); Hypochromasia 1+; Lymphocytes 14 % (20-55); Segmented Neutrophils 67 % (50-85); Total Cells Counted 100
[2016-10-03 05:12] LABS: Macrocytosis 1+; Platelet Estimate Normal
[2016-10-03] MEDS: POLYETHYLENE GLYCOL POWDER 17 GM PACK PO SCH ×2 (07:42→09:09)
[2016-10-03] MEDS: INSULIN GLARGINE 100 UNIT/ML SUBCUT SCH ×2 (07:43→09:07)
[2016-10-03] MEDS: INSULIN LISPRO 100 UNIT/ML SUBCUT SCH ×4 (07:44→21:59)
[2016-10-03] MEDS: ASPIRIN EC 325 MG TABLET PO SCH ×2 (07:46→09:06)
[2016-10-03] MEDS: DOCUSATE SODIUM 100 MG CAPSULE PO SCH ×3 (07:47→21:13)
[2016-10-03] MEDS: FLUoxetine 20 MG CAPSULE PO SCH ×2 (07:47→09:10)
[2016-10-03] MEDS: PREGABALIN 50 MG CAPSULE PO SCH ×2 (07:47→09:08)
[2016-10-03] MEDS: CALCIUM ACETATE 667 MG CAPSULE PO SCH ×3 (07:47→16:47)
[2016-10-03] MEDS ORDERED: VANCOMYCIN INJ 1,000 MG in SODIUM CHLORIDE 0.9% 250 ML IV PRN (08:00)
[2016-10-03] MEDS ORDERED: SODIUM CHLORIDE 0.9% 250 ML IV PRN (08:54)
--- NOTE | 2016-10-03 08:55 | Dialysis Note ---
Dialysis Note - Dialysis Note Patient is seen on dialysis. She is tolerating the procedure. Of note hematocrit noted to be 22.9. Will transfuse 2 units packed red blood cells on dialysis today. Blood pressure noted be 122/66.
[2016-10-03] MEDS: LISINOPRIL 20 MG TABLET PO SCH (09:09)
--- NOTE | 2016-10-03 11:21 | Event Note ---
She feels well on dialysis. Her wounds are okay and her graft is unremarkable. She thinks that her graft feels a little better. I do not think that she has an active infection in her graft.
--- NOTE | 2016-10-03 15:56 | Hospitalist Progress Note ---
Assessment and Plan (1) End stage renal disease on dialysis Problem details: No acute indication for HD at this time. Status: Chronic Assessment and plan: We continue to have difficulties in identifying a source of this persistent bacteremia. PRAVIN ordered for Wednesday for further evaluation. Continues on Vancomycin currently. Pharmacy managing. Appreciate their assistance. Repeat blood cultures with 1 out of 2 positive for gram-positive cocci. Daily blood cultures until sterile. Given symptoms of sinus congestion and headache, we will go ahead and obtain a CT sinuses for completion. Leukocytosis improving and more than likely 2/2 persistent bactermia. Monitor CBC's daily. No evidence of infection on sugical inspection of dialysis graft site. No other obvious sources. Patient remains afebrile and hemodynamically stable. Continue work-up and monitoring Current Visit: Yes (2) Leukocytosis Problem details: improved. Status: Acute Current Visit: Yes (3) Insulin dependent diabetes mellitus Status: Chronic Current Visit: Yes (4) Bacteremia due to Gram-positive bacteria Status: Acute Current Visit: Yes (5) Anemia Status: Chronic Assessment and plan: Transfuse 2 units packed red blood cells today. Current Visit: Yes Qualifiers: Anemia type: unspecified type Qualified Code(s): D64.9 - Anemia, unspecified (6) MRSA (methicillin resistant Staphylococcus aureus) septicemia Status: Acute Assessment and plan: As above Current Visit: Yes Hospitalist: Subjective Interval history: Patient seen and evaluated today. No acute events overnight. Patient was in dialysis earlier and blood transfusion ordered but has not yet occurred. Continue to discuss with Ms. clements any new signs and symptoms that could explain the persistent bacteremia. She does describe symptoms of sinus congestion sinusitis and sinus ulcerations. We discussed the possibility of nasal bi- prong causing some of the irritation but given that there has not been an underlying etiology of persistent bacteremia, will go ahead and order a CT sinuse for further evaluation. She also describes headaches some mild confusion and sinus congestion. Repeat blood cultures continue to be positive however blood cultures obtained on yesterday were 1 out of 2 positive so far. We will continue to obtain daily cultures until sterile and plan for PRAVIN on Wednesday. Random Vanco level noted to be 30.1. Vancomycin adjusted by pharmacy to 1 g after dialysis today. Exam - Constitutional Vitals: Period Temp Pulse Resp BP Sys/Pineda Pulse Ox Last 24 Hr 96.3 F-9735 F 72-112 14-20 117-148/55-75 91-95 Exam: General appearance: over weight - Head Head exam: Present: normocephalic, atraumatic - Eye Eye exam: Present: EOMI - Respiratory Respiratory exam: Present: clear to auscultation bilaterally. Absent: wheezes - Cardiovascular Cardiovascular exam: Present: regular rate and rhythm with a soft systolic murmur noted at the LUSB. - GI/Abdominal GI/Abdominal exam: Present: normal bowel sounds, soft. Absent: tenderness, rebound - Extremities Exam Extremities exam: Present: Right BKA. No evidence of infection nor abscess in either extremity - Neurological Exam Neurological exam: Present: alert, oriented X3 - Psychiatric Psychiatric exam: Present: normal affect, normal mood - Skin Skin exam: Present: warm, intact Results - Labs CBC & BMP: 10/03/16 04:24 10/03/16 04:24 Quality Measures - VTE Contraindication to Pharmacological VTE Prophylaxis: High Risk of Bleeding
[2016-10-03] MEDS: SODIUM CHLORIDE 0.9% 1,000 ML IV SCH (16:51)
[2016-10-03] MEDS ORDERED: VANCOMYCIN INJ 1,000 MG in SODIUM CHLORIDE 0.9% 250 ML IV ONE (18:00)
--- NOTE | 2016-10-03 18:08 | CT Report ---
CT sinus wo/w con Indication: Headache and sinus congestion. MRSA bacteremia. CT SINUSES WITH AND WITHOUT CONTRAST DLP: 390 mGy*cm. One or more of the following dose reduction techniques was used: Automated exposure control, adjustment of the mA and/or kV according the patient size, or use of iterative reconstruction techniques. Technique: Axial noncontrast CT images of the paranasal sinuses were obtained. Coronal reconstructions were provided. Comparison: None Findings: Paranasal sinuses are clear. Mastoid air cells are clear. No bony erosion. Orbits are symmetric. No enhancing lesions. Impression: Negative sinus series. PROCEDURE INTERPRETED AT [facility] DEPARTMENT OF RADIOLOGY Final Report Signed by: Bang Moctezuma M.D.
[2016-10-03] MEDS: MONTELUKAST 10 MG TABLET PO SCH (21:14)
[2016-10-04 02:40] LABS: Basophils % 0.1 % (0.0-0.8); Eosinophils # 0.6 10*3/uL (0.0-0.87); Eosinophils % 4.3 % (0.00-10.9); Hematocrit 21.8 VOL% (35.7-47.0); Hemoglobin 6.8 GM/DL (12.0-16.0); Immature Granulocytes % 3.9 %; Immature Granulocytes Absolute 0.53 #; Lymphocytes # 2.6 10*3/uL (1.4-4.0); Lymphocytes % 18.8 % (21.3-54.2); Mean Corpuscular HGB Conc 31.2 GM/DL (32-36); Mean Corpuscular Hemoglobin 30 PG (27-34); Mean Corpuscular Volume 95.2 FL (87-102); Mean Platelet Volume 10.3 FL (9.6-12.0); Monocytes # 2.6 10*3/uL (0.11-0.8); Monocytes % 18.8 % (1.7-12.7); Neutrophils # 7.4 10*3/uL (1.4-7.4); Neutrophils % 54.1 % (38.7-73.9); Platelet Count 237 T/CUMM (130-400); Red Blood Count 2.29 MC/CUMM (3.8-5.5); Red Cell Distribution Width 17.2 % (9.3-17.3); White Blood Count 13.6 T/CUMM (4-12)
[2016-10-04 03:08] LABS: Calcium 8.1 MG/DL (8.5-10.1); Potassium 4.7 MMOL/L (3.5-5.1)
[2016-10-04 04:03] LABS: Eosinophils 2 % (0-10); Lymphocytes 19 % (20-55); Segmented Neutrophils 59 % (50-85); Total Cells Counted 100
[2016-10-04 04:04] LABS: Hypochromasia 1+; Platelet Estimate Normal
[2016-10-04] MEDS: HYDROmorphone 2 MG/1 ML VIAL IV PRN ×3 (07:10→17:31)
[2016-10-04] MEDS: INSULIN LISPRO 100 UNIT/ML SUBCUT SCH ×4 (08:22→22:40)
[2016-10-04] MEDS: INSULIN GLARGINE 100 UNIT/ML SUBCUT SCH (08:24)
[2016-10-04] MEDS: LISINOPRIL 20 MG TABLET PO SCH (08:25)
[2016-10-04] MEDS: CALCIUM ACETATE 667 MG CAPSULE PO SCH ×3 (08:25→17:30)
[2016-10-04] MEDS: PREGABALIN 50 MG CAPSULE PO SCH (08:25)
[2016-10-04] MEDS: POLYETHYLENE GLYCOL POWDER 17 GM PACK PO SCH (08:26)
[2016-10-04] MEDS: FLUoxetine 20 MG CAPSULE PO SCH (08:30)
[2016-10-04] MEDS: DOCUSATE SODIUM 100 MG CAPSULE PO SCH ×2 (08:30→22:38)
[2016-10-04] MEDS: ASPIRIN EC 325 MG TABLET PO SCH (08:31)
--- NOTE | 2016-10-04 08:54 | Nephrology Progress Note ---
Nephrology - PN: Subj Interval history: The patient is resting comfortably sitting up in bed. She voices no complaints. Tolerated dialysis on yesterday. She is receiving her second units of packed red blood cells. Hematocrit noted to be 21.8. Hemodynamics have been stable. Exam (PN)-Nephrology - Vital Signs Vital signs: Period Temp Pulse Resp BP Sys/Pineda Pulse Ox Last 24 Hr 97 F-97.8 F 87-105 18-22 110-146/60-75 89-97 - General Appearance General appearance: well-developed, well-nourished EENT: ATNC Neck: supple Respiratory: clear Cardiology: no edema, regular rate, regular rhythm Gastrointestinal: normoactive bowel sounds Neurologic: alert and oriented x3 Musculoskeletal: no clubbing Psychiatric: mood/affect appropriate - Lab 10/04/16 02:02 10/04/16 02:02 Most recent lab results Calcium 8.1 MG/DL (8.5-10.1) L 10/04/16 02:02 Phosphorus 3.2 MG/DL (2.5-4.9) 10/03/16 04:24 Magnesium 2.0 MG/DL (1.8-2.4) 10/03/16 04:24 Assessment and Plan (1) Tobacco abuse Status: Chronic Current Visit: No (2) End stage renal disease on dialysis Status: Chronic Assessment and plan: Continue with scheduled hemodialysis. Current Visit: Yes (3) Hypocalcemia Status: Resolved Current Visit: No
--- NOTE | 2016-10-04 09:50 | Cardiothoracic Progress Note ---
Assessment and Plan (1) Chest pain Status: Acute Assessment and plan: 31-year-old female 5 weeks status post right atrial organized thrombus removal. The patient does not have any signs or symptoms of sternal wound infection. Wound is well-healing and the bone is intact with no fluid collection is noted on CT. There is no drainage noted. I do not expect her to have wound infection at this moment. continue giving her antibiotics given that she has positive blood cultures. Current Visit: Yes Exam (Progress Note) - Constitutional Vitals: Period Temp Pulse Resp BP Sys/Pineda Pulse Ox Last 24 Hr 97 F-98.2 F 87-105 18-22 110-146/60-75 89-97 Result/EKG - Labs CBC & BMP: 10/04/16 02:02 10/04/16 02:02 Labs: Laboratory Results - last 24 hr 10/03/16 10/03/16 10/03/16 04:22 12:51 15:52 WBC RBC Hgb Hct MCV MCH MCHC RDW Plt Count MPV Neut % (Auto) Lymph % (Auto) Avery % (Auto) Eos % (Auto) Baso % (Auto) Neut # (Auto) Lymph # (Auto) Avery # (Auto) Eos # (Auto) Baso # (Auto) Total Counted Immature Gran % Nucleated RBC % Immature Gran # Segmented Neutrophils Lymphocytes Monocytes Eosinophils Nucleated RBCs # Platelet Estimate Hypochromasia Sodium Potassium Chloride Carbon Dioxide Anion Gap BUN Creatinine GFR Calculation BUN/Creatinine Ratio Glucose POC Glucose 112 H 183 H Calculated Osmolality Calcium Blood Type O POSITIVE Antibody Screen Positive Antibody Identification Anti-e Crossmatch See Detail 10/03/16 10/04/16 10/04/16 21:27 02:02 02:02 WBC 13.6 H RBC 2.29 L Hgb 6.8 L Hct 21.8 L MCV 95.2 MCH 30 MCHC 31.2 L RDW 17.2 Plt Count 237 MPV 10.3 Neut % (Auto) 54.1 Lymph % (Auto) 18.8 L Avery % (Auto) 18.8 H Eos % (Auto) 4.3 Baso % (Auto) 0.1 Neut # (Auto) 7.4 Lymph # (Auto) 2.6 Avery # (Auto) 2.6 H Eos # (Auto) 0.6 Baso # (Auto) 0.0 Total Counted 100 Immature Gran % 3.9 Nucleated RBC % 0.0 Immature Gran # 0.53 Segmented Neutrophils 59 Lymphocytes 19 L Monocytes 20 H Eosinophils 2 Nucleated RBCs # 0.00 Platelet Estimate Normal Hypochromasia 1+ Sodium 136 Potassium 4.7 Chloride 98 Carbon Dioxide 28 Anion Gap 14.7 BUN 18 Creatinine 5.90 H GFR Calculation 12 BUN/Creatinine Ratio 3.00 L Glucose 134 H POC Glucose 183 H Calculated Osmolality 275.0 Calcium 8.1 L Blood Type Antibody Screen Antibody Identification Crossmatch 10/04/16 06:46 WBC RBC Hgb Hct MCV MCH MCHC RDW Plt Count MPV Neut % (Auto) Lymph % (Auto) Avery % (Auto) Eos % (Auto) Baso % (Auto) Neut # (Auto) Lymph # (Auto) Avery # (Auto) Eos # (Auto) Baso # (Auto) Total Counted Immature Gran % Nucleated RBC % Immature Gran # Segmented Neutrophils Lymphocytes Monocytes Eosinophils Nucleated RBCs # Platelet Estimate Hypochromasia Sodium Potassium Chloride Carbon Dioxide Anion Gap BUN Creatinine GFR Calculation BUN/Creatinine Ratio Glucose POC Glucose 155 H Calculated Osmolality Calcium Blood Type Antibody Screen Antibody Identification Crossmatch Quality Measures - VTE Contraindication to Pharmacological VTE Prophylaxis: High Risk of Bleeding
[2016-10-04 13:00] LABS: Hematocrit 29.2 VOL% (35.7-47.0)
[2016-10-04 13:03] LABS: Hemoglobin 9.1 GM/DL (12.0-16.0)
[2016-10-04] MEDS: ONDANSETRON 4 MG/2 ML VIAL IV PRN (13:42)
--- NOTE | 2016-10-04 14:00 | Hospitalist Progress Note ---
Assessment and Plan (1) End stage renal disease on dialysis Problem details: No acute indication for HD at this time. Status: Chronic Assessment and plan: Continues on Vancomycin currently. Pharmacy managing. Appreciate their assistance. Blood cultures remain positive. CT sinuses unremarkable. Leukocytosis continues to improve and more than likely 2/2 persistent bactermia. Monitor CBC's daily. No obvious source of infection. Patient remains afebrile and hemodynamically stable. Continue monitoring. Current Visit: Yes (2) Leukocytosis Problem details: improved. Status: Acute Current Visit: Yes (3) Insulin dependent diabetes mellitus Status: Chronic Current Visit: Yes (4) Anemia Status: Chronic Assessment and plan: Delayed from yesterday. Therefore will transfuse 2 units packed red blood cells today. Current Visit: Yes Qualifiers: Anemia type: unspecified type Qualified Code(s): D64.9 - Anemia, unspecified (5) MRSA (methicillin resistant Staphylococcus aureus) septicemia Status: Acute Current Visit: Yes Hospitalist: Subjective Interval history: Patient seen at the bedside today no acute events noted overnight. She reports sleeping well. She only started her blood transfusion early this morning. She will receive 2 units. Blood cultures continue to remain positive. We will continue with vancomycin for treatment of MRSA bacteremia/sepsis. CT sinuses obtained is unremarkable. Still without a source for this persistent bacteremia. Patient remains hemodynamically and clinically stable. Exam - Constitutional Vitals: Period Temp Pulse Resp BP Sys/Pineda Pulse Ox Last 24 Hr 97 F-98.2 F 87-105 18-22 110-134/60-81 89-97 Exam: General appearance: over weight - Head Head exam: Present: normocephalic, atraumatic - Eye Eye exam: Present: EOMI - Respiratory Respiratory exam: Present: clear to auscultation bilaterally. Absent: wheezes - Cardiovascular Cardiovascular exam: Present: regular rate and rhythm with a soft systolic murmur noted at the LUSB. - GI/Abdominal GI/Abdominal exam: Present: normal bowel sounds, soft. Absent: tenderness, rebound - Extremities Exam Extremities exam: Present: Right BKA. No evidence of infection nor abscess in either extremity - Neurological Exam Neurological exam: Present: alert, oriented X3 - Psychiatric Psychiatric exam: Present: normal affect, normal mood - Skin Skin exam: Present: warm, intact Results - Labs CBC & BMP: 10/04/16 12:46 10/04/16 02:02 Quality Measures - VTE Contraindication to Pharmacological VTE Prophylaxis: High Risk of Bleeding
[2016-10-04] MEDS: SODIUM CHLORIDE 0.9% 1,000 ML IV SCH (17:30)
[2016-10-04] MEDS: MONTELUKAST 10 MG TABLET PO SCH (22:38)
[2016-10-05] MEDS: HYDROmorphone 2 MG/1 ML VIAL IV PRN ×6 (00:18→21:54)
[2016-10-05] MEDS: ONDANSETRON 4 MG/2 ML VIAL IV PRN (00:21)
[2016-10-05] MEDS: INSULIN LISPRO 100 UNIT/ML SUBCUT SCH ×4 (08:09→21:54)
--- NOTE | 2016-10-05 08:47 | Nephrology Progress Note ---
Nephrology - PN: Subj Interval history: Pt tolerated routine CHD Wednesday without complications. She denies SOB/pain. Exam (PN)-Nephrology - Vital Signs Vital signs: Period Temp Pulse Resp BP Sys/Pineda Pulse Ox Last 24 Hr 97.0 F-98.7 F 64-100 18-22 117-152/67-90 93-97 - General Appearance General appearance: well-developed, obese EENT: ATNC, PERRL Neck: no JVD, no thyromegaly Respiratory: no kyphosis, clear Cardiology: no murmurs, no rub Gastrointestinal: normoactive bowel sounds, no tenderness Integumentary: no rash, warm and dry Neurologic: no focal deficit, no asterixis, alert and oriented x3 Musculoskeletal: no deformities, no erythema Psychiatric: mood/affect appropriate, cooperative - Lab 10/04/16 12:46 10/04/16 02:02 Most recent lab results Calcium 8.1 MG/DL (8.5-10.1) L 10/04/16 02:02 Phosphorus 3.2 MG/DL (2.5-4.9) 10/03/16 04:24 Magnesium 2.0 MG/DL (1.8-2.4) 10/03/16 04:24 Assessment and Plan (1) Infection of AV graft for dialysis Problem details: [place] not to be infected after surgical exploration. WBC declining Status: Acute Current Visit: Yes (2) Leukocytosis Problem details: improved. Status: Acute Assessment and plan: Per ID peoplesoft hcm consultant. Current Visit: Yes (3) End stage renal disease on dialysis Problem details: No acute indication for HD at this time. Status: Chronic Assessment and plan: Routine CHD tomorrow. Epo 8k units IV p HD. UF as tolerated by hemodynamics to EDW. Current Visit: Yes (4) History of pulmonary embolism Status: Chronic Current Visit: No (5) Nausea and vomiting Problem details: Emesis of fecal material per nursing staff. Rule out obstruction. Status: Resolved Assessment and plan: start miralax daily. Current Visit: Yes
--- NOTE | 2016-10-05 09:49 | Operative Note ---
Procedure: The patient has persistent bacteremia and we were asked to perform PRAVIN to rule out evidence of endocarditis or cardiac infection. This is a preliminary report. The final report is to come. This test showed no evidence of endocarditis or vegetation. She had normal valvular structure and function. Interatrial septum was intact. There was no evidence of thrombus or other abnormalities. Her left ventricular and right ventricular function were both normal. Please call us if we can be of further assistance on her case. Surgeon / Physician: Danny Kang Estimated blood loss: other (per anesthesia) Specimens: none sent Condition: stable Disposition: floor Results - Labs CBC & BMP: 10/04/16 12:46 10/04/16 02:02 Discharge Plan - Discharge Medications No Action Lisinopril 40 mg PO DAILY Cyproheptadine Tab [Periactin Tab] 4 mg PO BID Docusate Sodium 100 mg PO BID oxyCODONE ER [OxyCONTIN] 10 mg PO BID Ranitidine Tab [Zantac Tab] 150 mg PO BID Mupirocin 2% Oint [Bactroban 2% Oint] 1 applic TOP BID Cyclobenzaprine HCl 5 mg PO TID Hydrocodone/Acetaminophen [Hydrocodon-Acetaminophn 10-325] 1 each PO Q4H PRN PRN Reason: Pain Moderate To Severe (4-10) Pregabalin [Lyrica] 50 mg PO DAILY Fluoxetine HCl [Prozac] 40 mg PO DAILY Montelukast Sodium 10 mg PO BEDTIME Aspirin EC Tab 325 mg PO DAILY Insulin Glargine [Lantus] 15 unit SUBCUT DAILY Atorvastatin Calcium 40 mg PO BEDTIME Acetaminophen Tab [Tylenol Tab] 650 mg PO Q6H PRN PRN Reason: Pain Mild To Moderate (1-7) Albuterol/Ipratropium Neb [Duoneb] 3 ml RESP TX RT Q4H PRN PRN Reason: Shortness Of Breath/Wheezing Calcitriol 2 mcg PO DAILY Calcium Acetate [Phoslo] 667 mg PO TID W/MEALS - Follow Up or Referral - Forms/Instructions
--- NOTE | 2016-10-05 09:53 | Event Note ---
She feels better. Fever has resolved. The graft is unchanged in appearance. There are no signs of active infection. I will see her back in the clinic in the next week or 2. I will sign off for now but will be happy to see her if there are any problems or questions.
--- NOTE | 2016-10-05 11:12 | Infectious Disease Progress ---
Assessment and Plan (1) MRSA (methicillin resistant Staphylococcus aureus) septicemia Status: Acute Assessment and plan: MRSA septicemia relapsed from 2 months ago. This is prolonged bacteremia. No obvious focus of infection, her PRAVIN today was negative for endocarditis. She has a small fluctuant swelling in the area of the right femoral dialysis graft and I wonder if it is a small abscess. Recommendations: 1. Continue vancomycin with goal trough level (20-25) 2. Repeat blood cultures again today 3. Monitor evolution of swelling the right femoral area, she may need another I &D Current Visit: Yes (2) End stage renal disease on dialysis Status: Chronic Current Visit: Yes (3) Insulin dependent diabetes mellitus Status: Chronic Current Visit: Yes Infectious Disease - PN: Subj Interval history: Patient doing fairly okay, uneventful weekend, she has not had fever. She says there is still some swelling about her femoral dialysis graft but the pain is improved. Infectious Disease Exam (PN) - Constitutional Vitals: Temp Pulse Resp BP Pulse Ox 97.8 F 91 H 18 141/78 93 L 10/05/16 08:00 10/05/16 08:00 10/05/16 08:00 10/05/16 08:00 10/05/16 08:00 General appearance: over weight Exam: General appearance: Alert and interactive, nontoxic-appearing - Eye Eye exam: Present: EOMI. no icterus Pupils: Present: GARIMA - ENT ENT exam: no oral exudates - Respiratory Respiratory exam: vesicular BS, no crepitations or wheezes - Cardiovascular Cardiovascular exam: healing sternotomy wound, regular rate and rhythm, no murmurs - GI/Abdominal GI/Abdominal exam: normal bowel sounds, soft, non-tender, no organomegaly or mass - Extremities Exam Extremities exam: healed Rt BKA stump, no edema, in the region of her right femoral dialysis graft there is some edema and may be mild induration and centrally there is a fluctuant mild swelling which is about 1 cm wide - Skin Skin exam: no rash Results - Labs CBC & BMP: 10/04/16 12:46 10/04/16 02:02 Lab Results: I have reviewed the past 24 hour labs (Blood cultures from the remain positive for MRSA; PRAVIN negative for endocarditis) Quality Measures - VTE Contraindication to Pharmacological VTE Prophylaxis: High Risk of Bleeding
[2016-10-05] MEDS: INSULIN GLARGINE 100 UNIT/ML SUBCUT SCH (11:38)
[2016-10-05] MEDS: CALCIUM ACETATE 667 MG CAPSULE PO SCH ×3 (11:38→16:17)
[2016-10-05] MEDS: DOCUSATE SODIUM 100 MG CAPSULE PO SCH ×2 (11:39→20:34)
[2016-10-05] MEDS: PREGABALIN 50 MG CAPSULE PO SCH (11:39)
[2016-10-05] MEDS: LISINOPRIL 20 MG TABLET PO SCH (11:39)
[2016-10-05] MEDS: FLUoxetine 20 MG CAPSULE PO SCH (11:39)
[2016-10-05] MEDS: ASPIRIN EC 325 MG TABLET PO SCH (11:39)
[2016-10-05] MEDS: POLYETHYLENE GLYCOL POWDER 17 GM PACK PO SCH (11:40)
--- NOTE | 2016-10-05 12:43 | ECHO Report ---
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 Components IMPRESSIONS Normal left ventricular size and systolic function with ejection fraction estimated at 55%. There is trace regurgitation. Trace tricuspid regurgitation. Structurally normal valves with no evidence of vegetation/endocarditis. MEASUREMENTS (Male / Female) Normal Values FINDINGS Left Ventricle Normal left ventricular size and systolic function with ejection fraction estimated at 55%. Right Ventricle The right ventricle is normal in size and function. Right Atrium The right atrium is normal in size. Left Atrium The left atrium is normal in size. LA Appendage IA Septum The interatrial septum is normal. Mitral Valve Morphologically normal mitral valve without significant stenosis or prolapse. There is trace regurgitation. Aortic Valve Morphologically normal aortic valve without significant sclerosis or stenosis. There is no aortic regurgitation. Tricuspid Valve Morphologically normal tricuspid valve. Trace tricuspid regurgitation. Pulmonic Valve Morphologically normal pulmonic valve without significant stenosis. There is no pulmonic regurgitation. Pericardium Normal pericardium without effusion. Aorta Normal ascending aorta dimension. Danny Kang (Electronically Signed) Final Date: 05 October 2016 12:42
--- NOTE | 2016-10-05 17:12 | Hospitalist Progress Note ---
Assessment and Plan - Time spent with patient Time spent with patient: Less than 30 minutes (1) End stage renal disease on dialysis Problem details: No acute indication for HD at this time. Status: Chronic Assessment and plan: Continues on Vancomycin currently. Blood cultures remain positive. CT sinuses unremarkable. Leukocytosis continues to improve however and more than likely 2/ 2 persistent bactermia. Monitor CBC's daily. Patient has required a blood transfusion and therefore will need to monitor for the need to repeat. Still without an obvious source of infection. Patient remains afebrile and hemodynamically stable. Continue monitoring. Current Visit: Yes (2) Leukocytosis Problem details: improved. Status: Acute Current Visit: Yes (3) Insulin dependent diabetes mellitus Status: Chronic Current Visit: Yes (4) Anemia Status: Chronic Assessment and plan: s/p 2 units packed red blood cells on Wednesday. Current Visit: Yes Qualifiers: Anemia type: unspecified type Qualified Code(s): D64.9 - Anemia, unspecified (5) MRSA (methicillin resistant Staphylococcus aureus) septicemia Status: Acute Assessment and plan: As above Current Visit: Yes Hospitalist: Subjective Interval history: Patient seen and evaluated the bedside. No acute events overnight. Patient underwent PRAVIN evaluation today to rule out intravascular involvement of this persistent bacteremia. Blood cultures remain positive. She remains hemodynamically stable with no drops in blood pressure and no fever noted. ID as well as nephrology following. Exam - Constitutional Vitals: Period Temp Pulse Resp BP Sys/Pineda Pulse Ox Last 24 Hr 97.2 F-98.7 F 64-100 16-20 122-148/72-92 92-96 Exam: General appearance: over weight Eye exam: Present: EOMI Respiratory exam: Present: clear to auscultation bilaterally. Absent: wheezes Cardiovascular exam: Present: regular rate and rhythm with a soft systolic murmur noted at the LUSB. GI/Abdominal exam: Present: normal bowel sounds, soft. Absent: tenderness, rebound Extremities exam: Present: Right BKA. No evidence of infection nor abscess in either extremity. Neurological exam: Present: asleep but arousable. Alert, oriented X3 when awake. Psychiatric exam: Present: normal affect, normal mood Skin exam: Present: warm, intact Results - Labs CBC & BMP: 10/04/16 12:46 10/04/16 02:02 Quality Measures - VTE Contraindication to Pharmacological VTE Prophylaxis: High Risk of Bleeding
[2016-10-05] MEDS: MONTELUKAST 10 MG TABLET PO SCH (20:34)
[2016-10-06] MEDS: ONDANSETRON 4 MG/2 ML VIAL IV PRN (00:18)
[2016-10-06] MEDS: HYDROmorphone 2 MG/1 ML VIAL IV PRN ×3 (02:26→20:23)
[2016-10-06 05:44] LABS: Basophils % 0.2 % (0.0-0.8); Eosinophils # 0.5 10*3/uL (0.0-0.87); Eosinophils % 3.7 % (0.00-10.9); Hematocrit 27.1 VOL% (35.7-47.0); Hemoglobin 8.5 GM/DL (12.0-16.0); Immature Granulocytes % 3.2 %; Immature Granulocytes Absolute 0.47 #; Lymphocytes # 3.2 10*3/uL (1.4-4.0); Lymphocytes % 21.8 % (21.3-54.2); Mean Corpuscular HGB Conc 31.4 GM/DL (32-36); Mean Corpuscular Hemoglobin 29 PG (27-34); Mean Corpuscular Volume 93.8 FL (87-102); Mean Platelet Volume 9.8 FL (9.6-12.0); Monocytes # 1.8 10*3/uL (0.11-0.8); Neutrophils # 8.7 10*3/uL (1.4-7.4); Neutrophils % 59.1 % (38.7-73.9); Platelet Count 246 T/CUMM (130-400); Red Blood Count 2.89 MC/CUMM (3.8-5.5); Red Cell Distribution Width 17.2 % (9.3-17.3); White Blood Count 14.6 T/CUMM (4-12)
[2016-10-06 06:12] LABS: Band Neutrophils 1 % (0-10); Eosinophils 3 % (0-10); Hypochromasia 2+; Lymphocytes 12 % (20-55); Microcytosis Slight; Myelocytes 3 %; Platelet Estimate Adequate; Segmented Neutrophils 70 % (50-85); Total Cells Counted 100
[2016-10-06 06:27] LABS: Calcium 7.8 MG/DL (8.5-10.1); Magnesium 2.2 MG/DL (1.8-2.4); Osmolality,Calculated 272.4 MOS/KG (273-304)
[2016-10-06 06:35] LABS: Potassium 6.1 MMOL/L (3.5-5.1)
[2016-10-06] MEDS: INSULIN LISPRO 100 UNIT/ML SUBCUT SCH ×4 (07:57→21:27)
[2016-10-06] MEDS: CALCIUM ACETATE 667 MG CAPSULE PO SCH ×3 (07:57→17:02)
[2016-10-06] MEDS: INSULIN GLARGINE 100 UNIT/ML SUBCUT SCH (08:05)
--- NOTE | 2016-10-06 09:45 | Infectious Disease Progress ---
Assessment and Plan (1) MRSA (methicillin resistant Staphylococcus aureus) septicemia Status: Acute Assessment and plan: MRSA septicemia relapsed from 2 months ago. This is prolonged bacteremia. She has an abscess in the area of her femoral dialysis graft and it seems this may be the source of infection. Recommendations: 1. Continue vancomycin with goal trough level (20-25) 2. Discussed with Dr. Cadet and he is taking patient for I&D today 3. Follow-up repeat blood cultures Current Visit: Yes (2) End stage renal disease on dialysis Status: Chronic Current Visit: Yes (3) Insulin dependent diabetes mellitus Status: Chronic Current Visit: Yes Infectious Disease - PN: Subj Interval history: Patient doing okay, has increased swelling the right groin area. No fever. No nausea vomiting or diarrhea. Infectious Disease Exam (PN) - Constitutional Vitals: Temp Pulse Resp BP Pulse Ox 98.6 F 97 H 18 147/82 97 10/06/16 07:29 10/06/16 07:29 10/06/16 07:29 10/06/16 07:29 10/06/16 07:29 General appearance: over weight Exam: General appearance: Alert and interactive, on dialysis - Eye Eye exam: Present: EOMI. no icterus Pupils: Present: GARIMA - ENT ENT exam: no oral exudates - Respiratory Respiratory exam: vesicular BS, no crepitations or wheezes - Cardiovascular Cardiovascular exam: healing sternotomy wound, regular rate and rhythm, no murmurs - GI/Abdominal GI/Abdominal exam: normal bowel sounds, soft, non-tender, no organomegaly or mass - Extremities Exam Extremities exam: healed Rt BKA stump, no edema, in the region of her right femoral dialysis graft there is some edema and may induration and centrally there is a fluctuant mild swelling which has doubled in size since yesterday - Skin Skin exam: no rash Results - Labs CBC & BMP: 10/06/16 04:47 10/06/16 04:47 Lab Results: I have reviewed the past 24 hour labs Quality Measures - VTE Contraindication to Pharmacological VTE Prophylaxis: High Risk of Bleeding
--- NOTE | 2016-10-06 09:49 | Event Note ---
Since her procedure a few days ago she has developed an area of fluctuance located immediately between the 2 incision sites were I explored her graft. It is clear that this represents a focal graft infection. I discussed taking her to the operating room and we can look at the 2 areas that I opened up before and if they are free of infection that I can look at doing a bypass around this infected segment and then after this bypass is done closed these incisions and try removing the infected segment. This obviously has some degree of failure rate but can hopefully have us avoid having dialysis catheter and not losing her access. The procedure and risks were discussed in detail with the patient and she wishes to proceed. She is getting dialysis today because of her hyperkalemia. We might can do this this afternoon or in the morning.
--- NOTE | 2016-10-06 10:01 | Dialysis Note ---
Dialysis Note - Dialysis Note S: Pt seen on dialysis. She c/o new area of pain over her right groin AVG. O: VSS & AF A: 1. ESRD on CHD. Tolerating well without complications. 2. MRSA bacteremia, being treated for 6 weeks after first negative blood cx (endocarditis regimen) 3. right groin AVG infection/abscess. P: Next Routine CHD on . Seen by Dr Cadet, plan for OR today or in am.
[2016-10-06] MEDS ORDERED: VANCOMYCIN INJ 1,250 MG in SODIUM CHLORIDE 0.9% 250 ML IV ONE (12:00)
[2016-10-06] MEDS ORDERED: HEPARIN 5,000 UNIT/1 ML VIAL ONE (12:46)
[2016-10-06] MEDS ORDERED: BUPIVACAINE MPF 0.25% /EPI 30 ML VIAL ONE (12:46)
[2016-10-06] MEDS ORDERED: LIDOCAINE 1%/EPI INJ 20 ML VIAL ONE (12:47)
[2016-10-06] MEDS ORDERED: THROMBIN TOPICAL (RECOMBINANT) 5,000 UNIT VIAL TOP ONE (12:47)
[2016-10-06] MEDS: ASPIRIN EC 325 MG TABLET PO SCH (13:06)
[2016-10-06] MEDS: DOCUSATE SODIUM 100 MG CAPSULE PO SCH ×2 (13:08→20:27)
[2016-10-06] MEDS: FLUoxetine 20 MG CAPSULE PO SCH (13:09)
[2016-10-06] MEDS: POLYETHYLENE GLYCOL POWDER 17 GM PACK PO SCH (13:09)
[2016-10-06] MEDS: PREGABALIN 50 MG CAPSULE PO SCH (13:09)
[2016-10-06] MEDS: LISINOPRIL 20 MG TABLET PO SCH (14:06)
--- NOTE | 2016-10-06 15:00 | Hospitalist Progress Note ---
Hospitalist: Subjective Interval history: Nurse reports pt is requesting Dilaudid IV q2h. No cp or SOB. No fever. Tolerating po. Dee HD today. Exam - Constitutional Vitals: Period Temp Pulse Resp BP Sys/Pineda Pulse Ox Last 24 Hr 97.2 F-98.6 F 91-98 16-22 122-167/72-86 92-100 Exam: A and O x 3 RRR no M CTAB nonlabored Soft, NT, ND, +BS Warm no c/c/e Results - Labs CBC & BMP: 10/06/16 04:47 10/06/16 04:47 - Impressions (1) MRSA (methicillin resistant Staphylococcus aureus) septicemia likely due to infected HD graft with persistent bacteremia Status: Acute Assessment and plan: Current Visit: Yes - 09/29-10/03 blood cultures are positive. - 10/05 blood culture shows to growth to date. - Cont IV antibiotics/Vancomycin - F/U blood culture. ID following. Plans for I and D today. - CT sinuses unremarkable. Leukocytosis continues to improve however and more than likely 2/2 persistent bactermia. - PRAVIN was reportedly negative (2) End stage renal disease on dialysis Problem details: No acute indication for HD at this time. Status: Chronic Assessment and plan: Current Visit: Yes - HD per renal (3) Leukocytosis Problem details: was improved but labs increasing. Status: Acute Current Visit: Yes - serial labs. Likely due to #1 (4) Insulin dependent diabetes mellitus- currently controlled Status: Chronic Current Visit: Yes on Lantus and insulin sliding scale. Cont accuchecks ac,hs (5) Anemia Status: Chronic Assessment and plan: s/p 2 units packed red blood cells 10/04 Current Visit: Yes Qualifiers: Anemia type: unspecified type Qualified Code(s): D64.9 - Anemia, unspecified Dispo: to [facility] once blood cultures negative and s/p surgical debridement D/W pt and nurse and all questions answered. Quality Measures - VTE Contraindication to Pharmacological VTE Prophylaxis: High Risk of Bleeding
--- NOTE | 2016-10-06 17:45 | Operative Note ---
Date of procedure: 10/06/16 Pre-op diagnosis: Focal infection right femoral arteriovenous graft Post-op diagnosis: same Procedure: #1 revision right femoral arteriovenous graft with 6 mm PTFE interposition bypass around infected segment 2. Removal of infected AV graft segment Findings and technique: After informed consent was obtained the patient was brought the operating room and placed in supine position. After IV sedation was administered the patient's right thigh and groin were prepped and draped in usual sterile fashion. The open ulcerated area which was about a centimeter in size was isolated after the leg was prepped and draped with an [place]. The previous incisions proximal and distal to this area were opened up and sharp dissection carried down to the graft which had and uninfected well incorporated appearance. The graft was clamped proximally and distally and transected and a new 10 mm segment tunnel between the 2 incisions around the infected area. CV 6 [place] suture was used to perform and an anastomosis proximal and distal and good flow then established in the graft needle hole bleeding stopped after several minutes of direct pressure. Dissection was carried up for a centimeter or 2 out of this bed of dissection toward the infected area and the tract of this then oversewn with 3-0 Vicryl suture isolating this area from the uninfected graft. The wounds were irrigated and closed the deep layer of inverted 3-0 Vicryl suture and the skin with skin clips and OpSite placed over these wounds. Dissection then was carried out through the ulcerated segment where the graft was dissected out through this opening and removed and packed open with iodoform gauze. Anesthesia: MAC, local Surgeon / Physician: Abel Cadet III. Estimated blood loss: other (25 mL) Specimens: none sent Condition: stable Disposition: PACU Results - Labs CBC & BMP: 10/06/16 04:47 10/06/16 04:47 Discharge Plan - Discharge Medications No Action Lisinopril 40 mg PO DAILY Cyproheptadine Tab [Periactin Tab] 4 mg PO BID Docusate Sodium 100 mg PO BID oxyCODONE ER [OxyCONTIN] 10 mg PO BID Ranitidine Tab [Zantac Tab] 150 mg PO BID Mupirocin 2% Oint [Bactroban 2% Oint] 1 applic TOP BID Cyclobenzaprine HCl 5 mg PO TID Hydrocodone/Acetaminophen [Hydrocodon-Acetaminophn 10-325] 1 each PO Q4H PRN PRN Reason: Pain Moderate To Severe (4-10) Pregabalin [Lyrica] 50 mg PO DAILY Fluoxetine HCl [Prozac] 40 mg PO DAILY Montelukast Sodium 10 mg PO BEDTIME Aspirin EC Tab 325 mg PO DAILY Insulin Glargine [Lantus] 15 unit SUBCUT DAILY Atorvastatin Calcium 40 mg PO BEDTIME Acetaminophen Tab [Tylenol Tab] 650 mg PO Q6H PRN PRN Reason: Pain Mild To Moderate (1-7) Albuterol/Ipratropium Neb [Duoneb] 3 ml RESP TX RT Q4H PRN PRN Reason: Shortness Of Breath/Wheezing Calcitriol 2 mcg PO DAILY Calcium Acetate [Phoslo] 667 mg PO TID W/MEALS - Follow Up or Referral - Forms/Instructions
--- NOTE | 2016-10-06 19:08 | Anesthesia Post-Op ---
Anesthesia Post OP - Post Ansesthetic Evaluation Patient seen in post op: Yes Resp: within normal limits CV: within normal limits Mental: within normal limits Temp: within normal limits Gzja-[id number]-[id number]: within normal limits Nausea and Vomiting: within normal limits Pain: within normal limits
[2016-10-06] MEDS ORDERED: PROPOFOL 200 MG/20 ML VIAL IV ONE (19:14)
[2016-10-06] MEDS ORDERED: SODIUM CHLORIDE 0.9% 200 ML IV ONE (19:14)
[2016-10-06] MEDS ORDERED: fentaNYL 100 MCG/2 ML VIAL ONE (19:14)
[2016-10-06] MEDS ORDERED: MIDAZOLAM 2 MG/2 ML VIAL ONE (19:14)
[2016-10-06] MEDS ORDERED: KETAMINE 500 MG/10 ML VIAL ONE (19:21)
[2016-10-06] MEDS: MONTELUKAST 10 MG TABLET PO SCH (20:23)
[2016-10-07] MEDS: HYDROmorphone 2 MG/1 ML VIAL IV PRN ×5 (00:15→16:05)
[2016-10-07] MEDS: INSULIN LISPRO 100 UNIT/ML SUBCUT SCH ×2 (08:05→11:31)
[2016-10-07] MEDS: LISINOPRIL 20 MG TABLET PO SCH (08:08)
[2016-10-07] MEDS: POLYETHYLENE GLYCOL POWDER 17 GM PACK PO SCH (08:08)
[2016-10-07] MEDS: PREGABALIN 50 MG CAPSULE PO SCH (08:08)
[2016-10-07] MEDS: ASPIRIN EC 325 MG TABLET PO SCH (08:08)
[2016-10-07] MEDS: CALCIUM ACETATE 667 MG CAPSULE PO SCH ×2 (08:08→11:39)
[2016-10-07] MEDS: FLUoxetine 20 MG CAPSULE PO SCH (08:08)
[2016-10-07] MEDS: DOCUSATE SODIUM 100 MG CAPSULE PO SCH (08:08)
[2016-10-07] MEDS: INSULIN GLARGINE 100 UNIT/ML SUBCUT SCH (08:09)
[2016-10-07] MEDS: SODIUM CHLORIDE 0.9% 1,000 ML IV SCH (08:09)
--- NOTE | 2016-10-07 10:21 | Infectious Disease Progress ---
Assessment and Plan (1) MRSA (methicillin resistant Staphylococcus aureus) septicemia Status: Acute Assessment and plan: MRSA septicemia relapsed from 2 months ago. This is prolonged bacteremia and it seems the source of her infection was the dialysis graft. The infected segment of the graft has been excised. Recommendations: Continue vancomycin with goal trough level (20-25). Patient will need treatment for 6 weeks. Hopefully we have excellent source control with the excision of the infected portion of her graft yesterday. Current Visit: Yes (2) End stage renal disease on dialysis Status: Chronic Current Visit: Yes (3) Insulin dependent diabetes mellitus Status: Chronic Current Visit: Yes Infectious Disease - PN: Subj Interval history: Patient doing relatively okay, she had surgery yesterday with excision of the infected portion of her dialysis graft. She has not had fever. Tolerating antibiotic without nausea vomiting or diarrhea. Infectious Disease Exam (PN) - Constitutional Vitals: Temp Pulse Resp BP Pulse Ox 97.6 F 96 H 18 131/78 100 10/07/16 07:55 10/07/16 07:55 10/07/16 07:55 10/07/16 07:55 10/07/16 07:55 General appearance: over weight Exam: General appearance: Alert and interactive - Eye Eye exam: Present: EOMI. no icterus Pupils: Present: GARIMA - ENT ENT exam: no oral exudates - Respiratory Respiratory exam: vesicular BS, no crepitations or wheezes - Cardiovascular Cardiovascular exam: healing sternotomy wound, regular rate and rhythm, no murmurs - GI/Abdominal GI/Abdominal exam: normal bowel sounds, soft, non-tender, no organomegaly or mass - Extremities Exam Extremities exam: Clean dressing over right femoral dialysis graft - Skin Skin exam: no rash Results - Labs CBC & BMP: 10/06/16 04:47 10/06/16 04:47 Lab Results: I have reviewed the past 24 hour labs (Repeat blood cultures from the negative to date) Quality Measures - VTE Contraindication to Pharmacological VTE Prophylaxis: High Risk of Bleeding
[2016-10-07] MEDS ORDERED: fentaNYL 25 MCG/HR PATCH TRANSDERM SCH (10:30)
[2016-10-07] MEDS ORDERED: PREGABALIN 50 MG CAPSULE PO SCH (10:30)
[2016-10-07 11:18] VITALS: BP 134/83
--- NOTE | 2016-10-07 11:27 | Nephrology Progress Note ---
Nephrology - PN: Subj Interval history: Pt in good spirits. Right groin tender s/p excision of infected graft with bypass placed. Appreciate Dr Cadet assistance and expertise. Exam (PN)-Nephrology - Vital Signs Vital signs: Period Temp Pulse Resp BP Sys/Pineda Pulse Ox Last 24 Hr 97.1 F-99 F 92-105 18-24 123-154/70-94 96-100 - General Appearance General appearance: well-developed, obese EENT: ATNC, PERRL, mucous membranes moist, hearing intact, vision intact Neck: no JVD, no thyromegaly Respiratory: no kyphosis, clear Cardiology: no murmurs, no rub, edema Gastrointestinal: normoactive bowel sounds, no tenderness Integumentary: no rash, warm and dry Neurologic: no focal deficit, no asterixis, alert and oriented x3 Musculoskeletal: deformities, no erythema Psychiatric: mood/affect appropriate, cooperative - Lab 10/06/16 04:47 10/06/16 04:47 Most recent lab results Calcium 7.8 MG/DL (8.5-10.1) L 10/06/16 04:47 Phosphorus 3.2 MG/DL (2.5-4.9) 10/03/16 04:24 Magnesium 2.2 MG/DL (1.8-2.4) 10/06/16 04:47 Assessment and Plan (1) Infection of AV graft for dialysis Problem details: S/P partial surgical excision. Status: Acute Current Visit : Yes (2) End stage renal disease on dialysis Problem details: No acute indication for HD at this time. Status: Chronic Assessment and plan: Routine CHD tomorrow. Epo 8k units IV p HD. UF as tolerated by hemodynamics to EDW. Current Visit: Yes
--- NOTE | 2016-10-07 12:50 | Event Note ---
POD #1 s/p revision right femoral arteriovenous graft with 6 mm PTFE interposition bypass around infected segment and removal of infected AV graft segment. Patient continues on vancomycin for MRSA septicemia. She reports pain which is persistent but improved. T-max 99 overnight. Patient no complaints at bedside. Vital signs stable; T-max overnight 99 Right lower extremity dressing removed. Surgical incisions are clean dry and intact with teddy intact with remaining intact wound opened. Iodoform was removed without malodor or significant purulence noted. No additional areas of induration or fluctuance were palpable. The wound was irrigated with 30 cc of saline and then repacked with 1/4 inch iodoform gauze. Surgical site and packed wounds were redressed. Fistula with palpable thrill. Distally toes are warm with brisk capillary refill. Assessment and plan Patient is postop day #1. The remaining fistula may be used for dialysis. We are in agreement that discharge to [facility] with continued IV antibiotics and wound care appropriate. Patient may follow-up with Dr. Cadet outpatient in his clinic in approximately 1-2 weeks. Patient will require daily packing changes for local wound care. Surgical incisions remain clean, dry and covered.
--- NOTE | 2016-10-07 13:55 | Discharge Summary ---
Hospital Course - Hospital Course Hospital Course: Patient is a 31-year-old -[place] female with a history of end-stage renal disease on hemodialysis, diabetes mellitus insulin-dependent, PE, and atrial mass resection and thrombectomy, who presented to the emergency department at [facility] for evaluation of chest pain. "The patient reported the onset of symptoms during hemodialysis treatment on this morning. The patient reported a productive cough with yellow sputum and chest discomfort that had actually originated 2 days prior to presentation. In addition she reported onset of nausea and vomiting today and intermittent episodes of fever over the past couple of days. Despite her discomfort, the patient was able to complete her hemodialysis treatment. After completion she presented to the ED for further evaluation. The patient was assessed and evaluated at the time of presentation and labs were obtained. Hematology panel was obtained which reported a white blood cell count at 23.0, hemoglobin at 9.2, hematocrit at 28.2, platelet count at 247. Coagulation panels were obtained which reported d-dimer is 6.3. Chemistry panels were obtained which reported a sodium at 135, potassium at 3.5, chloride at 94, carbon dioxide at 28, anion gap is 16.5, BUN 11, creatinine at 3.80, glucose at 124, calculated osmolality at 269.1, calcium at 10.3, magnesium at 2.0, total bilirubin at 1.80, AST at 121, ALT at 135, alkaline phosphatase at 495, total protein 9.0 and albumin at 3.0. Cardiac enzymes were obtained which were essentially benign, troponin was noted at less than 0.015. BNP was noted at 631. Chest x-ray was obtained which reported status post obedience sternotomy with persistent cardiomegaly, reduced infiltration/edema/atelectasis in the lungs. Persistent findings can be seen with residual mild CHF/pneumonitis with underlying chronic scarring. Chest CT reported interval median sternotomy with resection of the right atrial mass. Progressive fluid density extending from the skin surface to the right heart location which may be related to postoperative change. It is difficult to totally exclude an infectious process. Minimally progressive lymphadenopathy. Reduced but persistent pleural -based pathology in the right upper lobe with progressive similar findings in the left upper lobe. This finding could be related to pneumonia but it is difficult to exclude other pleural-based pathology. Limited contrast in the pulmonary arteries.Progressive mosaic perfusion which can be associated with obliterative small airway disease, occlusive vascular disease, patchy interstitial disease, etc. Continued follow-up CT may be helpful for further evaluation." Patient was admitted to the hospitalist service for further evaluation and treatment. Serial cardiac enzymes, and echocardiogram were done. Echo showed mild concentric LVH, EF of 60%, mild tricuspid regurgitation, and an RSVP of 47- 52. Cardiothoracic surgery (CVTS) was consulted to evaluate the patient. CVTS did not feel that she had a sternal wound infection but recommended continuing IV antibiotic due to bacteremia. She was started on broad-spectrum IV antibiotics. Blood cultures were sent and were positive for MRSA. Infectious disease was consulted to assist with her management. Antibiotics were tapered to IV vancomycin. Patient also presented with nausea, vomiting and had elevated liver transaminases. GI was consulted who felt her elevated liver transaminases were likely due to her sepsis. With treatment of the above, the intractable nausea and vomiting resolved. For her history of end-stage renal disease nephrology was consulted to perform hemodialysis during hospitalization. For diabetes mellitus hemoglobin A1c was checked and she was started on insulin sliding scale as well as Accu-Cheks. As her appetite improved, patient was able to be resumed on her scheduled Lantus. Patient had persistent bacteremia and leukocytosis during hospitalization. CT sinuses were unremarkable. and underwent a PRAVIN which was reportedly negative for endocarditis or masses on her heart valves. She was noted to have a fluctuance around her dialysis graft site in right groin so surgery was consulted and she underwent an I&D on 10/06/2016. This was thought to be the source of her persistent bacteremia. So far repeat blood cultures from 10/05 and 10/06 are showing no growth to date. For her progressive anemia of chronic disease likely due to chronic kidney disease, patient underwent a blood transfusion on 10/04 with 2 units of packed red blood cells. Once she was cleared by surgery and ID, patient was transferred to [facility] for ongoing care. - Time spent with patient Time with patient DS: Greater than 30 minutes (45 minutes) Diagnosis - Discharge Diagnosis (1) Atypical chest pain Status: Resolved (2) Infection of AV graft for dialysis Status: Acute (3) MRSA (methicillin resistant Staphylococcus aureus) septicemia Status: Acute (4) End stage renal disease on dialysis Status: Chronic (5) Insulin dependent diabetes mellitus Status: Chronic (6) Morbid (severe) obesity due to excess calories Status: Chronic Specialty Discharge - Follow Up or Referrals Follow up with: md, PCP [Other] - 2 Weeks (after dc from LTAC ) Elton Velez [Physician] - 1 Month (or as he directs for f/u of right atrial mass) Abel Cadet III., MD [Physician] - 2 Weeks (or as he directs) Discharge Plan - Discharge Data Disposition: Disch/Xfer-[facility] Term Hos Condition at Discharge: Stable Discharge Diet: diabetic diet (renal diet) Activity: resume usual activities as tolerated Contact your physician if you experience:: fever over 101, Difficulty voiding, Redness or swelling, Nausea/Vomiting, Shortness of breath, Bleeding, pain uncontrolled by pain medications Wound / Dressing Care Instructions: as per surgery recommendations - Discharge Medications New Dextrose 50% [D50] 25 gm IV PRN PRN vial PRN Reason: Hypoglycemia with IV access Epoetin Jose [Epogen] 8,000 unit IV WITH DIALYSIS PRN vial PRN Reason: DIALYSIS HYDROmorphone INJ [Dilaudid Inj] 1 mg IV Q4H PRN vial PRN Reason: Pain Severe (8-10) Insulin Lispro [HumaLOG] See Protocol SUBCUT ACHS unit Polyethylene Glycol Powder [Miralax] 17 gm PO DAILY Vancomycin Inj 1,250 mg IV PRN PRN vial PRN Reason: PHARMACY MANAGING Vancomycin Inj 1,000 mg IV PRN PRN vial PRN Reason: PHARMACY MANAGING fentaNYL 25 MCG/HR PATCH [Duragesic 25 Patch] 1 patch TRANSDERM Q3DAY patch Glucagon 1 mg IM PRN PRN vial PRN Reason: Hypoglycemia w/o IV access Ondansetron Inj [Zofran Inj] 4 mg IV Q6H PRN vial PRN Reason: Nausea/Vomiting Continue Lisinopril 40 mg PO DAILY Docusate Sodium 100 mg PO BID Ranitidine Tab [Zantac Tab] 150 mg PO BID Mupirocin 2% Oint [Bactroban 2% Oint] 1 applic TOP BID Hydrocodone/Acetaminophen [Hydrocodon-Acetaminophn 10-325] 1 each PO Q4H PRN PRN Reason: Pain Moderate To Severe (4-10) Pregabalin [Lyrica] 50 mg PO DAILY Fluoxetine HCl [Prozac] 40 mg PO DAILY Montelukast Sodium 10 mg PO BEDTIME Aspirin EC Tab 325 mg PO DAILY Insulin Glargine [Lantus] 15 unit SUBCUT DAILY Atorvastatin Calcium 40 mg PO BEDTIME Acetaminophen Tab [Tylenol Tab] 650 mg PO Q6H PRN PRN Reason: Pain Mild To Moderate (1-7) Albuterol/Ipratropium Neb [Duoneb] 3 ml RESP TX RT Q4H PRN PRN Reason: Shortness Of Breath/Wheezing Calcitriol 2 mcg PO DAILY Calcium Acetate [Phoslo] 667 mg PO TID W/MEALS Discontinued Cyproheptadine Tab [Periactin Tab] 4 mg PO BID oxyCODONE ER [OxyCONTIN] 10 mg PO BID Cyclobenzaprine HCl 5 mg PO TID - Follow Up or Referral Follow Up: , PCP [Other] - 2 Weeks (after dc from LTAC ) Elton Velez [Physician] - 1 Month (or as he directs for f/u of right atrial mass) Abel Cadet III., MD [Physician] - - Forms/Instructions Exam - Constitutional Vitals: Period Temp Pulse Resp BP Sys/Pineda Pulse Ox Last 24 Hr 97.1 F-99 F 92-105 18-24 123-154/70-94 96-100 Exam: A and O x 3, no acute distress RRR no M CTAB nonlabored Soft, NT, ND, +BS Warm no c/c/e; right groin bandage in place. Status post right lower extremity amputation Discharge Results Procedures and tests throughout hospitalization: Pending Orders 10/01/16 10:12 Occult Blood, Stool Routine 10/05/16 11:45 Blood Culture Stat 10/06/16 04:48 Blood Culture IN AM Labs on day of discharge: Labs from last 24 hours 10/07/16 10/07/16 10/06/16 11:22 07:16 20:32 POC Glucose 77 69 L 53 L 10/06/16 10/06/16 18:39 15:53 POC Glucose 76 103 Preliminary micro results at discharge 10/05/16 11:52 Blood Culture - Preliminary Blood Gram Positive Cocci 10/06/16 04:48 Blood Culture - Preliminary Blood No growth at 1 day 10/06/16 04:48 Blood Culture - Preliminary Blood No growth at 1 day 10/05/16 11:45 Blood Culture - Preliminary Blood No growth at 1 day DS: Provider Date of admission: 09/29/16 13:58 Primary care physician: Virginia Tobias Attending physician on admission: Juan Pablo Harrison MD Consults: 09/29/16 14:04 Consult to Physician [CONS] Routine Comment: Consulting Provider: Zeb Mabry When should Consulting Provider be notified: Now Person Notified: CARLOS Date Notified: 09/29/16 Time Notified: 15:45 09/29/16 14:06 Consult to Physician [CONS] Routine Comment: Consulting Provider: Elton Velez When should Consulting Provider be notified: Now Person Notified: carlos Date Notified: 09/30/16 Time Notified: 07:41 09/29/16 16:33 Consult to Physician [CONS] Routine Comment: Emesis of fecal material--known to you Consulting Provider: Simba Matos When should Consulting Provider be notified: In am Person Notified: mary Date Notified: 09/30/16 Time Notified: 08:45 09/29/16 17:01 Consult to Pharmacy [CONS] Routine Reason for Pharmacy Consult: Adjust Meds Renal Funct 09/29/16 19:12 Consult to Physician [CONS] Routine Comment: Consulting Provider: 09/30/16 08:59 Consult to Physician [CONS] Routine Comment: GPCs blood cxs x 2, on vanc, ESRD Consulting Provider: Bindu Redmond Person Notified: dr kelly Date Notified: 09/30/16 Time Notified: 11:16 09/30/16 13:37 Consult to Pharmacy [CONS] Routine Reason for Pharmacy Consult: Dose/Manage Vancomycin Comment: Code vancomycin trough 20-25 10/01/16 11:08 Consult to Physician [CONS] Routine Comment: Consulting Provider: 10/01/16 11:33 Consult to Case Mgmt/Social Srvs [CONS] Routine Reason for Case Mgmt/Social Srvs: LTAC 10/01/16 15:18 Consult to Physician [CONS] Routine Comment: PRAVIN Consulting Provider: Cardiology - [facility] Person Notified: MIRELLA Date Notified: 10/01/16 Time Notified: 11:45 10/02/16 07:12 Consult to Physician [CONS] Routine Comment: estella kessler HD cath Consulting Provider: Estevan Land When should Consulting Provider be notified: Now Consult to Specialist Group: Surgery Person Notified: [email or web address] Date Notified: 10/02/16 10/03/16 09:24 Consult to Physician [CONS] Routine Comment: consult for Mon-10/05/16; PRAVIN Consulting Provider: Cardiology - [facility] Consulting Provider Notified: Yes Person Notified: [email or web address] Date Notified: 10/05/16 Time Notified: 07:48 Discharging clinician: Romi Villalba MD
== END 2016-10-07 16:09 | DRG 252 ==
LOC: N.ED 11:17 → SUATTDRO 13:58 → N.EDINP 13:58 → N.2E 15:29
PROVIDERS: ADMIT Internal Medicine; ATTEND Pediatrics
PROC: EXPLORE (2016-10-02 09:03)

== ENCOUNTER 2017-06-16 08:37 | Inpatient (IN) ==
[2017-06-16 11:22] LABS: Basophils % 0.5 % (0.0-0.8); Eosinophils # 0.2 10*3/uL (0.0-0.87); Eosinophils % 2.7 % (0.00-10.9); Hematocrit 27.7 VOL% (35.7-47.0); Hemoglobin 9.4 GM/DL (12.0-16.0); Immature Granulocytes % 0.3 %; Immature Granulocytes Absolute 0.03 #; Lymphocytes # 2.2 10*3/uL (1.4-4.0); Lymphocytes % 25.1 % (21.3-54.2); Mean Corpuscular HGB Conc 33.9 GM/DL (32-36); Mean Corpuscular Hemoglobin 32 PG (27-34); Mean Corpuscular Volume 93.3 FL (87-102); Mean Platelet Volume 12.3 FL (9.6-12.0); Monocytes # 0.8 10*3/uL (0.11-0.8); Monocytes % 8.6 % (1.7-12.7); Neutrophils # 5.5 10*3/uL (1.4-7.4); Neutrophils % 62.8 % (38.7-73.9); Platelet Count 140 T/CUMM (130-400); Red Blood Count 2.97 MC/CUMM (3.8-5.5); Red Cell Distribution Width 16.9 % (9.3-17.3); White Blood Count 8.8 T/CUMM (4-12)
[2017-06-16 11:31] LABS: INR 1.1; PT Patient Result 11.4 SECS
[2017-06-16 11:44] LABS: Albumin 3.6 G/DL (3.4-5.0); Bilirubin,Total 0.8 MG/DL (0.2-1.0); Calcium 7.9 MG/DL (8.5-10.1); Osmolality,Calculated 310.2 MOS/KG (273-304); Potassium 3.8 MMOL/L (3.5-5.1); Total Protein 7.3 G/DL (6.4-8.3)
[2017-06-16] MEDS ORDERED: GLUCAGON 1 MG VIAL IM PRN (11:51)
[2017-06-16] MEDS ORDERED: MORPHINE 2 MG/1 ML SYRINGE IV PRN (11:51)
[2017-06-16] MEDS ORDERED: ACETAMINOPHEN 325 MG TABLET PO PRN (11:51)
[2017-06-16] MEDS ORDERED: DEXTROSE 50% 25 GM/50 ML VIAL IV PRN (11:51)
[2017-06-16] MEDS ORDERED: INSULIN REGULAR 100 UNIT/ML SUBCUT STA (11:55)
[2017-06-16] MEDS ORDERED: INSULIN REGULAR 100 UNIT/ML ONE (12:02)
[2017-06-16] MEDS: ENOXAPARIN 100 MG/ML SYRINGE SUBCUT SCH (14:55)
[2017-06-16] MEDS: amLODIPine 10 MG TABLET PO SCH (16:54)
[2017-06-16] MEDS: INSULIN LISPRO 100 UNIT/ML SUBCUT SCH ×3 (16:54→21:13)
[2017-06-16] MEDS: LISINOPRIL 20 MG TABLET PO SCH (16:59)
[2017-06-16] MEDS ORDERED: WARFARIN 5 MG TABLET PO SCH (18:00)
[2017-06-16] MEDS: LABETALOL 20 MG/4 ML SYRINGE IV PRN (18:51)
[2017-06-16] MEDS: INSULIN GLARGINE 100 UNIT/ML SUBCUT SCH (22:07)
[2017-06-17] MEDS: LABETALOL 20 MG/4 ML SYRINGE IV PRN (00:39)
[2017-06-17 06:18] LABS: Basophils # 0.1 10*3/uL (0.0-0.2); Basophils % 0.8 % (0.0-0.8); Eosinophils # 0.5 10*3/uL (0.0-0.87); Eosinophils % 5.4 % (0.00-10.9); Hematocrit 31.8 VOL% (35.7-47.0); Hemoglobin 10.7 GM/DL (12.0-16.0); Immature Granulocytes % 0.2 %; Immature Granulocytes Absolute 0.02 #; Lymphocytes # 3.3 10*3/uL (1.4-4.0); Lymphocytes % 36.5 % (21.3-54.2); Mean Corpuscular HGB Conc 33.6 GM/DL (32-36); Mean Corpuscular Hemoglobin 31 PG (27-34); Mean Corpuscular Volume 93.3 FL (87-102); Mean Platelet Volume 11.6 FL (9.6-12.0); Monocytes # 0.8 10*3/uL (0.11-0.8); Monocytes % 9.4 % (1.7-12.7); Neutrophils # 4.3 10*3/uL (1.4-7.4); Neutrophils % 47.7 % (38.7-73.9); Platelet Count 167 T/CUMM (130-400); Red Blood Count 3.41 MC/CUMM (3.8-5.5); Red Cell Distribution Width 17.1 % (9.3-17.3); White Blood Count 8.9 T/CUMM (4-12)
[2017-06-17 06:26] LABS: INR 1.1; PT Patient Result 11.4 SECS
[2017-06-17 06:48] LABS: Calcium 8.1 MG/DL (8.5-10.1); Osmolality,Calculated 283.8 MOS/KG (273-304)
[2017-06-17] MEDS: INSULIN LISPRO 100 UNIT/ML SUBCUT SCH ×7 (08:10→23:10)
[2017-06-17] MEDS: PANTOPRAZOLE 40 MG TABLET PO SCH (08:11)
[2017-06-17] MEDS: amLODIPine 10 MG TABLET PO SCH (08:11)
[2017-06-17] MEDS: LISINOPRIL 20 MG TABLET PO SCH (08:11)
[2017-06-17] MEDS ORDERED: cloNIDine 0.1 MG TABLET PO ONE (15:45)
[2017-06-17] MEDS ORDERED: hydrALAZINE 20 MG/1 ML VIAL IV PRN (16:51)
[2017-06-17] MEDS: ENOXAPARIN 100 MG/ML SYRINGE SUBCUT SCH (17:19)
[2017-06-17] MEDS: WARFARIN 10 MG TABLET PO SCH (17:19)
[2017-06-17] MEDS: cloNIDine 0.1 MG TABLET PO SCH (23:05)
[2017-06-17] MEDS: INSULIN GLARGINE 100 UNIT/ML SUBCUT SCH (23:11)
[2017-06-18 06:59] LABS: INR 1.1; PT Patient Result 11.7 SECS
[2017-06-18] MEDS: MORPHINE 2 MG/1 ML SYRINGE IV PRN (07:05)
[2017-06-18] MEDS: INSULIN LISPRO 100 UNIT/ML SUBCUT SCH ×7 (07:47→21:39)
[2017-06-18] MEDS: LISINOPRIL 20 MG TABLET PO SCH (09:37)
[2017-06-18] MEDS: cloNIDine 0.1 MG TABLET PO SCH ×2 (09:38→21:39)
[2017-06-18] MEDS: PANTOPRAZOLE 40 MG TABLET PO SCH (09:38)
[2017-06-18] MEDS: amLODIPine 10 MG TABLET PO SCH (09:38)
[2017-06-18] MEDS: ENOXAPARIN 100 MG/ML SYRINGE SUBCUT SCH (17:21)
[2017-06-18] MEDS: WARFARIN 10 MG TABLET PO SCH (17:22)
[2017-06-18] MEDS: INSULIN GLARGINE 100 UNIT/ML SUBCUT SCH (21:39)
[2017-06-18] MEDS: ZALEPLON 5 MG CAPSULE PO PRN (21:39)
[2017-06-19] MEDS: MORPHINE 2 MG/1 ML SYRINGE IV PRN ×4 (01:43→20:36)
[2017-06-19 07:00] LABS: INR 1.3; PT Patient Result 13.9 SECS
[2017-06-19] MEDS: INSULIN LISPRO 100 UNIT/ML SUBCUT SCH ×7 (07:55→20:34)
[2017-06-19] MEDS: cloNIDine 0.1 MG TABLET PO SCH ×3 (08:31→20:34)
[2017-06-19] MEDS: amLODIPine 10 MG TABLET PO SCH (11:27)
[2017-06-19] MEDS: PANTOPRAZOLE 40 MG TABLET PO SCH (11:27)
[2017-06-19] MEDS: LISINOPRIL 20 MG TABLET PO SCH (11:27)
[2017-06-19] MEDS: diphenhydrAMINE CAP 25 MG CAPSULE PO PRN (14:04)
[2017-06-19] MEDS: WARFARIN 7.5 MG TABLET PO SCH (17:30)
[2017-06-19] MEDS: ENOXAPARIN 100 MG/ML SYRINGE SUBCUT SCH (17:30)
[2017-06-19] MEDS: ZALEPLON 5 MG CAPSULE PO PRN (20:34)
[2017-06-19] MEDS: INSULIN GLARGINE 100 UNIT/ML SUBCUT SCH (20:35)
[2017-06-20] MEDS: MORPHINE 2 MG/1 ML SYRINGE IV PRN ×2 (04:02→07:58)
[2017-06-20 06:42] LABS: INR 1.8; PT Patient Result 18.7 SECS
[2017-06-20] MEDS: ONDANSETRON 4 MG/2 ML VIAL IV PRN (08:02)
[2017-06-20] MEDS: INSULIN LISPRO 100 UNIT/ML SUBCUT SCH ×7 (08:02→22:04)
[2017-06-20] MEDS: LISINOPRIL 20 MG TABLET PO SCH (08:55)
[2017-06-20] MEDS: cloNIDine 0.1 MG TABLET PO SCH (08:55)
[2017-06-20] MEDS: PANTOPRAZOLE 40 MG TABLET PO SCH (08:55)
[2017-06-20] MEDS: amLODIPine 10 MG TABLET PO SCH (08:55)
[2017-06-20] MEDS: diphenhydrAMINE CAP 25 MG CAPSULE PO PRN (14:21)
[2017-06-20] MEDS: ENOXAPARIN 100 MG/ML SYRINGE SUBCUT SCH (17:38)
[2017-06-20] MEDS: WARFARIN 7.5 MG TABLET PO SCH (17:38)
[2017-06-20] MEDS: ZALEPLON 5 MG CAPSULE PO PRN (21:17)
[2017-06-20] MEDS: INSULIN GLARGINE 100 UNIT/ML SUBCUT SCH (22:03)
[2017-06-21] MEDS: ONDANSETRON 4 MG/2 ML VIAL IV PRN (02:02)
[2017-06-21] MEDS: MORPHINE 2 MG/1 ML SYRINGE IV PRN ×2 (02:05→12:46)
[2017-06-21] MEDS: diphenhydrAMINE CAP 25 MG CAPSULE PO PRN (04:32)
[2017-06-21 06:33] LABS: INR 3.2; PT Patient Result 32.1 SECS
[2017-06-21] MEDS: amLODIPine 10 MG TABLET PO SCH (08:49)
[2017-06-21] MEDS: LISINOPRIL 20 MG TABLET PO SCH (08:50)
[2017-06-21] MEDS: PANTOPRAZOLE 40 MG TABLET PO SCH (08:50)
[2017-06-21] MEDS: INSULIN LISPRO 100 UNIT/ML SUBCUT SCH ×4 (09:21→13:31)
[2017-06-21] MEDS ORDERED: oxyCODONE/ACETAMINOPHEN 5-325 MG TABLET PO PRN (11:37)
[2017-06-21 12:15] VITALS: BP 117/64
[2017-06-21] MEDS ORDERED: MELOXICAM 7.5 MG TABLET PO SCH (13:00)
[2017-06-21] MEDS ORDERED: CALCITRIOL 0.25 MCG CAPSULE PO SCH (13:00)
[2017-06-21] MEDS ORDERED: LISINOPRIL 20 MG TABLET PO SCH (13:00)
[2017-06-21] MEDS ORDERED: CALCIUM ACETATE 667 MG CAPSULE PO SCH (13:00)
[2017-06-21] MEDS ORDERED: METHOCARBAMOL 500 MG TABLET PO SCH (13:00)
[2017-06-21] MEDS ORDERED: POLYETHYLENE GLYCOL POWDER 17 GM PACK PO SCH (13:00)
[2017-06-21] MEDS ORDERED: GABAPENTIN 300 MG CAPSULE PO SCH (15:00)
[2017-06-21] MEDS ORDERED: INSULIN LISPRO 100 UNIT/ML SUBCUT SCH (16:30)
[2017-06-21] MEDS ORDERED: INSULIN GLARGINE 100 UNIT/ML SUBCUT SCH (21:00)
[2017-06-21] MEDS ORDERED: PREGABALIN 50 MG CAPSULE PO SCH (21:00)
[2017-06-21] MEDS ORDERED: MONTELUKAST 10 MG TABLET PO SCH (21:00)
[2017-06-21] MEDS ORDERED: ATORVASTATIN 40 MG TABLET PO SCH (21:00)
[2017-06-21] MEDS ORDERED: FAMOTIDINE 20 MG TABLET PO SCH (21:00)
[2017-06-21] MEDS ORDERED: CINACALCET 30 MG TABLET PO SCH (21:00)
[2017-06-21] MEDS ORDERED: ZALEPLON 5 MG CAPSULE PO SCH (21:00)
[2017-06-22] MEDS ORDERED: FLUoxetine 20 MG CAPSULE PO SCH (09:00)
== END 2017-06-21 13:15 | disposition home or self-care (01) | DRG 299 ==
LOC: N.ED 08:37 → SUATTDRO 10:45 → N.EDINP 10:45 → N.2E 13:11
PROVIDERS: ADMIT Hospitalist

== ENCOUNTER 2017-10-04 00:15 | Inpatient (IN) ==
[2017-10-04 01:25] LABS: Basophils % 0.3 % (0.0-0.8); Eosinophils # 0.2 10*3/uL (0.0-0.87); Eosinophils % 2.2 % (0.00-10.9); Hematocrit 28.6 VOL% (35.7-47.0); Hemoglobin 9.3 GM/DL (12.0-16.0); Immature Granulocytes % 0.6 %; Immature Granulocytes Absolute 0.04 #; Lymphocytes # 1.3 10*3/uL (1.4-4.0); Lymphocytes % 18.4 % (21.3-54.2); Mean Corpuscular HGB Conc 32.5 GM/DL (32-36); Mean Corpuscular Hemoglobin 32 PG (27-34); Mean Corpuscular Volume 97.6 FL (87-102); Monocytes # 0.9 10*3/uL (0.11-0.8); Monocytes % 12.8 % (1.7-12.7); Neutrophils # 4.6 10*3/uL (1.4-7.4); Neutrophils % 65.7 % (38.7-73.9); Red Blood Count 2.93 MC/CUMM (3.8-5.5); Red Cell Distribution Width 19.4 % (9.3-17.3)
[2017-10-04 01:28] LABS: Platelet Count 91 T/CUMM (130-400)
[2017-10-04 01:34] LABS: Calcium 7.9 MG/DL (8.5-10.1); Osmolality,Calculated 290.4 MOS/KG (273-304); Potassium 3.8 MMOL/L (3.5-5.1)
[2017-10-04 01:39] LABS: INR 1.2; PT Patient Result 12.2 SECS; Partial Thromboplastin Time 25.7 SECS (0-40)
[2017-10-04] MEDS ORDERED: ACETAMINOPHEN 500 MG TABLET PO STA (01:40)
[2017-10-04] MEDS ORDERED: HEPARIN 5,000 UNIT/1 ML VIAL IV ONE (01:52)
[2017-10-04] MEDS ORDERED: INSULIN REGULAR 100 UNIT/ML IV STA (01:58)
[2017-10-04] MEDS: HEPARIN DRIP 25,000 UNITS/500 ML PREMIX IV SCH ×2 (02:44→19:06)
[2017-10-04 03:31] LABS: Hypochromasia 2+; Platelet Estimate Normal
[2017-10-04 03:33] LABS: Anisocytosis 1+; Microcytosis 1+; Polychromasia Few
[2017-10-04] MEDS ORDERED: GLUCAGON 1 MG VIAL IM PRN (03:35)
[2017-10-04] MEDS ORDERED: ACETAMINOPHEN 325 MG TABLET PO PRN (03:35)
[2017-10-04] MEDS ORDERED: MORPHINE 4 MG/1 ML VIAL IV PRN (03:35)
[2017-10-04] MEDS ORDERED: DEXTROSE 50% 25 GM/50 ML VIAL IV PRN (03:35)
[2017-10-04] MEDS ORDERED: cloNIDine 0.1 MG TABLET PO ONE (04:14)
[2017-10-04] MEDS ORDERED: MORPHINE 4 MG/1 ML VIAL IV ONE (05:10)
[2017-10-04] MEDS ORDERED: WARFARIN 1 MG TABLET PO ONE (05:23)
[2017-10-04 07:05] LABS: Basophils % 0.3 % (0.0-0.8); Eosinophils # 0.3 10*3/uL (0.0-0.87); Eosinophils % 2.8 % (0.00-10.9); Hematocrit 31.9 VOL% (35.7-47.0); Hemoglobin 10.2 GM/DL (12.0-16.0); Immature Granulocytes % 0.8 %; Immature Granulocytes Absolute 0.09 #; Lymphocytes # 3.1 10*3/uL (1.4-4.0); Lymphocytes % 27.4 % (21.3-54.2); Mean Corpuscular Hemoglobin 31 PG (27-34); Mean Corpuscular Volume 97.9 FL (87-102); Monocytes # 1.4 10*3/uL (0.11-0.8); Monocytes % 11.9 % (1.7-12.7); NRBC # 0.04 10*3/uL; Neutrophils # 6.5 10*3/uL (1.4-7.4); Neutrophils % 56.8 % (38.7-73.9); Platelet Count 121 T/CUMM (130-400); Red Blood Count 3.26 MC/CUMM (3.8-5.5); Red Cell Distribution Width 19.7 % (9.3-17.3); White Blood Count 11.5 T/CUMM (4-12)
[2017-10-04 07:29] LABS: Giant Platelets Few; Hypochromasia 1+; Microcytosis Slight; Ovalocytes Slight; Platelet Estimate Decreased
[2017-10-04 07:33] LABS: Risk Ratio 2.19; VLDL CHOLESTEROL 11.4 MG/DL
[2017-10-04] MEDS: ALBUTEROL 2.5 MG/3 ML NEB RESP TX SCH ×4 (07:36→20:15)
[2017-10-04] MEDS: POLYETHYLENE GLYCOL POWDER 17 GM PACK PO SCH (08:28)
[2017-10-04] MEDS: INSULIN REGULAR 100 UNIT/ML SUBCUT SCH ×4 (08:28→20:40)
[2017-10-04] MEDS: GABAPENTIN 300 MG CAPSULE PO SCH ×3 (08:29→20:40)
[2017-10-04] MEDS: FLUoxetine 20 MG CAPSULE PO SCH (08:29)
[2017-10-04] MEDS: MORPHINE IR 15 MG TABLET PO SCH ×2 (08:29→20:39)
[2017-10-04] MEDS: cloNIDine 0.1 MG TABLET PO SCH ×2 (08:29→20:40)
[2017-10-04] MEDS: CALCITRIOL 0.25 MCG CAPSULE PO SCH (08:29)
[2017-10-04] MEDS: CALCIUM ACETATE 667 MG CAPSULE PO SCH ×3 (08:30→16:33)
[2017-10-04] MEDS ORDERED: LEVOFLOXACIN 500 MG TABLET PO ONE (08:49)
[2017-10-04] MEDS ORDERED: AZITHROMYCIN 250 MG TABLET PO ONE (08:51)
[2017-10-04] MEDS ORDERED: INSULIN GLULISINE SUBCUT SCH (09:00)
[2017-10-04] MEDS ORDERED: EPOETIN ALFA 2,000 UNIT/1 ML VIAL IV PRN (09:03)
[2017-10-04 10:15] LABS: Calcium 8.4 MG/DL (8.5-10.1); Osmolality,Calculated 280.1 MOS/KG (273-304); Potassium 3.9 MMOL/L (3.5-5.1)
[2017-10-04] MEDS: ONDANSETRON 4 MG/2 ML VIAL IV PRN (15:31)
[2017-10-04] MEDS: hydrALAZINE 20 MG/1 ML VIAL IV PRN (15:34)
[2017-10-04] MEDS ORDERED: MEPERIDINE 25 MG/1 ML VIAL IV ONE (17:21)
[2017-10-04] MEDS: WARFARIN 1 MG TABLET PO SCH (17:56)
[2017-10-04] MEDS: WARFARIN 2.5 MG TABLET PO SCH (17:56)
[2017-10-04] MEDS ORDERED: WARFARIN 1 MG TABLET PO SCH (18:00)
[2017-10-04] MEDS: ATORVASTATIN 40 MG TABLET PO SCH (20:40)
[2017-10-04] MEDS: MONTELUKAST 10 MG TABLET PO SCH (20:40)
[2017-10-04] MEDS: PREGABALIN 50 MG CAPSULE PO SCH (20:40)
[2017-10-05] MEDS: ALBUTEROL 2.5 MG/3 ML NEB RESP TX SCH ×4 (00:40→10:50)
[2017-10-05] MEDS: HEPARIN DRIP 25,000 UNITS/500 ML PREMIX IV SCH ×2 (02:19→16:10)
[2017-10-05 05:46] LABS: Basophils % 0.2 % (0.0-0.8); Eosinophils # 0.3 10*3/uL (0.0-0.87); Eosinophils % 3.2 % (0.00-10.9); Hemoglobin 9.6 GM/DL (12.0-16.0); Immature Granulocytes % 0.5 %; Immature Granulocytes Absolute 0.04 #; Lymphocytes # 2.3 10*3/uL (1.4-4.0); Lymphocytes % 25.9 % (21.3-54.2); Mean Corpuscular Hemoglobin 31 PG (27-34); Mean Corpuscular Volume 97.7 FL (87-102); Monocytes # 1.2 10*3/uL (0.11-0.8); Monocytes % 13.3 % (1.7-12.7); NRBC # 0.04 10*3/uL; Neutrophils % 56.9 % (38.7-73.9); Platelet Count 96 T/CUMM (130-400); Red Blood Count 3.07 MC/CUMM (3.8-5.5); White Blood Count 8.7 T/CUMM (4-12)
[2017-10-05 06:07] LABS: Hypochromasia 2+; Macrocytosis 1+; Target Cells Slight
[2017-10-05 06:08] LABS: Ovalocytes Slight; Platelet Estimate Decreased; Polychromasia Slight
[2017-10-05 06:16] LABS: Calcium 8.2 MG/DL (8.5-10.1); Osmolality,Calculated 271.2 MOS/KG (273-304); Potassium 3.9 MMOL/L (3.5-5.1)
[2017-10-05] MEDS: INSULIN REGULAR 100 UNIT/ML SUBCUT SCH ×4 (08:13→21:20)
[2017-10-05] MEDS: POLYETHYLENE GLYCOL POWDER 17 GM PACK PO SCH (09:04)
[2017-10-05] MEDS: AZITHROMYCIN 250 MG TABLET PO SCH (09:05)
[2017-10-05] MEDS: GABAPENTIN 300 MG CAPSULE PO SCH ×3 (09:05→22:29)
[2017-10-05] MEDS: FLUoxetine 20 MG CAPSULE PO SCH (09:05)
[2017-10-05] MEDS: CALCIUM ACETATE 667 MG CAPSULE PO SCH ×3 (09:05→18:16)
[2017-10-05] MEDS: MORPHINE IR 15 MG TABLET PO SCH ×2 (09:05→22:28)
[2017-10-05] MEDS: cloNIDine 0.1 MG TABLET PO SCH ×2 (09:05→22:29)
[2017-10-05] MEDS: CALCITRIOL 0.25 MCG CAPSULE PO SCH (09:16)
[2017-10-05] MEDS: WARFARIN 2.5 MG TABLET PO SCH (18:16)
[2017-10-05] MEDS: WARFARIN 1 MG TABLET PO SCH (18:16)
[2017-10-05] MEDS: ALBUTEROL/IPRATROPIUM 3 ML NEB RESP TX SCH (19:15)
[2017-10-05] MEDS: MONTELUKAST 10 MG TABLET PO SCH (22:29)
[2017-10-05] MEDS: ATORVASTATIN 40 MG TABLET PO SCH (22:29)
[2017-10-05] MEDS: PREGABALIN 50 MG CAPSULE PO SCH (22:29)
[2017-10-06] MEDS: ALBUTEROL/IPRATROPIUM 3 ML NEB RESP TX SCH ×4 (00:22→19:47)
[2017-10-06] MEDS: HEPARIN DRIP 25,000 UNITS/500 ML PREMIX IV SCH ×2 (02:20→11:40)
[2017-10-06] MEDS ORDERED: ENOXAPARIN 100 MG/ML SYRINGE SUBCUT SCH (03:30)
[2017-10-06 05:27] LABS: Basophils % 0.4 % (0.0-0.8); Eosinophils # 0.2 10*3/uL (0.0-0.87); Eosinophils % 3.1 % (0.00-10.9); Hematocrit 27.7 VOL% (35.7-47.0); Hemoglobin 8.5 GM/DL (12.0-16.0); Immature Granulocytes % 0.8 %; Immature Granulocytes Absolute 0.06 #; Lymphocytes # 1.7 10*3/uL (1.4-4.0); Lymphocytes % 23.5 % (21.3-54.2); Mean Corpuscular HGB Conc 30.7 GM/DL (32-36); Mean Corpuscular Hemoglobin 31 PG (27-34); Mean Corpuscular Volume 101.1 FL (87-102); Mean Platelet Volume 13.1 FL (9.6-12.0); Monocytes % 13.5 % (1.7-12.7); NRBC # 0.06 10*3/uL; Neutrophils # 4.2 10*3/uL (1.4-7.4); Neutrophils % 58.7 % (38.7-73.9); Platelet Count 100 T/CUMM (130-400); Red Blood Count 2.74 MC/CUMM (3.8-5.5); Red Cell Distribution Width 20.2 % (9.3-17.3); White Blood Count 7.1 T/CUMM (4-12)
[2017-10-06 05:44] LABS: INR 1.2; PT Patient Result 12.7 SECS
[2017-10-06 05:51] LABS: Calcium 8.3 MG/DL (8.5-10.1); Osmolality,Calculated 279.2 MOS/KG (273-304)
[2017-10-06] MEDS: FLUoxetine 20 MG CAPSULE PO SCH (09:41)
[2017-10-06] MEDS: CALCITRIOL 0.25 MCG CAPSULE PO SCH (09:41)
[2017-10-06] MEDS: GABAPENTIN 300 MG CAPSULE PO SCH ×3 (09:42→20:37)
[2017-10-06] MEDS: MORPHINE IR 15 MG TABLET PO SCH ×2 (09:42→20:36)
[2017-10-06] MEDS: LEVOFLOXACIN 250 MG TABLET PO SCH (09:42)
[2017-10-06] MEDS: CALCIUM ACETATE 667 MG CAPSULE PO SCH ×3 (09:43→17:36)
[2017-10-06] MEDS: INSULIN REGULAR 100 UNIT/ML SUBCUT SCH ×4 (09:43→20:38)
[2017-10-06] MEDS: cloNIDine 0.1 MG TABLET PO SCH ×2 (09:43→20:37)
[2017-10-06] MEDS: AZITHROMYCIN 250 MG TABLET PO SCH (09:43)
[2017-10-06] MEDS: POLYETHYLENE GLYCOL POWDER 17 GM PACK PO SCH (09:48)
[2017-10-06] MEDS ORDERED: HEPARIN 5,000 UNIT/1 ML VIAL IV PRN (10:34)
[2017-10-06] MEDS ORDERED: WARFARIN 5 MG TABLET PO SCH (18:00)
[2017-10-06] MEDS: WARFARIN 5 MG TABLET PO SCH (18:59)
[2017-10-06] MEDS: PREGABALIN 50 MG CAPSULE PO SCH (20:36)
[2017-10-06] MEDS: ATORVASTATIN 40 MG TABLET PO SCH (20:37)
[2017-10-06] MEDS: MONTELUKAST 10 MG TABLET PO SCH (20:37)
[2017-10-07] MEDS: ALBUTEROL/IPRATROPIUM 3 ML NEB RESP TX SCH ×4 (01:15→18:58)
[2017-10-07 01:59] LABS: Basophils % 0.4 % (0.0-0.8); Eosinophils # 0.3 10*3/uL (0.0-0.87); Hematocrit 29.7 VOL% (35.7-47.0); Hemoglobin 9.3 GM/DL (12.0-16.0); Immature Granulocytes % 1.4 %; Immature Granulocytes Absolute 0.14 #; Lymphocytes # 2.1 10*3/uL (1.4-4.0); Lymphocytes % 21.7 % (21.3-54.2); Mean Corpuscular HGB Conc 31.3 GM/DL (32-36); Mean Corpuscular Hemoglobin 32 PG (27-34); Mean Corpuscular Volume 101.7 FL (87-102); Mean Platelet Volume 12.9 FL (9.6-12.0); Monocytes # 1.4 10*3/uL (0.11-0.8); Monocytes % 13.8 % (1.7-12.7); NRBC # 0.18 10*3/uL; Neutrophils # 5.9 10*3/uL (1.4-7.4); Neutrophils % 59.7 % (38.7-73.9); Platelet Count 122 T/CUMM (130-400); Red Blood Count 2.92 MC/CUMM (3.8-5.5); Red Cell Distribution Width 20.6 % (9.3-17.3); White Blood Count 9.8 T/CUMM (4-12)
[2017-10-07 02:29] LABS: Calcium 9.4 MG/DL (8.5-10.1); Osmolality,Calculated 272.1 MOS/KG (273-304); Potassium 4.4 MMOL/L (3.5-5.1)
[2017-10-07] MEDS: HEPARIN DRIP 25,000 UNITS/500 ML PREMIX IV SCH ×2 (05:24→23:07)
[2017-10-07 05:59] LABS: INR 1.2; PT Patient Result 12.6 SECS
[2017-10-07] MEDS: cloNIDine 0.1 MG TABLET PO SCH ×2 (09:10→21:42)
[2017-10-07] MEDS: INSULIN REGULAR 100 UNIT/ML SUBCUT SCH ×4 (09:10→21:42)
[2017-10-07] MEDS: FLUoxetine 20 MG CAPSULE PO SCH (09:10)
[2017-10-07] MEDS: CALCIUM ACETATE 667 MG CAPSULE PO SCH ×3 (09:10→18:41)
[2017-10-07] MEDS: GABAPENTIN 300 MG CAPSULE PO SCH ×2 (09:11→21:42)
[2017-10-07] MEDS: POLYETHYLENE GLYCOL POWDER 17 GM PACK PO SCH (09:11)
[2017-10-07] MEDS: MORPHINE IR 15 MG TABLET PO SCH ×2 (09:11→21:42)
[2017-10-07] MEDS: CALCITRIOL 0.25 MCG CAPSULE PO SCH (09:11)
[2017-10-07] MEDS: AZITHROMYCIN 250 MG TABLET PO SCH (09:11)
[2017-10-07] MEDS: ONDANSETRON 4 MG/2 ML VIAL IV PRN (09:40)
[2017-10-07] MEDS: GABAPENTIN 100 MG CAPSULE PO SCH (18:38)
[2017-10-07] MEDS: WARFARIN 5 MG TABLET PO SCH (19:55)
[2017-10-07] MEDS: ATORVASTATIN 40 MG TABLET PO SCH (21:42)
[2017-10-07] MEDS: MONTELUKAST 10 MG TABLET PO SCH (21:42)
[2017-10-08] MEDS: ALBUTEROL/IPRATROPIUM 3 ML NEB RESP TX SCH ×4 (00:54→19:13)
[2017-10-08] MEDS: HEPARIN DRIP 25,000 UNITS/500 ML PREMIX IV SCH ×2 (01:39→18:16)
[2017-10-08 05:39] LABS: Basophils # 0.1 10*3/uL (0.0-0.2); Basophils % 0.4 % (0.0-0.8); Eosinophils # 0.3 10*3/uL (0.0-0.87); Eosinophils % 2.7 % (0.00-10.9); Hematocrit 29.6 VOL% (35.7-47.0); Hemoglobin 9.1 GM/DL (12.0-16.0); Immature Granulocytes % 1.8 %; Immature Granulocytes Absolute 0.21 #; Lymphocytes # 2.7 10*3/uL (1.4-4.0); Lymphocytes % 22.9 % (21.3-54.2); Mean Corpuscular HGB Conc 30.7 GM/DL (32-36); Mean Corpuscular Hemoglobin 32 PG (27-34); Mean Corpuscular Volume 104.2 FL (87-102); Mean Platelet Volume 12.8 FL (9.6-12.0); Monocytes # 1.7 10*3/uL (0.11-0.8); Monocytes % 14.4 % (1.7-12.7); NRBC # 0.25 10*3/uL; Neutrophils # 6.7 10*3/uL (1.4-7.4); Neutrophils % 57.8 % (38.7-73.9); Platelet Count 123 T/CUMM (130-400); Red Blood Count 2.84 MC/CUMM (3.8-5.5); Red Cell Distribution Width 21.2 % (9.3-17.3); White Blood Count 11.7 T/CUMM (4-12)
[2017-10-08 05:49] LABS: INR 1.3; PT Patient Result 13.4 SECS
[2017-10-08 06:16] LABS: Calcium 9.5 MG/DL (8.5-10.1); Osmolality,Calculated 271.2 MOS/KG (273-304); Potassium 4.8 MMOL/L (3.5-5.1)
[2017-10-08] MEDS: CALCITRIOL 0.25 MCG CAPSULE PO SCH (08:33)
[2017-10-08] MEDS: LEVOFLOXACIN 250 MG TABLET PO SCH (08:34)
[2017-10-08] MEDS: GABAPENTIN 100 MG CAPSULE PO SCH (08:34)
[2017-10-08] MEDS: AZITHROMYCIN 250 MG TABLET PO SCH (08:34)
[2017-10-08] MEDS: cloNIDine 0.1 MG TABLET PO SCH ×2 (08:34→22:33)
[2017-10-08] MEDS: MORPHINE IR 15 MG TABLET PO SCH ×2 (08:34→22:34)
[2017-10-08] MEDS: FLUoxetine 20 MG CAPSULE PO SCH (08:34)
[2017-10-08] MEDS: INSULIN REGULAR 100 UNIT/ML SUBCUT SCH ×4 (08:35→20:05)
[2017-10-08] MEDS: CALCIUM ACETATE 667 MG CAPSULE PO SCH ×3 (08:35→17:42)
[2017-10-08] MEDS: POLYETHYLENE GLYCOL POWDER 17 GM PACK PO SCH (08:40)
[2017-10-08] MEDS: WARFARIN 3 MG TABLET PO SCH (09:48)
[2017-10-08] MEDS ORDERED: HEPARIN 5,000 UNIT/1 ML VIAL IV ONE (14:44)
[2017-10-08] MEDS: GABAPENTIN 300 MG CAPSULE PO SCH (22:33)
[2017-10-08] MEDS: MONTELUKAST 10 MG TABLET PO SCH (22:34)
[2017-10-08] MEDS: ATORVASTATIN 40 MG TABLET PO SCH (22:34)
[2017-10-08] MEDS: hydrALAZINE 20 MG/1 ML VIAL IV PRN (22:35)
[2017-10-09] MEDS: ALBUTEROL/IPRATROPIUM 3 ML NEB RESP TX SCH ×4 (00:32→19:49)
[2017-10-09] MEDS: HEPARIN DRIP 25,000 UNITS/500 ML PREMIX IV SCH ×2 (01:58→10:46)
[2017-10-09 04:08] LABS: Basophils % 0.3 % (0.0-0.8); Eosinophils # 0.3 10*3/uL (0.0-0.87); Eosinophils % 2.7 % (0.00-10.9); Hematocrit 29.9 VOL% (35.7-47.0); Hemoglobin 9.2 GM/DL (12.0-16.0); Immature Granulocytes % 1.6 %; Immature Granulocytes Absolute 0.19 #; Lymphocytes # 2.5 10*3/uL (1.4-4.0); Lymphocytes % 21.3 % (21.3-54.2); Mean Corpuscular HGB Conc 30.8 GM/DL (32-36); Mean Corpuscular Hemoglobin 31 PG (27-34); Mean Corpuscular Volume 100.7 FL (87-102); Mean Platelet Volume 12.4 FL (9.6-12.0); Monocytes # 1.6 10*3/uL (0.11-0.8); Monocytes % 13.8 % (1.7-12.7); NRBC # 0.18 10*3/uL; Neutrophils # 7.1 10*3/uL (1.4-7.4); Neutrophils % 60.3 % (38.7-73.9); Platelet Count 117 T/CUMM (130-400); Red Blood Count 2.97 MC/CUMM (3.8-5.5); Red Cell Distribution Width 21.7 % (9.3-17.3); White Blood Count 11.8 T/CUMM (4-12)
[2017-10-09 04:19] LABS: INR 1.3; PT Patient Result 13.9 SECS
[2017-10-09 04:27] LABS: Calcium 10.1 MG/DL (8.5-10.1); Osmolality,Calculated 271.2 MOS/KG (273-304); Potassium 4.2 MMOL/L (3.5-5.1)
[2017-10-09] MEDS: hydrALAZINE 20 MG/1 ML VIAL IV PRN (05:06)
[2017-10-09] MEDS: CALCIUM ACETATE 667 MG CAPSULE PO SCH ×3 (08:00→18:57)
[2017-10-09] MEDS: INSULIN REGULAR 100 UNIT/ML SUBCUT SCH ×4 (08:03→20:26)
[2017-10-09] MEDS: cloNIDine 0.1 MG TABLET PO SCH ×2 (08:36→20:19)
[2017-10-09] MEDS: MORPHINE IR 15 MG TABLET PO SCH ×2 (08:36→20:19)
[2017-10-09] MEDS: CALCITRIOL 0.25 MCG CAPSULE PO SCH (09:00)
[2017-10-09] MEDS: FLUoxetine 20 MG CAPSULE PO SCH (09:00)
[2017-10-09] MEDS: POLYETHYLENE GLYCOL POWDER 17 GM PACK PO SCH (09:13)
[2017-10-09] MEDS: ONDANSETRON 4 MG/2 ML VIAL IV PRN (12:19)
[2017-10-09] MEDS ORDERED: diphenhydrAMINE CAP 50 MG CAPSULE PO ONE (15:06)
[2017-10-09] MEDS: PANTOPRAZOLE 40 MG VIAL IV SCH (17:32)
[2017-10-09] MEDS: PIPERACILLIN/TAZOBACTAM 2,250 MG in SODIUM CHLORIDE 0.9% 100 ML IV SCH (17:33)
[2017-10-09] MEDS: WARFARIN 3 MG TABLET PO SCH (18:58)
[2017-10-09] MEDS: GABAPENTIN 300 MG CAPSULE PO SCH (20:19)
[2017-10-09] MEDS: ATORVASTATIN 40 MG TABLET PO SCH (20:19)
[2017-10-09] MEDS: MONTELUKAST 10 MG TABLET PO SCH (20:19)
[2017-10-10] MEDS: ALBUTEROL/IPRATROPIUM 3 ML NEB RESP TX SCH ×4 (00:58→19:17)
[2017-10-10] MEDS: HEPARIN DRIP 25,000 UNITS/500 ML PREMIX IV SCH ×2 (02:14→16:57)
[2017-10-10] MEDS: PIPERACILLIN/TAZOBACTAM 2,250 MG in SODIUM CHLORIDE 0.9% 100 ML IV SCH ×2 (04:05→16:57)
[2017-10-10] MEDS: ONDANSETRON 4 MG/2 ML VIAL IV PRN (04:24)
[2017-10-10 04:45] LABS: INR 1.5; PT Patient Result 15.4 SECS
[2017-10-10] MEDS ORDERED: diphenhydrAMINE CAP 50 MG CAPSULE PO ONE (08:45)
[2017-10-10] MEDS: CALCIUM ACETATE 667 MG CAPSULE PO SCH ×3 (09:00→16:56)
[2017-10-10] MEDS: cloNIDine 0.1 MG TABLET PO SCH ×2 (09:00→20:53)
[2017-10-10] MEDS: INSULIN REGULAR 100 UNIT/ML SUBCUT SCH ×4 (09:00→20:53)
[2017-10-10] MEDS: FLUoxetine 20 MG CAPSULE PO SCH (09:00)
[2017-10-10] MEDS: POLYETHYLENE GLYCOL POWDER 17 GM PACK PO SCH (09:01)
[2017-10-10] MEDS: PANTOPRAZOLE 40 MG VIAL IV SCH (09:01)
[2017-10-10] MEDS: MORPHINE IR 15 MG TABLET PO SCH ×2 (09:01→20:53)
[2017-10-10] MEDS: CALCITRIOL 0.25 MCG CAPSULE PO SCH (13:27)
[2017-10-10] MEDS: WARFARIN 3 MG TABLET PO SCH (17:00)
[2017-10-10] MEDS: ATORVASTATIN 40 MG TABLET PO SCH (20:52)
[2017-10-10] MEDS: MONTELUKAST 10 MG TABLET PO SCH (20:52)
[2017-10-10] MEDS: GABAPENTIN 300 MG CAPSULE PO SCH (20:53)
[2017-10-11] MEDS: ALBUTEROL/IPRATROPIUM 3 ML NEB RESP TX SCH ×5 (01:12→19:53)
[2017-10-11] MEDS: PIPERACILLIN/TAZOBACTAM 2,250 MG in SODIUM CHLORIDE 0.9% 100 ML IV SCH (06:04)
[2017-10-11 06:46] LABS: INR 1.9; PT Patient Result 19.8 SECS
[2017-10-11] MEDS: cloNIDine 0.1 MG TABLET PO SCH ×2 (08:47→21:19)
[2017-10-11] MEDS: FLUoxetine 20 MG CAPSULE PO SCH (08:47)
[2017-10-11] MEDS: CALCIUM ACETATE 667 MG CAPSULE PO SCH ×3 (08:47→17:46)
[2017-10-11] MEDS: INSULIN REGULAR 100 UNIT/ML SUBCUT SCH ×4 (08:48→21:19)
[2017-10-11] MEDS: PANTOPRAZOLE 40 MG VIAL IV SCH (08:50)
[2017-10-11] MEDS: MORPHINE IR 15 MG TABLET PO SCH ×2 (08:55→21:18)
[2017-10-11] MEDS: POLYETHYLENE GLYCOL POWDER 17 GM PACK PO SCH (08:59)
[2017-10-11] MEDS: HEPARIN DRIP 25,000 UNITS/500 ML PREMIX IV SCH ×2 (08:59→10:21)
[2017-10-11] MEDS ORDERED: diphenhydrAMINE CAP 25 MG CAPSULE PO PRN (09:58)
[2017-10-11] MEDS: CALCITRIOL 0.25 MCG CAPSULE PO SCH (13:03)
[2017-10-11] MEDS: AMPICILLIN INJ 1,000 MG in SODIUM CHLORIDE 0.9% 100 ML IV SCH (17:46)
[2017-10-11] MEDS: WARFARIN 3 MG TABLET PO SCH (17:47)
[2017-10-11] MEDS: INSULIN GLARGINE 100 UNIT/ML SUBCUT SCH (17:48)
[2017-10-11] MEDS: ATORVASTATIN 40 MG TABLET PO SCH (21:18)
[2017-10-11] MEDS: MONTELUKAST 10 MG TABLET PO SCH (21:18)
[2017-10-11] MEDS: GABAPENTIN 300 MG CAPSULE PO SCH (21:18)
[2017-10-12] MEDS: ALBUTEROL/IPRATROPIUM 3 ML NEB RESP TX SCH ×4 (00:58→19:46)
[2017-10-12] MEDS: ONDANSETRON 4 MG/2 ML VIAL IV PRN ×2 (01:10→22:56)
[2017-10-12] MEDS: HEPARIN DRIP 25,000 UNITS/500 ML PREMIX IV SCH ×2 (02:56→22:00)
[2017-10-12 07:18] LABS: Basophils % 0.3 % (0.0-0.8); Eosinophils # 0.3 10*3/uL (0.0-0.87); Eosinophils % 3.5 % (0.00-10.9); Hematocrit 28.3 VOL% (35.7-47.0); Hemoglobin 8.8 GM/DL (12.0-16.0); Immature Granulocytes % 0.8 %; Immature Granulocytes Absolute 0.07 #; Lymphocytes # 1.3 10*3/uL (1.4-4.0); Lymphocytes % 14.4 % (21.3-54.2); Mean Corpuscular HGB Conc 31.1 GM/DL (32-36); Mean Corpuscular Hemoglobin 32 PG (27-34); Mean Corpuscular Volume 101.4 FL (87-102); Mean Platelet Volume 12.3 FL (9.6-12.0); Monocytes # 1.6 10*3/uL (0.11-0.8); Monocytes % 18.6 % (1.7-12.7); NRBC # 0.05 10*3/uL; Neutrophils # 5.4 10*3/uL (1.4-7.4); Neutrophils % 62.4 % (38.7-73.9); Platelet Count 118 T/CUMM (130-400); Red Blood Count 2.79 MC/CUMM (3.8-5.5); Red Cell Distribution Width 21.3 % (9.3-17.3); White Blood Count 8.7 T/CUMM (4-12)
[2017-10-12 07:26] LABS: INR 1.8; PT Patient Result 18.5 SECS
[2017-10-12 07:44] LABS: Eosinophils 5 % (0-10); Hypochromasia 1+; Lymphocytes 11 % (20-55); Macrocytosis 1+; Metamyelocytes 1 %; Ovalocytes Slight; Segmented Neutrophils 66 % (50-85); Total Cells Counted 100
[2017-10-12 07:45] LABS: Platelet Estimate Adequate
[2017-10-12 07:54] LABS: Albumin 3.4 G/DL (3.4-5.0); Calcium 9.6 MG/DL (8.5-10.1); Potassium 4.3 MMOL/L (3.5-5.1)
[2017-10-12] MEDS: INSULIN REGULAR 100 UNIT/ML SUBCUT SCH ×4 (08:10→22:03)
[2017-10-12] MEDS: cloNIDine 0.1 MG TABLET PO SCH ×2 (08:22→21:53)
[2017-10-12] MEDS: FLUoxetine 20 MG CAPSULE PO SCH (08:22)
[2017-10-12] MEDS: CALCIUM ACETATE 667 MG CAPSULE PO SCH ×3 (08:22→19:44)
[2017-10-12] MEDS: MORPHINE IR 15 MG TABLET PO SCH ×2 (08:23→21:52)
[2017-10-12] MEDS: PANTOPRAZOLE 40 MG VIAL IV SCH (08:24)
[2017-10-12] MEDS ORDERED: WARFARIN 7.5 MG TABLET PO SCH (09:00)
[2017-10-12] MEDS: INSULIN GLARGINE 100 UNIT/ML SUBCUT SCH (09:52)
[2017-10-12] MEDS: POLYETHYLENE GLYCOL POWDER 17 GM PACK PO SCH (09:52)
[2017-10-12] MEDS: CALCITRIOL 0.25 MCG CAPSULE PO SCH (09:52)
[2017-10-12] MEDS: AMPICILLIN INJ 1,000 MG in SODIUM CHLORIDE 0.9% 100 ML IV SCH (19:41)
[2017-10-12] MEDS: MONTELUKAST 10 MG TABLET PO SCH (21:52)
[2017-10-12] MEDS: ATORVASTATIN 40 MG TABLET PO SCH (21:52)
[2017-10-12] MEDS: GABAPENTIN 300 MG CAPSULE PO SCH (21:53)
[2017-10-13] MEDS: ALBUTEROL/IPRATROPIUM 3 ML NEB RESP TX SCH ×4 (00:39→19:46)
[2017-10-13] MEDS: HEPARIN DRIP 25,000 UNITS/500 ML PREMIX IV SCH ×2 (02:44→14:05)
[2017-10-13 06:00] LABS: INR 1.8; PT Patient Result 18.3 SECS
[2017-10-13] MEDS: INSULIN REGULAR 100 UNIT/ML SUBCUT SCH ×4 (08:32→23:07)
[2017-10-13] MEDS: INSULIN GLARGINE 100 UNIT/ML SUBCUT SCH (09:19)
[2017-10-13] MEDS: CALCIUM ACETATE 667 MG CAPSULE PO SCH ×4 (09:38→17:04)
[2017-10-13] MEDS: PANTOPRAZOLE 40 MG VIAL IV SCH (09:38)
[2017-10-13] MEDS: FLUoxetine 20 MG CAPSULE PO SCH (09:38)
[2017-10-13] MEDS: MORPHINE IR 15 MG TABLET PO SCH ×2 (09:39→22:56)
[2017-10-13] MEDS: CALCITRIOL 0.25 MCG CAPSULE PO SCH (09:39)
[2017-10-13] MEDS: cloNIDine 0.1 MG TABLET PO SCH ×2 (09:39→22:56)
[2017-10-13] MEDS: POLYETHYLENE GLYCOL POWDER 17 GM PACK PO SCH (09:44)
[2017-10-13] MEDS: LOPERAMIDE 2 MG CAPSULE PO PRN ×2 (12:38→23:00)
[2017-10-13] MEDS: AMPICILLIN INJ 1,000 MG in SODIUM CHLORIDE 0.9% 100 ML IV SCH (17:03)
[2017-10-13] MEDS: MONTELUKAST 10 MG TABLET PO SCH (22:56)
[2017-10-13] MEDS: GABAPENTIN 300 MG CAPSULE PO SCH (22:56)
[2017-10-13] MEDS: ATORVASTATIN 40 MG TABLET PO SCH (22:56)
[2017-10-13] MEDS: ONDANSETRON 4 MG/2 ML VIAL IV PRN (23:00)
[2017-10-14] MEDS: ALBUTEROL/IPRATROPIUM 3 ML NEB RESP TX SCH ×4 (00:03→19:47)
[2017-10-14] MEDS: HEPARIN DRIP 25,000 UNITS/500 ML PREMIX IV SCH (04:12)
[2017-10-14 05:32] LABS: Basophils % 0.3 % (0.0-0.8); Eosinophils # 0.3 10*3/uL (0.0-0.87); Eosinophils % 5.2 % (0.00-10.9); Hematocrit 28.6 VOL% (35.7-47.0); Hemoglobin 8.7 GM/DL (12.0-16.0); Immature Granulocytes % 0.5 %; Immature Granulocytes Absolute 0.03 #; Lymphocytes # 0.9 10*3/uL (1.4-4.0); Lymphocytes % 15.8 % (21.3-54.2); Mean Corpuscular HGB Conc 30.4 GM/DL (32-36); Mean Corpuscular Hemoglobin 31 PG (27-34); Mean Corpuscular Volume 102.5 FL (87-102); Monocytes # 1.4 10*3/uL (0.11-0.8); Monocytes % 23.4 % (1.7-12.7); NRBC # 0.02 10*3/uL; Neutrophils # 3.2 10*3/uL (1.4-7.4); Neutrophils % 54.8 % (38.7-73.9); Platelet Count 106 T/CUMM (130-400); Red Blood Count 2.79 MC/CUMM (3.8-5.5); White Blood Count 5.8 T/CUMM (4-12)
[2017-10-14 05:40] LABS: INR 1.5; PT Patient Result 15.4 SECS
[2017-10-14 05:45] LABS: Calcium 9.6 MG/DL (8.5-10.1); Osmolality,Calculated 276.8 MOS/KG (273-304); Potassium 4.7 MMOL/L (3.5-5.1)
[2017-10-14 05:52] LABS: Band Neutrophils 3 % (0-10); Eosinophils 6 % (0-10); Hypochromasia 1+; Lymphocytes 19 % (20-55); Macrocytosis 1+; Ovalocytes Slight; Platelet Estimate Decreased; Polychromasia Slight; Segmented Neutrophils 59 % (50-85); Total Cells Counted 100
[2017-10-14] MEDS ORDERED: HEPARIN 5,000 UNIT/1 ML VIAL IV ONE (07:01)
[2017-10-14] MEDS: INSULIN REGULAR 100 UNIT/ML SUBCUT SCH ×4 (07:49→21:10)
[2017-10-14] MEDS: ONDANSETRON 4 MG/2 ML VIAL IV PRN (09:21)
[2017-10-14] MEDS: INSULIN GLARGINE 100 UNIT/ML SUBCUT SCH (09:24)
[2017-10-14] MEDS: PANTOPRAZOLE 40 MG VIAL IV SCH (09:27)
[2017-10-14] MEDS: CALCITRIOL 0.25 MCG CAPSULE PO SCH (09:30)
[2017-10-14] MEDS: POLYETHYLENE GLYCOL POWDER 17 GM PACK PO SCH (09:31)
[2017-10-14] MEDS: CALCIUM ACETATE 667 MG CAPSULE PO SCH ×3 (09:32→17:01)
[2017-10-14] MEDS: FLUoxetine 20 MG CAPSULE PO SCH (09:33)
[2017-10-14] MEDS: MORPHINE IR 15 MG TABLET PO SCH ×2 (09:33→21:10)
[2017-10-14] MEDS: cloNIDine 0.1 MG TABLET PO SCH ×2 (09:34→21:10)
[2017-10-14 11:57] LABS: Folate 7.5 NG/ML (5.4-24.0)
[2017-10-14] MEDS: LOPERAMIDE 2 MG CAPSULE PO PRN (16:55)
[2017-10-14] MEDS ORDERED: WARFARIN 7.5 MG TABLET PO SCH (18:00)
[2017-10-14] MEDS: GABAPENTIN 300 MG CAPSULE PO SCH (21:10)
[2017-10-14] MEDS: MONTELUKAST 10 MG TABLET PO SCH (21:10)
[2017-10-14] MEDS: ATORVASTATIN 40 MG TABLET PO SCH (21:11)
[2017-10-15] MEDS: ALBUTEROL/IPRATROPIUM 3 ML NEB RESP TX SCH ×2 (00:13→07:30)
[2017-10-15 04:51] LABS: INR 1.3; PT Patient Result 13.8 SECS
[2017-10-15] MEDS ORDERED: ENOXAPARIN 100 MG/ML SYRINGE SUBCUT SCH (09:00)
[2017-10-15] MEDS: cloNIDine 0.1 MG TABLET PO SCH (09:40)
[2017-10-15] MEDS: MORPHINE IR 15 MG TABLET PO SCH (09:40)
[2017-10-15] MEDS: FLUoxetine 20 MG CAPSULE PO SCH (09:40)
[2017-10-15] MEDS: INSULIN REGULAR 100 UNIT/ML SUBCUT SCH ×2 (09:41→13:30)
[2017-10-15] MEDS: CALCIUM ACETATE 667 MG CAPSULE PO SCH ×2 (09:41→13:30)
[2017-10-15] MEDS: PANTOPRAZOLE 40 MG VIAL IV SCH (09:44)
[2017-10-15] MEDS: CALCITRIOL 0.25 MCG CAPSULE PO SCH (10:19)
[2017-10-15] MEDS: POLYETHYLENE GLYCOL POWDER 17 GM PACK PO SCH (10:21)
[2017-10-15] MEDS: INSULIN GLARGINE 100 UNIT/ML SUBCUT SCH (10:21)
[2017-10-15 11:04] VITALS: BP 162/97
== END 2017-10-15 15:10 | disposition home health service (06) | DRG 291 ==
LOC: N.EDINP 00:15 → N.ED 00:15 → N.3E 02:51 → SUATTDRO 03:35 → N.3E 03:40
PROVIDERS: ADMIT Internal Medicine; ATTEND Internal Medicine

== ENCOUNTER 2017-11-18 04:15 | Inpatient (IN) ==
[2017-11-18] MEDS ORDERED: ONDANSETRON 4 MG/2 ML VIAL IV STA (05:23)
[2017-11-18] MEDS ORDERED: MEPERIDINE 25 MG/1 ML VIAL IV STA ×2 (05:23→06:50)
[2017-11-18] MEDS ORDERED: VANCOMYCIN INJ 1,000 MG in SODIUM CHLORIDE 0.9% 250 ML IV STA (05:24)
[2017-11-18] MEDS ORDERED: CEFEPIME 2,000 MG in SODIUM CHLORIDE 0.9% 100 ML IV STA (05:24)
[2017-11-18 06:09] LABS: Basophils % 0.3 % (0.0-0.8); Eosinophils # 0.1 10*3/uL (0.0-0.87); Eosinophils % 1.5 % (0.00-10.9); Hematocrit 35.1 VOL% (35.7-47.0); Hemoglobin 11.5 GM/DL (12.0-16.0); Immature Granulocytes % 0.5 %; Immature Granulocytes Absolute 0.05 #; Lymphocytes # 1.8 10*3/uL (1.4-4.0); Lymphocytes % 19.2 % (21.3-54.2); Mean Corpuscular HGB Conc 32.8 GM/DL (32-36); Mean Corpuscular Hemoglobin 32 PG (27-34); Mean Corpuscular Volume 96.2 FL (87-102); Mean Platelet Volume 11.8 FL (9.6-12.0); Monocytes # 1.2 10*3/uL (0.11-0.8); NRBC # 0.06 10*3/uL; Neutrophils # 6.2 10*3/uL (1.4-7.4); Neutrophils % 65.5 % (38.7-73.9); Platelet Count 211 T/CUMM (130-400); Red Blood Count 3.65 MC/CUMM (3.8-5.5); Red Cell Distribution Width 20.8 % (9.3-17.3); White Blood Count 9.5 T/CUMM (4-12)
[2017-11-18 06:17] LABS: INR 1.2; PT Patient Result 12.4 SECS; Partial Thromboplastin Time 25.9 SECS (0-40)
[2017-11-18] MEDS ORDERED: diphenhydrAMINE 50 MG/1 ML VIAL IV STA (06:22)
[2017-11-18 06:32] LABS: Lactic Acid 2.6 MMOL/L (0.4-2.0)
[2017-11-18 06:33] LABS: Alanine Aminotransferase 28 U/L (13-56); Albumin 3.5 G/DL (3.4-5.0); Alkaline Phosphatase 271 U/L (45-117); Aspartate Amino Transferase 32 U/L (0-37); Blood Urea Nitrogen 39 MG/DL (7-18); Calcium 8.5 MG/DL (8.5-10.1); Osmolality,Calculated 288.2 MOS/KG (273-304); Potassium 3.9 MMOL/L (3.5-5.1); Sodium 127 MMOL/L (136-145); Total Protein 8.8 G/DL (6.4-8.3)
[2017-11-18 06:43] LABS: Glucose 549 MG/DL (74-106)
[2017-11-18] MEDS ORDERED: INSULIN REGULAR 100 UNIT/ML IV STA (06:49)
[2017-11-18] MEDS ORDERED: INSULIN REGULAR 100 UNIT/ML SUBCUT STA (06:49)
[2017-11-18] MEDS ORDERED: ENOXAPARIN 100 MG/ML SYRINGE SUBCUT STA ×2 (06:52→08:25)
[2017-11-18] MEDS ORDERED: GLUCAGON 1 MG VIAL IM PRN (08:05)
[2017-11-18] MEDS ORDERED: ACETAMINOPHEN 325 MG TABLET PO PRN (08:05)
[2017-11-18] MEDS ORDERED: POLYETHYLENE GLYCOL POWDER 17 GM PACK PO PRN (08:12)
[2017-11-18] MEDS ORDERED: hydrALAZINE 20 MG/1 ML VIAL IV PRN (08:31)
[2017-11-18] MEDS ORDERED: CEFEPIME 1,000 MG in SYRINGE 1 EACH IV SCH (09:00)
[2017-11-18] MEDS: GABAPENTIN 300 MG CAPSULE PO SCH ×3 (10:27→20:33)
[2017-11-18] MEDS: PANTOPRAZOLE 40 MG TABLET PO SCH (10:28)
[2017-11-18] MEDS: INSULIN REGULAR 100 UNIT/ML SUBCUT SCH ×3 (11:25→20:33)
[2017-11-18] MEDS: FLUoxetine 20 MG CAPSULE PO SCH (12:29)
[2017-11-18] MEDS ORDERED: VANCOMYCIN INJ 1,000 MG in SODIUM CHLORIDE 0.9% 250 ML IV ONE (13:00)
[2017-11-18] MEDS ORDERED: ALBUTEROL 2.5 MG/3 ML NEB RESP TX PRN (13:00)
[2017-11-18] MEDS ORDERED: WARFARIN 7.5 MG TABLET PO SCH (18:00)
[2017-11-18] MEDS: PREGABALIN 50 MG CAPSULE PO SCH (20:33)
[2017-11-18] MEDS: MONTELUKAST 10 MG TABLET PO SCH (20:33)
[2017-11-18] MEDS: ZALEPLON 5 MG CAPSULE PO SCH (20:33)
[2017-11-18] MEDS ORDERED: ENOXAPARIN 100 MG/ML SYRINGE SUBCUT SCH (21:00)
[2017-11-18] MEDS ORDERED: MORPHINE 4 MG/1 ML VIAL IV ONE (23:00)
[2017-11-19] MEDS: CEFEPIME 1,000 MG in SYRINGE 1 EACH IV SCH (05:20)
[2017-11-19 06:26] LABS: Basophils % 0.2 % (0.0-0.8); Eosinophils # 0.2 10*3/uL (0.0-0.87); Hematocrit 33.4 VOL% (35.7-47.0); Immature Granulocytes % 0.4 %; Immature Granulocytes Absolute 0.04 #; Lymphocytes # 0.9 10*3/uL (1.4-4.0); Lymphocytes % 8.9 % (21.3-54.2); Mean Corpuscular HGB Conc 32.9 GM/DL (32-36); Mean Corpuscular Hemoglobin 31 PG (27-34); Mean Corpuscular Volume 94.1 FL (87-102); Mean Platelet Volume 12.1 FL (9.6-12.0); Monocytes # 1.2 10*3/uL (0.11-0.8); Monocytes % 12.5 % (1.7-12.7); NRBC # 0.06 10*3/uL; Neutrophils # 7.5 10*3/uL (1.4-7.4); Platelet Count 216 T/CUMM (130-400); Red Blood Count 3.55 MC/CUMM (3.8-5.5); Red Cell Distribution Width 21.2 % (9.3-17.3); White Blood Count 9.8 T/CUMM (4-12)
[2017-11-19 06:30] LABS: INR 1.2; PT Patient Result 12.2 SECS
[2017-11-19 07:09] LABS: Albumin 2.7 G/DL (3.4-5.0); Bilirubin,Total 1.4 MG/DL (0.2-1.0); Calcium 8.2 MG/DL (8.5-10.1); Osmolality,Calculated 279.7 MOS/KG (273-304); Potassium 4.1 MMOL/L (3.5-5.1); Total Protein 7.7 G/DL (6.4-8.3)
[2017-11-19] MEDS ORDERED: VANCOMYCIN INJ 750 MG in SODIUM CHLORIDE 0.9% 250 ML IV PRN (09:00)
[2017-11-19] MEDS: INSULIN REGULAR 100 UNIT/ML SUBCUT SCH ×4 (09:48→21:25)
[2017-11-19] MEDS: ENOXAPARIN 30 MG/0.3 ML SYRINGE SUBCUT SCH (10:42)
[2017-11-19] MEDS: GABAPENTIN 300 MG CAPSULE PO SCH ×3 (10:43→21:24)
[2017-11-19] MEDS: FLUoxetine 20 MG CAPSULE PO SCH (10:43)
[2017-11-19] MEDS: PANTOPRAZOLE 40 MG TABLET PO SCH (10:43)
[2017-11-19] MEDS: WARFARIN 5 MG TABLET PO SCH (18:09)
[2017-11-19] MEDS: ZALEPLON 5 MG CAPSULE PO SCH (21:24)
[2017-11-19] MEDS: MONTELUKAST 10 MG TABLET PO SCH (21:24)
[2017-11-19] MEDS: PREGABALIN 50 MG CAPSULE PO SCH (21:24)
[2017-11-20] MEDS: CEFEPIME 1,000 MG in SYRINGE 1 EACH IV SCH (05:45)
[2017-11-20] MEDS: ONDANSETRON 4 MG/2 ML VIAL IV PRN (05:59)
[2017-11-20 07:22] LABS: INR 1.3; PT Patient Result 13.2 SECS
[2017-11-20] MEDS: ENOXAPARIN 30 MG/0.3 ML SYRINGE SUBCUT SCH (09:18)
[2017-11-20] MEDS: INSULIN REGULAR 100 UNIT/ML SUBCUT SCH ×4 (09:18→20:30)
[2017-11-20] MEDS: GABAPENTIN 300 MG CAPSULE PO SCH ×3 (09:18→20:29)
[2017-11-20] MEDS: FLUoxetine 20 MG CAPSULE PO SCH (09:18)
[2017-11-20] MEDS: PANTOPRAZOLE 40 MG TABLET PO SCH (09:18)
[2017-11-20] MEDS ORDERED: VANCOMYCIN INJ 750 MG in SODIUM CHLORIDE 0.9% 250 ML IV ONE (18:00)
[2017-11-20] MEDS: WARFARIN 5 MG TABLET PO SCH (18:35)
[2017-11-20] MEDS: ZALEPLON 5 MG CAPSULE PO SCH (20:29)
[2017-11-20] MEDS: MONTELUKAST 10 MG TABLET PO SCH (20:30)
[2017-11-20] MEDS: PREGABALIN 50 MG CAPSULE PO SCH (20:30)
[2017-11-21] MEDS: CEFEPIME 1,000 MG in SYRINGE 1 EACH IV SCH (06:20)
[2017-11-21 07:06] LABS: INR 1.3; PT Patient Result 13.4 SECS
[2017-11-21] MEDS ORDERED: WARFARIN 7.5 MG TABLET PO SCH (09:15)
[2017-11-21] MEDS: FLUoxetine 20 MG CAPSULE PO SCH (10:20)
[2017-11-21] MEDS: PANTOPRAZOLE 40 MG TABLET PO SCH (10:21)
[2017-11-21] MEDS: GABAPENTIN 300 MG CAPSULE PO SCH ×3 (10:21→21:47)
[2017-11-21] MEDS: INSULIN REGULAR 100 UNIT/ML SUBCUT SCH ×5 (10:22→21:48)
[2017-11-21] MEDS: ENOXAPARIN 30 MG/0.3 ML SYRINGE SUBCUT SCH (10:23)
[2017-11-21] MEDS: FAMOTIDINE 20 MG TABLET PO SCH (13:06)
[2017-11-21] MEDS: CALCIUM ACETATE 667 MG CAPSULE PO SCH ×2 (13:06→17:21)
[2017-11-21] MEDS ORDERED: INSULIN GLARGINE 100 UNIT/ML SUBCUT SCH (21:00)
[2017-11-21] MEDS: ZALEPLON 5 MG CAPSULE PO SCH (21:47)
[2017-11-21] MEDS: oxyCODONE/ACETAMINOPHEN 5-325 MG TABLET PO PRN (21:47)
[2017-11-21] MEDS: PREGABALIN 50 MG CAPSULE PO SCH (21:47)
[2017-11-21] MEDS: MONTELUKAST 10 MG TABLET PO SCH (21:47)
[2017-11-21] MEDS: INSULIN GLARGINE 100 UNIT/ML SUBCUT SCH (21:48)
[2017-11-21] MEDS: ATORVASTATIN 40 MG TABLET PO SCH (21:48)
[2017-11-22] MEDS: oxyCODONE/ACETAMINOPHEN 5-325 MG TABLET PO PRN (02:17)
[2017-11-22] MEDS: ONDANSETRON 4 MG/2 ML VIAL IV PRN (02:18)
[2017-11-22] MEDS: CEFEPIME 1,000 MG in SYRINGE 1 EACH IV SCH (06:20)
[2017-11-22 06:56] LABS: INR 1.8; PT Patient Result 18.7 SECS
[2017-11-22] MEDS ORDERED: WARFARIN 5 MG TABLET PO SCH (07:44)
[2017-11-22] MEDS: CALCIUM ACETATE 667 MG CAPSULE PO SCH ×3 (08:42→17:16)
[2017-11-22] MEDS: INSULIN REGULAR 100 UNIT/ML SUBCUT SCH ×4 (08:43→21:18)
[2017-11-22] MEDS: INSULIN NPH 100 UNIT/ML SUBCUT SCH ×3 (08:43→17:17)
[2017-11-22] MEDS: GABAPENTIN 300 MG CAPSULE PO SCH ×3 (09:47→21:18)
[2017-11-22] MEDS: FLUoxetine 20 MG CAPSULE PO SCH (09:47)
[2017-11-22] MEDS: PANTOPRAZOLE 40 MG TABLET PO SCH (09:47)
[2017-11-22] MEDS: HYDROmorphone 2 MG/1 ML VIAL IV PRN ×2 (09:48→15:06)
[2017-11-22] MEDS: CALCITRIOL 0.25 MCG CAPSULE PO SCH (10:45)
[2017-11-22] MEDS: FAMOTIDINE 20 MG TABLET PO SCH (12:21)
[2017-11-22] MEDS: GENTAMICIN 0.1% CREAM 15 GM TUBE TOP SCH (19:17)
[2017-11-22] MEDS: INSULIN GLARGINE 100 UNIT/ML SUBCUT SCH (21:17)
[2017-11-22] MEDS: MONTELUKAST 10 MG TABLET PO SCH (21:18)
[2017-11-22] MEDS: ATORVASTATIN 40 MG TABLET PO SCH (21:18)
[2017-11-22] MEDS: ZALEPLON 5 MG CAPSULE PO SCH (21:19)
[2017-11-22] MEDS: PREGABALIN 50 MG CAPSULE PO SCH (21:19)
[2017-11-23] MEDS: HYDROmorphone 2 MG/1 ML VIAL IV PRN ×5 (00:38→23:38)
[2017-11-23] MEDS: oxyCODONE/ACETAMINOPHEN 5-325 MG TABLET PO PRN (04:39)
[2017-11-23] MEDS: CEFEPIME 1,000 MG in SYRINGE 1 EACH IV SCH (06:03)
[2017-11-23 07:20] LABS: INR 2.5
[2017-11-23 07:21] LABS: PT Patient Result 25.1 SECS
[2017-11-23] MEDS: CALCIUM ACETATE 667 MG CAPSULE PO SCH ×3 (08:02→17:22)
[2017-11-23] MEDS: PANTOPRAZOLE 40 MG TABLET PO SCH (08:28)
[2017-11-23] MEDS: GABAPENTIN 300 MG CAPSULE PO SCH ×3 (08:29→22:22)
[2017-11-23] MEDS: FLUoxetine 20 MG CAPSULE PO SCH (08:29)
[2017-11-23] MEDS: FAMOTIDINE 20 MG TABLET PO SCH (08:29)
[2017-11-23] MEDS: INSULIN NPH 100 UNIT/ML SUBCUT SCH ×3 (08:30→17:27)
[2017-11-23] MEDS ORDERED: WARFARIN 7.5 MG TABLET PO SCH (08:52)
[2017-11-23] MEDS: INSULIN REGULAR 100 UNIT/ML SUBCUT SCH ×4 (10:11→22:25)
[2017-11-23] MEDS: CALCITRIOL 0.25 MCG CAPSULE PO SCH (10:12)
[2017-11-23] MEDS: GENTAMICIN 0.1% CREAM 15 GM TUBE TOP SCH (13:53)
[2017-11-23] MEDS ORDERED: VANCOMYCIN INJ 750 MG in SODIUM CHLORIDE 0.9% 250 ML IV ONE (15:00)
[2017-11-23] MEDS: ZALEPLON 5 MG CAPSULE PO SCH (22:21)
[2017-11-23] MEDS: MONTELUKAST 10 MG TABLET PO SCH (22:21)
[2017-11-23] MEDS: PREGABALIN 50 MG CAPSULE PO SCH (22:23)
[2017-11-23] MEDS: ATORVASTATIN 40 MG TABLET PO SCH (22:23)
[2017-11-23] MEDS: INSULIN GLARGINE 100 UNIT/ML SUBCUT SCH (22:24)
[2017-11-23] MEDS: ONDANSETRON 4 MG/2 ML VIAL IV PRN (23:35)
[2017-11-24] MEDS: HYDROmorphone 2 MG/1 ML VIAL IV PRN ×5 (04:47→22:19)
[2017-11-24] MEDS: ONDANSETRON 4 MG/2 ML VIAL IV PRN (04:51)
[2017-11-24] MEDS: DEXTROSE 50% 25 GM/50 ML VIAL IV PRN ×3 (05:01→11:55)
[2017-11-24] MEDS: CEFEPIME 1,000 MG in SYRINGE 1 EACH IV SCH (05:52)
[2017-11-24] MEDS ORDERED: LIDOCAINE 1%/EPI INJ 20 ML VIAL ONE (06:37)
[2017-11-24 07:01] LABS: INR 2.9
[2017-11-24 07:02] LABS: PT Patient Result 29.6 SECS
[2017-11-24 07:04] LABS: Basophils # 0.1 10*3/uL (0.0-0.2); Basophils % 0.6 % (0.0-0.8); Eosinophils # 0.2 10*3/uL (0.0-0.87); Eosinophils % 2.2 % (0.00-10.9); Hematocrit 39.2 VOL% (35.7-47.0); Hemoglobin 11.9 GM/DL (12.0-16.0); Immature Granulocytes % 1.4 %; Immature Granulocytes Absolute 0.11 #; Lymphocytes # 1.4 10*3/uL (1.4-4.0); Lymphocytes % 18.3 % (21.3-54.2); Mean Corpuscular HGB Conc 30.4 GM/DL (32-36); Mean Corpuscular Hemoglobin 31 PG (27-34); Mean Corpuscular Volume 100.8 FL (87-102); Monocytes # 1.5 10*3/uL (0.11-0.8); Monocytes % 19.2 % (1.7-12.7); Neutrophils # 4.5 10*3/uL (1.4-7.4); Neutrophils % 58.3 % (38.7-73.9); Platelet Count 131 T/CUMM (130-400); Red Blood Count 3.89 MC/CUMM (3.8-5.5); Red Cell Distribution Width 20.8 % (9.3-17.3); White Blood Count 7.8 T/CUMM (4-12)
[2017-11-24] MEDS ORDERED: METOCLOPRAMIDE 10 MG/2 ML VIAL ONE (07:07)
[2017-11-24 07:19] LABS: Eosinophils 2 % (0-10); Hypochromasia 1+; Lymphocytes 25 % (20-55); Segmented Neutrophils 56 % (50-85); Total Cells Counted 100
[2017-11-24 07:20] LABS: Macrocytosis 1+; Platelet Estimate Adequate
[2017-11-24 07:21] LABS: Osmolality,Calculated 270.5 MOS/KG (273-304); Potassium 5.4 MMOL/L (3.5-5.1)
[2017-11-24] MEDS: INSULIN NPH 100 UNIT/ML SUBCUT SCH ×3 (09:17→17:16)
[2017-11-24] MEDS: INSULIN REGULAR 100 UNIT/ML SUBCUT SCH ×4 (09:18→22:17)
[2017-11-24] MEDS: CALCIUM ACETATE 667 MG CAPSULE PO SCH ×3 (09:18→17:15)
[2017-11-24] MEDS ORDERED: SEVOFLURANE 1 UNIT/15 MINUTE INH ONE (10:45)
[2017-11-24] MEDS ORDERED: MIDAZOLAM 2 MG/2 ML VIAL ONE (10:46)
[2017-11-24] MEDS ORDERED: DEXTROSE 50% 25 GM/50 ML VIAL IV PRN (12:27)
[2017-11-24] MEDS ORDERED: GLUCAGON 1 MG VIAL IM PRN (12:27)
[2017-11-24] MEDS: GABAPENTIN 300 MG CAPSULE PO SCH ×3 (12:30→22:16)
[2017-11-24] MEDS: FLUoxetine 20 MG CAPSULE PO SCH (12:30)
[2017-11-24] MEDS: GENTAMICIN 0.1% CREAM 15 GM TUBE TOP SCH (12:30)
[2017-11-24] MEDS: PANTOPRAZOLE 40 MG TABLET PO SCH (12:31)
[2017-11-24] MEDS: CALCITRIOL 0.25 MCG CAPSULE PO SCH (12:31)
[2017-11-24] MEDS: FAMOTIDINE 20 MG TABLET PO SCH (12:31)
[2017-11-24] MEDS: WARFARIN 5 MG TABLET PO SCH (18:36)
[2017-11-24] MEDS: ATORVASTATIN 40 MG TABLET PO SCH (22:16)
[2017-11-24] MEDS: MONTELUKAST 10 MG TABLET PO SCH (22:16)
[2017-11-24] MEDS: ZALEPLON 5 MG CAPSULE PO SCH (22:16)
[2017-11-24] MEDS: PREGABALIN 50 MG CAPSULE PO SCH (22:16)
[2017-11-24] MEDS: INSULIN GLARGINE 100 UNIT/ML SUBCUT SCH (22:18)
[2017-11-25] MEDS: HYDROmorphone 2 MG/1 ML VIAL IV PRN ×6 (02:46→23:20)
[2017-11-25] MEDS: CEFEPIME 1,000 MG in SYRINGE 1 EACH IV SCH (05:07)
[2017-11-25 06:50] LABS: INR 2.5
[2017-11-25] MEDS: INSULIN REGULAR 100 UNIT/ML SUBCUT SCH ×4 (08:50→21:17)
[2017-11-25] MEDS: INSULIN NPH 100 UNIT/ML SUBCUT SCH ×3 (08:50→19:12)
[2017-11-25] MEDS: FLUoxetine 20 MG CAPSULE PO SCH (09:42)
[2017-11-25] MEDS: PANTOPRAZOLE 40 MG TABLET PO SCH (09:42)
[2017-11-25] MEDS: FAMOTIDINE 20 MG TABLET PO SCH (09:42)
[2017-11-25] MEDS: GABAPENTIN 300 MG CAPSULE PO SCH ×3 (09:42→21:15)
[2017-11-25] MEDS: CALCIUM ACETATE 667 MG CAPSULE PO SCH ×3 (09:44→19:13)
[2017-11-25] MEDS: CALCITRIOL 0.25 MCG CAPSULE PO SCH (11:04)
[2017-11-25] MEDS: GENTAMICIN 0.1% CREAM 15 GM TUBE TOP SCH (11:10)
[2017-11-25] MEDS ORDERED: VANCOMYCIN INJ 750 MG in SODIUM CHLORIDE 0.9% 250 ML IV ONE (16:00)
[2017-11-25 17:59] LABS: Hepatitis A Ab IgM Quant 0.25 Index; Hepatitis A Ab IgM Result Negative (Negative); Hepatitis B Core IgM Quant < 0.05 Index; Hepatitis B Core IgM Result Negative (Negative); Hepatitis B Surface Ag Result Negative (Negative); Hepatitis C Virus Ab Quant 0.17 Index; Hepatitis C Virus Ab Result Negative (Negative)
[2017-11-25] MEDS: WARFARIN 5 MG TABLET PO SCH (19:26)
[2017-11-25] MEDS: ZALEPLON 5 MG CAPSULE PO SCH (21:15)
[2017-11-25] MEDS: PREGABALIN 50 MG CAPSULE PO SCH (21:15)
[2017-11-25] MEDS: MONTELUKAST 10 MG TABLET PO SCH (21:15)
[2017-11-25] MEDS: ATORVASTATIN 40 MG TABLET PO SCH (21:15)
[2017-11-25] MEDS: INSULIN GLARGINE 100 UNIT/ML SUBCUT SCH ×2 (21:15)
[2017-11-26] MEDS: HYDROmorphone 2 MG/1 ML VIAL IV PRN ×4 (02:21→13:07)
[2017-11-26] MEDS: CEFEPIME 1,000 MG in SYRINGE 1 EACH IV SCH (06:07)
[2017-11-26 06:49] LABS: INR 2.1
[2017-11-26 06:50] LABS: PT Patient Result 21.9 SECS
[2017-11-26] MEDS: CALCITRIOL 0.25 MCG CAPSULE PO SCH (09:00)
[2017-11-26] MEDS: INSULIN REGULAR 100 UNIT/ML SUBCUT SCH ×2 (09:23→12:28)
[2017-11-26] MEDS: INSULIN NPH 100 UNIT/ML SUBCUT SCH ×2 (09:24→12:28)
[2017-11-26] MEDS: CALCIUM ACETATE 667 MG CAPSULE PO SCH ×2 (09:24→12:28)
[2017-11-26] MEDS: FLUoxetine 20 MG CAPSULE PO SCH (09:25)
[2017-11-26] MEDS: GABAPENTIN 300 MG CAPSULE PO SCH ×2 (09:25→15:47)
[2017-11-26] MEDS: PANTOPRAZOLE 40 MG TABLET PO SCH (09:25)
[2017-11-26] MEDS: FAMOTIDINE 20 MG TABLET PO SCH (09:25)
[2017-11-26] MEDS: GENTAMICIN 0.1% CREAM 15 GM TUBE TOP SCH (09:26)
[2017-11-26 16:24] VITALS: BP 150/77
== END 2017-11-26 17:10 | disposition home or self-care (01) | DRG 602 ==
LOC: N.ED 04:15 → SUATTDRO 07:41 → N.EDINP 07:41 → N.5E 12:44
PROVIDERS: ATTEND Internal Medicine

== ENCOUNTER 2017-12-09 12:21 | Observation (INO) ==
[2017-12-09 15:20] LABS: Basophils # 0.1 10*3/uL (0.0-0.2); Basophils % 0.3 % (0.0-0.8); Eosinophils # 0.1 10*3/uL (0.0-0.87); Eosinophils % 0.4 % (0.00-10.9); Hematocrit 33.4 VOL% (35.7-47.0); Hemoglobin 10.8 GM/DL (12.0-16.0); Immature Granulocytes % 0.6 %; Lymphocytes # 1.8 10*3/uL (1.4-4.0); Lymphocytes % 11.5 % (21.3-54.2); Mean Corpuscular HGB Conc 32.3 GM/DL (32-36); Mean Corpuscular Hemoglobin 30 PG (27-34); Mean Corpuscular Volume 92.3 FL (87-102); Mean Platelet Volume 11.7 FL (9.6-12.0); Monocytes # 1.8 10*3/uL (0.11-0.8); Monocytes % 11.4 % (1.7-12.7); Neutrophils # 11.9 10*3/uL (1.4-7.4); Neutrophils % 75.8 % (38.7-73.9); Platelet Count 223 T/CUMM (130-400); Red Blood Count 3.62 MC/CUMM (3.8-5.5); White Blood Count 15.8 T/CUMM (4-12)
[2017-12-09 15:30] LABS: INR 3.1; Partial Thromboplastin Time 38.9 SECS (0-40)
[2017-12-09 15:38] LABS: Calcium 7.3 MG/DL (8.5-10.1); Osmolality,Calculated 277.5 MOS/KG (273-304); Potassium 5.2 MMOL/L (3.5-5.1)
[2017-12-09 15:43] LABS: PT Patient Result 31.3 SECS
[2017-12-09] MEDS ORDERED: ONDANSETRON 4 MG/2 ML VIAL IV STA (15:51)
[2017-12-09] MEDS ORDERED: MORPHINE 4 MG/1 ML VIAL IV STA (15:51)
[2017-12-09] MEDS ORDERED: MORPHINE 4 MG/1 ML VIAL ONE (15:53)
[2017-12-09] MEDS ORDERED: ONDANSETRON 4 MG/2 ML VIAL ONE (15:53)
[2017-12-09] MEDS ORDERED: CEFTAROLINE 600 MG in SODIUM CHLORIDE 0.9% 100 ML IV STA (16:46)
[2017-12-09] MEDS ORDERED: CEFTAROLINE 600 MG VIAL IV ONE (16:58)
[2017-12-09] MEDS ORDERED: BISACODYL 5 MG TABLET PO PRN (18:51)
[2017-12-09] MEDS ORDERED: METHOCARBAMOL 500 MG TABLET PO PRN (18:51)
[2017-12-09] MEDS ORDERED: ONDANSETRON 4 MG/2 ML VIAL IV PRN (18:51)
[2017-12-09] MEDS ORDERED: NICOTINE 21 MG/24 HR PATCH TRANSDERM PRN (18:51)
[2017-12-09] MEDS ORDERED: PROMETHAZINE 25 MG/1 ML VIAL IM PRN (18:51)
[2017-12-09] MEDS ORDERED: hydrALAZINE 20 MG/1 ML VIAL IV PRN (19:05)
[2017-12-09] MEDS ORDERED: DEXTROSE 50% 25 GM/50 ML VIAL IV PRN (19:10)
[2017-12-09] MEDS ORDERED: GLUCAGON 1 MG VIAL IM PRN (19:10)
[2017-12-09] MEDS: INSULIN REGULAR 100 UNIT/ML SUBCUT SCH (22:11)
[2017-12-09] MEDS: ENOXAPARIN 30 MG/0.3 ML SYRINGE SUBCUT SCH (22:30)
[2017-12-09] MEDS: ZALEPLON 5 MG CAPSULE PO SCH (22:31)
[2017-12-09] MEDS: oxyCODONE/ACETAMINOPHEN 5-325 MG TABLET PO PRN (23:32)
[2017-12-10] MEDS: oxyCODONE/ACETAMINOPHEN 5-325 MG TABLET PO PRN ×3 (05:07→20:45)
[2017-12-10 05:26] LABS: Basophils % 0.2 % (0.0-0.8); Eosinophils # 0.2 10*3/uL (0.0-0.87); Eosinophils % 1.3 % (0.00-10.9); Hematocrit 32.8 VOL% (35.7-47.0); Hemoglobin 10.5 GM/DL (12.0-16.0); Immature Granulocytes % 0.6 %; Immature Granulocytes Absolute 0.08 #; Lymphocytes # 1.6 10*3/uL (1.4-4.0); Lymphocytes % 12.6 % (21.3-54.2); Mean Corpuscular Hemoglobin 29 PG (27-34); Mean Corpuscular Volume 91.9 FL (87-102); Mean Platelet Volume 11.7 FL (9.6-12.0); Monocytes # 1.7 10*3/uL (0.11-0.8); Monocytes % 13.7 % (1.7-12.7); Neutrophils # 8.9 10*3/uL (1.4-7.4); Neutrophils % 71.6 % (38.7-73.9); Platelet Count 212 T/CUMM (130-400); Red Blood Count 3.57 MC/CUMM (3.8-5.5); Red Cell Distribution Width 19.9 % (9.3-17.3); White Blood Count 12.5 T/CUMM (4-12)
[2017-12-10 05:33] LABS: INR 3.3
[2017-12-10 05:40] LABS: PT Patient Result 33.5 SECS
[2017-12-10 05:52] LABS: Albumin 2.1 G/DL (3.4-5.0); Bilirubin,Total 0.8 MG/DL (0.2-1.0); Calcium 6.9 MG/DL (8.5-10.1); Osmolality,Calculated 287.5 MOS/KG (273-304); Potassium 5.3 MMOL/L (3.5-5.1); Total Protein 8.5 G/DL (6.4-8.3)
[2017-12-10] MEDS ORDERED: POLYETHYLENE GLYCOL POWDER 17 GM PACK PO PRN (07:40)
[2017-12-10] MEDS ORDERED: ALBUTEROL 2.5 MG/3 ML NEB RESP TX PRN (07:40)
[2017-12-10] MEDS: CALCIUM ACETATE 667 MG CAPSULE PO SCH ×3 (08:48→17:00)
[2017-12-10] MEDS: PANTOPRAZOLE 40 MG TABLET PO SCH (08:49)
[2017-12-10] MEDS: FLUoxetine 20 MG CAPSULE PO SCH (08:49)
[2017-12-10] MEDS: INSULIN REGULAR 100 UNIT/ML SUBCUT SCH ×4 (08:49→20:46)
[2017-12-10] MEDS: FAMOTIDINE 20 MG TABLET PO SCH (08:49)
[2017-12-10] MEDS ORDERED: CALCITRIOL 0.25 MCG CAPSULE PO SCH (09:00)
[2017-12-10] MEDS ORDERED: DEXTROSE 50% 25 GM/50 ML VIAL IV PRN (10:50)
[2017-12-10] MEDS ORDERED: GLUCAGON 1 MG VIAL IM PRN (10:50)
[2017-12-10] MEDS: CALCITRIOL 0.5 MCG CAPSULE PO SCH (11:56)
[2017-12-10 17:13] LABS: Hepatitis B Surface Ag Quant < 0.10 Index; Hepatitis B Surface Ag Result Negative (Negative)
[2017-12-10] MEDS: INSULIN GLARGINE 100 UNIT/ML SUBCUT SCH (20:45)
[2017-12-10] MEDS: ENOXAPARIN 30 MG/0.3 ML SYRINGE SUBCUT SCH (20:45)
[2017-12-10] MEDS: MONTELUKAST 10 MG TABLET PO SCH (20:45)
[2017-12-10] MEDS: ATORVASTATIN 40 MG TABLET PO SCH (20:45)
[2017-12-10] MEDS: ZALEPLON 5 MG CAPSULE PO SCH (22:03)
[2017-12-11] MEDS: oxyCODONE/ACETAMINOPHEN 5-325 MG TABLET PO PRN ×4 (01:25→21:01)
[2017-12-11 05:09] LABS: Basophils % 0.3 % (0.0-0.8); Eosinophils # 0.2 10*3/uL (0.0-0.87); Eosinophils % 1.5 % (0.00-10.9); Hematocrit 32.2 VOL% (35.7-47.0); Hemoglobin 10.3 GM/DL (12.0-16.0); Immature Granulocytes % 0.4 %; Immature Granulocytes Absolute 0.04 #; Lymphocytes # 1.5 10*3/uL (1.4-4.0); Lymphocytes % 13.8 % (21.3-54.2); Mean Corpuscular Hemoglobin 30 PG (27-34); Mean Corpuscular Volume 92.5 FL (87-102); Mean Platelet Volume 11.8 FL (9.6-12.0); Monocytes # 1.5 10*3/uL (0.11-0.8); Monocytes % 13.4 % (1.7-12.7); Neutrophils # 7.9 10*3/uL (1.4-7.4); Neutrophils % 70.6 % (38.7-73.9); Platelet Count 233 T/CUMM (130-400); Red Blood Count 3.48 MC/CUMM (3.8-5.5); Red Cell Distribution Width 19.9 % (9.3-17.3); White Blood Count 11.2 T/CUMM (4-12)
[2017-12-11 05:29] LABS: Calcium 7.7 MG/DL (8.5-10.1); Osmolality,Calculated 284.4 MOS/KG (273-304); Potassium 4.2 MMOL/L (3.5-5.1)
[2017-12-11 05:49] LABS: PT Patient Result 20.2 SECS
[2017-12-11] MEDS: INSULIN REGULAR 100 UNIT/ML SUBCUT SCH ×4 (08:34→21:01)
[2017-12-11] MEDS: CALCIUM ACETATE 667 MG CAPSULE PO SCH ×3 (08:35→17:11)
[2017-12-11] MEDS: FAMOTIDINE 20 MG TABLET PO SCH (08:35)
[2017-12-11] MEDS: FLUoxetine 20 MG CAPSULE PO SCH (08:35)
[2017-12-11] MEDS: PANTOPRAZOLE 40 MG TABLET PO SCH (08:35)
[2017-12-11] MEDS: CALCITRIOL 0.5 MCG CAPSULE PO SCH (08:36)
[2017-12-11] MEDS: MONTELUKAST 10 MG TABLET PO SCH (21:00)
[2017-12-11] MEDS: ATORVASTATIN 40 MG TABLET PO SCH (21:01)
[2017-12-11] MEDS: ZALEPLON 5 MG CAPSULE PO SCH (21:01)
[2017-12-11] MEDS: INSULIN GLARGINE 100 UNIT/ML SUBCUT SCH (21:01)
[2017-12-11] MEDS: ENOXAPARIN 30 MG/0.3 ML SYRINGE SUBCUT SCH (21:01)
[2017-12-11] MEDS ORDERED: KETOROLAC 15 MG/1 ML VIAL IV ONE (23:18)
[2017-12-12] MEDS: oxyCODONE/ACETAMINOPHEN 5-325 MG TABLET PO PRN ×2 (02:20→08:46)
[2017-12-12] MEDS: CALCIUM ACETATE 667 MG CAPSULE PO SCH ×3 (08:45→17:05)
[2017-12-12] MEDS: PANTOPRAZOLE 40 MG TABLET PO SCH (08:45)
[2017-12-12] MEDS: FAMOTIDINE 20 MG TABLET PO SCH (08:45)
[2017-12-12] MEDS: FLUoxetine 20 MG CAPSULE PO SCH (08:46)
[2017-12-12] MEDS: CALCITRIOL 0.5 MCG CAPSULE PO SCH (08:46)
[2017-12-12] MEDS: INSULIN REGULAR 100 UNIT/ML SUBCUT SCH ×3 (08:49→15:15)
[2017-12-12 10:16] LABS: Basophils % 0.5 % (0.0-0.8); Eosinophils # 0.2 10*3/uL (0.0-0.87); Eosinophils % 2.9 % (0.00-10.9); Hematocrit 31.9 VOL% (35.7-47.0); Hemoglobin 9.8 GM/DL (12.0-16.0); Immature Granulocytes % 0.6 %; Immature Granulocytes Absolute 0.05 #; Lymphocytes # 1.3 10*3/uL (1.4-4.0); Lymphocytes % 15.5 % (21.3-54.2); Mean Corpuscular HGB Conc 30.7 GM/DL (32-36); Mean Corpuscular Hemoglobin 30 PG (27-34); Mean Corpuscular Volume 96.1 FL (87-102); Mean Platelet Volume 11.3 FL (9.6-12.0); Monocytes # 1.1 10*3/uL (0.11-0.8); Monocytes % 12.9 % (1.7-12.7); Neutrophils # 5.6 10*3/uL (1.4-7.4); Neutrophils % 67.6 % (38.7-73.9); Platelet Count 227 T/CUMM (130-400); Red Blood Count 3.32 MC/CUMM (3.8-5.5); Red Cell Distribution Width 19.9 % (9.3-17.3); White Blood Count 8.2 T/CUMM (4-12)
[2017-12-12 10:37] LABS: Calcium 7.7 MG/DL (8.5-10.1); Osmolality,Calculated 286.5 MOS/KG (273-304); Potassium 4.9 MMOL/L (3.5-5.1)
[2017-12-12 10:49] LABS: INR 1.5; PT Patient Result 16.1 SECS
[2017-12-12 18:44] VITALS: BP 130/72
[2017-12-13 10:14] LABS: Albumin (SPE) 3.2 G/DL (3.2-5.3); Albumin (SPE) Rel % 36.9 %; Alpha 1 (SPE) 0.4 G/DL (0.1-0.4); Alpha 1 (SPE) Rel % 4.6 %; Alpha 2 (SPE) Rel % 12.2 %; Total Protein (Chem) 8.6 G/DL (6.4-8.3)
[2017-12-13 10:15] LABS: Beta (SPE) Rel % 11.6 %; Gamma (SPE) Rel % 34.7 %
== END 2017-12-12 17:50 | disposition home or self-care (01) ==
LOC: N.3E 12:21 → N.ED 12:21 → SUATTDRO 18:51 → N.3E 21:25
PROVIDERS: ATTEND Internal Medicine

== ENCOUNTER 2017-12-21 17:56 | Inpatient (IN) ==
[2017-12-21] MEDS ORDERED: ALBUTEROL/IPRATROPIUM 3 ML NEB RESP TX STA (18:06)
[2017-12-21] MEDS ORDERED: MORPHINE 4 MG/1 ML VIAL IV STA (18:06)
[2017-12-21] MEDS ORDERED: ONDANSETRON 4 MG/2 ML VIAL IV STA (18:30)
[2017-12-21] MEDS ORDERED: ONDANSETRON 4 MG/2 ML VIAL ONE (18:31)
[2017-12-21] MEDS ORDERED: NITROGLYCERIN 2% OINT 1 INCH/GM PACK TOP STA (18:38)
[2017-12-21] MEDS: ALBUTEROL 2.5 MG/3 ML NEB RESP TX SCH (18:39)
[2017-12-21 19:07] LABS: Basophils % 0.2 % (0.0-0.8); Eosinophils # 0.1 10*3/uL (0.0-0.87); Eosinophils % 0.6 % (0.00-10.9); Hematocrit 34.4 VOL% (35.7-47.0); Hemoglobin 10.8 GM/DL (12.0-16.0); Immature Granulocytes % 0.6 %; Immature Granulocytes Absolute 0.07 #; Lymphocytes # 1.2 10*3/uL (1.4-4.0); Lymphocytes % 10.1 % (21.3-54.2); Mean Corpuscular HGB Conc 31.4 GM/DL (32-36); Mean Corpuscular Hemoglobin 28 PG (27-34); Mean Corpuscular Volume 90.1 FL (87-102); Mean Platelet Volume 9.9 FL (9.6-12.0); Monocytes # 1.1 10*3/uL (0.11-0.8); Monocytes % 8.8 % (1.7-12.7); NRBC # 0.02 10*3/uL; Neutrophils # 9.5 10*3/uL (1.4-7.4); Neutrophils % 79.7 % (38.7-73.9); Platelet Count 218 T/CUMM (130-400); Red Blood Count 3.82 MC/CUMM (3.8-5.5); Red Cell Distribution Width 19.8 % (9.3-17.3); White Blood Count 11.9 T/CUMM (4-12)
[2017-12-21] MEDS ORDERED: MORPHINE 10 MG/1 ML VIAL IV STA (19:22)
[2017-12-21] MEDS ORDERED: hydrALAZINE 20 MG/1 ML VIAL IV STA (19:22)
[2017-12-21 19:28] LABS: Albumin 2.6 G/DL (3.4-5.0); Bilirubin,Total 1.1 MG/DL (0.2-1.0); Calcium 9.1 MG/DL (8.5-10.1); Potassium 3.2 MMOL/L (3.5-5.1); Total Protein 9.7 G/DL (6.4-8.3)
[2017-12-21] MEDS ORDERED: POLYETHYLENE GLYCOL POWDER 17 GM PACK PO PRN (20:01)
[2017-12-21] MEDS ORDERED: ALBUTEROL 2.5 MG/3 ML NEB RESP TX PRN (20:01)
[2017-12-21] MEDS ORDERED: GLUCAGON 1 MG VIAL IM PRN (20:03)
[2017-12-21] MEDS ORDERED: ONDANSETRON 4 MG/2 ML VIAL IV PRN (20:03)
[2017-12-21] MEDS ORDERED: DEXTROSE 50% 25 GM/50 ML VIAL IV PRN (20:03)
[2017-12-21 20:53] LABS: INR 1.2; PT Patient Result 12.7 SECS
[2017-12-21] MEDS: METOPROLOL TARTRATE 50 MG TABLET PO SCH (22:55)
[2017-12-21] MEDS: INSULIN LISPRO 100 UNIT/ML SUBCUT SCH (23:00)
[2017-12-21] MEDS ORDERED: cloNIDine 0.1 MG TABLET ONE (23:00)
[2017-12-21] MEDS: GABAPENTIN 300 MG CAPSULE PO SCH (23:04)
[2017-12-21] MEDS: ATORVASTATIN 40 MG TABLET PO SCH (23:04)
[2017-12-21] MEDS: MONTELUKAST 10 MG TABLET PO SCH (23:30)
[2017-12-21] MEDS: PREGABALIN 50 MG CAPSULE PO SCH (23:45)
[2017-12-21] MEDS: FAMOTIDINE 20 MG TABLET PO SCH (23:50)
[2017-12-22] MEDS: INSULIN GLARGINE 100 UNIT/ML SUBCUT SCH ×2 (00:45→21:16)
[2017-12-22] MEDS: oxyCODONE/ACETAMINOPHEN 5-325 MG TABLET PO SCH ×4 (03:15→21:04)
[2017-12-22 07:46] LABS: Basophils % 0.2 % (0.0-0.8); Eosinophils % 0.2 % (0.00-10.9); Hematocrit 28.1 VOL% (35.7-47.0); Immature Granulocytes % 0.7 %; Immature Granulocytes Absolute 0.06 #; Lymphocytes # 1.3 10*3/uL (1.4-4.0); Lymphocytes % 13.8 % (21.3-54.2); Mean Corpuscular Hemoglobin 29 PG (27-34); Mean Corpuscular Volume 92.7 FL (87-102); Mean Platelet Volume 10.6 FL (9.6-12.0); Monocytes # 1.2 10*3/uL (0.11-0.8); Monocytes % 12.6 % (1.7-12.7); Neutrophils # 6.6 10*3/uL (1.4-7.4); Neutrophils % 72.5 % (38.7-73.9); Platelet Count 179 T/CUMM (130-400); Red Cell Distribution Width 19.9 % (9.3-17.3); White Blood Count 9.1 T/CUMM (4-12)
[2017-12-22 07:52] LABS: Red Blood Count 3.03 MC/CUMM (3.8-5.5)
[2017-12-22 07:53] LABS: Hemoglobin 8.7 GM/DL (12.0-16.0)
[2017-12-22 08:02] LABS: Calcium 7.8 MG/DL (8.5-10.1); Potassium 3.7 MMOL/L (3.5-5.1)
[2017-12-22] MEDS: INSULIN LISPRO 100 UNIT/ML SUBCUT SCH ×4 (08:50→21:16)
[2017-12-22] MEDS ORDERED: WARFARIN 5 MG TABLET PO ONE ×2 (09:04→15:30)
[2017-12-22] MEDS ORDERED: cloNIDine 0.1 MG TABLET ONE (09:29)
[2017-12-22] MEDS: FAMOTIDINE 20 MG TABLET PO SCH ×2 (09:35→21:05)
[2017-12-22] MEDS: METOPROLOL TARTRATE 50 MG TABLET PO SCH ×2 (09:35→21:04)
[2017-12-22] MEDS: GABAPENTIN 300 MG CAPSULE PO SCH ×3 (09:35→21:04)
[2017-12-22 09:56] LABS: INR 1.3; PT Patient Result 13.9 SECS
[2017-12-22] MEDS: CALCITRIOL 0.5 MCG CAPSULE PO SCH (11:10)
[2017-12-22] MEDS: FLUoxetine 20 MG CAPSULE PO SCH (11:10)
[2017-12-22] MEDS: CALCIUM ACETATE 667 MG CAPSULE PO SCH ×3 (11:10→18:10)
[2017-12-22] MEDS: HEPARIN 5,000 UNIT/1 ML VIAL SUBCUT SCH ×2 (15:24→21:04)
[2017-12-22] MEDS: WARFARIN 2.5 MG TABLET PO SCH (18:10)
[2017-12-22] MEDS: PREGABALIN 50 MG CAPSULE PO SCH (21:04)
[2017-12-22] MEDS: ATORVASTATIN 40 MG TABLET PO SCH (21:05)
[2017-12-22] MEDS: MONTELUKAST 10 MG TABLET PO SCH (21:05)
[2017-12-23 04:44] LABS: INR 1.4; PT Patient Result 14.1 SECS
[2017-12-23] MEDS: oxyCODONE/ACETAMINOPHEN 5-325 MG TABLET PO SCH ×4 (04:51→20:30)
[2017-12-23] MEDS: HEPARIN 5,000 UNIT/1 ML VIAL SUBCUT SCH ×3 (04:57→20:19)
[2017-12-23] MEDS ORDERED: WARFARIN 5 MG TABLET PO ONE (07:32)
[2017-12-23] MEDS: GABAPENTIN 300 MG CAPSULE PO SCH ×3 (09:45→20:19)
[2017-12-23] MEDS: FLUoxetine 20 MG CAPSULE PO SCH (09:45)
[2017-12-23] MEDS: CALCIUM ACETATE 667 MG CAPSULE PO SCH ×3 (09:45→17:02)
[2017-12-23] MEDS: FAMOTIDINE 20 MG TABLET PO SCH ×2 (09:45→20:20)
[2017-12-23] MEDS: CALCITRIOL 0.5 MCG CAPSULE PO SCH (09:45)
[2017-12-23] MEDS: METOPROLOL TARTRATE 50 MG TABLET PO SCH ×2 (09:46→20:19)
[2017-12-23] MEDS: INSULIN LISPRO 100 UNIT/ML SUBCUT SCH ×4 (09:57→20:51)
[2017-12-23] MEDS: ALBUTEROL/IPRATROPIUM 3 ML NEB RESP TX SCH ×2 (13:03→18:56)
[2017-12-23] MEDS: cefTRIAXone 1,000 MG in SYRINGE 1 EACH IV SCH (13:20)
[2017-12-23] MEDS: WARFARIN 2.5 MG TABLET PO SCH (17:02)
[2017-12-23] MEDS: PREGABALIN 50 MG CAPSULE PO SCH (20:19)
[2017-12-23] MEDS: ATORVASTATIN 40 MG TABLET PO SCH (20:19)
[2017-12-23] MEDS: MONTELUKAST 10 MG TABLET PO SCH (20:19)
[2017-12-23] MEDS: INSULIN GLARGINE 100 UNIT/ML SUBCUT SCH (20:51)
[2017-12-24] MEDS: ALBUTEROL/IPRATROPIUM 3 ML NEB RESP TX SCH ×4 (00:16→18:52)
[2017-12-24] MEDS: oxyCODONE/ACETAMINOPHEN 5-325 MG TABLET PO SCH ×4 (03:30→21:28)
[2017-12-24] MEDS: HEPARIN 5,000 UNIT/1 ML VIAL SUBCUT SCH ×3 (04:50→21:28)
[2017-12-24 08:13] LABS: INR 1.5; PT Patient Result 15.4 SECS
[2017-12-24] MEDS: INSULIN LISPRO 100 UNIT/ML SUBCUT SCH ×5 (08:44→21:59)
[2017-12-24] MEDS: cefTRIAXone 1,000 MG in SYRINGE 1 EACH IV SCH (08:45)
[2017-12-24] MEDS: CALCIUM ACETATE 667 MG CAPSULE PO SCH ×3 (08:46→17:46)
[2017-12-24] MEDS: FLUoxetine 20 MG CAPSULE PO SCH (08:46)
[2017-12-24] MEDS: METOPROLOL TARTRATE 50 MG TABLET PO SCH ×2 (08:46→21:28)
[2017-12-24] MEDS: FAMOTIDINE 20 MG TABLET PO SCH ×2 (08:46→21:28)
[2017-12-24] MEDS: GABAPENTIN 300 MG CAPSULE PO SCH ×3 (08:46→21:28)
[2017-12-24] MEDS: CALCITRIOL 0.5 MCG CAPSULE PO SCH (10:37)
[2017-12-24] MEDS: predniSONE 20 MG TABLET PO SCH (10:37)
[2017-12-24] MEDS ORDERED: WARFARIN 5 MG TABLET PO ONE (11:06)
[2017-12-24] MEDS: AZITHROMYCIN INJ 500 MG in SODIUM CHLORIDE 0.9% 250 ML IV SCH (11:57)
[2017-12-24 12:04] LABS: Basophils % 0.6 % (0.0-0.8); Eosinophils # 0.2 10*3/uL (0.0-0.87); Eosinophils % 2.2 % (0.00-10.9); Hemoglobin 9.2 GM/DL (12.0-16.0); Immature Granulocytes % 0.8 %; Immature Granulocytes Absolute 0.06 #; Lymphocytes # 1.4 10*3/uL (1.4-4.0); Lymphocytes % 18.9 % (21.3-54.2); Mean Corpuscular HGB Conc 30.7 GM/DL (32-36); Mean Corpuscular Hemoglobin 28 PG (27-34); Mean Corpuscular Volume 91.7 FL (87-102); Mean Platelet Volume 11.2 FL (9.6-12.0); Monocytes # 0.9 10*3/uL (0.11-0.8); Monocytes % 12.6 % (1.7-12.7); Neutrophils # 4.7 10*3/uL (1.4-7.4); Neutrophils % 64.9 % (38.7-73.9); Platelet Count 171 T/CUMM (130-400); Red Blood Count 3.27 MC/CUMM (3.8-5.5); Red Cell Distribution Width 19.9 % (9.3-17.3); White Blood Count 7.2 T/CUMM (4-12)
[2017-12-24] MEDS: POLYETHYLENE GLYCOL POWDER 17 GM PACK PO SCH (12:05)
[2017-12-24] MEDS: DOCUSATE SODIUM 100 MG CAPSULE PO SCH ×2 (12:09→21:28)
[2017-12-24 12:28] LABS: Albumin 2.4 G/DL (3.4-5.0); Bilirubin,Total 0.7 MG/DL (0.2-1.0); Calcium 8.9 MG/DL (8.5-10.1); Osmolality,Calculated 269.8 MOS/KG (273-304); Potassium 3.6 MMOL/L (3.5-5.1)
[2017-12-24] MEDS ORDERED: cefTRIAXone 1,000 MG in SYRINGE 1 EACH IV SCH (12:30)
[2017-12-24] MEDS: PIPERACILLIN/TAZOBACTAM 3,375 MG in SODIUM CHLORIDE 0.9% 100 ML IV SCH (13:15)
[2017-12-24] MEDS: WARFARIN 2.5 MG TABLET PO SCH (17:46)
[2017-12-24] MEDS: CLINDAMYCIN INJ 600 MG in PREMIX 1 EACH IV SCH (17:47)
[2017-12-24] MEDS: PREGABALIN 50 MG CAPSULE PO SCH (21:28)
[2017-12-24] MEDS: ATORVASTATIN 40 MG TABLET PO SCH (21:28)
[2017-12-24] MEDS: MONTELUKAST 10 MG TABLET PO SCH (21:28)
[2017-12-24] MEDS: INSULIN GLARGINE 100 UNIT/ML SUBCUT SCH (21:59)
[2017-12-25] MEDS: ALBUTEROL/IPRATROPIUM 3 ML NEB RESP TX SCH ×4 (00:41→19:15)
[2017-12-25] MEDS: CLINDAMYCIN INJ 600 MG in PREMIX 1 EACH IV SCH ×3 (01:16→18:39)
[2017-12-25] MEDS: PIPERACILLIN/TAZOBACTAM 3,375 MG in SODIUM CHLORIDE 0.9% 100 ML IV SCH ×2 (01:40→13:05)
[2017-12-25] MEDS: oxyCODONE/ACETAMINOPHEN 5-325 MG TABLET PO SCH ×4 (03:32→20:44)
[2017-12-25] MEDS: HEPARIN 5,000 UNIT/1 ML VIAL SUBCUT SCH ×3 (03:32→20:15)
[2017-12-25 04:42] LABS: Basophils % 0.2 % (0.0-0.8); Hematocrit 30.8 VOL% (35.7-47.0); Hemoglobin 9.6 GM/DL (12.0-16.0); Immature Granulocytes % 0.8 %; Immature Granulocytes Absolute 0.07 #; Lymphocytes # 1.2 10*3/uL (1.4-4.0); Lymphocytes % 13.6 % (21.3-54.2); Mean Corpuscular HGB Conc 31.2 GM/DL (32-36); Mean Corpuscular Hemoglobin 28 PG (27-34); Mean Corpuscular Volume 91.1 FL (87-102); Mean Platelet Volume 11.9 FL (9.6-12.0); Monocytes % 11.4 % (1.7-12.7); NRBC # 0.03 10*3/uL; Neutrophils # 6.5 10*3/uL (1.4-7.4); Platelet Count 183 T/CUMM (130-400); Red Blood Count 3.38 MC/CUMM (3.8-5.5); Red Cell Distribution Width 19.9 % (9.3-17.3); White Blood Count 8.8 T/CUMM (4-12)
[2017-12-25 04:50] LABS: INR 1.8; PT Patient Result 18.2 SECS
[2017-12-25 05:26] LABS: Calcium 9.1 MG/DL (8.5-10.1); Osmolality,Calculated 273.9 MOS/KG (273-304); Potassium 4.4 MMOL/L (3.5-5.1)
[2017-12-25 05:37] LABS: Hypochromasia 1+
[2017-12-25 05:38] LABS: Microcytosis 1+; Platelet Estimate Adequate
[2017-12-25] MEDS: FLUoxetine 20 MG CAPSULE PO SCH (08:52)
[2017-12-25] MEDS: CALCIUM ACETATE 667 MG CAPSULE PO SCH ×3 (08:52→18:39)
[2017-12-25] MEDS: INSULIN LISPRO 100 UNIT/ML SUBCUT SCH ×4 (08:52→20:16)
[2017-12-25] MEDS: FAMOTIDINE 20 MG TABLET PO SCH ×2 (08:53→20:15)
[2017-12-25] MEDS: predniSONE 20 MG TABLET PO SCH (08:53)
[2017-12-25] MEDS: GABAPENTIN 300 MG CAPSULE PO SCH ×3 (08:53→20:15)
[2017-12-25] MEDS: DOCUSATE SODIUM 100 MG CAPSULE PO SCH ×3 (08:53→20:15)
[2017-12-25] MEDS: METOPROLOL TARTRATE 50 MG TABLET PO SCH ×2 (08:54→20:17)
[2017-12-25] MEDS: CALCITRIOL 0.5 MCG CAPSULE PO SCH (09:06)
[2017-12-25] MEDS: POLYETHYLENE GLYCOL POWDER 17 GM PACK PO SCH (09:06)
[2017-12-25] MEDS: AZITHROMYCIN INJ 500 MG in SODIUM CHLORIDE 0.9% 250 ML IV SCH (10:35)
[2017-12-25] MEDS: WARFARIN 2.5 MG TABLET PO SCH (18:48)
[2017-12-25] MEDS: MONTELUKAST 10 MG TABLET PO SCH (20:15)
[2017-12-25] MEDS: ATORVASTATIN 40 MG TABLET PO SCH (20:15)
[2017-12-25] MEDS: PREGABALIN 50 MG CAPSULE PO SCH (20:15)
[2017-12-25] MEDS: INSULIN GLARGINE 100 UNIT/ML SUBCUT SCH (20:16)
[2017-12-26] MEDS: CLINDAMYCIN INJ 600 MG in PREMIX 1 EACH IV SCH ×3 (01:25→18:04)
[2017-12-26] MEDS: ALBUTEROL/IPRATROPIUM 3 ML NEB RESP TX SCH ×4 (01:42→19:22)
[2017-12-26] MEDS: PIPERACILLIN/TAZOBACTAM 3,375 MG in SODIUM CHLORIDE 0.9% 100 ML IV SCH ×2 (02:22→13:38)
[2017-12-26 03:48] LABS: Basophils % 0.3 % (0.0-0.8); Eosinophils % 0.1 % (0.00-10.9); Hematocrit 32.1 VOL% (35.7-47.0); Hemoglobin 9.8 GM/DL (12.0-16.0); Immature Granulocytes % 1.8 %; Immature Granulocytes Absolute 0.18 #; Lymphocytes # 1.6 10*3/uL (1.4-4.0); Lymphocytes % 16.4 % (21.3-54.2); Mean Corpuscular HGB Conc 30.5 GM/DL (32-36); Mean Corpuscular Hemoglobin 28 PG (27-34); Mean Corpuscular Volume 90.7 FL (87-102); Mean Platelet Volume 11.6 FL (9.6-12.0); Monocytes # 1.2 10*3/uL (0.11-0.8); Monocytes % 12.3 % (1.7-12.7); NRBC # 0.07 10*3/uL; Neutrophils # 6.8 10*3/uL (1.4-7.4); Neutrophils % 69.1 % (38.7-73.9); Platelet Count 197 T/CUMM (130-400); Red Blood Count 3.54 MC/CUMM (3.8-5.5); Red Cell Distribution Width 19.9 % (9.3-17.3); White Blood Count 9.8 T/CUMM (4-12)
[2017-12-26 04:04] LABS: Calcium 8.9 MG/DL (8.5-10.1); Osmolality,Calculated 271.4 MOS/KG (273-304); Potassium 4.4 MMOL/L (3.5-5.1)
[2017-12-26 04:14] LABS: PT Patient Result 40.5 SECS
[2017-12-26] MEDS: HEPARIN 5,000 UNIT/1 ML VIAL SUBCUT SCH ×3 (04:17→20:17)
[2017-12-26] MEDS: oxyCODONE/ACETAMINOPHEN 5-325 MG TABLET PO SCH ×4 (04:17→21:18)
[2017-12-26 05:06] LABS: Band Neutrophils 2 % (0-10); Lymphocytes 12 % (20-55); Nucleated Red Blood Cells 1 (0-5); Platelet Estimate Normal; Segmented Neutrophils 72 % (50-85); Total Cells Counted 100
[2017-12-26 05:07] LABS: Anisocytosis 2+; Macrocytosis 2+; Polychromasia Few
[2017-12-26] MEDS: CALCITRIOL 0.5 MCG CAPSULE PO SCH (09:15)
[2017-12-26] MEDS: GABAPENTIN 300 MG CAPSULE PO SCH ×3 (09:16→21:16)
[2017-12-26] MEDS: INSULIN LISPRO 100 UNIT/ML SUBCUT SCH ×4 (09:16→22:31)
[2017-12-26] MEDS: predniSONE 20 MG TABLET PO SCH (09:16)
[2017-12-26] MEDS: CALCIUM ACETATE 667 MG CAPSULE PO SCH ×3 (09:16→17:10)
[2017-12-26] MEDS: FAMOTIDINE 20 MG TABLET PO SCH ×2 (09:16→21:17)
[2017-12-26] MEDS: METOPROLOL TARTRATE 50 MG TABLET PO SCH ×2 (09:17→21:17)
[2017-12-26] MEDS: POLYETHYLENE GLYCOL POWDER 17 GM PACK PO SCH (09:17)
[2017-12-26] MEDS: FLUoxetine 20 MG CAPSULE PO SCH (09:24)
[2017-12-26] MEDS: DOCUSATE SODIUM 100 MG CAPSULE PO SCH ×2 (09:24→21:17)
[2017-12-26] MEDS: AZITHROMYCIN INJ 500 MG in SODIUM CHLORIDE 0.9% 250 ML IV SCH (11:54)
[2017-12-26] MEDS: MONTELUKAST 10 MG TABLET PO SCH (21:17)
[2017-12-26] MEDS: ATORVASTATIN 40 MG TABLET PO SCH (21:17)
[2017-12-26] MEDS: PREGABALIN 50 MG CAPSULE PO SCH (21:17)
[2017-12-26] MEDS: INSULIN GLARGINE 100 UNIT/ML SUBCUT SCH (21:21)
[2017-12-27] MEDS: ALBUTEROL/IPRATROPIUM 3 ML NEB RESP TX SCH ×4 (00:37→19:00)
[2017-12-27] MEDS: CLINDAMYCIN INJ 600 MG in PREMIX 1 EACH IV SCH ×3 (02:46→17:41)
[2017-12-27] MEDS: PIPERACILLIN/TAZOBACTAM 3,375 MG in SODIUM CHLORIDE 0.9% 100 ML IV SCH ×2 (03:28→14:04)
[2017-12-27] MEDS: oxyCODONE/ACETAMINOPHEN 5-325 MG TABLET PO SCH ×4 (04:10→21:18)
[2017-12-27] MEDS: HEPARIN 5,000 UNIT/1 ML VIAL SUBCUT SCH ×3 (04:10→21:17)
[2017-12-27 04:18] LABS: Basophils % 0.3 % (0.0-0.8); Hematocrit 32.9 VOL% (35.7-47.0); Hemoglobin 10.4 GM/DL (12.0-16.0); Immature Granulocytes % 1.9 %; Immature Granulocytes Absolute 0.21 #; Lymphocytes # 2.1 10*3/uL (1.4-4.0); Lymphocytes % 18.7 % (21.3-54.2); Mean Corpuscular HGB Conc 31.6 GM/DL (32-36); Mean Corpuscular Hemoglobin 28 PG (27-34); Mean Corpuscular Volume 88.4 FL (87-102); Mean Platelet Volume 11.4 FL (9.6-12.0); Monocytes # 1.2 10*3/uL (0.11-0.8); NRBC # 0.07 10*3/uL; Neutrophils # 7.6 10*3/uL (1.4-7.4); Neutrophils % 68.1 % (38.7-73.9); Platelet Count 173 T/CUMM (130-400); Red Blood Count 3.72 MC/CUMM (3.8-5.5); Red Cell Distribution Width 20.8 % (9.3-17.3); White Blood Count 11.1 T/CUMM (4-12)
[2017-12-27 04:49] LABS: Osmolality,Calculated 280.4 MOS/KG (273-304); Potassium 4.7 MMOL/L (3.5-5.1)
[2017-12-27 04:58] LABS: Calcium 8.8 MG/DL (8.5-10.1); Osmolality,Calculated 279.5 MOS/KG (273-304); Potassium 4.5 MMOL/L (3.5-5.1)
[2017-12-27 05:01] LABS: Giant Platelets Few; Hypochromasia 1+; Ovalocytes Slight; Platelet Estimate Adequate
[2017-12-27 05:02] LABS: Macrocytosis Slight; Polychromasia Slight
[2017-12-27] MEDS: CALCITRIOL 0.5 MCG CAPSULE PO SCH (09:16)
[2017-12-27] MEDS: GABAPENTIN 300 MG CAPSULE PO SCH ×3 (09:16→21:17)
[2017-12-27] MEDS: CALCIUM ACETATE 667 MG CAPSULE PO SCH ×3 (09:16→17:39)
[2017-12-27] MEDS: METOPROLOL TARTRATE 50 MG TABLET PO SCH ×2 (09:17→21:23)
[2017-12-27] MEDS: POLYETHYLENE GLYCOL POWDER 17 GM PACK PO SCH (09:17)
[2017-12-27] MEDS: FAMOTIDINE 20 MG TABLET PO SCH ×2 (09:17→21:17)
[2017-12-27] MEDS: predniSONE 20 MG TABLET PO SCH (09:17)
[2017-12-27] MEDS: FLUoxetine 20 MG CAPSULE PO SCH (09:17)
[2017-12-27] MEDS: DOCUSATE SODIUM 100 MG CAPSULE PO SCH ×2 (09:17→21:18)
[2017-12-27] MEDS: INSULIN LISPRO 100 UNIT/ML SUBCUT SCH ×4 (09:32→21:23)
[2017-12-27] MEDS: MONTELUKAST 10 MG TABLET PO SCH (21:17)
[2017-12-27] MEDS: ATORVASTATIN 40 MG TABLET PO SCH (21:17)
[2017-12-27] MEDS: PREGABALIN 50 MG CAPSULE PO SCH (21:17)
[2017-12-27] MEDS: INSULIN GLARGINE 100 UNIT/ML SUBCUT SCH (21:17)
[2017-12-28] MEDS: ALBUTEROL/IPRATROPIUM 3 ML NEB RESP TX SCH ×3 (00:07→14:52)
[2017-12-28] MEDS: CLINDAMYCIN INJ 600 MG in PREMIX 1 EACH IV SCH ×4 (00:40→17:10)
[2017-12-28] MEDS: PIPERACILLIN/TAZOBACTAM 3,375 MG in SODIUM CHLORIDE 0.9% 100 ML IV SCH ×2 (02:34→15:38)
[2017-12-28] MEDS: oxyCODONE/ACETAMINOPHEN 5-325 MG TABLET PO SCH ×3 (03:33→17:10)
[2017-12-28] MEDS: HEPARIN 5,000 UNIT/1 ML VIAL SUBCUT SCH ×2 (03:33→15:38)
[2017-12-28 05:16] LABS: Basophils % 0.3 % (0.0-0.8); Hematocrit 33.5 VOL% (35.7-47.0); Hemoglobin 10.4 GM/DL (12.0-16.0); Immature Granulocytes % 2.5 %; Immature Granulocytes Absolute 0.31 #; Lymphocytes # 2.3 10*3/uL (1.4-4.0); Lymphocytes % 19.2 % (21.3-54.2); Mean Corpuscular Hemoglobin 27 PG (27-34); Mean Corpuscular Volume 88.4 FL (87-102); Monocytes # 1.1 10*3/uL (0.11-0.8); Monocytes % 9.3 % (1.7-12.7); NRBC # 0.11 10*3/uL; Neutrophils # 8.4 10*3/uL (1.4-7.4); Neutrophils % 68.7 % (38.7-73.9); Platelet Count 180 T/CUMM (130-400); Red Blood Count 3.79 MC/CUMM (3.8-5.5); Red Cell Distribution Width 21.2 % (9.3-17.3); White Blood Count 12.2 T/CUMM (4-12)
[2017-12-28 05:26] LABS: INR 3.8
[2017-12-28 05:34] LABS: PT Patient Result 37.8 SECS
[2017-12-28 05:42] LABS: Band Neutrophils 1 % (0-10); Metamyelocytes 1 %; Total Cells Counted 100
[2017-12-28 05:43] LABS: Lymphocytes 20 % (20-55); Segmented Neutrophils 70 % (50-85)
[2017-12-28 05:44] LABS: Platelet Estimate Normal
[2017-12-28 05:50] LABS: Calcium 9.4 MG/DL (8.5-10.1); Osmolality,Calculated 281.5 MOS/KG (273-304); Potassium 4.8 MMOL/L (3.5-5.1)
[2017-12-28 08:14] VITALS: BP 163/91
[2017-12-28] MEDS: predniSONE 20 MG TABLET PO SCH (09:56)
[2017-12-28] MEDS: FLUoxetine 20 MG CAPSULE PO SCH (09:56)
[2017-12-28] MEDS: METOPROLOL TARTRATE 50 MG TABLET PO SCH (09:56)
[2017-12-28] MEDS: CALCITRIOL 0.5 MCG CAPSULE PO SCH (09:56)
[2017-12-28] MEDS: CALCIUM ACETATE 667 MG CAPSULE PO SCH ×3 (09:56→17:10)
[2017-12-28] MEDS: FAMOTIDINE 20 MG TABLET PO SCH (09:56)
[2017-12-28] MEDS: GABAPENTIN 300 MG CAPSULE PO SCH ×2 (09:56→17:09)
[2017-12-28] MEDS: POLYETHYLENE GLYCOL POWDER 17 GM PACK PO SCH (09:57)
[2017-12-28] MEDS: DOCUSATE SODIUM 100 MG CAPSULE PO SCH (09:57)
[2017-12-28] MEDS: INSULIN LISPRO 100 UNIT/ML SUBCUT SCH ×3 (09:59→17:10)
== END 2017-12-28 16:51 | disposition home or self-care (01) | DRG 640 ==
LOC: EDUNIT# → EDBD → N.EDINP 17:56 → N.ED 17:56 → N.EDINP 12-22 14:15 → N.TELES 12-22 14:46 → SUATTDRO 12-24 13:46
PROVIDERS: ADMIT Hospitalist; ATTEND Internal Medicine

== ENCOUNTER 2018-03-13 20:20 | Inpatient (IN) ==
[2018-03-13] MEDS ORDERED: MORPHINE 4 MG/1 ML VIAL IV STA (21:14)
[2018-03-13] MEDS ORDERED: ONDANSETRON 4 MG/2 ML VIAL IV STA (21:15)
[2018-03-13 21:19] LABS: Basophils % 0.4 % (0.0-0.8); Eosinophils # 0.2 10*3/uL (0.0-0.87); Eosinophils % 2.2 % (0.00-10.9); Hematocrit 30.9 VOL% (35.7-47.0); Hemoglobin 9.5 GM/DL (12.0-16.0); Immature Granulocytes % 0.5 %; Immature Granulocytes Absolute 0.04 #; Lymphocytes # 1.4 10*3/uL (1.4-4.0); Lymphocytes % 18.2 % (21.3-54.2); Mean Corpuscular HGB Conc 30.7 GM/DL (32-36); Mean Corpuscular Hemoglobin 30 PG (27-34); Mean Corpuscular Volume 97.2 FL (87-102); Mean Platelet Volume 11.5 FL (9.6-12.0); Monocytes # 0.9 10*3/uL (0.11-0.8); Monocytes % 11.2 % (1.7-12.7); NRBC # 0.08 10*3/uL; Neutrophils # 5.3 10*3/uL (1.4-7.4); Neutrophils % 67.5 % (38.7-73.9); Platelet Count 158 T/CUMM (130-400); Red Blood Count 3.18 MC/CUMM (3.8-5.5); Red Cell Distribution Width 23.9 % (9.3-17.3); White Blood Count 7.9 T/CUMM (4-12)
[2018-03-13 21:55] LABS: Bilirubin,Total 1.1 MG/DL (0.2-1.0); Calcium 8.7 MG/DL (8.5-10.1); Osmolality,Calculated 300.2 MOS/KG (273-304); Total Protein 8.3 G/DL (6.4-8.3)
[2018-03-13] MEDS ORDERED: INSULIN REGULAR 100 UNIT/ML IV STA (22:19)
[2018-03-13] MEDS ORDERED: FUROSEMIDE 40 MG/4 ML VIAL IV STA (23:28)
[2018-03-13] MEDS ORDERED: GLUCAGON 1 MG VIAL IM PRN ×3 (23:44→23:49)
[2018-03-13] MEDS ORDERED: MORPHINE 4 MG/1 ML VIAL IV PRN (23:44)
[2018-03-13] MEDS ORDERED: DEXTROSE 50% 25 GM/50 ML VIAL IV PRN (23:48)
[2018-03-13] MEDS ORDERED: hydrALAZINE 20 MG/1 ML VIAL IV PRN (23:54)
[2018-03-14] MEDS ORDERED: ALBUTEROL/IPRATROPIUM 3 ML NEB RESP TX PRN (00:09)
[2018-03-14] MEDS: PREGABALIN 75 MG CAPSULE PO SCH ×2 (01:01→21:17)
[2018-03-14] MEDS: INSULIN GLARGINE 100 UNIT/ML SUBCUT SCH ×2 (01:04→21:19)
[2018-03-14] MEDS: INSULIN REGULAR 100 UNIT/ML SUBCUT SCH ×5 (01:05→21:18)
[2018-03-14 02:13] LABS: Basophils % 0.4 % (0.0-0.8); Eosinophils # 0.3 10*3/uL (0.0-0.87); Eosinophils % 3.1 % (0.00-10.9); Hematocrit 32.5 VOL% (35.7-47.0); Hemoglobin 9.8 GM/DL (12.0-16.0); Immature Granulocytes % 0.4 %; Immature Granulocytes Absolute 0.03 #; Lymphocytes # 1.9 10*3/uL (1.4-4.0); Lymphocytes % 22.7 % (21.3-54.2); Mean Corpuscular HGB Conc 30.2 GM/DL (32-36); Mean Corpuscular Hemoglobin 30 PG (27-34); Mean Corpuscular Volume 97.9 FL (87-102); Mean Platelet Volume 11.2 FL (9.6-12.0); Monocytes # 1.2 10*3/uL (0.11-0.8); Monocytes % 14.6 % (1.7-12.7); NRBC # 0.08 10*3/uL; Neutrophils # 4.9 10*3/uL (1.4-7.4); Neutrophils % 58.8 % (38.7-73.9); Platelet Count 180 T/CUMM (130-400); Red Blood Count 3.32 MC/CUMM (3.8-5.5); Red Cell Distribution Width 23.9 % (9.3-17.3); White Blood Count 8.3 T/CUMM (4-12)
[2018-03-14 02:21] LABS: Calcium 8.6 MG/DL (8.5-10.1); Osmolality,Calculated 291.5 MOS/KG (273-304); Potassium 3.6 MMOL/L (3.5-5.1)
[2018-03-14 02:29] LABS: INR 1.3; PT Patient Result 13.6 SECS; Partial Thromboplastin Time 26.6 SECS (0-40)
[2018-03-14] MEDS ORDERED: INSULIN REGULAR 100 UNIT/ML SUBCUT SCH (07:30)
[2018-03-14] MEDS: DEXTROSE 50% 25 GM/50 ML VIAL IV PRN (08:06)
[2018-03-14] MEDS: INSULIN LISPRO 100 UNIT/ML SUBCUT SCH ×2 (08:07→16:56)
[2018-03-14] MEDS: FUROSEMIDE 40 MG/4 ML VIAL IV SCH (08:55)
[2018-03-14] MEDS: PANTOPRAZOLE 40 MG TABLET PO SCH (08:56)
[2018-03-14] MEDS: LOSARTAN 25 MG TABLET PO SCH ×2 (08:56→21:17)
[2018-03-14] MEDS ORDERED: CALCITRIOL 0.25 MCG CAPSULE PO SCH (09:00)
[2018-03-14] MEDS: HYDROmorphone 2 MG/1 ML VIAL IV PRN ×3 (12:37→21:36)
[2018-03-14] MEDS: SEVELAMER CARBONATE 800 MG TABLET PO SCH (16:34)
[2018-03-14] MEDS ORDERED: WARFARIN 2.5 MG TABLET PO SCH (18:00)
[2018-03-14] MEDS: ATORVASTATIN 40 MG TABLET PO SCH (21:17)
[2018-03-14] MEDS ORDERED: diphenhydrAMINE 50 MG/1 ML VIAL IV ONE (23:49)
[2018-03-15] MEDS: HYDROmorphone 2 MG/1 ML VIAL IV PRN ×4 (04:00→21:05)
[2018-03-15] MEDS: INSULIN REGULAR 100 UNIT/ML SUBCUT SCH ×5 (05:51→21:08)
[2018-03-15] MEDS: FUROSEMIDE 40 MG/4 ML VIAL IV SCH (08:53)
[2018-03-15] MEDS: PANTOPRAZOLE 40 MG TABLET PO SCH (08:54)
[2018-03-15] MEDS: SEVELAMER CARBONATE 800 MG TABLET PO SCH ×3 (08:54→16:14)
[2018-03-15] MEDS: LOSARTAN 25 MG TABLET PO SCH ×2 (08:54→21:08)
[2018-03-15] MEDS: INSULIN LISPRO 100 UNIT/ML SUBCUT SCH ×3 (10:50→16:10)
[2018-03-15] MEDS ORDERED: WARFARIN 5 MG TABLET PO SCH (18:00)
[2018-03-15] MEDS: ATORVASTATIN 40 MG TABLET PO SCH (21:07)
[2018-03-15] MEDS: INSULIN GLARGINE 100 UNIT/ML SUBCUT SCH (21:08)
[2018-03-15] MEDS: PREGABALIN 75 MG CAPSULE PO SCH (21:08)
[2018-03-15] MEDS: ONDANSETRON 4 MG/2 ML VIAL IV PRN (22:13)
[2018-03-16] MEDS: HYDROmorphone 2 MG/1 ML VIAL IV PRN ×5 (03:58→22:05)
[2018-03-16] MEDS: ONDANSETRON 4 MG/2 ML VIAL IV PRN ×2 (07:33→18:22)
[2018-03-16] MEDS: LOSARTAN 25 MG TABLET PO SCH ×2 (09:30→21:52)
[2018-03-16] MEDS: INSULIN REGULAR 100 UNIT/ML SUBCUT SCH ×4 (09:30→21:55)
[2018-03-16] MEDS: SEVELAMER CARBONATE 800 MG TABLET PO SCH ×3 (09:30→18:18)
[2018-03-16] MEDS: FUROSEMIDE 40 MG/4 ML VIAL IV SCH (09:30)
[2018-03-16] MEDS: PANTOPRAZOLE 40 MG TABLET PO SCH (09:31)
[2018-03-16] MEDS: INSULIN LISPRO 100 UNIT/ML SUBCUT SCH ×2 (09:31→16:20)
[2018-03-16] MEDS: DEXTROSE 50% 25 GM/50 ML VIAL IV PRN (18:00)
[2018-03-16] MEDS: ATORVASTATIN 40 MG TABLET PO SCH (21:52)
[2018-03-16] MEDS: PREGABALIN 75 MG CAPSULE PO SCH (21:52)
[2018-03-16] MEDS: INSULIN GLARGINE 100 UNIT/ML SUBCUT SCH (21:55)
[2018-03-17] MEDS: HYDROmorphone 2 MG/1 ML VIAL IV PRN ×3 (04:00→13:36)
[2018-03-17] MEDS: ONDANSETRON 4 MG/2 ML VIAL IV PRN (04:52)
[2018-03-17] MEDS: INSULIN LISPRO 100 UNIT/ML SUBCUT SCH ×2 (08:34→16:00)
[2018-03-17] MEDS: INSULIN REGULAR 100 UNIT/ML SUBCUT SCH ×3 (08:35→16:00)
[2018-03-17] MEDS: FUROSEMIDE 40 MG/4 ML VIAL IV SCH (08:36)
[2018-03-17] MEDS: PANTOPRAZOLE 40 MG TABLET PO SCH (08:37)
[2018-03-17] MEDS: LOSARTAN 25 MG TABLET PO SCH (08:37)
[2018-03-17] MEDS: SEVELAMER CARBONATE 800 MG TABLET PO SCH ×3 (08:37→17:50)
[2018-03-17 16:27] VITALS: BP 124/71
== END 2018-03-17 18:18 | disposition home or self-care (01) | DRG 640 ==
LOC: N.ED 20:20 → N.EDINP 23:44 → SUATTDRO 23:44 → N.TELEN 03-14 00:08
PROVIDERS: ADMIT Internal Medicine; ATTEND Internal Medicine Geriatric Medicine

== ENCOUNTER 2018-04-15 15:43 | Inpatient (IN) ==
[2018-04-15 18:17] LABS: Basophils # 0.1 10*3/uL (0.0-0.2); Basophils % 0.7 % (0.0-0.8); Eosinophils % 0.3 % (0.00-10.9); Hematocrit 35.5 VOL% (35.7-47.0); Immature Granulocytes % 0.4 %; Immature Granulocytes Absolute 0.04 #; Lymphocytes # 1.3 10*3/uL (1.4-4.0); Lymphocytes % 14.1 % (21.3-54.2); Mean Corpuscular Hemoglobin 29 PG (27-34); Mean Corpuscular Volume 93.9 FL (87-102); Mean Platelet Volume 10.6 FL (9.6-12.0); Monocytes # 1.2 10*3/uL (0.11-0.8); Monocytes % 13.6 % (1.7-12.7); NRBC # 0.02 10*3/uL; Neutrophils # 6.4 10*3/uL (1.4-7.4); Neutrophils % 70.9 % (38.7-73.9); Platelet Count 232 T/CUMM (130-400); Red Blood Count 3.78 MC/CUMM (3.8-5.5); Red Cell Distribution Width 20.8 % (9.3-17.3); White Blood Count 9.1 T/CUMM (4-12)
[2018-04-15 18:25] LABS: INR 1.2; PT Patient Result 13.4 SECS
[2018-04-15 18:44] LABS: Albumin 3.1 G/DL (3.4-5.0); Bilirubin,Total 1.7 MG/DL (0.2-1.0); Osmolality,Calculated 291.7 MOS/KG (273-304); Total Protein 8.6 G/DL (6.4-8.3)
[2018-04-15] MEDS ORDERED: MORPHINE 4 MG/1 ML VIAL IV STA (19:07)
[2018-04-15] MEDS ORDERED: ONDANSETRON 4 MG/2 ML VIAL IV STA (19:07)
[2018-04-15] MEDS ORDERED: INSULIN REGULAR 100 UNIT/ML IV STA (19:08)
[2018-04-15] MEDS ORDERED: hydrALAZINE 20 MG/1 ML VIAL IV STA (20:01)
[2018-04-15] MEDS ORDERED: diphenhydrAMINE 50 MG/1 ML VIAL IV ONE (21:07)
[2018-04-15] MEDS ORDERED: hydrALAZINE 20 MG/1 ML VIAL IV PRN (21:08)
[2018-04-15] MEDS ORDERED: PANTOPRAZOLE 40 MG VIAL IV ONE (21:14)
[2018-04-15] MEDS ORDERED: GLUCAGON 1 MG VIAL IM PRN (21:19)
[2018-04-15] MEDS ORDERED: DEXTROSE 50% 25 GM/50 ML SYRINGE IV PRN (21:19)
[2018-04-15] MEDS ORDERED: ALBUTEROL/IPRATROPIUM 3 ML NEB RESP TX PRN (21:44)
[2018-04-15] MEDS ORDERED: ACETAMINOPHEN 500 MG TABLET PO PRN ×2 (21:44→22:00)
[2018-04-15 22:09] LABS: Hematocrit 36.1 VOL% (35.7-47.0); Hemoglobin 11.1 GM/DL (12.0-16.0)
[2018-04-15] MEDS: MORPHINE 4 MG/1 ML VIAL IV PRN (23:55)
[2018-04-15] MEDS: PREGABALIN 75 MG CAPSULE PO SCH (23:55)
[2018-04-16] MEDS: cefTRIAXone 1,000 MG in SYRINGE 1 EACH IV SCH ×2 (00:30→21:07)
[2018-04-16] MEDS: PANTOPRAZOLE INJ 200 MG in SODIUM CHLORIDE 0.9% 250 ML IV SCH ×2 (00:33→23:57)
[2018-04-16] MEDS: MORPHINE 4 MG/1 ML VIAL IV PRN ×3 (03:09→15:40)
[2018-04-16 03:28] LABS: Basophils % 0.4 % (0.0-0.8); Eosinophils # 0.1 10*3/uL (0.0-0.87); Eosinophils % 0.9 % (0.00-10.9); Hematocrit 35.1 VOL% (35.7-47.0); Hemoglobin 10.4 GM/DL (12.0-16.0); Immature Granulocytes % 0.3 %; Immature Granulocytes Absolute 0.03 #; Lymphocytes # 1.7 10*3/uL (1.4-4.0); Lymphocytes % 19.3 % (21.3-54.2); Mean Corpuscular HGB Conc 29.6 GM/DL (32-36); Mean Corpuscular Hemoglobin 28 PG (27-34); Mean Corpuscular Volume 94.6 FL (87-102); Mean Platelet Volume 10.7 FL (9.6-12.0); Monocytes # 1.5 10*3/uL (0.11-0.8); Monocytes % 16.6 % (1.7-12.7); NRBC # 0.02 10*3/uL; Neutrophils # 5.6 10*3/uL (1.4-7.4); Neutrophils % 62.5 % (38.7-73.9); Platelet Count 233 T/CUMM (130-400); Red Blood Count 3.71 MC/CUMM (3.8-5.5); Red Cell Distribution Width 20.9 % (9.3-17.3); White Blood Count 8.9 T/CUMM (4-12)
[2018-04-16 03:42] LABS: INR 1.2; PT Patient Result 13.5 SECS; Partial Thromboplastin Time 26.2 SECS (0-40)
[2018-04-16 04:49] LABS: Anisocytosis 2+; Lymphocytes 22 % (20-55); Macrocytosis 2+; Platelet Estimate Normal; Segmented Neutrophils 64 % (50-85); Total Cells Counted 100
[2018-04-16 04:50] LABS: Acanthocytes Few; Hypochromasia 2+; Microcytosis Slight; Ovalocytes 1+; Target Cells 1+
[2018-04-16 09:50] LABS: Hematocrit 34.4 VOL% (35.7-47.0); Hemoglobin 10.6 GM/DL (12.0-16.0)
[2018-04-16] MEDS: INSULIN REGULAR 100 UNIT/ML SUBCUT SCH ×4 (11:21→21:06)
[2018-04-16] MEDS: SEVELAMER CARBONATE 800 MG TABLET PO SCH ×3 (12:28→17:45)
[2018-04-16] MEDS: oxyCODONE/ACETAMINOPHEN 5-325 MG TABLET PO PRN ×2 (17:42→23:46)
[2018-04-16] MEDS: FLUoxetine 20 MG CAPSULE PO SCH (17:43)
[2018-04-16] MEDS: LOSARTAN 25 MG TABLET PO SCH ×2 (17:43→21:06)
[2018-04-16] MEDS: cloNIDine 0.1 MG TABLET PO SCH ×2 (17:44→21:05)
[2018-04-16] MEDS: GABAPENTIN 300 MG CAPSULE PO SCH ×3 (17:44→21:06)
[2018-04-16 20:12] LABS: Hematocrit 35.1 VOL% (35.7-47.0); Hemoglobin 10.5 GM/DL (12.0-16.0)
[2018-04-16] MEDS: ATORVASTATIN 40 MG TABLET PO SCH (21:06)
[2018-04-16] MEDS: PREGABALIN 75 MG CAPSULE PO SCH (21:06)
[2018-04-16] MEDS: MONTELUKAST 10 MG TABLET PO SCH (21:06)
[2018-04-17] MEDS: MORPHINE 4 MG/1 ML VIAL IV PRN ×3 (05:05→22:26)
[2018-04-17] MEDS: oxyCODONE/ACETAMINOPHEN 5-325 MG TABLET PO PRN ×2 (05:30→14:25)
[2018-04-17 05:43] LABS: Basophils # 0.1 10*3/uL (0.0-0.2); Basophils % 0.5 % (0.0-0.8); Eosinophils # 0.1 10*3/uL (0.0-0.87); Eosinophils % 1.3 % (0.00-10.9); Hematocrit 36.2 VOL% (35.7-47.0); Hemoglobin 10.9 GM/DL (12.0-16.0); Immature Granulocytes % 0.6 %; Immature Granulocytes Absolute 0.06 #; Lymphocytes # 1.7 10*3/uL (1.4-4.0); Lymphocytes % 16.5 % (21.3-54.2); Mean Corpuscular HGB Conc 30.1 GM/DL (32-36); Mean Corpuscular Hemoglobin 29 PG (27-34); Mean Platelet Volume 11.2 FL (9.6-12.0); Monocytes # 1.4 10*3/uL (0.11-0.8); Monocytes % 13.8 % (1.7-12.7); Neutrophils % 67.3 % (38.7-73.9); Platelet Count 247 T/CUMM (130-400); Red Blood Count 3.81 MC/CUMM (3.8-5.5); White Blood Count 10.3 T/CUMM (4-12)
[2018-04-17 05:50] LABS: INR 1.2; PT Patient Result 12.6 SECS
[2018-04-17 07:28] LABS: Calcium 6.9 MG/DL (8.5-10.1); Osmolality,Calculated 280.2 MOS/KG (273-304); Potassium 3.7 MMOL/L (3.5-5.1)
[2018-04-17] MEDS ORDERED: oxyCODONE/ACETAMINOPHEN 5-325 MG TABLET PO PRN (08:00)
[2018-04-17] MEDS: INSULIN REGULAR 100 UNIT/ML SUBCUT SCH ×4 (08:46→22:11)
[2018-04-17] MEDS: LOSARTAN 25 MG TABLET PO SCH ×2 (08:47→22:14)
[2018-04-17] MEDS: cloNIDine 0.1 MG TABLET PO SCH ×2 (08:47→22:13)
[2018-04-17] MEDS: GABAPENTIN 300 MG CAPSULE PO SCH ×3 (08:47→22:14)
[2018-04-17] MEDS: SEVELAMER CARBONATE 800 MG TABLET PO SCH ×3 (08:47→16:50)
[2018-04-17] MEDS: PANTOPRAZOLE 40 MG VIAL IV SCH ×2 (11:06→22:15)
[2018-04-17] MEDS: FLUoxetine 20 MG CAPSULE PO SCH (11:06)
[2018-04-17] MEDS: ATORVASTATIN 40 MG TABLET PO SCH (22:13)
[2018-04-17] MEDS: MONTELUKAST 10 MG TABLET PO SCH (22:13)
[2018-04-17] MEDS: PREGABALIN 75 MG CAPSULE PO SCH (22:14)
[2018-04-17] MEDS: cefTRIAXone 1,000 MG in SYRINGE 1 EACH IV SCH (22:15)
[2018-04-18 04:12] LABS: Basophils % 0.5 % (0.0-0.8); Eosinophils # 0.1 10*3/uL (0.0-0.87); Eosinophils % 1.4 % (0.00-10.9); Hemoglobin 10.5 GM/DL (12.0-16.0); Immature Granulocytes % 0.6 %; Immature Granulocytes Absolute 0.05 #; Lymphocytes # 1.3 10*3/uL (1.4-4.0); Lymphocytes % 14.3 % (21.3-54.2); Mean Corpuscular HGB Conc 29.5 GM/DL (32-36); Mean Corpuscular Hemoglobin 29 PG (27-34); Mean Platelet Volume 10.9 FL (9.6-12.0); Monocytes # 1.3 10*3/uL (0.11-0.8); Monocytes % 15.1 % (1.7-12.7); NRBC # 0.02 10*3/uL; Neutrophils % 68.1 % (38.7-73.9); Platelet Count 262 T/CUMM (130-400); Red Blood Count 3.67 MC/CUMM (3.8-5.5); White Blood Count 8.8 T/CUMM (4-12)
[2018-04-18 04:16] LABS: Hematocrit 35.6 VOL% (35.7-47.0)
[2018-04-18 04:28] LABS: INR 1.2
[2018-04-18 04:38] LABS: Calcium 6.6 MG/DL (8.5-10.1); Osmolality,Calculated 279.5 MOS/KG (273-304); Potassium 4.3 MMOL/L (3.5-5.1)
[2018-04-18] MEDS: MORPHINE 4 MG/1 ML VIAL IV PRN ×2 (06:35→21:47)
[2018-04-18] MEDS: oxyCODONE/ACETAMINOPHEN 5-325 MG TABLET PO PRN ×3 (07:43→15:32)
[2018-04-18] MEDS: INSULIN REGULAR 100 UNIT/ML SUBCUT SCH ×4 (07:44→21:49)
[2018-04-18] MEDS: SEVELAMER CARBONATE 800 MG TABLET PO SCH ×3 (07:44→17:27)
[2018-04-18] MEDS: PANTOPRAZOLE 40 MG VIAL IV SCH (09:11)
[2018-04-18] MEDS: cloNIDine 0.1 MG TABLET PO SCH ×2 (09:14→21:49)
[2018-04-18] MEDS: FLUoxetine 20 MG CAPSULE PO SCH (09:14)
[2018-04-18] MEDS: GABAPENTIN 300 MG CAPSULE PO SCH ×3 (09:14→21:49)
[2018-04-18] MEDS: LOSARTAN 25 MG TABLET PO SCH ×2 (09:14→21:49)
[2018-04-18] MEDS: PANTOPRAZOLE 40 MG TABLET PO SCH (21:49)
[2018-04-18] MEDS: MONTELUKAST 10 MG TABLET PO SCH (21:49)
[2018-04-18] MEDS: ATORVASTATIN 40 MG TABLET PO SCH (21:49)
[2018-04-18] MEDS: PREGABALIN 75 MG CAPSULE PO SCH (21:49)
[2018-04-18] MEDS: cefTRIAXone 1,000 MG in SYRINGE 1 EACH IV SCH (21:54)
[2018-04-19] MEDS: ONDANSETRON 4 MG/2 ML VIAL IV PRN ×2 (00:54→09:11)
[2018-04-19] MEDS: MORPHINE 4 MG/1 ML VIAL IV PRN (04:05)
[2018-04-19 04:34] LABS: Basophils % 0.3 % (0.0-0.8); Eosinophils # 0.1 10*3/uL (0.0-0.87); Eosinophils % 1.4 % (0.00-10.9); Hematocrit 34.6 VOL% (35.7-47.0); Hemoglobin 10.3 GM/DL (12.0-16.0); Immature Granulocytes % 0.6 %; Immature Granulocytes Absolute 0.05 #; Lymphocytes # 1.3 10*3/uL (1.4-4.0); Lymphocytes % 15.1 % (21.3-54.2); Mean Corpuscular HGB Conc 29.8 GM/DL (32-36); Mean Corpuscular Hemoglobin 29 PG (27-34); Mean Corpuscular Volume 96.9 FL (87-102); Mean Platelet Volume 10.3 FL (9.6-12.0); Monocytes # 1.5 10*3/uL (0.11-0.8); Monocytes % 17.8 % (1.7-12.7); Neutrophils # 5.6 10*3/uL (1.4-7.4); Neutrophils % 64.8 % (38.7-73.9); Platelet Count 214 T/CUMM (130-400); Red Blood Count 3.57 MC/CUMM (3.8-5.5); Red Cell Distribution Width 20.4 % (9.3-17.3); White Blood Count 8.6 T/CUMM (4-12)
[2018-04-19 04:39] LABS: Calcium 6.8 MG/DL (8.5-10.1); Osmolality,Calculated 273.2 MOS/KG (273-304); Potassium 4.3 MMOL/L (3.5-5.1)
[2018-04-19 07:48] LABS: Anisocytosis 1+; Band Neutrophils 1 % (0-10); Lymphocytes 14 % (20-55); Macrocytosis 1+; Microcytosis Slight; Platelet Estimate Normal; Segmented Neutrophils 67 % (50-85); Total Cells Counted 100
[2018-04-19 07:49] LABS: Hypochromasia 1+
[2018-04-19] MEDS: LOSARTAN 25 MG TABLET PO SCH (07:59)
[2018-04-19] MEDS: PANTOPRAZOLE 40 MG TABLET PO SCH (07:59)
[2018-04-19] MEDS: SEVELAMER CARBONATE 800 MG TABLET PO SCH ×3 (07:59→12:48)
[2018-04-19] MEDS: FLUoxetine 20 MG CAPSULE PO SCH (07:59)
[2018-04-19] MEDS: cloNIDine 0.1 MG TABLET PO SCH (07:59)
[2018-04-19] MEDS: GABAPENTIN 300 MG CAPSULE PO SCH (07:59)
[2018-04-19] MEDS: oxyCODONE/ACETAMINOPHEN 5-325 MG TABLET PO PRN ×2 (08:00→12:50)
[2018-04-19] MEDS: INSULIN REGULAR 100 UNIT/ML SUBCUT SCH (09:07)
[2018-04-19 13:03] VITALS: BP 121/64
== END 2018-04-19 13:46 | disposition home or self-care (01) | DRG 380 ==
LOC: N.ED 15:43 → N.EDINP 21:00 → SUATTDRO 21:00 → N.TELES 22:50
PROVIDERS: ADMIT Internal Medicine Cardiovascular Disease; ATTEND Internal Medicine

== ENCOUNTER 2018-05-10 11:42 | Observation (INO) ==
[2018-05-10] MEDS ORDERED: METOPROLOL TARTRATE 5 MG/5 ML VIAL IV STA (12:15)
[2018-05-10] MEDS ORDERED: ENOXAPARIN 100 MG/ML SYRINGE SUBCUT STA (12:15)
[2018-05-10] MEDS ORDERED: MORPHINE 4 MG/1 ML VIAL IV PRN ×2 (12:15→18:25)
[2018-05-10] MEDS ORDERED: ONDANSETRON 4 MG/2 ML VIAL IV PRN ×2 (12:15→18:25)
[2018-05-10] MEDS ORDERED: NITROGLYCERIN 2% OINT 1 INCH/GM PACK TOP STA (12:15)
[2018-05-10] MEDS ORDERED: ASPIRIN 325 MG TABLET PO STA (12:15)
[2018-05-10 13:55] LABS: Basophils # 0.1 10*3/uL (0.0-0.2); Basophils % 0.6 % (0.0-0.8); Eosinophils # 0.3 10*3/uL (0.0-0.87); Eosinophils % 3.1 % (0.00-10.9); Hematocrit 36.5 VOL% (35.7-47.0); Hemoglobin 11.4 GM/DL (12.0-16.0); Immature Granulocytes % 0.3 %; Immature Granulocytes Absolute 0.02 #; Lymphocytes # 1.4 10*3/uL (1.4-4.0); Lymphocytes % 17.3 % (21.3-54.2); Mean Corpuscular HGB Conc 31.2 GM/DL (32-36); Mean Corpuscular Hemoglobin 29 PG (27-34); Mean Corpuscular Volume 92.4 FL (87-102); Monocytes # 1.3 10*3/uL (0.11-0.8); Monocytes % 16.1 % (1.7-12.7); Neutrophils % 62.6 % (38.7-73.9); Platelet Count 148 T/CUMM (130-400); Red Blood Count 3.95 MC/CUMM (3.8-5.5)
[2018-05-10 14:16] LABS: Albumin 3.1 G/DL (3.4-5.0); Bilirubin,Total 1.5 MG/DL (0.2-1.0); Calcium 7.7 MG/DL (8.5-10.1); Osmolality,Calculated 266.8 MOS/KG (273-304); Potassium 3.3 MMOL/L (3.5-5.1); Total Protein 9.9 G/DL (6.4-8.3)
[2018-05-10 14:16] LABS: INR 1.2; Partial Thromboplastin Time 28.2 SECS (0-40)
[2018-05-10 18:01] LABS: Eosinophils 4 % (0-10); Lymphocytes 20 % (20-55); Segmented Neutrophils 62 % (50-85); Total Cells Counted 100
[2018-05-10 18:02] LABS: Anisocytosis Slight; Macrocytosis Slight
[2018-05-10 18:03] LABS: Hypochromasia 1+; Platelet Estimate Adequate
[2018-05-10] MEDS ORDERED: ZALEPLON 5 MG CAPSULE PO PRN (18:25)
[2018-05-10] MEDS ORDERED: diphenhydrAMINE CAP 25 MG CAPSULE PO PRN (18:25)
[2018-05-10] MEDS ORDERED: ACETAMINOPHEN 325 MG TABLET PO PRN (18:25)
[2018-05-10] MEDS ORDERED: POLYETHYLENE GLYCOL POWDER 17 GM PACK PO PRN (18:39)
[2018-05-10] MEDS ORDERED: NON-FORMULARY MEDICATION (Albuterol Inhaler 2 PUFF) INH PRN (18:39)
[2018-05-10] MEDS ORDERED: GLUCAGON 1 MG VIAL IM PRN (18:42)
[2018-05-10] MEDS ORDERED: DEXTROSE 50% 25 GM/50 ML VIAL IV PRN (18:42)
[2018-05-10] MEDS ORDERED: NON-FORMULARY MEDICATION (Oxycodone Hcl/Acetaminophen [Percocet 10-325 Mg Tablet] 1 EACH) PO SCH (18:45)
[2018-05-10] MEDS ORDERED: ALBUTEROL/IPRATROPIUM 3 ML NEB RESP TX PRN (18:47)
[2018-05-10] MEDS: GABAPENTIN 300 MG CAPSULE PO SCH (20:25)
[2018-05-10] MEDS: MORPHINE 4 MG/1 ML VIAL IV PRN (20:25)
[2018-05-10] MEDS: PANTOPRAZOLE 40 MG TABLET PO SCH (20:26)
[2018-05-10] MEDS: LOSARTAN 25 MG TABLET PO SCH (20:26)
[2018-05-10] MEDS: DOCUSATE SODIUM 100 MG CAPSULE PO SCH (20:26)
[2018-05-10] MEDS: cloNIDine 0.1 MG TABLET PO SCH (20:26)
[2018-05-10] MEDS ORDERED: PREGABALIN 75 MG CAPSULE PO SCH (21:00)
[2018-05-10] MEDS ORDERED: ATORVASTATIN 40 MG TABLET PO SCH (21:00)
[2018-05-10] MEDS ORDERED: cefTRIAXone 1,000 MG in SYRINGE 1 EACH IV SCH (21:00)
[2018-05-10] MEDS ORDERED: MONTELUKAST 10 MG TABLET PO SCH (21:00)
[2018-05-10] MEDS: INSULIN REGULAR 100 UNIT/ML SUBCUT SCH (22:39)
[2018-05-10] MEDS: INSULIN GLARGINE 100 UNIT/ML SUBCUT SCH (22:39)
[2018-05-10] MEDS ORDERED: oxyCODONE/ACETAMINOPHEN 5-325 MG TABLET PO ONE (22:48)
[2018-05-11] MEDS ORDERED: ENOXAPARIN 100 MG/ML SYRINGE SUBCUT SCH
[2018-05-11] MEDS: MORPHINE 4 MG/1 ML VIAL IV PRN ×2 (05:16→11:53)
[2018-05-11 05:47] LABS: Basophils % 0.6 % (0.0-0.8); Eosinophils # 0.2 10*3/uL (0.0-0.87); Eosinophils % 2.8 % (0.00-10.9); Hematocrit 34.7 VOL% (35.7-47.0); Hemoglobin 10.3 GM/DL (12.0-16.0); Immature Granulocytes % 0.3 %; Immature Granulocytes Absolute 0.02 #; Lymphocytes # 1.6 10*3/uL (1.4-4.0); Lymphocytes % 22.7 % (21.3-54.2); Mean Corpuscular HGB Conc 29.7 GM/DL (32-36); Mean Corpuscular Hemoglobin 28 PG (27-34); Mean Corpuscular Volume 93.8 FL (87-102); Mean Platelet Volume 12.2 FL (9.6-12.0); Monocytes # 1.2 10*3/uL (0.11-0.8); Monocytes % 17.9 % (1.7-12.7); Neutrophils # 3.8 10*3/uL (1.4-7.4); Neutrophils % 55.7 % (38.7-73.9); Platelet Count 149 T/CUMM (130-400); Red Cell Distribution Width 21.1 % (9.3-17.3); White Blood Count 6.9 T/CUMM (4-12)
[2018-05-11 06:13] LABS: Albumin 2.5 G/DL (3.4-5.0); Bilirubin,Total 1.2 MG/DL (0.2-1.0); Osmolality,Calculated 269.7 MOS/KG (273-304); Potassium 4.3 MMOL/L (3.5-5.1); Total Protein 8.1 G/DL (6.4-8.3)
[2018-05-11 06:26] LABS: Hypochromasia 1+; Lymphocytes 24 % (20-55); Segmented Neutrophils 65 % (50-85); Total Cells Counted 100
[2018-05-11 06:27] LABS: Microcytosis Slight; Platelet Estimate Adequate
[2018-05-11] MEDS: INSULIN REGULAR 100 UNIT/ML SUBCUT SCH ×2 (08:34→11:22)
[2018-05-11] MEDS ORDERED: FLUoxetine 20 MG CAPSULE PO SCH (09:00)
[2018-05-11] MEDS ORDERED: PANTOPRAZOLE 40 MG TABLET PO SCH (09:00)
[2018-05-11] MEDS ORDERED: AZITHROMYCIN 250 MG TABLET PO SCH (09:00)
[2018-05-11] MEDS: INSULIN GLARGINE 100 UNIT/ML SUBCUT SCH (09:45)
[2018-05-11] MEDS: cloNIDine 0.1 MG TABLET PO SCH (09:45)
[2018-05-11] MEDS: SEVELAMER CARBONATE 800 MG TABLET PO SCH ×2 (09:46→11:53)
[2018-05-11] MEDS: GABAPENTIN 300 MG CAPSULE PO SCH (09:47)
[2018-05-11] MEDS: PANTOPRAZOLE 40 MG TABLET PO SCH (09:47)
[2018-05-11] MEDS: DOCUSATE SODIUM 100 MG CAPSULE PO SCH (09:48)
[2018-05-11] MEDS: LOSARTAN 25 MG TABLET PO SCH (09:48)
[2018-05-11 13:53] VITALS: BP 115/64
== END 2018-05-11 15:38 | disposition home or self-care (01) ==
LOC: N.EDINP 11:42 → N.ED 11:42 → SUATTDRO 18:25 → N.5E 19:28
PROVIDERS: ADMIT Internal Medicine Cardiovascular Disease; ATTEND Internal Medicine

== ENCOUNTER 2018-05-16 20:43 | Observation (INO) ==
[2018-05-16] MEDS ORDERED: ALUM/MAG/SIMETH/LIDO VISC 1:1 30 ML BOTTLE PO STA (21:21)
[2018-05-16] MEDS ORDERED: NITROGLYCERIN 2% OINT 1 INCH/GM PACK TOP STA (21:21)
[2018-05-16] MEDS ORDERED: ONDANSETRON 4 MG/2 ML VIAL IV STA (21:21)
[2018-05-16] MEDS ORDERED: MORPHINE 4 MG/1 ML VIAL IV STA (21:21)
[2018-05-16] MEDS ORDERED: ASPIRIN 325 MG TABLET PO STA (21:21)
[2018-05-16 22:56] LABS: Basophils % 0.5 % (0.0-0.8); Eosinophils # 0.1 10*3/uL (0.0-0.87); Eosinophils % 1.1 % (0.00-10.9); Hematocrit 34.9 VOL% (35.7-47.0); Hemoglobin 10.6 GM/DL (12.0-16.0); Immature Granulocytes % 0.3 %; Immature Granulocytes Absolute 0.03 #; Lymphocytes # 1.5 10*3/uL (1.4-4.0); Lymphocytes % 16.6 % (21.3-54.2); Mean Corpuscular HGB Conc 30.4 GM/DL (32-36); Mean Corpuscular Hemoglobin 28 PG (27-34); Mean Corpuscular Volume 93.3 FL (87-102); Mean Platelet Volume 12.6 FL (9.6-12.0); Monocytes # 1.3 10*3/uL (0.11-0.8); Neutrophils # 5.9 10*3/uL (1.4-7.4); Neutrophils % 66.5 % (38.7-73.9); Platelet Count 184 T/CUMM (130-400); Red Blood Count 3.74 MC/CUMM (3.8-5.5); Red Cell Distribution Width 21.1 % (9.3-17.3); White Blood Count 8.8 T/CUMM (4-12)
[2018-05-16 23:06] LABS: INR 1.2; PT Patient Result 13.3 SECS
[2018-05-16 23:15] LABS: Albumin 3.3 G/DL (3.4-5.0); Bilirubin,Total 1.8 MG/DL (0.2-1.0); Calcium 7.1 MG/DL (8.5-10.1); Osmolality,Calculated 289.1 MOS/KG (273-304); Potassium 4.8 MMOL/L (3.5-5.1)
[2018-05-16] MEDS ORDERED: INSULIN REGULAR 100 UNIT/ML ONE (23:24)
[2018-05-16] MEDS ORDERED: INSULIN REGULAR 100 UNIT/ML IV STA (23:27)
[2018-05-17] MEDS ORDERED: ONDANSETRON 4 MG/2 ML VIAL IV PRN (00:23)
[2018-05-17] MEDS ORDERED: ENOXAPARIN 30 MG/0.3 ML SYRINGE SUBCUT SCH (00:30)
[2018-05-17] MEDS ORDERED: DEXTROSE 50% 25 GM/50 ML VIAL IV PRN (01:32)
[2018-05-17] MEDS ORDERED: GLUCAGON 1 MG VIAL IM PRN (01:32)
[2018-05-17] MEDS: MORPHINE 4 MG/1 ML VIAL IV PRN ×4 (01:51→15:40)
[2018-05-17 05:26] LABS: Risk Ratio 2.14
[2018-05-17] MEDS: NITROGLYCERIN 2% OINT 1 INCH/GM PACK TOP SCH ×3 (07:08→18:31)
[2018-05-17] MEDS ORDERED: PANTOPRAZOLE 40 MG TABLET PO SCH (09:00)
[2018-05-17] MEDS ORDERED: ASPIRIN EC 81 MG TABLET PO SCH (10:00)
[2018-05-17] MEDS: INSULIN REGULAR 100 UNIT/ML SUBCUT SCH ×3 (10:06→18:30)
[2018-05-17 13:54] VITALS: BP 146/74
[2018-05-17] MEDS ORDERED: ATORVASTATIN 40 MG TABLET PO SCH (21:00)
== END 2018-05-17 19:01 | disposition home or self-care (01) ==
LOC: EDUNIT# → EDBD → N.ED 20:43 → N.EDINP 20:43 → N.5E 05-17 00:58
PROVIDERS: ADMIT Family Medicine; ATTEND Family Medicine

== ENCOUNTER 2018-06-10 00:53 | Observation (INO) ==
[2018-06-10 02:24] LABS: Basophils # 0.1 10*3/uL (0.0-0.2); Basophils % 0.6 % (0.0-0.8); Eosinophils # 0.1 10*3/uL (0.0-0.87); Eosinophils % 1.1 % (0.00-10.9); Hematocrit 32.9 VOL% (35.7-47.0); Immature Granulocytes % 0.6 %; Immature Granulocytes Absolute 0.06 #; Lymphocytes # 1.5 10*3/uL (1.4-4.0); Lymphocytes % 13.9 % (21.3-54.2); Mean Corpuscular HGB Conc 30.4 GM/DL (32-36); Mean Corpuscular Hemoglobin 29 PG (27-34); Mean Corpuscular Volume 95.6 FL (87-102); Mean Platelet Volume 10.9 FL (9.6-12.0); Monocytes # 1.5 10*3/uL (0.11-0.8); Monocytes % 13.6 % (1.7-12.7); NRBC # 0.03 10*3/uL; Neutrophils # 7.6 10*3/uL (1.4-7.4); Neutrophils % 70.2 % (38.7-73.9); Platelet Count 174 T/CUMM (130-400); Red Blood Count 3.44 MC/CUMM (3.8-5.5); Red Cell Distribution Width 21.7 % (9.3-17.3); White Blood Count 10.8 T/CUMM (4-12)
[2018-06-10] MEDS ORDERED: KETOROLAC 30 MG/1 ML VIAL IV STA (02:51)
[2018-06-10] MEDS ORDERED: KETOROLAC 30 MG/1 ML VIAL ONE (02:52)
[2018-06-10 03:07] LABS: Bilirubin,Total 1.3 MG/DL (0.2-1.0); Osmolality,Calculated 284.4 MOS/KG (273-304); Potassium 5.2 MMOL/L (3.5-5.1); Total Protein 9.2 G/DL (6.4-8.3)
[2018-06-10] MEDS ORDERED: INSULIN REGULAR 100 UNIT/ML ONE (03:12)
[2018-06-10] MEDS ORDERED: INSULIN REGULAR 100 UNIT/ML IV STA (03:15)
[2018-06-10] MEDS ORDERED: MORPHINE 4 MG/1 ML VIAL IV STA (03:24)
[2018-06-10] MEDS ORDERED: ONDANSETRON 4 MG/2 ML VIAL IV ONE (03:25)
[2018-06-10] MEDS ORDERED: ONDANSETRON 4 MG/2 ML VIAL IV PRN (04:15)
[2018-06-10] MEDS ORDERED: GLUCAGON 1 MG VIAL IM PRN (04:15)
[2018-06-10] MEDS ORDERED: diphenhydrAMINE CAP 25 MG CAPSULE PO PRN (04:15)
[2018-06-10] MEDS ORDERED: NICOTINE 21 MG/24 HR PATCH TRANSDERM PRN (04:15)
[2018-06-10] MEDS ORDERED: MORPHINE 4 MG/1 ML VIAL IV PRN (04:15)
[2018-06-10] MEDS ORDERED: BISACODYL 5 MG TABLET PO PRN (04:15)
[2018-06-10] MEDS ORDERED: ACETAMINOPHEN 325 MG TABLET PO PRN (04:15)
[2018-06-10] MEDS ORDERED: traZODone 50 MG TABLET PO PRN (04:15)
[2018-06-10] MEDS ORDERED: DEXTROSE 50% 25 GM/50 ML VIAL IV PRN (04:15)
[2018-06-10] MEDS ORDERED: TOLVAPTAN 15 MG TABLET PO ONE (04:19)
[2018-06-10] MEDS ORDERED: LEVOFLOXACIN INJ 750 MG in PREMIX 1 EACH IV ONE (07:30)
[2018-06-10] MEDS: INSULIN REGULAR 100 UNIT/ML SUBCUT SCH ×4 (08:28→20:23)
[2018-06-10] MEDS: PANTOPRAZOLE 40 MG TABLET PO SCH (08:40)
[2018-06-10] MEDS ORDERED: INSULIN GLARGINE 100 UNIT/ML SUBCUT SCH (21:00)
[2018-06-11] MEDS: INSULIN REGULAR 100 UNIT/ML SUBCUT SCH ×2 (07:38→13:18)
[2018-06-11 08:09] LABS: Calcium 7.2 MG/DL (8.5-10.1); Osmolality,Calculated 279.8 MOS/KG (273-304); Potassium 5.2 MMOL/L (3.5-5.1)
[2018-06-11] MEDS ORDERED: SODIUM POLYSTYRENE SULFATE 15 GM/60 ML BOTTLE PO STA (08:39)
[2018-06-11] MEDS: PANTOPRAZOLE 40 MG TABLET PO SCH (09:25)
[2018-06-11 20:23] VITALS: BP 140/72
[2018-06-12] MEDS ORDERED: LEVOFLOXACIN INJ 500 MG in PREMIX 1 EACH IV SCH (09:00)
== END 2018-06-11 16:10 | disposition home or self-care (01) ==
LOC: N.ED 00:53 → N.EDINP 00:53 → SUATTDRO 04:15 → N.5E 06:16
PROVIDERS: ADMIT Emergency Medicine; ATTEND Internal Medicine

== ENCOUNTER 2018-07-11 17:50 | Inpatient (IN) ==
[2018-07-11] MEDS ORDERED: MORPHINE 4 MG/1 ML VIAL IV STA (21:03)
[2018-07-11] MEDS ORDERED: ALUM/MAG/SIMETH/LIDO VISC 1:1 30 ML BOTTLE PO STA (21:03)
[2018-07-11] MEDS ORDERED: ONDANSETRON 4 MG/2 ML VIAL IV STA (21:03)
[2018-07-11 21:28] LABS: Basophils % 0.3 % (0.0-0.8); Eosinophils # 0.1 10*3/uL (0.0-0.87); Eosinophils % 1.5 % (0.00-10.9); Hematocrit 38.7 VOL% (35.7-47.0); Immature Granulocytes % 0.4 %; Immature Granulocytes Absolute 0.04 #; Lymphocytes # 1.3 10*3/uL (1.4-4.0); Lymphocytes % 14.3 % (21.3-54.2); Mean Corpuscular Hemoglobin 30 PG (27-34); Mean Corpuscular Volume 95.3 FL (87-102); Monocytes # 0.9 10*3/uL (0.11-0.8); Monocytes % 9.6 % (1.7-12.7); Neutrophils # 6.8 10*3/uL (1.4-7.4); Neutrophils % 73.9 % (38.7-73.9); Platelet Count 98 T/CUMM (130-400); Red Blood Count 4.06 MC/CUMM (3.8-5.5); Red Cell Distribution Width 20.3 % (9.3-17.3); White Blood Count 9.2 T/CUMM (4-12)
[2018-07-11 21:49] LABS: Hypochromasia 1+; Lymphocytes 17 % (20-55); Microcytosis Slight; Platelet Estimate Decreased; Segmented Neutrophils 75 % (50-85)
[2018-07-11 21:50] LABS: Macrocytosis 1+; Total Cells Counted 100
[2018-07-11] MEDS ORDERED: INSULIN REGULAR 100 UNIT/ML ONE (22:30)
[2018-07-11 22:39] LABS: Alanine Aminotransferase 26 U/L (13-56); Albumin 3.2 G/DL (3.4-5.0); Alkaline Phosphatase 469 U/L (45-117); Amylase 92 U/L (25-115); Aspartate Amino Transferase 51 U/L (0-37); Blood Urea Nitrogen 41 MG/DL (7-18); Calcium 6.5 MG/DL (8.5-10.1); Glucose 419 MG/DL (74-106); Osmolality,Calculated 285.9 MOS/KG (273-304); Potassium 4.5 MMOL/L (3.5-5.1); Sodium 129 MMOL/L (136-145)
[2018-07-11] MEDS: INSULIN REGULAR 100 UNIT/ML SUBCUT STA ×2 (22:55→23:04)
[2018-07-11] MEDS ORDERED: INSULIN REGULAR 100 UNIT/ML SUBCUT STA (23:01)
[2018-07-12] MEDS ORDERED: HYDROmorphone 2 MG/1 ML VIAL IV STA (00:04)
[2018-07-12] MEDS ORDERED: ONDANSETRON 4 MG/2 ML VIAL IV PRN (00:05)
[2018-07-12] MEDS ORDERED: DEXTROSE 50% 25 GM/50 ML VIAL IV PRN ×2 (00:05)
[2018-07-12] MEDS ORDERED: GLUCAGON 1 MG VIAL IM PRN ×2 (00:05)
[2018-07-12] MEDS: oxyCODONE/ACETAMINOPHEN 5-325 MG TABLET PO SCH ×5 (00:20→19:44)
[2018-07-12] MEDS ORDERED: ENOXAPARIN 30 MG/0.3 ML SYRINGE SUBCUT SCH (00:30)
[2018-07-12] MEDS: INSULIN REGULAR 100 UNIT/ML SUBCUT SCH ×5 (00:35→20:21)
[2018-07-12] MEDS: PANTOPRAZOLE 40 MG TABLET PO SCH ×4 (00:42→20:21)
[2018-07-12 07:25] LABS: Basophils # 0.1 10*3/uL (0.0-0.2); Basophils % 0.4 % (0.0-0.8); Eosinophils # 0.2 10*3/uL (0.0-0.87); Eosinophils % 1.9 % (0.00-10.9); Hematocrit 38.4 VOL% (35.7-47.0); Hemoglobin 11.9 GM/DL (12.0-16.0); Immature Granulocytes % 0.3 %; Immature Granulocytes Absolute 0.04 #; Lymphocytes # 2.6 10*3/uL (1.4-4.0); Lymphocytes % 22.7 % (21.3-54.2); Mean Corpuscular Hemoglobin 30 PG (27-34); Monocytes # 1.5 10*3/uL (0.11-0.8); NRBC # 0.03 10*3/uL; Neutrophils # 7.1 10*3/uL (1.4-7.4); Neutrophils % 61.7 % (38.7-73.9); Red Cell Distribution Width 20.7 % (9.3-17.3); White Blood Count 11.5 T/CUMM (4-12)
[2018-07-12 07:29] LABS: Platelet Count 77 T/CUMM (130-400)
[2018-07-12 07:45] LABS: Albumin 2.8 G/DL (3.4-5.0); Bilirubin,Total 1.5 MG/DL (0.2-1.0); Calcium 6.4 MG/DL (8.5-10.1); Osmolality,Calculated 272.5 MOS/KG (273-304); Potassium 4.3 MMOL/L (3.5-5.1); Total Protein 9.3 G/DL (6.4-8.3)
[2018-07-12] MEDS ORDERED: ALBUTEROL 2.5 MG/3 ML NEB RESP TX PRN (07:48)
[2018-07-12] MEDS ORDERED: POLYETHYLENE GLYCOL POWDER 17 GM PACK PO PRN (07:48)
[2018-07-12 07:59] LABS: Hypochromasia 1+; Platelet Estimate Decreased
[2018-07-12] MEDS: SEVELAMER CARBONATE 800 MG TABLET PO SCH ×3 (08:26→17:19)
[2018-07-12] MEDS: NYSTATIN 500,000 UNIT/5 ML UDCUP SWISH/SWAL SCH ×4 (08:27→20:21)
[2018-07-12] MEDS ORDERED: GABAPENTIN 300 MG CAPSULE PO SCH (09:00)
[2018-07-12] MEDS ORDERED: INSULIN GLARGINE 100 UNIT/ML SUBCUT SCH (09:00)
[2018-07-12] MEDS: cloNIDine 0.1 MG TABLET PO SCH ×2 (09:34→20:20)
[2018-07-12] MEDS: FLUoxetine 20 MG CAPSULE PO SCH (10:18)
[2018-07-12] MEDS ORDERED: DEXTROSE 10% 1,000 ML IV SCH (13:30)
[2018-07-12] MEDS ORDERED: ACETAMINOPHEN 325 MG TABLET PO PRN (16:02)
[2018-07-12] MEDS ORDERED: PREGABALIN 75 MG CAPSULE PO SCH (21:00)
[2018-07-12] MEDS ORDERED: MONTELUKAST 10 MG TABLET PO SCH (21:00)
[2018-07-12] MEDS ORDERED: ATORVASTATIN 40 MG TABLET PO SCH (21:00)
[2018-07-13] MEDS: oxyCODONE/ACETAMINOPHEN 5-325 MG TABLET PO SCH ×2 (00:30→06:17)
[2018-07-13 04:17] LABS: Basophils % 0.3 % (0.0-0.8); Eosinophils # 0.1 10*3/uL (0.0-0.87); Eosinophils % 1.6 % (0.00-10.9); Hematocrit 36.7 VOL% (35.7-47.0); Hemoglobin 11.5 GM/DL (12.0-16.0); Immature Granulocytes % 0.3 %; Immature Granulocytes Absolute 0.02 #; Lymphocytes # 1.1 10*3/uL (1.4-4.0); Lymphocytes % 13.7 % (21.3-54.2); Mean Corpuscular HGB Conc 31.3 GM/DL (32-36); Mean Corpuscular Hemoglobin 30 PG (27-34); Mean Corpuscular Volume 95.8 FL (87-102); Monocytes # 0.9 10*3/uL (0.11-0.8); Monocytes % 11.9 % (1.7-12.7); NRBC # 0.03 10*3/uL; Neutrophils # 5.7 10*3/uL (1.4-7.4); Neutrophils % 72.2 % (38.7-73.9); Red Blood Count 3.83 MC/CUMM (3.8-5.5); Red Cell Distribution Width 20.1 % (9.3-17.3); White Blood Count 7.9 T/CUMM (4-12)
[2018-07-13 04:25] LABS: Platelet Count 56 T/CUMM (130-400)
[2018-07-13 04:35] LABS: Calcium 6.3 MG/DL (8.5-10.1); Osmolality,Calculated 279.4 MOS/KG (273-304); Potassium 4.8 MMOL/L (3.5-5.1)
[2018-07-13 04:50] LABS: Hypochromasia 1+
[2018-07-13 04:51] LABS: Ovalocytes Slight; Platelet Estimate Decreased
[2018-07-13 07:25] VITALS: BP 128/79
[2018-07-13] MEDS: INSULIN REGULAR 100 UNIT/ML SUBCUT SCH ×2 (08:34→12:16)
[2018-07-13] MEDS: SEVELAMER CARBONATE 800 MG TABLET PO SCH (08:35)
[2018-07-13] MEDS: PANTOPRAZOLE 40 MG TABLET PO SCH (08:36)
[2018-07-13] MEDS: NYSTATIN 500,000 UNIT/5 ML UDCUP SWISH/SWAL SCH (08:36)
[2018-07-13] MEDS: cloNIDine 0.1 MG TABLET PO SCH (08:36)
[2018-07-13] MEDS: FLUoxetine 20 MG CAPSULE PO SCH (08:50)
== END 2018-07-13 11:50 | disposition home or self-care (01) | DRG 291 ==
LOC: N.ED 17:50 → N.EDINP 07-12 00:05 → N.3E 07-12 00:50
PROVIDERS: ADMIT Internal Medicine; ATTEND Internal Medicine

== ENCOUNTER 2018-11-05 14:06 | Inpatient (IN) ==
[2018-11-05 14:56] LABS: Basophils % 0.5 % (0.0-0.8); Eosinophils # 0.3 10*3/uL (0.0-0.87); Eosinophils % 3.8 % (0.00-10.9); Hematocrit 33.4 VOL% (35.7-47.0); Immature Granulocytes % 0.6 %; Immature Granulocytes Absolute 0.05 #; Lymphocytes # 1.4 10*3/uL (1.4-4.0); Lymphocytes % 16.4 % (21.3-54.2); Mean Corpuscular HGB Conc 29.9 GM/DL (32-36); Mean Corpuscular Volume 94.6 FL (87-102); Mean Platelet Volume 12.3 FL (9.6-12.0); Monocytes % 16.3 % (1.7-12.7); Neutrophils % 62.4 % (38.7-73.9); Platelet Count 149 T/CUMM (130-400); Red Blood Count 3.53 MC/CUMM (3.8-5.5); Red Cell Distribution Width 18.7 % (9.3-17.3); White Blood Count 8.7 T/CUMM (4-12)
[2018-11-05 15:04] LABS: INR 1.2; PT Patient Result 13.3 SECS
[2018-11-05 15:18] LABS: Albumin 2.8 G/DL (3.4-5.0); Bilirubin,Total 1.6 MG/DL (0.2-1.0); Calcium 9.1 MG/DL (8.5-10.1); Osmolality,Calculated 279.7 MOS/KG (273-304); Total Protein 9.9 G/DL (6.4-8.3)
[2018-11-05 15:54] LABS: Eosinophils 4 % (0-10); Lymphocytes 12 % (20-55); Platelet Estimate Normal; Segmented Neutrophils 70 % (50-85)
[2018-11-05 15:55] LABS: Total Cells Counted 100
[2018-11-05] MEDS ORDERED: ACETAMINOPHEN 325 MG TABLET PO PRN (16:11)
[2018-11-05] MEDS ORDERED: ONDANSETRON ODT 4 MG TABLET PO PRN (16:19)
[2018-11-05] MEDS ORDERED: NITROGLYCERIN SL 0.4 MG TABLET SL PRN (16:19)
[2018-11-05] MEDS ORDERED: GLUCAGON 1 MG VIAL IM PRN (16:32)
[2018-11-05] MEDS ORDERED: DEXTROSE 10% 25 GM/250 ML BAG IV PRN (16:32)
[2018-11-05] MEDS: SEVELAMER CARBONATE 800 MG TABLET PO SCH (17:48)
[2018-11-05] MEDS ORDERED: ALBUTEROL 2.5 MG/3 ML NEB RESP TX PRN (19:00)
[2018-11-05] MEDS: GABAPENTIN 300 MG CAPSULE PO SCH (20:25)
[2018-11-05] MEDS: PREGABALIN 75 MG CAPSULE PO SCH (20:25)
[2018-11-05] MEDS: cloNIDine 0.1 MG TABLET PO SCH (20:25)
[2018-11-05] MEDS: INSULIN GLARGINE 100 UNIT/ML SUBCUT SCH (20:26)
[2018-11-05] MEDS: INSULIN LISPRO 100 UNIT/ML SUBCUT SCH (20:26)
[2018-11-05] MEDS: MONTELUKAST 10 MG TABLET PO SCH (20:26)
[2018-11-05] MEDS: oxyCODONE/ACETAMINOPHEN 5-325 MG TABLET PO PRN (20:49)
[2018-11-05] MEDS ORDERED: INSULIN GLARGINE 100 UNIT/ML SUBCUT SCH ×2 (21:00)
[2018-11-06] MEDS: oxyCODONE/ACETAMINOPHEN 5-325 MG TABLET PO PRN ×2 (01:49→08:40)
[2018-11-06 04:47] LABS: Basophils % 0.3 % (0.0-0.8); Eosinophils # 0.4 10*3/uL (0.0-0.87); Eosinophils % 4.4 % (0.00-10.9); Hematocrit 28.5 VOL% (35.7-47.0); Hemoglobin 8.6 GM/DL (12.0-16.0); Immature Granulocytes % 0.5 %; Immature Granulocytes Absolute 0.04 #; Lymphocytes # 1.4 10*3/uL (1.4-4.0); Lymphocytes % 16.3 % (21.3-54.2); Mean Corpuscular HGB Conc 30.2 GM/DL (32-36); Mean Corpuscular Volume 94.7 FL (87-102); Mean Platelet Volume 13.1 FL (9.6-12.0); Monocytes % 18.9 % (1.7-12.7); Neutrophils % 59.6 % (38.7-73.9); Platelet Count 139 T/CUMM (130-400); Red Blood Count 3.01 MC/CUMM (3.8-5.5); Red Cell Distribution Width 18.8 % (9.3-17.3); White Blood Count 8.7 T/CUMM (4-12)
[2018-11-06 05:05] LABS: Albumin 2.5 G/DL (3.4-5.0); Bilirubin,Total 2.1 MG/DL (0.2-1.0); Calcium 8.9 MG/DL (8.5-10.1); Osmolality,Calculated 277.8 MOS/KG (273-304); Total Protein 8.5 G/DL (6.4-8.3)
[2018-11-06 05:11] LABS: Eosinophils 6 % (0-10); Lymphocytes 15 % (20-55); Segmented Neutrophils 73 % (50-85); Total Cells Counted 100
[2018-11-06 05:12] LABS: Anisocytosis 1+; Platelet Estimate Adequate
[2018-11-06] MEDS: PANTOPRAZOLE 40 MG TABLET PO SCH (08:39)
[2018-11-06] MEDS: GABAPENTIN 300 MG CAPSULE PO SCH (08:39)
[2018-11-06] MEDS: cloNIDine 0.1 MG TABLET PO SCH ×2 (08:39→21:19)
[2018-11-06] MEDS: FLUoxetine 20 MG CAPSULE PO SCH (08:39)
[2018-11-06] MEDS: SEVELAMER CARBONATE 800 MG TABLET PO SCH ×3 (08:39→16:55)
[2018-11-06] MEDS: ATORVASTATIN 40 MG TABLET PO SCH (08:40)
[2018-11-06] MEDS: INSULIN LISPRO 100 UNIT/ML SUBCUT SCH ×4 (08:51→21:20)
[2018-11-06] MEDS ORDERED: EPOETIN ALFA 10,000 UNIT/1 ML VIAL IV PRN (09:54)
[2018-11-06] MEDS: HYDROmorphone 2 MG/1 ML VIAL IV PRN ×3 (12:24→21:21)
[2018-11-06] MEDS ORDERED: GABAPENTIN 300 MG CAPSULE PO SCH (21:00)
[2018-11-06] MEDS: MONTELUKAST 10 MG TABLET PO SCH (21:19)
[2018-11-06] MEDS: PREGABALIN 75 MG CAPSULE PO SCH (21:19)
[2018-11-06] MEDS: INSULIN GLARGINE 100 UNIT/ML SUBCUT SCH (21:21)
[2018-11-07] MEDS: HYDROmorphone 2 MG/1 ML VIAL IV PRN ×3 (01:25→14:46)
[2018-11-07] MEDS: ONDANSETRON 4 MG/2 ML VIAL IV PRN ×2 (01:25→07:16)
[2018-11-07 04:49] LABS: Basophils % 0.4 % (0.0-0.8); Eosinophils # 0.4 10*3/uL (0.0-0.87); Eosinophils % 3.3 % (0.00-10.9); Hematocrit 28.8 VOL% (35.7-47.0); Hemoglobin 8.4 GM/DL (12.0-16.0); Immature Granulocytes % 0.7 %; Immature Granulocytes Absolute 0.07 #; Lymphocytes # 1.7 10*3/uL (1.4-4.0); Lymphocytes % 15.4 % (21.3-54.2); Mean Corpuscular HGB Conc 29.2 GM/DL (32-36); Mean Corpuscular Volume 97.6 FL (87-102); Mean Platelet Volume 12.2 FL (9.6-12.0); Monocytes % 19.8 % (1.7-12.7); Neutrophils % 60.4 % (38.7-73.9); Platelet Count 151 T/CUMM (130-400); Red Blood Count 2.95 MC/CUMM (3.8-5.5); White Blood Count 10.7 T/CUMM (4-12)
[2018-11-07 05:18] LABS: Eosinophils 4 % (0-10); Hypochromasia 1+; Lymphocytes 16 % (20-55); Nucleated Red Blood Cells 1 (0-5); Platelet Estimate Adequate; Segmented Neutrophils 61 % (50-85); Total Cells Counted 100
[2018-11-07 05:19] LABS: Calcium 8.3 MG/DL (8.5-10.1); Osmolality,Calculated 283.7 MOS/KG (273-304)
[2018-11-07] MEDS: INSULIN LISPRO 100 UNIT/ML SUBCUT SCH ×3 (07:43→16:36)
[2018-11-07] MEDS: PANTOPRAZOLE 40 MG TABLET PO SCH (08:49)
[2018-11-07] MEDS: SEVELAMER CARBONATE 800 MG TABLET PO SCH ×3 (08:49→17:19)
[2018-11-07] MEDS: ATORVASTATIN 40 MG TABLET PO SCH (08:49)
[2018-11-07] MEDS: FLUoxetine 20 MG CAPSULE PO SCH (08:49)
[2018-11-07] MEDS: cloNIDine 0.1 MG TABLET PO SCH (08:49)
[2018-11-07] MEDS: oxyCODONE/ACETAMINOPHEN 5-325 MG TABLET PO PRN (10:54)
[2018-11-07] MEDS ORDERED: ALUMINUM/MAGNES/SIMETH MAX STR 30 ML UDCUP PO PRN (13:09)
[2018-11-07 15:36] VITALS: BP 107/55
[2018-11-07] MEDS ORDERED: COLLAGENASE OINT 30 GM TUBE TOP SCH (16:00)
== END 2018-11-07 17:19 | disposition home or self-care (01) | DRG 314 ==
LOC: EDUNIT# → N.ED 14:06 → SUATTDRO 16:09 → N.EDINP 16:09 → N.5E 17:02
PROVIDERS: ADMIT Internal Medicine; ATTEND Internal Medicine

== ENCOUNTER 2018-11-19 12:17 | Inpatient (IN) ==
[2018-11-19] MEDS ORDERED: PIPERACILLIN/TAZOBACTAM 3,375 MG in SODIUM CHLORIDE 0.9% 100 ML IV STA ×2 (12:57→13:28)
[2018-11-19 13:16] LABS: Basophils # 0.1 10*3/uL (0.0-0.2); Basophils % 0.3 % (0.0-0.8); Eosinophils # 0.2 10*3/uL (0.0-0.87); Eosinophils % 0.8 % (0.00-10.9); Hematocrit 31.1 VOL% (35.7-47.0); Hemoglobin 9.6 GM/DL (12.0-16.0); Immature Granulocytes % 1.3 %; Immature Granulocytes Absolute 0.25 #; Lymphocytes # 1.4 10*3/uL (1.4-4.0); Lymphocytes % 7.2 % (21.3-54.2); Mean Corpuscular HGB Conc 30.9 GM/DL (32-36); Mean Corpuscular Volume 91.2 FL (87-102); Mean Platelet Volume 11.1 FL (9.6-12.0); Monocytes % 12.8 % (1.7-12.7); Neutrophils % 77.6 % (38.7-73.9); Platelet Count 244 T/CUMM (130-400); Red Blood Count 3.41 MC/CUMM (3.8-5.5); Red Cell Distribution Width 18.3 % (9.3-17.3); White Blood Count 19.2 T/CUMM (4-12)
[2018-11-19] MEDS ORDERED: SODIUM CHLORIDE 0.9% 100 ML IV ONE ×2 (13:30→16:58)
[2018-11-19] MEDS ORDERED: PIPERACILLIN/TAZOBACTAM 3,375 MG VIAL IV ONE (13:30)
[2018-11-19 13:40] LABS: Albumin 2.6 G/DL (3.4-5.0); Bilirubin,Total 2.7 MG/DL (0.2-1.0); Calcium 8.8 MG/DL (8.5-10.1); Osmolality,Calculated 278.2 MOS/KG (273-304); Total Protein 10.4 G/DL (6.4-8.3)
[2018-11-19] MEDS ORDERED: ACETAMINOPHEN 325 MG TABLET PO PRN (14:11)
[2018-11-19] MEDS ORDERED: GLUCAGON 1 MG VIAL IM PRN (14:11)
[2018-11-19] MEDS ORDERED: DEXTROSE 10% 250 ML BAG IV PRN (14:11)
[2018-11-19] MEDS ORDERED: LIDOCAINE 1% 20 ML VIAL ONE (15:48)
[2018-11-19] MEDS ORDERED: ceFAZolin 1,000 MG in SYRINGE 1 EACH IV ONE (15:57)
[2018-11-19] MEDS ORDERED: BUPIVACAINE 0.5% 50 ML VIAL ONE (16:24)
[2018-11-19] MEDS ORDERED: ceFAZolin 1,000 MG VIAL ONE (16:27)
[2018-11-19] MEDS ORDERED: NITROGLYCERIN SL 0.4 MG TABLET SL PRN (16:33)
[2018-11-19] MEDS ORDERED: VANCOMYCIN INJ 1,000 MG in SODIUM CHLORIDE 0.9% 250 ML IV ONE (16:37)
[2018-11-19] MEDS ORDERED: HYDROmorphone 2 MG/1 ML VIAL IV PRN (16:42)
[2018-11-19] MEDS ORDERED: ONDANSETRON 4 MG/2 ML VIAL IV PRN (16:42)
[2018-11-19] MEDS ORDERED: PROPOFOL 200 MG/20 ML VIAL IV ONE (16:58)
[2018-11-19] MEDS ORDERED: fentaNYL 100 MCG/2 ML VIAL ONE (16:58)
[2018-11-19] MEDS ORDERED: SODIUM CHLORIDE 0.9% 250 ML IV ONE (16:58)
[2018-11-19] MEDS ORDERED: ONDANSETRON 4 MG/2 ML VIAL ONE ×2 (16:58→17:10)
[2018-11-19] MEDS ORDERED: HYDROmorphone 2 MG/1 ML VIAL ONE (17:10)
[2018-11-19] MEDS: INSULIN REGULAR 100 UNIT/ML SUBCUT SCH ×2 (18:00→20:59)
[2018-11-19] MEDS: SEVELAMER CARBONATE 800 MG TABLET PO SCH (18:04)
[2018-11-19] MEDS: ALBUTEROL 2.5 MG/3 ML NEB RESP TX SCH ×2 (19:07→23:18)
[2018-11-19] MEDS: oxyCODONE/ACETAMINOPHEN 5-325 MG TABLET PO SCH ×2 (20:57→21:04)
[2018-11-19] MEDS: INSULIN GLARGINE 100 UNIT/ML SUBCUT SCH (20:58)
[2018-11-19] MEDS: PREGABALIN 75 MG CAPSULE PO SCH (20:58)
[2018-11-19] MEDS: MONTELUKAST 10 MG TABLET PO SCH (20:58)
[2018-11-19] MEDS: GABAPENTIN 300 MG CAPSULE PO SCH (20:58)
[2018-11-20] MEDS: oxyCODONE/ACETAMINOPHEN 5-325 MG TABLET PO SCH ×6 (00:37→20:49)
[2018-11-20] MEDS: ALBUTEROL 2.5 MG/3 ML NEB RESP TX SCH ×6 (02:51→23:50)
[2018-11-20 05:24] LABS: Basophils % 0.2 % (0.0-0.8); Eosinophils # 0.2 10*3/uL (0.0-0.87); Eosinophils % 1.5 % (0.00-10.9); Hematocrit 28.8 VOL% (35.7-47.0); Hemoglobin 8.8 GM/DL (12.0-16.0); Immature Granulocytes % 1.1 %; Immature Granulocytes Absolute 0.14 #; Lymphocytes % 7.9 % (21.3-54.2); Mean Corpuscular HGB Conc 30.6 GM/DL (32-36); Mean Corpuscular Volume 92.6 FL (87-102); Mean Platelet Volume 11.6 FL (9.6-12.0); NRBC # 0.02 10*3/uL; Neutrophils % 75.3 % (38.7-73.9); Platelet Count 221 T/CUMM (130-400); Red Blood Count 3.11 MC/CUMM (3.8-5.5); Red Cell Distribution Width 18.6 % (9.3-17.3)
[2018-11-20 05:54] LABS: Calcium 8.4 MG/DL (8.5-10.1); Osmolality,Calculated 290.7 MOS/KG (273-304)
[2018-11-20] MEDS: INSULIN REGULAR 100 UNIT/ML SUBCUT SCH ×4 (08:50→20:50)
[2018-11-20] MEDS: SEVELAMER CARBONATE 800 MG TABLET PO SCH ×3 (08:51→17:08)
[2018-11-20] MEDS: ATORVASTATIN 40 MG TABLET PO SCH (08:51)
[2018-11-20] MEDS: PANTOPRAZOLE 40 MG TABLET PO SCH ×2 (08:51→10:37)
[2018-11-20] MEDS: PREGABALIN 75 MG CAPSULE PO SCH ×2 (08:52→20:48)
[2018-11-20] MEDS: FLUoxetine 20 MG CAPSULE PO SCH (08:52)
[2018-11-20] MEDS ORDERED: CEFEPIME 1,000 MG in SODIUM CHLORIDE 0.9% 100 ML IV ONE (09:00)
[2018-11-20] MEDS: MORPHINE 4 MG/1 ML VIAL IV PRN ×2 (09:02→15:55)
[2018-11-20] MEDS: cloNIDine 0.1 MG TABLET PO SCH (09:11)
[2018-11-20] MEDS: GABAPENTIN 300 MG CAPSULE PO SCH ×3 (10:38→20:49)
[2018-11-20] MEDS: MONTELUKAST 10 MG TABLET PO SCH (20:48)
[2018-11-20] MEDS: INSULIN GLARGINE 100 UNIT/ML SUBCUT SCH (20:50)
[2018-11-21] MEDS: oxyCODONE/ACETAMINOPHEN 5-325 MG TABLET PO SCH ×2 (01:01→05:21)
[2018-11-21] MEDS: MORPHINE 4 MG/1 ML VIAL IV PRN ×3 (01:02→22:16)
[2018-11-21] MEDS: ALBUTEROL 2.5 MG/3 ML NEB RESP TX SCH ×6 (03:55→23:57)
[2018-11-21 05:45] LABS: Basophils # 0.1 10*3/uL (0.0-0.2); Basophils % 0.4 % (0.0-0.8); Eosinophils # 0.4 10*3/uL (0.0-0.87); Eosinophils % 2.6 % (0.00-10.9); Hematocrit 29.1 VOL% (35.7-47.0); Hemoglobin 8.7 GM/DL (12.0-16.0); Immature Granulocytes % 2.7 %; Immature Granulocytes Absolute 0.37 #; Lymphocytes # 1.6 10*3/uL (1.4-4.0); Mean Corpuscular HGB Conc 29.9 GM/DL (32-36); Mean Corpuscular Volume 92.7 FL (87-102); Mean Platelet Volume 11.2 FL (9.6-12.0); Neutrophils % 68.3 % (38.7-73.9); Platelet Count 239 T/CUMM (130-400); Red Blood Count 3.14 MC/CUMM (3.8-5.5); Red Cell Distribution Width 18.6 % (9.3-17.3); White Blood Count 13.5 T/CUMM (4-12)
[2018-11-21 06:10] LABS: Calcium 8.3 MG/DL (8.5-10.1)
[2018-11-21] MEDS: PREGABALIN 75 MG CAPSULE PO SCH ×2 (09:09→22:08)
[2018-11-21] MEDS: ATORVASTATIN 40 MG TABLET PO SCH (09:09)
[2018-11-21] MEDS: cloNIDine 0.1 MG TABLET PO SCH (09:10)
[2018-11-21] MEDS: FLUoxetine 20 MG CAPSULE PO SCH (09:10)
[2018-11-21] MEDS: DOCUSATE SODIUM 100 MG CAPSULE PO PRN (09:10)
[2018-11-21] MEDS: oxyCODONE IR 5 MG TABLET PO PRN (09:10)
[2018-11-21] MEDS: PANTOPRAZOLE 40 MG TABLET PO SCH ×2 (09:10→12:16)
[2018-11-21] MEDS: GABAPENTIN 300 MG CAPSULE PO SCH ×3 (09:11→22:08)
[2018-11-21] MEDS: INSULIN REGULAR 100 UNIT/ML SUBCUT SCH ×4 (09:13→20:31)
[2018-11-21] MEDS: SEVELAMER CARBONATE 800 MG TABLET PO SCH ×3 (09:14→17:07)
[2018-11-21] MEDS ORDERED: EPOETIN ALFA 10,000 UNIT/1 ML VIAL IV PRN (15:20)
[2018-11-21] MEDS: INSULIN GLARGINE 100 UNIT/ML SUBCUT SCH (20:31)
[2018-11-21] MEDS: MONTELUKAST 10 MG TABLET PO SCH (22:08)
[2018-11-22] MEDS: oxyCODONE IR 5 MG TABLET PO PRN ×4 (01:57→22:29)
[2018-11-22] MEDS: ONDANSETRON 4 MG/2 ML VIAL IV PRN ×3 (02:01→18:39)
[2018-11-22] MEDS: ALBUTEROL 2.5 MG/3 ML NEB RESP TX SCH ×6 (03:42→22:38)
[2018-11-22] MEDS: PREGABALIN 75 MG CAPSULE PO SCH ×2 (08:31→22:28)
[2018-11-22] MEDS: GABAPENTIN 300 MG CAPSULE PO SCH ×3 (08:31→22:28)
[2018-11-22] MEDS: SEVELAMER CARBONATE 800 MG TABLET PO SCH ×3 (08:32→17:24)
[2018-11-22] MEDS: PANTOPRAZOLE 40 MG TABLET PO SCH ×2 (08:32→09:10)
[2018-11-22] MEDS: ATORVASTATIN 40 MG TABLET PO SCH (14:27)
[2018-11-22] MEDS: DOCUSATE SODIUM 100 MG CAPSULE PO PRN (14:27)
[2018-11-22] MEDS: FLUoxetine 20 MG CAPSULE PO SCH (14:27)
[2018-11-22] MEDS: cloNIDine 0.1 MG TABLET PO SCH (14:27)
[2018-11-22] MEDS: INSULIN REGULAR 100 UNIT/ML SUBCUT SCH ×3 (18:45→22:08)
[2018-11-22] MEDS: INSULIN GLARGINE 100 UNIT/ML SUBCUT SCH (22:09)
[2018-11-22] MEDS: MONTELUKAST 10 MG TABLET PO SCH (22:28)
[2018-11-22] MEDS: traZODone 50 MG TABLET PO PRN (22:28)
[2018-11-23] MEDS: ALBUTEROL 2.5 MG/3 ML NEB RESP TX SCH ×6 (02:38→23:38)
[2018-11-23] MEDS ORDERED: VANCOMYCIN INJ 1,000 MG in SODIUM CHLORIDE 0.9% 250 ML IV SCH (08:00)
[2018-11-23] MEDS: FLUoxetine 20 MG CAPSULE PO SCH (08:15)
[2018-11-23] MEDS: INSULIN REGULAR 100 UNIT/ML SUBCUT SCH ×4 (08:15→21:10)
[2018-11-23] MEDS ORDERED: VANCOMYCIN INJ 750 MG in SODIUM CHLORIDE 0.9% 250 ML IV PRN (08:15)
[2018-11-23] MEDS: PANTOPRAZOLE 40 MG TABLET PO SCH (08:17)
[2018-11-23] MEDS: ATORVASTATIN 40 MG TABLET PO SCH (08:17)
[2018-11-23] MEDS: cloNIDine 0.1 MG TABLET PO SCH (08:17)
[2018-11-23] MEDS: GABAPENTIN 300 MG CAPSULE PO SCH ×3 (08:17→21:10)
[2018-11-23] MEDS: SEVELAMER CARBONATE 800 MG TABLET PO SCH ×3 (08:17→16:49)
[2018-11-23] MEDS: PREGABALIN 75 MG CAPSULE PO SCH ×2 (08:17→21:11)
[2018-11-23] MEDS: oxyCODONE IR 5 MG TABLET PO PRN ×3 (08:19→21:09)
[2018-11-23] MEDS ORDERED: VANCOMYCIN INJ 1,750 MG in SODIUM CHLORIDE 0.9% 500 ML IV ONE (09:00)
[2018-11-23] MEDS: INSULIN GLARGINE 100 UNIT/ML SUBCUT SCH (21:10)
[2018-11-23] MEDS: traZODone 50 MG TABLET PO PRN (21:10)
[2018-11-23] MEDS: MONTELUKAST 10 MG TABLET PO SCH (21:11)
[2018-11-24] MEDS: ALBUTEROL 2.5 MG/3 ML NEB RESP TX SCH ×6 (03:08→23:36)
[2018-11-24] MEDS: ONDANSETRON 4 MG/2 ML VIAL IV PRN ×2 (03:10→22:22)
[2018-11-24] MEDS: oxyCODONE IR 5 MG TABLET PO PRN ×4 (03:10→22:10)
[2018-11-24] MEDS: INSULIN REGULAR 100 UNIT/ML SUBCUT SCH ×4 (08:05→22:12)
[2018-11-24] MEDS: SEVELAMER CARBONATE 800 MG TABLET PO SCH ×3 (08:41→17:37)
[2018-11-24] MEDS: FLUoxetine 20 MG CAPSULE PO SCH (08:41)
[2018-11-24] MEDS: PREGABALIN 75 MG CAPSULE PO SCH ×2 (08:42→22:11)
[2018-11-24] MEDS: PANTOPRAZOLE 40 MG TABLET PO SCH (08:42)
[2018-11-24] MEDS: GABAPENTIN 300 MG CAPSULE PO SCH ×3 (08:42→22:12)
[2018-11-24] MEDS: ATORVASTATIN 40 MG TABLET PO SCH (08:42)
[2018-11-24] MEDS: cloNIDine 0.1 MG TABLET PO SCH (08:44)
[2018-11-24] MEDS ORDERED: VANCOMYCIN INJ 750 MG in SODIUM CHLORIDE 0.9% 250 ML IV ONE ×2 (12:00→17:00)
[2018-11-24] MEDS: traZODone 50 MG TABLET PO PRN (22:12)
[2018-11-24] MEDS: INSULIN GLARGINE 100 UNIT/ML SUBCUT SCH (22:13)
[2018-11-24] MEDS: MONTELUKAST 10 MG TABLET PO SCH (22:57)
[2018-11-25] MEDS: ALBUTEROL 2.5 MG/3 ML NEB RESP TX SCH ×3 (03:22→11:31)
[2018-11-25] MEDS: ONDANSETRON 4 MG/2 ML VIAL IV PRN (04:38)
[2018-11-25] MEDS: oxyCODONE IR 5 MG TABLET PO PRN ×2 (04:39→12:52)
[2018-11-25] MEDS: INSULIN REGULAR 100 UNIT/ML SUBCUT SCH ×2 (08:09→11:30)
[2018-11-25] MEDS: GABAPENTIN 300 MG CAPSULE PO SCH (09:23)
[2018-11-25] MEDS: SEVELAMER CARBONATE 800 MG TABLET PO SCH ×2 (09:23→12:56)
[2018-11-25] MEDS: ATORVASTATIN 40 MG TABLET PO SCH (09:24)
[2018-11-25] MEDS: FLUoxetine 20 MG CAPSULE PO SCH (09:24)
[2018-11-25] MEDS: PANTOPRAZOLE 40 MG TABLET PO SCH (09:24)
[2018-11-25] MEDS: PREGABALIN 75 MG CAPSULE PO SCH (09:24)
[2018-11-25] MEDS: cloNIDine 0.1 MG TABLET PO SCH (09:24)
[2018-11-25 15:43] VITALS: BP 118/63
== END 2018-11-25 15:44 | DRG 255 ==
LOC: N.ED 12:17 → SUATTDRO 14:11 → N.EDINP 14:11 → N.5E 14:53
PROVIDERS: ADMIT Internal Medicine; ATTEND Internal Medicine Geriatric Medicine